=== PATIENT | female | born 1935 | race Caucasian/White ===

== ENCOUNTER 2017-07-08 19:20 | Emergency (ER) | payer OTHER ==
[2017-07-08] MEDS ORDERED: ACETAMINOPHEN 650MG/RECT SUPP PR ONE ×2 (19:42→19:50)
[2017-07-08] MEDS ORDERED: NA CHLORIDE 0.9% 1,000 ML ONE (19:42)
[2017-07-08] MEDS ORDERED: NA CHLORIDE 0.9% 100 ML IV ONE (19:53)
[2017-07-08] MEDS ORDERED: Levofloxacin500mg IV 500 MG/100 ML BAG IV ONE (19:53)
[2017-07-08] MEDS ORDERED: CEFEPIME 2 GM VIAL ONE (19:53)
[2017-07-08] MEDS ORDERED: NA CHLORIDE 0.9% 2,000 ML ONE (20:07)
[2017-07-08 20:09] LABS: Absolute Lymphocytes (CBC) 0.4 K/uL (0.7-4.9); Absolute Monocytes 0.1 K/uL (0.1-1.3); Absolute Neutrophil 10.4 K/uL (1.8-8.0); Basophils % 0.1 % (0-1.3); Eosinophils % 0.1 % (0-4.4); Hematocrit 10.8 % (36.0-45.0); Lymphocytes % 3.5 % (15.3-44.8); MCH 29.6 pg (27.0-35.0); MCV 85.1 fL (80-100); MPV 7.8 fL (7.6-11.3); Monocytes % 0.9 % (3.3-12.3); RBC Red Blood Cell Count 1.27 M/uL (3.86-4.86)
[2017-07-08 20:23] LABS: Potassium 3.7 mEq/L (3.6-5.0)
--- NOTE | 2017-07-08 20:23 | ER ---
Nurse's Notes [facility] Name: Darling Bianchi Age: 82 yrs Sex: Female : 1935 Arrival Date: 07/08/2017 Time: 19:21 Bed 3 Private MD: Diagnosis: Hydronephrosis with renal and ureteral calculous obstruction;Cholelithiasis;Fever, unspecified;Sepsis, unspecified organism;Atrial fibrillation and flutter;Altered mental status, unspecified;Hypomagnesemia;Acute tubulo-interstitial nephritis-obstructive;Coagulation defect, unspecified-coumadin therapy Presentation: 07/08 19:34 Presenting complaint: EMS states: Patient was at home with reported fever and altered tl1 mental status. Transition of care: patient was not received from another setting of care. Onset of symptoms was July 08, 2017. Care prior to arrival: None. 19:34 Method Of Arrival: EMS: [facility] tl1 19:34 Acuity: LYNDA 2 tl1 22:51 Mechanism of Injury: No Mechanism of Injury. tl1 Historical: - Allergies: 19:37 unknown antibiotic; tl1 19:46 Vancomycin; tl1 - Home Meds: 21:14 clonidine HCl 0.1 mg Oral tab 1 tab 2 times per day [Active]; warfarin 5 mg Oral tab 1 bb tab once daily [Active]; potassium chloride 10 mEq oral TbTQ [Active]; Stool Softener Oral 2 times per day [Active]; Eliquis 5 mg oral tab 1 tab 2 times per day [Active]; simvastatin 40 mg oral tab 1 tab once daily [Active]; furosemide 20 mg oral tab 1 tab once daily [Active]; sotalol 80 mg Oral tab 2 tabs [Active]; levothyroxine 25 mcg tab 1 tab once daily [Active]; donepezil 10 mg oral tab 1 tab once daily [Active]; losartan-hydrochlorothiazide 100-25 mg oral tab 1 tab once daily [Active]; vitaeyes [Active]; - PMHx: 19:37 aortic valve replacement 2010; Hyperlipidemia; Hypertension; tl1 - Immunization history:: Adult Immunizations unknown. - Social history:: Smoking status: Patient/guardian denies using tobacco. - Family history:: not pertinent. Screenin:43 Abuse screen: Denies threats or abuse. Denies injuries from another. Nutritional tl1 screening: No deficits noted. Tuberculosis screening: No symptoms or risk factors identified. Fall Risk IV access (20 points). Mental Status- Overestimates/Forgets Limitations (15 pts.). Assessment: 20:00 General: Appears distressed, Behavior is listless. Pain: Unable to use pain scale. tl1 Patient is disoriented. Neuro: Level of Consciousness is confused, lethargic, Oriented to none. Cardiovascular: Capillary refill < 3 seconds Rhythm is irregular. Respiratory: Airway is patent Trachea midline Respiratory effort is even, unlabored, Respiratory pattern is tachypnea Breath sounds are clear bilaterally. GI: Abdomen is non-distended, Stools are reported to be loose, Bowel sounds present X 4 quads. Abd is soft and non tender X 4 quads. : De La Fuente in place to gravity drainage Urine is samm blood. 23:40 Reassessment: report called to Nell Kinney RN at [facility] for 7 South 1 Bed 2. tl1 [phone]. 23:48 Reassessment: Patient and/or family updated on plan of care and expected duration. Pain tl1 level reassessed. Patient is alert, oriented x 3, equal unlabored respirations, skin warm/dry/pink. Patient states feeling better. Patient states symptoms have improved. 07/09 00:00 Reassessment: top and bottom dentures removed and given to daughter Sanjuana Ramirez tl1 [phone]. 00:52 Reassessment: Patient and/or family updated on plan of care and expected duration. Pain tl1 level reassessed. Patient is alert, oriented x 3, equal unlabored respirations, skin warm/dry/pink. Patient denies pain at this time. Patient states feeling better. Patient states symptoms have improved. : De La Fuente in place to gravity drainage samm blood. Vital Signs: 07/08 19:37 BP 126 / 85; Pulse 84; Resp 29; Temp 103.1(C); Pulse Ox 94% on R/A; Weight 99.79 kg; tl1 Height 5 ft. 7 in. (170.18 cm); Pain 0/10; 19:59 BP 110 / 66; Pulse 87; Resp 27; Temp 105.1(C); Pulse Ox 98% on 2 lpm NC; Pain 0/10; tl1 21:14 BP 116 / 58; Pulse 90; Resp 26; Temp 103(C); Pulse Ox 98% on 2 lpm NC; Pain 0/10; tl1 22:11 BP 132 / 109; Pulse 112; Resp 41; Temp 101.9(C); Pulse Ox 96% on 2 lpm NC; Pain 0/10; tl1 22:33 BP 99 / 46; Pulse 83; Resp 30; Temp 102(C); Pulse Ox 97% on BiPAP; Pain 0/10; tl1 22:39 BP 99 / 47; Pulse 83; tl1 07/09 00:01 BP 85 / 44; Pulse 94; Resp 38; Temp 101.2; Pulse Ox 98% on 2 lpm NC; Pain 0/10; tl1 00:51 BP 90 / 46; Pulse 88; Resp 24; Temp 100.9(C); Pulse Ox 97% on 2 lpm NC; Pain 0/10; tl1 07/08 19:37 Body Mass Index 34.46 (99.79 kg, 170.18 cm) tl1 NIH Stroke Scale Scores: 07/08 21:42 NIHSS Score: 0 maye ED Course: 19:21 Patient arrived in ED. em1 19:29 Rene Perales MD is Attending Physician. maye 19:34 Rosalee Colon, TREVIN is Primary Nurse. tl1 19:35 Triage completed. tl1 19:40 Initial lab(s) drawn, by me, sent to lab. First set of blood cultures drawn by me. cb2 19:58 Inserted saline lock: 22 gauge in right antecubital area, using aseptic technique. cb2 Blood collected. 20:00 No provider procedures requiring assistance completed. De La Fuente cath inserted, using tl1 sterile technique, 16 Fr., by ED staff, balloon inflated, to gravity drainage, urine specimen collected. returned bloody urine. Patient tolerated well. 20:00 Arm band placed on right wrist. tl1 20:00 Patient has correct armband on for positive identification. tl1 20:14 EKG done, by ED staff, reviewed by Rene Perales MD. cb2 20:19 XRAY Chest (1 view) In Process Unspecified. EDMS 20:19 X-ray completed. Portable x-ray completed in exam room. Patient tolerated procedure kc2 well. 20:20 Evan Phelps MD is Hospitalizing Provider. maye 20:22 Notified ED physician of a critical lab result(s). Hgb 3.8, Hct 10.8 Dr Diaz baum notified awaiting new orders. 20:29 Leonardo Lerma MD is Hospitalizing Provider. maye 21:32 Notified ED physician of other repeat Hgb 11.[address] Perales notified. bb 22:11 X-ray completed. Portable x-ray completed in exam room. Patient tolerated procedure kc2 well. 22:13 XRAY Chest (1 view) In Process Unspecified. EDMS 22:28 BIPAP Sent. tl1 23:45 Assisted provider with central line placement. Set up central line tray. Triple lumen tl1 line placed in right femoral. Line placed by Rene Perales MD Placement verified by blood return, Dressed with Tegaderm, Blood was collected. Patient tolerated well. 23:46 Patient transferred, IV remains in place. tl1 07/09 06:16 Primary Nurse role handed off by Rosalee Colon, TREVIN em1 Administered Medications: 07/08 19:45 Drug: Tylenol Suppository 650 mg Route: MO; tl1 22:41 Follow up: Response: No adverse reaction; Marked relief of symptoms; Temperature is tl1 decreased 19:50 CANCELLED (Duplicate Order): vancoMYCIN 1 grams IVPB once over 2 hrs maye 20:00 Drug: NS 0.9% (30 ml/kg) 30 ml/kg Route: IV; Rate: bolus; Site: left hand; tl1 22:32 Follow up: IV Status: Completed infusion tl1 20:04 Drug: Tylenol Suppository 650 mg Route: MO; tl1 22:40 Follow up: Response: No adverse reaction; Marked relief of symptoms; Temperature is tl1 decreased 20:24 Drug: levofloxacin 500 mg Volume: 100 ml; Route: IVPB; Infused Over: 60 mins; Site: tl1 right hand; 21:13 Follow up: IV Status: Completed infusion tl1 20:38 Drug: Cefepime 2 grams Route: IVPB; Rate: 200 ml/hr; Infused Over: 30 mins; Site: left tl1 hand; 21:13 Follow up: IV Status: Completed infusion tl1 21:00 Drug: ProTONIX 40 mg Route: IVP; Infused Over: 2 mins; Site: left hand; tl1 07/09 00:07 Follow up: Response: No adverse reaction; No change in condition tl1 07/08 21:01 Drug: Zofran 4 mg Route: IVP; Site: right hand; la1 22:38 Follow up: Response: No adverse reaction; Marked relief of symptoms; Nausea is decreasedtl1 21:12 Drug: Motrin 600 mg Route: PO; tl1 22:38 Follow up: Response: No adverse reaction; Marked relief of symptoms; Temperature is tl1 decreased 21:49 Drug: Lopressor 2.5 mg Route: IVP; Infused Over: 5 mins; Site: left hand; tl1 22:39 Follow up: BP 99 / 47; Pulse 83 bpm tl1 21:49 Drug: Magnesium Sulfate 1 grams Route: IVPB; Infused Over: 1 hrs; Site: right hand; tl1 23:55 Follow up: IV Status: Completed infusion tl1 21:50 Drug: Lopressor 25 mg Route: PO; tl1 22:38 Follow up: Response: No adverse reaction; Marked relief of symptoms tl1 21:57 Drug: Digoxin 0.5 mg Route: IVP; Infused Over: 5 mins; Site: left hand; tl1 22:37 Follow up: Response: No adverse reaction; Marked relief of symptoms tl1 22:09 Drug: Lopressor 2.5 mg Route: IVP; Infused Over: 5 mins; Site: left hand; tl1 22:37 Follow up: Response: No adverse reaction; Marked relief of symptoms tl1 23:55 Drug: Levophed (4 mg/250 mL D5W 4 mcg/min Route: IV; Rate: calculated rate; Site: Other;tl1 07/09 00:54 Follow up: IV Status: Infusion continued upon transfer tl1 00:07 Not Given (Duplicate Order): Pepcid 20 mg IVP once tl1 Outcome: 07/08 20:23 Decision to Hospitalize by Provider. maye 21:39 ER care complete, transfer ordered by . maye 23:48 Transferred by ground EMS to [facility], Transfer form completed. tl1 X-rays sent w/ patient. 23:48 Condition: stable 23:48 Instructed on the need for transfer. 07/09 00:55 Patient left the ED. tl1 06:20 Patient left the ED. em1 NIH Stroke Scale - NIH Stroke Score Date: 07/08/2017 Time: 21:42 Total Score = 0 1a. Level of Consciousness (LOC) - 0(Alert) 1b. Level of Consciousness (LOC) (Year \T\ Age) - 0(Both) 1c. LOC Commands (Open \T\ Closes Eyes/Lasting Room Machine Operator) - 0(Both) 2. Best Gaze (Lateral Gaze Paresis) - 0(Normal) 3. Visual Field Loss - 0(No visual loss) 4. Facial Palsy - 0(Normal) 5a. Left Arm: Motor (10-second hold) - 0(No drift) 5b. Right Arm: Motor (10-second hold) - 0(No drift) 6a. Left Leg: Motor (5-second hold - always test supine) - 0(No drift) 6b. Right Leg: Motor (5-second hold - always test supine) - 0(No drift) 7. Limb Ataxia (finger/nose \T\ heel/rubalcava - test with eyes open) - 0(Absent) 8. Sensory Loss (pinprick arms/legs/face) - 0(Normal) 9. Best Language: Aphasia (description/naming/reading) - 0(No aphasia) 10. Dysarthria (speech clarity - read or repeat words) - 0(Normal) 11. Extinction and Inattention (visual/tactile/auditory/spatial/personal) - 0(No abnormality) Initials: maye Addendum: 07/11/2017 11:41 Addendum: Culture Results: Positive urine culture. Positive blood culture. Phone call Attempt #[address] over [address] [facility] to [phone]. Signatures: Dispatcher [employer] Rene Lyons MD MD cha Ballard, Brenda, RN RN bb Martinez, Eric em1 Maty Lynn RN RN ss Willie Gregory RN RN la1 Lasagna, Tonya, RN RN edson1 Nazanin Price Christian cb2 Corrections: (The following items were deleted from the chart) 07/08 22:31 20:04 NS 0.9% (30 ml/kg) 30 ml/kg IV at bolus in left hand tl1 tl1 22:31 22:10 IV Status: Completed infusion tl1 tl1 22:31 22:29 IV Status: Completed infusion tl1 tl1
--- NOTE | 2017-07-08 20:23 | EDPHYS ---
Physician Documentation [facility] Name: Darling Bianchi Age: 82 yrs Sex: Female : 1935 Arrival Date: 07/08/2017 Time: 19:21 Bed 3 Private MD: ED Physician Rene Perales HPI: 07/08 19:39 This 82 yrs old Female presents to ER via EMS with complaints of ams and maye fever. 19:39 The patient presents with confusion, decreased mental status. Onset: The maye symptoms/episode began/occurred 2 day(s) ago. Possible causes: sepsis, the patient has had a history of a fever, reportedly as high as 102 degrees Fahrenheit. Associated signs and symptoms: The patient has no apparent associated signs or symptoms. Current symptoms: In the emergency department the patient's symptoms are unchanged from the initial presentation. The patient reports fever, that was measured at 102 degrees Fahrenheit. Onset: The symptoms/episode began/occurred yesterday. Modifying factors: there are no obvious modifying factors. Patient's baseline: Neuro: alert and fully oriented. Severity of symptoms: At their worst the symptoms were moderate in the emergency department the symptoms are unchanged. Historical: - Allergies: 19:37 unknown antibiotic; tl1 19:46 Vancomycin; tl1 - Home Meds: 21:14 clonidine HCl 0.1 mg Oral tab 1 tab 2 times per day [Active]; warfarin 5 mg Oral tab 1 bb tab once daily [Active]; potassium chloride 10 mEq oral TbTQ [Active]; Stool Softener Oral 2 times per day [Active]; Eliquis 5 mg oral tab 1 tab 2 times per day [Active]; simvastatin 40 mg oral tab 1 tab once daily [Active]; furosemide 20 mg oral tab 1 tab once daily [Active]; sotalol 80 mg Oral tab 2 tabs [Active]; levothyroxine 25 mcg tab 1 tab once daily [Active]; donepezil 10 mg oral tab 1 tab once daily [Active]; losartan-hydrochlorothiazide 100-25 mg oral tab 1 tab once daily [Active]; vitaeyes [Active]; - PMHx: 19:37 aortic valve replacement 2010; Hyperlipidemia; Hypertension; tl1 - Immunization history:: Adult Immunizations unknown. - Social history:: Smoking status: Patient/guardian denies using tobacco. - Family history:: not pertinent. ROS: 19:39 Eyes: Negative for injury, pain, redness, and discharge, ENT: Negative for injury, maye pain, and discharge, Neck: Negative for injury, pain, and swelling, Cardiovascular: Negative for chest pain, palpitations, and edema, Respiratory: Negative for shortness of breath, cough, wheezing, and pleuritic chest pain, Abdomen/GI: Negative for abdominal pain, nausea, vomiting, diarrhea, and constipation, Back: Negative for injury and pain, : Negative for injury, bleeding, discharge, and swelling, MS/Extremity: Negative for injury and deformity, Skin: Negative for injury, rash, and discoloration, Psych: Negative for depression, anxiety, suicide ideation, homicidal ideation, and hallucinations, Allergy/Immunology: Negative for hives, rash, and allergies, Endocrine: Negative for neck swelling, polydipsia, polyuria, polyphagia, and marked weight changes, Hematologic/Lymphatic: Negative for swollen nodes, abnormal bleeding, and unusual bruising. 19:39 Constitutional: Positive for body aches, chills, malaise. 19:39 Neuro: Positive for altered mental status, weakness. Exam: 19:39 Head/Face: Normocephalic, atraumatic. Eyes: Pupils equal round and reactive to light, maye extra-ocular motions intact. Lids and lashes normal. Conjunctiva and sclera are non-icteric and not injected. Cornea within normal limits. Periorbital areas with no swelling, redness, or edema. ENT: Nares patent. No nasal discharge, no septal abnormalities noted. Tympanic membranes are normal and external auditory canals are clear. Oropharynx with no redness, swelling, or masses, exudates, or evidence of obstruction, uvula midline. Mucous membranes moist. Neck: Trachea midline, no thyromegaly or masses palpated, and no cervical lymphadenopathy. Supple, full range of motion without nuchal rigidity, or vertebral point tenderness. No Meningismus. Chest/axilla: Normal chest wall appearance and motion. Nontender with no deformity. No lesions are appreciated. Cardiovascular: Regular rate and rhythm with a normal S1 and S2. No gallops, murmurs, or rubs. Normal PMI, no JVD. No pulse deficits. Respiratory: Lungs have equal breath sounds bilaterally, clear to auscultation and percussion. No rales, rhonchi or wheezes noted. No increased work of breathing, no retractions or nasal flaring. Abdomen/GI: Soft, non-tender, with normal bowel sounds. No distension or tympany. No guarding or rebound. No evidence of tenderness throughout. Back: No spinal tenderness. No costovertebral tenderness. Full range of motion. Skin: Warm, dry with normal turgor. Normal color with no rashes, no lesions, and no evidence of cellulitis. MS/ Extremity: Pulses equal, no cyanosis. Neurovascular intact. Full, normal range of motion. Psych: Awake, alert, with orientation to person, place and time. Behavior, mood, and affect are within normal limits. 19:39 Constitutional: The patient appears febrile, lethargic. 19:39 Neck: ROM/movement: is normal, no acute changes, Meningeal signs: are not present, Kernig's sign is negative, Brudzinski's sign is negative. 19:39 Neuro: Orientation: Not oriented to person, place, time, situation, Mentation: slow to respond, confused, Memory: unable to test, Motor: moves all fours, Gait: not tested. Babinski testing is normal. Vital Signs: 19:37 BP 126 / 85; Pulse 84; Resp 29; Temp 103.1(C); Pulse Ox 94% on R/A; Weight 99.79 kg; tl1 Height 5 ft. 7 in. (170.18 cm); Pain 0/10; 19:59 BP 110 / 66; Pulse 87; Resp 27; Temp 105.1(C); Pulse Ox 98% on 2 lpm NC; Pain 0/10; tl1 21:14 BP 116 / 58; Pulse 90; Resp 26; Temp 103(C); Pulse Ox 98% on 2 lpm NC; Pain 0/10; tl1 22:11 BP 132 / 109; Pulse 112; Resp 41; Temp 101.9(C); Pulse Ox 96% on 2 lpm NC; Pain 0/10; tl1 22:33 BP 99 / 46; Pulse 83; Resp 30; Temp 102(C); Pulse Ox 97% on BiPAP; Pain 0/10; tl1 22:39 BP 99 / 47; Pulse 83; tl1 07/09 00:01 BP 85 / 44; Pulse 94; Resp 38; Temp 101.2; Pulse Ox 98% on 2 lpm NC; Pain 0/10; tl1 00:51 BP 90 / 46; Pulse 88; Resp 24; Temp 100.9(C); Pulse Ox 97% on 2 lpm NC; Pain 0/10; tl1 07/08 19:37 Body Mass Index 34.46 (99.79 kg, 170.18 cm) tl1 NIH Stroke Scale Scores: 07/08 21:42 NIHSS Score: 0 [facility] Procedures: 22:17 Peripheral line: by aseptic technique a peripheral line was placed in the right maye external jugular vein. 23:45 Central Line: the site was prepped with Betadine, in sterile fashion, a triple lumen maye catheter was inserted, in the right femoral vein, in 5 attempts. placement was verified, by blood return, the site was dressed with using sterile technique, the patient tolerated the procedure, well. MDM: 19:29 Patient medically screened. [facility] 19:42 Data reviewed: vital signs, nurses notes, lab test result(s), EKG, radiologic studies, [facility] CT scan, plain films. 07/08 19:36 Order name: Basic Metabolic Panel; Complete Time: 21:30 [facility] 07/08 19:36 Order name: BNP [facility] 07/08 19:36 Order name: CBC with Diff; Complete Time: 21:30 [facility] 07/08 19:36 Order name: Ckmb; Complete Time: 21:30 [facility] 07/08 19:36 Order name: CPK; Complete Time: 21:30 [facility] 07/08 19:36 Order name: LFT's; Complete Time: 21:30 [facility] 07/08 19:36 Order name: Magnesium; Complete Time: 21:30 [facility] 07/08 19:36 Order name: PT-INR; Complete Time: 21:56 [facility] 07/08 19:36 Order name: Ptt, Activated; Complete Time: 21:56 [facility] 07/08 19:36 Order name: Troponin (emerg Dept Use Only); Complete Time: 20:31 [facility] 07/08 19:36 Order name: Blood Culture Adult (2) [facility] 07/08 19:36 Order name: Lactate; Complete Time: 20:31 [facility] 07/08 19:36 Order name: Lipase; Complete Time: 21:30 [facility] 07/08 19:36 Order name: XRAY Chest (1 view); Complete Time: 21:30 [facility] 07/08 20:22 Order name: CBC Smear Scan; Complete Time: 21:30 EDMS 07/08 20:27 Order name: Type And Screen; Complete Time: 21:56 [facility] 07/08 20:27 Order name: CT Traumagram (Head C Spine CAP wo con) [facility] 07/08 20:31 Order name: CBC with Diff; Complete Time: 21:33 [facility] 07/08 20:34 Order name: Head C Spine Cap Wo Con; Complete Time: 21:30 EDMS 07/08 22:05 Order name: XRAY Chest (1 view) 07/08 22:06 Order name: BIPAP 07/08 23:44 Order name: Lactate ao 07/09 06:18 Order name: Urine Culture [facility] 07/09 06:18 Order name: Urine Culture em1 07/08 19:36 Order name: EKG; Complete Time: 19:37 [facility] 07/08 19:36 Order name: Cardiac monitoring; Complete Time: 19:58 [facility] 07/08 19:36 Order name: EKG - Nurse/Tech; Complete Time: 20:05 [facility] 07/08 19:36 Order name: IV Saline Lock; Complete Time: 19:58 [facility] 07/08 19:36 Order name: Labs collected and sent; Complete Time: 19:58 [facility] 07/08 19:36 Order name: O2 Per Protocol; Complete Time: 19:59 [facility] 07/08 19:36 Order name: O2 Sat Monitoring; Complete Time: 19:59 [facility] 07/08 19:36 Order name: Urine Dipstick-Ancillary (obtain specimen); Complete Time: 19:59 [facility] 07/08 19:36 Order name: De La Fuente; Complete Time: 19:40 [facility] 07/08 19:50 Order name: Ice pack; Complete Time: 20:05 [facility] Administered Medications: 19:45 Drug: Tylenol Suppository 650 mg Route: IN; tl1 22:41 Follow up: Response: No adverse reaction; Marked relief of symptoms; Temperature is tl1 decreased 19:50 CANCELLED (Duplicate Order): vancoMYCIN 1 grams IVPB once over 2 hrs maye 20:00 Drug: NS 0.9% (30 ml/kg) 30 ml/kg Route: IV; Rate: bolus; Site: left hand; tl1 22:32 Follow up: IV Status: Completed infusion tl1 20:04 Drug: Tylenol Suppository 650 mg Route: IN; tl1 22:40 Follow up: Response: No adverse reaction; Marked relief of symptoms; Temperature is tl1 decreased 20:24 Drug: levofloxacin 500 mg Volume: 100 ml; Route: IVPB; Infused Over: 60 mins; Site: tl1 right hand; 21:13 Follow up: IV Status: Completed infusion tl1 20:38 Drug: Cefepime 2 grams Route: IVPB; Rate: 200 ml/hr; Infused Over: 30 mins; Site: left tl1 hand; 21:13 Follow up: IV Status: Completed infusion tl1 21:00 Drug: ProTONIX 40 mg Route: IVP; Infused Over: 2 mins; Site: left hand; tl1 07/09 00:07 Follow up: Response: No adverse reaction; No change in condition tl1 07/08 21:01 Drug: Zofran 4 mg Route: IVP; Site: right hand; la1 22:38 Follow up: Response: No adverse reaction; Marked relief of symptoms; Nausea is decreasedtl1 21:12 Drug: Motrin 600 mg Route: PO; tl1 22:38 Follow up: Response: No adverse reaction; Marked relief of symptoms; Temperature is tl1 decreased 21:49 Drug: Lopressor 2.5 mg Route: IVP; Infused Over: 5 mins; Site: left hand; tl1 22:39 Follow up: BP 99 / 47; Pulse 83 bpm tl1 21:49 Drug: Magnesium Sulfate 1 grams Route: IVPB; Infused Over: 1 hrs; Site: right hand; tl1 23:55 Follow up: IV Status: Completed infusion tl1 21:50 Drug: Lopressor 25 mg Route: PO; tl1 22:38 Follow up: Response: No adverse reaction; Marked relief of symptoms tl1 21:57 Drug: Digoxin 0.5 mg Route: IVP; Infused Over: 5 mins; Site: left hand; tl1 22:37 Follow up: Response: No adverse reaction; Marked relief of symptoms tl1 22:09 Drug: Lopressor 2.5 mg Route: IVP; Infused Over: 5 mins; Site: left hand; tl1 22:37 Follow up: Response: No adverse reaction; Marked relief of symptoms tl1 23:55 Drug: Levophed (4 mg/250 mL D5W 4 mcg/min Route: IV; Rate: calculated rate; Site: Other;tl1 07/09 00:54 Follow up: IV Status: Infusion continued upon transfer tl1 00:07 Not Given (Duplicate Order): Pepcid 20 mg IVP once tl1 Disposition: 07/08/17 21:39 Transfer ordered to [facility]. Diagnosis are Hydronephrosis with renal and ureteral calculous obstruction, Cholelithiasis, Fever, unspecified, Sepsis, unspecified organism, Atrial fibrillation and flutter, Altered mental status, unspecified, Hypomagnesemia, Acute tubulo-interstitial nephritis - obstructive, Coagulation defect, unspecified - coumadin therapy. - Reason for transfer: Higher level of care. - Accepting physician is to [facility]. - Condition is Serious. - Problem is new. - Symptoms have improved. NIH Stroke Scale - NIH Stroke Score Date: 07/08/2017 Time: 21:42 Total Score = 0 1a. Level of Consciousness (LOC) - 0(Alert) 1b. Level of Consciousness (LOC) (Year \T\ Age) - 0(Both) 1c. LOC Commands (Open \T\ Closes Eyes/Liberal Arts Dean) - 0(Both) 2. Best Gaze (Lateral Gaze Paresis) - 0(Normal) 3. Visual Field Loss - 0(No visual loss) 4. Facial Palsy - 0(Normal) 5a. Left Arm: Motor (10-second hold) - 0(No drift) 5b. Right Arm: Motor (10-second hold) - 0(No drift) 6a. Left Leg: Motor (5-second hold - always test supine) - 0(No drift) 6b. Right Leg: Motor (5-second hold - always test supine) - 0(No drift) 7. Limb Ataxia (finger/nose \T\ heel/rubalcava - test with eyes open) - 0(Absent) 8. Sensory Loss (pinprick arms/legs/face) - 0(Normal) 9. Best Language: Aphasia (description/naming/reading) - 0(No aphasia) 10. Dysarthria (speech clarity - read or repeat words) - 0(Normal) 11. Extinction and Inattention (visual/tactile/auditory/spatial/personal) - 0(No abnormality) Initials: maye Signatures: Dispatcher [employer] EDMS Migdalia Juarez RN RN mw Anderson, Corey, MD MD cha Ballard, Brenda, RN RN Yaniv Nails em1 Willie Gregory RN RN la1 Rosalee Colon RN RN tl1 Corrections: (The following items were deleted from the chart) 07/08 19:46 19:37 Procalcitonin+C.LAB.BRZ ordered. EDMS EDMS 19:50 19:36 vancoMYCIN 1 grams IVPB once over 2 hrs ordered. [facility] 21:41 20:27 Blood Transfusion Consent ordered. [facility]
[2017-07-08 20:30] LABS: Albumin 2.9 g/dL (3.2-5.5); Bilirubin Direct 0.6 mg/dL (0-0.2); Bilirubin Total 1.7 mg/dL (0.3-1.2); Magnesium 1.6 mg/dL (1.8-2.5); Protein, Total 6.9 g/dL (6.0-8.3)
[2017-07-08 20:31] LABS: CKMB Creatine Kinase MB 0.6 ng/ml (0.3-4.0)
[2017-07-08] MEDS ORDERED: IBUPROFEN 200 MG TAB PO ONE (20:55)
[2017-07-08] MEDS ORDERED: ONDANSETRON 4 MG/2 ML VIAL ONE (20:59)
--- NOTE | 2017-07-08 21:02 | RAD REPORT ---
EXAM DESCRIPTION: RAD - Chest Single View - 07/08/2017 8:19 pm CLINICAL HISTORY: Cough, fever, altered mental status COMPARISON: September 2016 TECHNIQUE: AP portable chest image was obtained 2015 hours . FINDINGS: No peripheral mass or consolidation. Heart size is fractionally increased over the compari son. Vasculature is minimally prominent. No measurable pleural effusion and no pneumothorax. No gross bony abnormality seen. No acute aortic findings suspected. IMPRESSION: No peripheral mass or consolidation. Mild prominence of the vasculature and lung markings present. This is not substantially different but could indicated minimal interstitial edema or infiltrate.
[2017-07-08 21:12] LABS: Anisocytosis SLIGHT; Blood Morphology Comment NOTED (NOT SEEN); Hypochromasia 1+; Platelet Estimate INCR; Urine White Blood Cell Casts OK
[2017-07-08 21:15] LABS: Absolute Lymphocytes (CBC) 0.1 K/uL (0.7-4.9); Absolute Monocytes 0.1 K/uL (0.1-1.3); Absolute Neutrophil 9.4 K/uL (1.8-8.0); Basophils % 0.1 % (0-1.3); Eosinophils % 0.1 % (0-4.4); Hematocrit 33.6 % (36.0-45.0); Lymphocytes % 1.5 % (15.3-44.8); MCH 28.8 pg (27.0-35.0); MCV 85.3 fL (80-100); MPV 7.7 fL (7.6-11.3); Monocytes % 0.8 % (3.3-12.3); RBC Red Blood Cell Count 3.94 M/uL (3.86-4.86)
--- NOTE | 2017-07-08 21:22 | RAD REPORT ---
EXAM DESCRIPTION: CT - Head C Spine Cap Wo Con - 07/08/2017 9:07 pm CLINICAL HISTORY: Altered mental status, suspected trauma COMPARISON: None. TECHNIQUE: Axial [address] head images were obtained. Axial [address] cervical spine images were obtain ed with sagittal and coronal reconstruction images reviewed. Axial 5 mm images of the chest, abdomen and pelvis were obtained. All CT scans are performed using dose optimization technique as appropriate and may include automated exposure control or mA/KV adjustment according to patient size. FINDINGS: No intracranial hemorrhage, mass or edema. No midline shift or abnormal fluid collection. Mastoid air cells and paranasal sinuses are clear. No skull fracture. No acute cortical based infarc tion seen. Patient has moderate severity atrophy and chronic ischemic change. Ventricular size is in proportion to the volume loss. Cervical bodies are normal in height and alignment. No fracture or acute bone finding.C6-7 disc space narrowing present. Facet degenerative changes are present.No prevertebral soft tissue thickening or paraspinal mass.Central canal detail is inherently limited on CT imaging. CT chest shows no pneumothorax, pulmonary contusion or pleural fluid collection. Atelectasis is prese nt in the posterior left lung base. No mediastinal hematoma and the aorta and pulmonary arteries are unremarkable. No chest will mass or abnormal axillary finding. No displaced rib fracture or other sig nificant bony finding. Dense aortic and mitral valve calcifications are present. Dense Coronary madeleine ry calcifications also seen. Aortic calcifications present without aneurysm. The liver, spleen and pancreas show no acute findings on noncontrast imaging. Large gallstone is pres ent within the lumen of the gallbladder. No biliary tree dilatation. There is motion degradation as w ell as overlying arm artifact. Acute cholecystitis cannot be excluded. No hydronephrosis or acute lef t renal finding. There are nonobstructing calyx and pelvis calcifications on the left. Similar calcif ications are present in the right kidney which has an edematous appearance. There is a 10 millimeter calcification at the UPJ. Mild pelvic and calyceal dilatation is present. No distal ureter calcificat ion. Urinary bladder is fully contracted around a De La Fuente catheter. No bowel injury or significant finding. No free air, free fluid or pneumatosis. No hernia, mass or bu lky lymphadenopathy. Osteopenic and degenerative changes are present throughout the thoracic and lumbar spine. There is ap proximately 80% compression fracture deformity of the L4 body. This vertebra plana configuration appe ars to be chronic. Age remains indeterminate. IMPRESSION: Mild hydronephrosis of the right side pelvis and calices secondary to a 10 mm UPJ calcul us. There are additional calcifications in the right kidney up to 19 mm in size. Right kidney appears edematous as well. This could be secondary to the obstruction. Right-sided pyelo nephritis cannot be excluded. Large gallstone is present. Cobb of the gallbladder are not well defined and there may be gallbladde r wall thickening and edema. Correlation is needed for any acute cholecystitis findings. Chronic head and spine findings are present. Approximately 80% compression fracture deformity of the L4 body suspected to be chronic low though th e age is indeterminate.
[2017-07-08] MEDS ORDERED: METOPROLOL TAR 25 MG TAB ONE (21:39)
[2017-07-08] MEDS ORDERED: METOPROLOL TARTRATE 5 MG/5 ML INJ IV ONE (21:40)
[2017-07-08] MEDS ORDERED: DIGOXIN 0.25 MG/ML AMP ONE (21:40)
[2017-07-08] MEDS ORDERED: MAGNESIUM SULFATE 1 gm IVPB 1 GM/100 ML BAG IV ONE (21:40)
[2017-07-08] MEDS ORDERED: PANTOPRAZOLE 40 MG INJ ONE (21:40)
[2017-07-08 21:41] LABS: Protime INR 2.27
[2017-07-08] MEDS ORDERED: NOREPINEPHRINE 4mg/D5W 250mL 4 MG/250 ML BAG IV ONE (23:01)
[2017-07-09 06:33] LABS: Urine Appearance TURBID; Urine Bilirubin NEGATIVE (NEG); Urine Color AMBER; Urine Glucose NEGATIVE (NEG)
[2017-07-09 06:34] LABS: Urine Blood 3+ (NEG); Urine Protein 3+ (NEG); Urine Urobilinogen 0.2 mg/dL (0.2-1.0); Urine pH 8.5 (5.0-7.0)
[2017-07-09 06:35] LABS: Urine Bacteria >50 /HPF (<20); Urine Culture Reflex Order NOT NEEDED; Urine RBC TNTC /HPF (NONE SEEN)
--- NOTE | 2017-07-09 07:41 | RAD REPORT ---
EXAM DESCRIPTION: RAD - Chest Single View - 07/08/2017 10:14 pm CLINICAL HISTORY: Dyspnea COMPARISON: July 08 TECHNIQUE: AP portable chest image was obtained 2203 hours . FINDINGS: Lung volumes are low accentuating heart, vasculature and lung markings. Chronic interstiti al pattern is not substantially different when adjusting for the shallow inspiration. No peripheral m ass or consolidation. Significant failure is not suspected. Heart and vasculature are normal. No mabel urable pleural effusion and no pneumothorax. No gross bony abnormality seen. No acute aortic findings suspected. IMPRESSION: No new or progressive cardiopulmonary process. Lung markings are accentuated by shallow inspiration. Significant change from July 08 is not suspect ed.
--- NOTE | 2017-07-09 08:27 | EKG ---
Test Date: 2017-07-08 Test Time: 20:10:22 Stock Preparation Supervisor: SOO MEASUREMENT RESULTS: Intervals: Rate: 81 AK: 220 QRSD: 86 QT: 394 QTc: 457 [place]: P: 85 AK: 220 QRS: -38 T: 49 INTERPRETIVE STATEMENTS: Sinus rhythm with 1st degree AV block with premature supraventricular complexes Left axis deviation Anteroseptal infarct, age undetermined Abnormal ECG Compared to ECG 10/19/2016 02:38:07 First degree AV block now present Myocardial infarct finding now present Ventricular premature complex(es) no longer present Electronically Signed On 07-09-17 08:25:41 CDT by Jay Solano
--- NOTE | 2017-07-09 08:27 | EKG ---
Test Date: 2017-07-08 Test Time: 21:29:41 Wildlife Technician: MEASUREMENT RESULTS: Intervals: Rate: 118 VT: QRSD: 90 QT: 374 QTc: 524 [place]: P: VT: QRS: -30 T: 118 INTERPRETIVE STATEMENTS: Atrial fibrillation with rapid ventricular response Left axis deviation Low voltage QRS Cannot rule out Anteroseptal infarct, age undetermined Prolonged QT Abnormal ECG Compared to ECG 07/08/2017 20:10:22 Low QRS voltage now present Prolonged QT interval now present Sinus rhythm no longer present Atrial premature complex(es) no longer present First degree AV block no longer present Myocardial infarct finding still present Electronically Signed On 07-09-17 08:25:37 CDT by Jay Solano
== END 2017-07-09 06:20 | disposition short-term general hospital (02) ==
LOC: ER 19:20 → ERHOLD 20:23 → UNDOADMIN 20:23 → ERHOLD 21:15 → 4TH 21:15 → ER 07-09 00:55
PROC: 05HP33Z Insertion of Infusion Device into Right External Jugular Vein, Percutaneous Approach (ICD-10-PCS; principal; 2017-07-08)
PROC: 06HM33Z Insertion of Infusion Device into Right Femoral Vein, Percutaneous Approach (ICD-10-PCS; 2017-07-08)
DX: A41.9 Sepsis, unspecified organism (principal); N12 Tubulo-interstitial nephritis, not specified as acute or chronic; N13.2 Hydronephrosis with renal and ureteral calculous obstruction; K80.20 Calculus of gallbladder without cholecystitis without obstruction; I48.91 Unspecified atrial fibrillation; I48.92 Unspecified atrial flutter; E83.42 Hypomagnesemia; D68.9 Coagulation defect, unspecified; E78.5 Hyperlipidemia, unspecified; I10 Essential (primary) hypertension; Z79.01 Long term (current) use of anticoagulants; Z88.3 Allergy status to other anti-infective agents; Z95.4 Presence of other heart-valve replacement
CPT/HCPCS: 36415; 36556; 36569; 70450; 71045 ×2; 71250; 72125; 80048; 80076; 81001; 82550; 82553; 83605 ×2; 83690; 83735; 83880; 84484; 85025 ×2; 85610; 85730; 86850; 86900; 86901; 87040 ×2; 87086; 87088; 87205 ×3; 93005 ×2; 94660; C9113; J0692; J1160; J2405; J3475; J7030 ×2; 51702; 87077; 87186; 99285

== ENCOUNTER 2017-09-06 20:40 | Inpatient (IN) | payer OTHER ==
--- OUTSIDE RECORDS SUMMARY | 2017-09-06 20:42 | XMS REPORT | Clinical Summary ---
:1935 Author Organization [facility] Address [address] [place] [address] Phone Care Team Providers Name Role Phone Unavailable Primary Care Provider Unavailable Allergies Active Allergy Reactions Severity Noted Date Comments Vancomycin Analogues Other (See Comments) 07/09/2017 Red man syndrome Current Medications Prescription Sig. Disp. Refills Start Date End Date Status docusate sodium Take 100 mg by Active (COLACE) 100 MG mouth 2 (two) capsule times daily. apixaban (ELIQUIS) Take 5 mg by mouth Active 5 mg Tab tablet 2 (two) times daily. simvastatin Take 40 mg by Active (ZOCOR) 40 MG mouth nightly. tablet levothyroxine Take 25 mcg by Active (SYNTHROID, mouth Every LEVOTHROID) 25 MCG morning on an tablet empty stomach. donepezil Take 10 mg by Active (ARICEPT) 10 MG mouth nightly. tablet acetaminophen Take 2 tablets 30 tablet 0 07/18/2017 07/14/19 Active (TYLENOL) 325 MG (650 mg total) by 19 tablet mouth every 6 (six) hours as needed for up to 360 days. carvedilol (COREG) Take 1 tablet 0 07/18/2017 07/19/19 Active 6.25 MG tablet (6.25 mg total) by 19 mouth 2 (two) times daily with breakfast and dinner. digoxin (LANOXIN) Take 1 tablet (125 0 07/19/2017 07/20/19 Active 0.125 MG tablet mcg total) by 19 mouth daily. amiodarone Take 1 tablet (200 0 07/21/2017 07/22/19 Active (PACERONE) 200 MG mg total) by mouth 19 tablet 2 (two) times daily. furosemide (LASIX) Take 3 tablets (60 20 tablet 0 07/19/2017 Active 20 MG tablet mg total) by mouth 2 (two) times daily. potassium chloride Take 1 tablet (20 0 07/19/2017 Active SA mEq total) by (K-DUR,KLOR-CON) mouth daily. 20 MEQ tablet cloNIDine HCl Take 0.1 mg by 07/19/19 Discontinued (CATAPRES) 0.1 MG mouth 2 (two) 18 tablet times daily. potassium chloride Take 10 mEq by 07/20/19 Discontinued SA mouth 3 (three) 18 (K-DUR,KLOR-CON) times a week at 20 MEQ tablet bedtime. furosemide (LASIX) Take 20 mg by 07/20/19 Discontinued 20 MG tablet mouth 2 (two) 18 times daily. sotalol AF Take 80 mg by 07/20/19 Discontinued (BETAPACE AF) 80 mouth 2 (two) 18 MG tablet times daily. losartan-hydroCHLO Take 1 tablet by 07/19/19 Discontinued ROthiazide mouth daily. 18 (HYZAAR) 100-25 mg per tablet ertapenem (INVANZ) Inject 1 g 1 each 0 07/18/2017 07/24/19 1 gram injection intravenously 18 daily for 5 days. amiodarone Take 1 tablet (400 0 07/19/2017 07/22/19 (PACERONE) 400 MG mg total) by mouth 18 tablet 2 (two) times daily for 2 days. Active Problems Problem Noted Date Gram-negative bacteremia 07/11/2017 Moderate to severe mitral regurgitation 07/10/2017 S/P TAVR (transcatheter aortic valve replacement) 07/10/2017 Septic shock ([facility]) 07/09/2017 Hydronephrosis with ureteropelvic junction (UPJ) obstruction 07/09/2017 Nephrolithiasis 07/09/2017 Atrial fibrillation, rapid ([facility]) 07/09/2017 Coagulopathy ([facility]) 07/09/2017 Encounters Date Type Specialty Care Team Description 07/09/2017 - Hospital Encounter Cardiology Minor, Septic shock 07/19/2017 Sterling ([facility]);Atrial MD Josiah fibrillation, rapid Maddie Evans ([facility]);Coagulopathy MD Andrae ([facility]);Hydronephrosis Davy Abad with ureteropelvic MD Enmanuel junction (UPJ) obstruction;Nephroli thiasis;Moderate to severe mitral regurgitation;Positi ve blood culture;Left renal mass 07/09/2017 Anesthesia Event FlamBlake MD 07/09/2017 Procedure Pass 07/09/2017 Surgery Real Cantrell CYSTOSCOPY,INSERTION MD Carlos URETERAL STENTS 07/09/2017 Orders Only General Internal Medicine 07/08/2017 Telephone Critical Care Minor, [id number] Call Medicine Sterling Rahman MD after 09/05/2016 Social History Tobacco Use Types Packs/Day Years Used Date Never Assessed Sex Assigned at Date Recorded Not on file Last Filed Vital Signs Vital Sign Reading Time Taken Blood Pressure 108/56 07/19/2017 7:15 AM CDT Pulse 80 07/19/2017 7:15 AM CDT Temperature 35.7 C (96.2 F) 07/19/2017 7:15 AM CDT Respiratory Rate 18 07/19/2017 7:15 AM CDT Oxygen Saturation 100% 07/19/2017 7:15 AM CDT Inhaled Oxygen Concentration - - Weight 90.3 kg (199 lb 1.6 oz) 07/17/2017 7:28 AM CDT Height 172.7 cm (5' 8") 07/09/2017 11:00 AM CDT Body Mass Index 30.27 07/17/2017 7:28 AM CDT Plan of Treatment Not on file Implants Implanted Type Area Small Appliance Assembly Supervisor Device Expiration Model / Identifier Date Serial / Lot Set Stent Injection 6x24cm [id number] - [id number] Uro Stent Right: [employer]OSTON 11/22/2018 [id number] / Implanted: Qty: 1 on 07/09/2017 by Real Cantrell MD [employer]: ONCOLOGY / [id number] Set Stent Injection 6x26cm [id number] - [id number] Uro Stent Left: BOSTON 12/22/2108 [id number] / Implanted: Qty: 1 on 07/09/2017 by Real Cantrell MD [employer]: ONCOLOGY / [id number] Procedures Procedure Name Priority Date/Time Associated Diagnosis Comments CYSTOSCOPY,INSERTION 07/09/2017 11:07 AM CDT Kidney stone URETERAL STENTS Special Needs REQ: STAT after 09/05/2016 Results RHYTHM STRIP - SCAN (07/22/2017 11:00 AM)POC-Glucose meter (07/19/2017 7:34 AM) Only the most recent of41 resultswithin the time period is included. Component Value Ref Range POC-Glucose Meter 115 (H)Comment: TESTED AT [address] 70 - 110 mg/[place] [id number] Specimen Performing Laboratory Blood [address] [address] CBC with platelet count + automated diff (07/19/2017 5:10 AM)Only the most recent of12 resultswithin the time period is included. Component Value Ref Range WBC 9.9 3.5 - 10.5 K/L RBC 3.65 (L) 3.93 - 5.22 M/L Hemoglobin 10.0 (L) 11.2 - 15.7 GM/DL Hematocrit 32.9 (L) 34.1 - 44.9 % MCV 90.1 79.4 - 94.8 fL MCH 27.4 25.6 - 32.2 pg MCHC 30.4 (L) 32.2 - 35.5 GM/DL RDW 16.3 (H) 11.7 - 14.4 % Platelets 202 150 - 450 K/CU MM MPV 10.4 9.4 - 12.3 fL nRBC 0 0 - 0 /100 WBC % Neutros 75 % % Lymphs 12 % % Monos 8 % % Eos 3 % % Baso 0 % # Neutros 7.42 (H) 1.56 - 6.13 K/L # Lymphs 1.17 (L) 1.18 - 3.74 K/L # Monos 0.75 (H) 0.24 - 0.36 K/L # Eos 0.28 0.04 - 0.36 K/L # Baso 0.02 0.01 - 0.08 K/L Immature Granulocytes-Relative 2 (H) 0 - 1 % Specimen Performing Laboratory Blood [address] [address] CBC with platelet count + automated diff (07/19/2017 5:10 AM)Only the most recent of12 resultswithin the time period is included. Specimen Performing Laboratory Blood Narrative The following orders were created for panel order CBC with platelet count + automated diff. Procedure Abnormality Status --------- ------ CBC with platelet count ...[[id number]]AbnormalFinal result Please view results for these tests on the individual orders. Comprehensive metabolic panel (07/19/2017 5:10 AM)Only the most recent of10 resultswithin the time period is included. Component Value Ref Range Protein, Total 5.1 (L) 6.0 - 8.3 gm/dL Albumin 2.5 (L) 3.5 - 5.0 g/dL Alkaline Phosphatase 89 40 - 150 U/L Total Bilirubin 0.6 0.2 - 1.2 mg/dL Sodium 141 136 - 145 meq/L Potassium 4.4 3.5 - 5.1 meq/L Chloride 100 98 - 107 meq/L CO2 34 (H) 22 - 29 meq/L BUN 23 (H) 7 - 21 mg/dL Creatinine 0.66 0.57 - 1.25 mg/dL Glucose 115 (H) 70 - 105 mg/dL Calcium 8.6 8.4 - 10.2 mg/dL AST 26 5 - 34 U/L ALT 22 6 - 55 U/L EGFR 86Comment: ESTIMATED GFR IS NOT ACCURATE mL/min/1.73 sq m CREATININE CLEARANCE IN PREDICTING GLOMERULAR FILTRATION RATE. ESTIMATED GFR IS NOT APPLICABLE FOR DIALYSIS PATIENTS. Specimen Performing [place] [address] ECHOCARDIOGRAM REPORT - SCAN (07/18/2017 5:20 PM)Only the most recent of2 resultswithin the time period is included.2D Echo W/Doppler(CW/PW/Color) (2017 2:17 PM)Only the most recent of2 resultswithin the time period is included. Component Value Ref Range Ejection Fraction Specimen Performing Laboratory [facility] ECHO [facility] Narrative Transthoracic Echocardiography Report (TTE) Demographics Patient Name CRISTY ROCHA Date of Study 07/18/2017 [id number] GenderFemale Visit Number [id number] Race Unknown [id number] Number [id number] Number Date of Birth1935 Referring Physician GAIL ABAD Age82 year(s) Development Consultant Daria Lazcano,Interpreting Keke Chang MD [facility] Physician Procedure Type of Study TTE procedure:DEFINITY CONTRAST , 2DECHO W DOPPLER(CW/PW/COLOR) (Pending Discharge) Indications:Acute Chest Pain/ Suspected CAD. Clinical History HGB 10.5 HCT 34.1 % Septic Shock, Afib, TAVR Contrast Medium: Definity. Amount - 2 ml Height: 68 inches Weight: 85.73 kg (189 lbs) BSA: 2 m^2 BMI: 28.74 kg/m^2 HR: 98 bpm BP: 95/53 mmHg Summary Global LV systolic function hyperdynamic . Mild to moderate concentric LV hypertrophy. A dynamic LV intracavitary gradient up to 35 mmHg is noted at rest. LA is incompletely visualized, size based on qualitative assessment. LA size appears enlarged . Moderate mitral annular calcification. Moderate mitral regurgitation. MR severity is difficult to determine due to jet eccentricity and acoustic shadowing. A percutaneous (TAVR) biologic AoV prosthesis is visualized . The prosthetic AoV appears well-seated. AoV dimensionless obstructive index (DOI)) is 0.56 . Estimated peak systolic PA pressure is 30-35 mmHg . The estimated RA pressure by IVC dynamics 0-5mmHg . A left pleural effusion is noted. No pericardial effusion is visualized. Previous Study In comparison with the prior exam 07/09/2017 the following changes are noted: the estimated PA systolic pressures have decreased, LV systolic function is hyperdynamic. Signature Findings Technical Quality: Technically adequate exam. Rhythm/BPAtrial fibrillation with rapid ventricular response. Left Ventricle LV endocardium is adequately visualized with IV ultrasound enhancing agent. The left ventricle is chamber size (by vol index) is normal (female - LVED vol - 29-61ml/m2). Mild to moderate concentric LV hypertrophy. All of the LV segments are hyperkinetic . Global LV systolic function hyperdynamic . Estimated LVEF by qualitative assessment is increased (>70%) . A dynamic LV intracavitary gradient up to 35 mmHg is noted at rest. Degree of diastolic dysfunction (LAP assessment) is inconclusive due to mitral annular calcification . Left AtriumLA is incompletely visualized, size based on qualitative assessment. LA size appears enlarged . Right VentricleThe right ventricular chamber size and systolic function are within normal limits. Right Atrium RA cavity size is normal . Aortic Valve A percutaneous (TAVR) biologic AoV prosthesis is visualized . The prosthetic AoV appears well-seated. AoV dimensionless obstructive index (DOI)) is 0.56 . Mitral Valve Moderate mitral annular calcification. Moderate mitral regurgitation. MR severity is difficult to determine due to jet eccentricity and acoustic shadowing. Tricuspid ValveTV structure is normal. Mild tricuspid regurgitation. Estimated peak systolic PA pressure is 30-35 mmHg . Pulmonic Valve PV is not well visualized; function appears normal by Doppler visualized. AortaAortic root size (SInus of Valsalva diameter) is normal . PericardiumNo pericardial effusion is visualized. IVC/SVC/PA/PV/PleuralA left pleural effusion is noted. The inferior vena cava is adequately visualized. The estimated RA pressure by IVC dynamics 0-5mmHg . Chambers/Structures Left Ventricle LVIDd: 3.6 cm LVIDs: 1.79 cm LV Septum Diastolic: 1.46 cm LV PW Diastolic: 1.52 cmLV FS: 50.3 % LVEDV Le's:70.74 ml LVEDVI: 35 ml/m^2 LVOT Diameter: 2.22 cm Aorta Ao Root S of Camille.: 2.96 cm Doppler/Quantitative Measurements Mitral Valve Mean Velocity: 0.83 m/s Mean Gradient: 3.87 mmHg Area (continuity): 1.74 cm^2 MV VTI : 48.04 cm MV Souleymane. Peak: 1.92 m/s Aortic Valve Peak Velocity: 2.34 m/sMean Velocity: 1.92 m/s Peak Gradient: 21.91 mmHgMean Gradient: 15.68 mmHg AV Area (continuity): 2.18 cm^2 AV VTI: 38.33 cm AV DVI: 0.56 LVOT Peak Velocity: 1.02 m/s Peak Gradient: 4.17 mmHg Mean Velocity: 0.68 m/s Mean Gradient: 2.19 mmHg LVOT Diameter: 2.22 cmLVOT VTI: 21.56 cm LVOT Area: 3.87 cm^2LVOT SV:83.41 ml LVOT CO: 8.17 l/min LVOT CI: 4.08 l/min/m^2 Tricuspid Valve TR Velocity: 2.53 m/s TR Gradient: 25.66 mmHg Procedure Note Interface, External Ris In - 07/18/2017 4:45 PM CDT Transthoracic Echocardiography Report (TTE) Demographics Patient Name CRISTY ROCHA Date of Study 07/18/2017 Gender Female Visit Number [id number] Race Unknown Room Number 1419 Number Date of 1935 Referring Physician GAIL ABAD Age 82 year(s) Development Consultant Daria Jorgensen [employer] Em Lazcano, Interpreting Keke Chang MD [facility] Physician Procedure Type of Study TTE procedure:DEFINITY CONTRAST , 2DECHO W DOPPLER(CW/PW/COLOR) (Pending Discharge) Indications:Acute Chest Pain/ Suspected CAD. Clinical History HGB 10.5 HCT 34.1 % Septic Shock, Afib, TAVR Contrast Medium: Definity. Amount - 2 ml Height: 68 inches Weight: 85.73 kg (189 lbs) BSA: 2 m^2 BMI: 28.74 kg/m^2 HR: 98 bpm BP: 95/53 mmHg Summary Global LV systolic function hyperdynamic . Mild to moderate concentric LV hypertrophy. A dynamic LV intracavitary gradient up to 35 mmHg is noted at rest. LA is incompletely visualized, size based on qualitative assessment. LA size appears enlarged . Moderate mitral annular calcification. Moderate mitral regurgitation. MR severity is difficult to determine due to jet eccentricity and acoustic shadowing. A percutaneous (TAVR) biologic AoV prosthesis is visualized . The prosthetic AoV appears well-seated. AoV dimensionless obstructive index (DOI)) is 0.56 . Estimated peak systolic PA pressure is 30-35 mmHg . The estimated RA pressure by IVC dynamics 0-5mmHg . A left pleural effusion is noted. No pericardial effusion is visualized. Previous Study In comparison with the prior exam 07/09/2017 the following changes are noted: the estimated PA systolic pressures have decreased, LV systolic function is hyperdynamic. Signature Findings Technical Quality: Technically adequate exam. Rhythm/BP Atrial fibrillation with rapid ventricular response. Left Ventricle LV endocardium is adequately visualized with IV ultrasound enhancing agent. The left ventricle is chamber size (by vol index) is normal (female - LVED vol - 29-61ml/m2). Mild to moderate concentric LV hypertrophy. All of the LV segments are hyperkinetic . Global LV systolic function hyperdynamic . Estimated LVEF by qualitative assessment is increased (>70%) . A dynamic LV intracavitary gradient up to 35 mmHg is noted at rest. Degree of diastolic dysfunction (LAP assessment) is inconclusive due to mitral annular calcification . Left Atrium LA is incompletely visualized, size based on qualitative assessment. LA size appears enlarged . Right Ventricle The right ventricular chamber size and systolic function are within normal limits. Right Atrium RA cavity size is normal . Aortic Valve A percutaneous (TAVR) biologic AoV prosthesis is visualized . The prosthetic AoV appears well-seated. AoV dimensionless obstructive index (DOI)) is 0.56 . Mitral Valve Moderate mitral annular calcification. Moderate mitral regurgitation. MR severity is difficult to determine due to jet eccentricity and acoustic shadowing. Tricuspid Valve TV structure is normal. Mild tricuspid regurgitation. Estimated peak systolic PA pressure is 30-35 mmHg . Pulmonic Valve PV is not well visualized; function appears normal by Doppler visualized. Aorta Aortic root size (SInus of Valsalva diameter) is normal . Pericardium No pericardial effusion is visualized. IVC/SVC/PA/PV/Pleural A left pleural effusion is noted. The inferior vena cava is adequately visualized. The estimated RA pressure by IVC dynamics 0-5mmHg . Chambers/Structures Left Ventricle LVIDd: 3.6 cm LVIDs: 1.79 cm LV Septum Diastolic: 1.46 cm LV PW Diastolic: 1.52 cm LV FS: 50.3 % LVEDV Le's:70.74 ml LVEDVI: 35 ml/m^2 LVOT Diameter: 2.22 cm Aorta Ao Root S of Camille.: 2.96 cm Doppler/Quantitative Measurements Mitral Valve Mean Velocity: 0.83 m/s Mean Gradient: 3.87 mmHg Area (continuity): 1.74 cm^2 MV VTI: 48.04 cm MV Souleymane. Peak: 1.92 m/s Aortic Valve Peak Velocity: 2.34 m/s Mean Velocity: 1.92 m/s Peak Gradient: 21.91 mmHg Mean Gradient: 15.68 mmHg AV Area (continuity): 2.18 cm^2 AV VTI: 38.33 cm AV DVI: 0.56 LVOT Peak Velocity: 1.02 m/s Peak Gradient: 4.17 mmHg Mean Velocity: 0.68 m/s Mean Gradient: 2.19 mmHg LVOT Diameter: 2.22 cm LVOT VTI: 21.56 cm LVOT Area: 3.87 cm^2 LVOT SV:83.41 ml LVOT CO: 8.17 l/min LVOT CI: 4.08 l/min/m^2 Tricuspid Valve TR Velocity: 2.53 m/s TR Gradient: 25.66 mmHg Lactic acid, venous, whole blood Daily (07/18/2017 8:24 AM)Only the most recent of14 resultswithin the time period is included. Component Value Ref Range Lactate, Venous 1.5Comment: Specimen slightly hemolyzed 0.5 - 2.2 mmol/L Specimen Performing Laboratory Blood - Line, Venous [address] [address] Narrative Effective 07/27/2015: Units/Reference Range Change New: 0.5-2.2 mmol/LPrevious: 5-20 mg/dL B-type Natriuretic Factor (BNP) (07/18/2017 8:24 AM)Only the most recent of2 resultswithin the time period is included. Component Value Ref Range BNP 266 (H) 0 - 100 pg/mL Specimen Performing Laboratory Blood - Line, Venous [address] [address] Manual Differential (07/17/2017 3:29 AM)Only the most recent of4 resultswithin the time period is included. Component Value Ref Range % Neutros 85 % % Lymphs 9 % % Monos 3 % % Eos 3 % # Neutros 10.54 (H) 1.56 - 6.13 K/ul # Lymphs 1.12 (L) 1.18 - 3.74 K/ul # Monos 0.37 (H) 0.24 - 0.36 K/uL # Eos 0.37 (H) 0.04 - 0.36 K/uL Total Counted 100 RBC Morphology Normal WBC Morphology Normal Platelet Morphology Normal Artifact Present Platelet Conc Adequate Specimen Performing Laboratory Blood - Arm, [place] [address] Narrative Received comment: User comments: Slide comments: XR chest PA or AP 1 view (07/15/2017 12:39 PM) Specimen Performing Laboratory GE RIS Narrative FINAL REPORT Chest one view INDICATION: Dyspnea COMPARISON: 07/12/2017 IMPRESSION: Lung volumes have decreased with greater bibasilar opacities that could reflect worsening atelectasis or developing pneumonitis. Small pleural effusions are suspected. There is mild pulmonary vascular congestion. The cardiac silhouette is enlarged. Aortic ectasia and calcification and median sternotomy changes are again noted. No pneumothorax is seen. Signed: Narendra Mccormick MD Report Verified Date/Time:07/15/2017 14:46:32 Reading Location: [facility] C0[facility] Consult Reading Room Procedure Note Interface, External Ris In - 07/15/2017 2:48 PM CDT FINAL REPORT Chest one view INDICATION: Dyspnea COMPARISON: 07/12/2017 IMPRESSION: Lung volumes have decreased with greater bibasilar opacities that could reflect worsening atelectasis or developing pneumonitis. Small pleural effusions are suspected. There is mild pulmonary vascular congestion. The cardiac silhouette is enlarged. Aortic ectasia and calcification and median sternotomy changes are again noted. No pneumothorax is seen. Signed: Narendra Mccormick MD Report Verified Date/Time: 07/15/2017 14:46:32 Reading Location: [facility] [id number] Consult Reading Room chest 1 view portable / bedside (07/14/2017 5:13 AM)Only the most recent of6 resultswithin the time period is included. Specimen Performing Laboratory GE RIS Narrative FINAL REPORT AP chest HISTORY: Pneumonia COMPARISON: 07/12/2017 IMPRESSION: Status post recent sternotomy. Heart size normal. Minimal left basilar pleural thickening may reflect small effusion. Adjacent atelectasis. Lungs otherwise clear. No pneumothorax. Signed: Geri Langley MD Report Verified Date/Time:07/25/2017 13:15:41 Reading Location: [address] Body Reading Room Procedure Note Interface, External Ris In - 07/25/2017 1:17 PM CDT FINAL REPORT AP chest HISTORY: Pneumonia COMPARISON: 07/12/2017 IMPRESSION: Status post recent sternotomy. Heart size normal. Minimal left basilar pleural thickening may reflect small effusion. Adjacent atelectasis. Lungs otherwise clear. No pneumothorax. Signed: Geri Langley MD Report Verified Date/Time: 07/25/2017 13:15:41 Reading Location: [facility] C0[facility] CT Body Reading Room Phosphorus (07/14/2017 4:02 AM)Only the most recent of5 resultswithin the time period is included. Component Value Ref Range Phosphorus 1.7 (L) 2.3 - 4.7 mg/dL Specimen Performing Laboratory Blood - Arm, [address] [address] Magnesium (07/14/2017 4:02 AM)Only the most recent of5 resultswithin the time period is included. Component Value Ref Range Magnesium 1.5 (L) 1.6 - 2.6 mg/dL Specimen Performing Laboratory Blood - Arm, [address] [address] ECG 12 lead (07/12/2017 3:09 PM)Only the most recent of2 resultswithin the time period is included. Specimen Performing Laboratory GE MUSE Narrative Ventricular Rate 129 BPM Atrial Rate 144 BPM QRS Duration 84 ms Q-T Interval 322 ms QTC Calculation(Bazett) 471 ms R [place] -29 degrees T [place] 90 degrees Atrial fibrillation with rapid ventricular response Poor R wave progression Nonspecific ST and T wave abnormality , probably digitalis effect Abnormal ECG When compared with ECG of 09-JUL-2017 03:14, Ventricular rate has increased Confirmed by Greta GEORGE BASANT ([id number]) on 07/13/2017 7:40:05 AM Procedure Note Interface, External Ris In - 07/13/2017 7:40 AM CDT Ventricular Rate 129 BPM Atrial Rate 144 BPM QRS Duration 84 ms Q-T Interval 322 ms QTC Calculation(Bazett) 471 ms R [place] -29 degrees T [place] 90 degrees Atrial fibrillation with rapid ventricular response Poor R wave progression Nonspecific ST and T wave abnormality , probably digitalis effect Abnormal ECG When compared with ECG of 09-JUL-2017 03:14, Ventricular rate has increased Confirmed by Greta GEORGE, JIMBO ([id number]) on 07/13/2017 7:40:05 AM Troponin I (07/12/2017 1:23 PM) Component Value Ref Range Troponin I 0.02 0.00 - 0.03 ng/mL Specimen Performing Laboratory Blood - Arm, [place] [address] Narrative Troponin I (TnI) levels must be interpreted in the context of the presenting symptoms and the clinical findings. Elevated TnI levels indicate myocardial damage, but are not specific for ischemic heart disease. Elevated TnI levels are seen in patients with other cardiac conditions (including myocarditis and congestive heart failure), and slight TnI elevations occur in patients with other conditions, including sepsis, renal failure, acidosis, acute neurological disease, and persistent tachyarrhythmia. Creatine Kinase (CK) (07/12/2017 1:23 PM) Component Value Ref Range Total CK 8 (L) 29 - 200 U/L Specimen Performing Laboratory Blood - Arm, [place] [address] Incubated 1:1 Mixing Study (07/12/2017 4:36 AM) Component Value Ref Range Immediate PT 16.7 (H) 11.7 - 14.7 seconds Immediate PTT 36.3 (H) 22.5 - 36.0 seconds Immediate 1:1 Mix PT 14.3 11.7 - 14.7 seconds Immediate 1:1 Mix PTT 32.3 22.5 - 36.0 seconds 1:1 MIX, 1 HOUR INC PT 14.6 seconds 1:1 MIX, 1 HOUR INC PTT 35.1 seconds MIXING STUDY PATHOLOGIST negative inhibitor screen INTERPRETATION Pathologist: Alejandro Beltre M.D. (electonic signature) Specimen Performing Laboratory Blood - Arm, [address] [address] aPTT (07/12/2017 4:36 AM)Only the most recent of2 resultswithin the time period is included. Component Value Ref Range PTT 34.7 22.5 - 36.0 seconds Specimen Performing Laboratory Blood - Arm, [address] [address] Thrombin time (07/12/2017 4:36 AM) Component Value Ref Range Thrombin Time 19.0 13.8 - 20.0 secs Specimen Performing Laboratory Blood - Arm, [address] [address] Prothrombin time/INR (07/12/2017 4:36 AM)Only the most recent of4 resultswithin the time period is included. Component Value Ref Range Protime 16.2 (H) 11.7 - 14.7 seconds INR 1.3 <=5.9 Specimen Performing Laboratory Blood - Arm, [address] [address] Narrative RECOMMENDED COUMADIN/WARFARIN INR THERAPY RANGES STANDARD DOSE: 2.0 - 3.0 Includes: PROPHYLAXIS for venous thrombosis, systemic embolization; TREATMENT for venous thrombosis and/or pulmonary embolus. HIGH RISK: Target INR is 2.5-3.5 for patients with mechanical heart valves. TRANSFUSION SERVICE REPORT - SCAN (07/11/2017 5:43 PM)Only the most recent of2 resultswithin the time period is included.Urinalysis w/Microscopic (07/11/2017 12:19 PM)Only the most recent of3 resultswithin the time period is included. Component Value Ref Range Color, UA [place] Clarity, UA Cloudy Specific [place], UA 1.016 1.001 - 1.035 pH, UA 6.0 5.0 - 8.0 Protein, UA 100 mg/dL (A) Negative Glucose, UA Negative Negative Ketones, UA Trace (A) Negative Bilirubin, UA Negative Negative Blood, UA Large (A) Negative Nitrite, UA Negative Negative Leukocytes, UA Large (A) Negative Urobilinogen, UA 0.2 0.2 - 1.0 mg/dL RBC, UA 2710 /HPF WBC, UA 1079 /HPF Mucus Occasional Specimen Source Urine, [place] Specimen Performing Laboratory Urine - Urine, [place] [address] [address] Urine culture (07/11/2017 12:16 PM)Only the most recent of2 resultswithin the time period is included. Component Value Ref Range Result No growth Specimen Performing Laboratory Urine - Urine, [address] [address] Blood culture (07/11/2017 12:15 PM)Only the most recent of4 resultswithin the time period is included. Component Value Ref Range Result No growth in 5 days Specimen Performing Laboratory Blood - Line, Venous [address] [address] Prepare plasma (07/10/2017 11:54 PM) Component Value Ref Range Unit ABO A Pos UNIT NUMBER [id number] Status TRANSFUSED Blood Bank Product FFP PRODUCT CODE Q7844V35 Unit ABO A Pos UNIT NUMBER [id number] Status CANCELED Blood Bank Product FFP PRODUCT CODE Q6179T46 Specimen Performing Laboratory Blood [place] Blood gas, arterial (07/10/2017 3:49 PM)Only the most recent of7 resultswithin the time period is included. Component Value Ref Range pH, Arterial 7.41 7.35 - 7.45 pCO2, Arterial 34 (L) 35 - 45 mmHg pO2, Arterial 162 (H) 80 - 90 mmHg O2 Sat, Arterial 99.1 (H) 96.0 - 97.0 % HCO3, Arterial 21 21 - 29 mmol/L Base Excess, Arterial -3.1 (L) -2.0 - 3.0 mmol/L Patient Temperature 37.0 C Specimen Performing Laboratory Blood, Arterial [address] [address] Lactic acid, arterial, whole blood (07/10/2017 4:44 AM)Only the most recent of2 resultswithin the time period is included. Component Value Ref Range Lactate, Art 1.7 0.5 - 2.2 mmol/L Specimen Performing Laboratory Blood, Arterial - Line, Arterial [address] [address] Narrative Effective 07/27/2015: Units/Reference Range Change New: 0.5-2.2 mmol/LPrevious: 5-20 mg/dL Manual Differential (07/09/2017 7:28 PM)Only the most recent of2 resultswithin the time period is included. Component Value Ref Range % Neutros (manual) 81 % % Lymphs (manual) 5 % % Monos (manual) 3 % % Bands (manual) 11 (H) 0 - 10 % # Neutros (manual) 20.90 (H) 1.80 - 8.00 K/L # Lymphs (manual) 1.29 (L) 1.48 - 4.50 K/L # Monos (manual) 0.77 0.00 - 1.30 K/L # Bands (manual) 2.8 (H) 0.0 - 0.8 K/L Total Counted 100 Bands plus Segmented Neutrophils 23.74 WBC Morphology Normal Platelet Morphology Normal Elliptocytes 1+ few Ovalocytes 1+ few Polychromasia 1+ few Tear Drop Cells 1+ few Specimen Performing Laboratory Blood - Line, Arterial [address] [address] PT/aPTT (07/09/2017 7:28 PM) Component Value Ref Range Protime 28.8 (H) 11.7 - 14.7 seconds INR 2.7 <=5.9 PTT 54.7 (H) 22.5 - 36.0 seconds Specimen Performing Laboratory Blood - Line, Arterial [address] [address] Narrative RECOMMENDED COUMADIN/WARFARIN INR THERAPY RANGES STANDARD DOSE: 2.0 - 3.0 Includes: PROPHYLAXIS for venous thrombosis, systemic embolization; TREATMENT for venous thrombosis and/or pulmonary embolus. HIGH RISK: Target INR is 2.5-3.5 for patients with mechanical heart valves. Fibrinogen (07/09/2017 7:28 PM)Only the most recent of2 resultswithin the time period is included. Component Value Ref Range Fibrinogen 712 (H) 225 - 434 mg/dl Specimen Performing Laboratory Blood - Line, [address] [address] Hepatic function panel (07/09/2017 7:28 PM)Only the most recent of2 resultswithin the time period is included. Component Value Ref Range Protein, Total 5.6 (L) 6.0 - 8.3 gm/dL Albumin 2.6 (L) 3.5 - 5.0 g/dL Total Bilirubin 1.5 (H) 0.2 - 1.2 mg/dL Bilirubin, Direct 1.2 (H) 0.1 - 0.5 mg/dL Alkaline Phosphatase 130 40 - 150 U/L AST 21 5 - 34 U/L ALT 12 6 - 55 U/L Specimen Performing Laboratory Blood - Line, [address] [address] Basic Metabolic Panel (07/09/2017 7:28 PM)Only the most recent of2 resultswithin the time period is included. Component Value Ref Range Sodium 137 136 - 145 meq/L Potassium 4.6 3.5 - 5.1 meq/L Chloride 108 (H) 98 - 107 meq/L CO2 18 (L) 22 - 29 meq/L BUN 26 (H) 7 - 21 mg/dL Creatinine 1.50 (H) 0.57 - 1.25 mg/dL Glucose 154 (H) 70 - 105 mg/dL Calcium 8.0 (L) 8.4 - 10.2 mg/dL EGFR 33Comment: ESTIMATED GFR IS NOT ACCURATE mL/min/1.73 sq m CREATININE CLEARANCE IN PREDICTING GLOMERULAR FILTRATION RATE. ESTIMATED GFR IS NOT APPLICABLE FOR DIALYSIS PATIENTS. Specimen Performing Laboratory Blood - Line, [address] [address] Rentalutionsradio installer in or 30 minute increments (07/09/2017 2:00 PM) Specimen Performing Laboratory GE RIS Narrative FINAL REPORT INDICATION: Stent placement COMPARISON: None available. IMPRESSION: 232 fluoroscopic images obtained during a surgical procedure performed by another physician (NOT the undersigned radiologist) were provided for postprocedural interpretation. Intraoperative consultation with the radiologist was not requested. A right femoral approach line is in place. Calcifications overlying the right renal shadow presumably reflect calculi. There is access and instrumentation of the right renal collecting system. Injected contrast reveals collecting system dilatation and filling defects suggesting calculi. And left renal pelvis filling defect also suggests a calculus. There is placement of bilateral nephroureteral stents. A lamellated gallstone is seen in the right upper quadrant. There are degenerative spine changes and vascular calcifications. Fluoroscopy was not performed by the undersigned radiologist. Provided fluoroscopy time: 6.16 minutes, 232 images Signed: Narendra Mccormick MD Report Verified Date/Time:07/09/2017 15:02:03 Reading Location: [facility] C013 Consult Reading Room Procedure Note Interface, External Ris In - 07/09/2017 3:04 PM CDT FINAL REPORT INDICATION: Stent placement COMPARISON: None available. IMPRESSION: 232 fluoroscopic images obtained during a surgical procedure performed by another physician (NOT the undersigned radiologist) were provided for postprocedural interpretation. Intraoperative consultation with the radiologist was not requested. A right femoral approach line is in place. Calcifications overlying the right renal shadow presumably reflect calculi. There is access and instrumentation of the right renal collecting system. Injected contrast reveals collecting system dilatation and filling defects suggesting calculi. And left renal pelvis filling defect also suggests a calculus. There is placement of bilateral nephroureteral stents. A lamellated gallstone is seen in the right upper quadrant. There are degenerative spine changes and vascular calcifications. Fluoroscopy was not performed by the undersigned radiologist. Provided fluoroscopy time: 6.16 minutes, 232 images Signed: Narendra Mccormick MD Report Verified Date/Time: 07/09/2017 15:02:03 Reading Location: [facility] B1 C013W Consult Reading Room culture + smear (07/09/2017 1:18 PM)Only the most recent of2 resultswithin the time period is included. Component Value Ref Range Result No acid-fast bacilli isolated in 42 days AFB Smear No acid fast bacilli seen Specimen Performing Laboratory Urine - Kidney, Left [facility] [address] [address] Anaerobic culture (07/09/2017 1:18 PM)Only the most recent of2 resultswithin the time period is included. Component Value Ref Range Result 3+ Same organism has been isolated from cultures(s) of the same body site and collection date. Repeat identification and susceptibility testing performed only after consultation with the clinical microbiology laboratory. (A ) Comment: Refer to previous culture of * - Veillonella Parvula Result 3+ Same organism has been isolated from cultures(s) of the same body site and collection date. Repeat identification and susceptibility testing performed only after consultation with the clinical microbiology laboratory. (A ) Comment: Refer to previous culture of * - Peptoniphilus Asaccharolyticus Specimen Performing Laboratory Urine - Kidney, [address] [address] Surgically obtained culture + gram stain (07/09/2017 1:18 PM)Only the most recent of2 resultswithin the time period is included. Component Value Ref Range Result 1+ Escherichia coli (A) Result <1+ Providencia stuartii (A) Result <1+ Peptostreptococcus species (A)Comment: Most closely resembles Gram Stain Result 4+ WBCs Gram Stain Result <1+ gram negative rods Gram Stain Result 4+ gram positive cocci in pairs Gram Stain Result 2+ gram positive cocci in clusters Gram Stain Result <1+ gram positive coccobacilli Specimen Performing Laboratory Urine - Kidney, [address] [address] Organism Antibiotic Method Susceptibility Escherichia coli Amikacin 4: Susceptible Escherichia coli Ampicillin + Sulbactam <=2: Susceptible Escherichia coli Aztreonam <=1: Susceptible Escherichia coli Cefepime <=1: Susceptible Escherichia coli Cefoxitin <=4: Susceptible Escherichia coli Ceftazidime <=1: Susceptible Escherichia coli Ceftriaxone <=1: Susceptible Escherichia coli Ertapenem <=0.5: Susceptible Escherichia coli Gentamicin <=1: Susceptible Escherichia coli Levofloxacin >=8: Resistant Escherichia coli Meropenem <=0.25: Susceptible Escherichia coli Piperacillin + Tazobactam <=4: Susceptible Escherichia coli Tetracycline <=1: Susceptible Escherichia coli Tobramycin <=1: Susceptible Escherichia coli Trimethoprim + Sulfamethoxazole <=20: Susceptible Providencia stuartii Amikacin <=2: Susceptible Providencia stuartii Ampicillin + Sulbactam 16: Resistant Providencia stuartii Aztreonam <=1: Susceptible Providencia stuartii Cefepime <=1: Susceptible Providencia stuartii Cefoxitin <=4: Susceptible Providencia stuartii Ceftazidime <=1: Susceptible Providencia stuartii Ceftriaxone <=1: Susceptible Providencia stuartii Ertapenem <=0.5: Susceptible Providencia stuartii Gentamicin Resistant Providencia stuartii Levofloxacin >=8: Resistant Providencia stuartii Meropenem <=0.25: Susceptible Providencia stuartii Piperacillin + Tazobactam <=4: Susceptible Providencia stuartii Tetracycline >=16: Resistant Providencia stuartii Tobramycin 8: Resistant Providencia stuartii Trimethoprim + Sulfamethoxazole >=320: Resistant Fungus culture + smear (07/09/2017 1:18 PM)Only the most recent of2 resultswithin the time period is included. Component Value Ref Range Result No fungus isolated in 28 days Fungus Smear No fungi seen Specimen Performing Laboratory Urine - Kidney, Left [address] [address] SPIN/CONCENTRATION CHARGE (07/09/2017 1:15 PM) Component Value Ref Range Concentration charged Done Specimen Performing Laboratory Urine - Kidney, Right [address] [address] Transfuse plasma (07/09/2017 10:23 AM)US abdomen limited (07/09/2017 8:22 AM) Specimen Performing Laboratory [facility] RIS Narrative FINAL REPORT Abdominal ultrasound dated 07/09/2017 Comment:Real-time transabdominal ultrasound of the right upper quadrant abdomen was performed. Liver is normal in size and measures 16.6 cm in length. The echogenicity of the liver is normal.No focal lesion is noted in the liver. Gallbladder is contracted. A 4 cm gallstone is present. There is minimal pericholecystic fluid collection in the gallbladder wall thickening. No biliary dilatation is seen. Common bile duct measures 9 mm in diameter.Main portal vein measures 10 mm in diameter. Pancreas is incompletely visualized. Right kidney measures 14 x 4.3 x 5.8 cm.Echogenicity of the right kidney is normal. Several stones are present in the right kidney with the largest measuring 1.3 cm. Mild to moderate hydronephrosis is seen on the right. No ascites is present in the abdomen. Abdominal aorta is normal in caliber. IVC and Hepatic veins are patent. Impression: 1. Cholelithiasis with gallbladder wall thickening and pericholecystic fluid collection suspicious for cholecystitis. Please correlate clinically. 2. Right renal stones with right hydronephrosis. Signed: Trace Sharif MD Report Verified Date/Time:07/09/2017 09:00:17 Reading Location: [facility] [id number] Ultrasound Reading Room Procedure Note Interface, External Ris In - 07/09/2017 9:02 AM CDT FINAL REPORT Abdominal ultrasound dated 07/09/2017 Comment: Real-time transabdominal ultrasound of the right upper quadrant abdomen was performed. Liver is normal in size and measures 16.6 cm in length. The echogenicity of the liver is normal. No focal lesion is noted in the liver. Gallbladder is contracted. A 4 cm gallstone is present. There is minimal pericholecystic fluid collection in the gallbladder wall thickening. No biliary dilatation is seen. Common bile duct measures 9 mm in diameter. Main portal vein measures 10 mm in diameter. Pancreas is incompletely visualized. Right kidney measures 14 x 4.3 x 5.8 cm. Echogenicity of the right kidney is normal. Several stones are present in the right kidney with the largest measuring 1.3 cm. Mild to moderate hydronephrosis is seen on the right. No ascites is present in the abdomen. Abdominal aorta is normal in caliber. IVC and Hepatic veins are patent. Impression: 1. Cholelithiasis with gallbladder wall thickening and pericholecystic fluid collection suspicious for cholecystitis. Please correlate clinically. 2. Right renal stones with right hydronephrosis. Signed: Trace Sharif MD Report Verified Date/Time: 07/09/2017 09:00:17 Reading Location: [facility] P006J Ultrasound Reading Room (07/09/2017 7:11 AM)Only the most recent of2 resultswithin the time period is included. Component Value Ref Range Scan Result Specimen Performing Laboratory Blood [facility] [address] [address] Narrative Result comments: NOT DETECTED Panel is negative for BioFire BCID-detectable organisms. Please refer to traditional culture and sensitivity results as they become available. Other organisms and resistance markers not contained in this PCR panel cannot be excluded and follow-up of traditional culture results is required. This sample was tested at the [facility] Clinical Microbiology Laboratory using the [employer] FilmArray Blood Culture ID Panel. This test is FDA cleared for in vitro diagnostic use and has been verified and approved by the [facility] Clinical Microbiology laboratory for clinical use. Reference Range: Not Detected CT abdomen/pelvis without iv contrast (07/09/2017 6:36 AM) Specimen Performing Laboratory [employer] Narrative FINAL REPORT CT, ABDOMEN \\T\\ PELVIS, WITHOUT IV CONTRAST INDICATION: "Pyelonephritis, complicated" COMPARISON: None TECHNIQUE: Noncontrast axially oriented images were obtained from the diaphragms through the pelvis. Coronal and sagittal reformats were provided. DOSE REDUCTION: Dose modulation, iterative reconstruction, and/or weight-based adjustment of the mA/kV was utilized to reduce the radiation dose to as low as reasonably achievable. FINDINGS: Airspace disease at the left lung base, atelectatic versus pneumonic. Mitral valve annular calcification. Large 4.4 x 2.2 cm stone in the gallbladder with gallbladder wall thickening or pericholecystic fluid. Acute versus chronic cholecystitis should be considered. Duplex collecting system of the right kidney. The upper pole moiety is obstructed by a 5 mm stone near the UVJ. There is a 1.4 cm stone at least partially obstructing the lower pole moiety, near the renal hilum. There is moderate hydronephrosis and perinephric stranding. Superimposed infection not excluded. There is a nonobstructing 5 mm stone in the left renal pelvis. There is a 2 cm exophytic renal mass attached to the superior pole of the left kidney. Statistically, this most likely reflects renal cell carcinoma. Another possibility would be a complicated, hemorrhagic or proteinaceous renal cyst. Unremarkable liver, spleen, pancreas, and adrenal glands. Bladder is decompressed with a [place] catheter. No acute abnormality of the hollow abdominal viscera. Normal appendix. No focal lytic or destructive bony process. IMPRESSION: 4.4 cm gallstone with gallbladder wall thickening and pericholecystic fluid. Acute versus chronic cholecystitis should be considered. Duplex collecting system of the right kidney with obstructing stones involving the upper and lower pole moieties. Moderate hydronephrosis. Superimposed infection not excluded given the degree of perinephric inflammatory change. 2 cm left renal mass versus hemorrhagic or proteinaceous renal cyst. MRI can be obtained for further characterization. Signed: Bola Hayes MD Report Verified Date/Time:07/09/2017 06:51:04 Reading Location: [facility] B1 C013X Ortho Consult Reading Room Procedure Note Interface, External Ris In - 07/09/2017 6:53 AM CDT FINAL REPORT CT, ABDOMEN \\T\\ PELVIS, WITHOUT IV CONTRAST INDICATION: "Pyelonephritis, complicated" COMPARISON: None TECHNIQUE: Noncontrast axially oriented images were obtained from the diaphragms through the pelvis. Coronal and sagittal reformats were provided. DOSE REDUCTION: Dose modulation, iterative reconstruction, and/or weight-based adjustment of the mA/kV was utilized to reduce the radiation dose to as low as reasonably achievable. FINDINGS: Airspace disease at the left lung base, atelectatic versus pneumonic. Mitral valve annular calcification. Large 4.4 x 2.2 cm stone in the gallbladder with gallbladder wall thickening or pericholecystic fluid. Acute versus chronic cholecystitis should be considered. Duplex collecting system of the right kidney. The upper pole moiety is obstructed by a 5 mm stone near the UVJ. There is a 1.4 cm stone at least partially obstructing the lower pole moiety, near the renal hilum. There is moderate hydronephrosis and perinephric stranding. Superimposed infection not excluded. There is a nonobstructing 5 mm stone in the left renal pelvis. There is a 2 cm exophytic renal mass attached to the superior pole of the left kidney. Statistically, this most likely reflects renal cell carcinoma. Another possibility would be a complicated, hemorrhagic or proteinaceous renal cyst. Unremarkable liver, spleen, pancreas, and adrenal glands. Bladder is decompressed with a [place] catheter. No acute abnormality of the hollow abdominal viscera. Normal appendix. No focal lytic or destructive bony process. IMPRESSION: 4.4 cm gallstone with gallbladder wall thickening and pericholecystic fluid. Acute versus chronic cholecystitis should be considered. Duplex collecting system of the right kidney with obstructing stones involving the upper and lower pole moieties. Moderate hydronephrosis. Superimposed infection not excluded given the degree of perinephric inflammatory change. 2 cm left renal mass versus hemorrhagic or proteinaceous renal cyst. MRI can be obtained for further characterization. Signed: Bola Hayes MD Report Verified Date/Time: 07/09/2017 06:51:04 Reading Location: [facility] C013X Ortho Consult Reading Room Type and screen, automated (07/09/2017 5:43 AM) Component Value Ref Range ABO/RH AUTOMATED (BEAKER) A POSITIVE Ab Scrn NEGATIVE Specimen Performing Laboratory Blood - Line, Arterial [facility] [address] [address] after 09/05/2016
--- OUTSIDE RECORDS SUMMARY | 2017-09-06 20:43 | XMS REPORT ---
:1935 [facility] Address [address] [place] [address] Dr. Barahona [address] [place] [id number] Care Team Providers Name Role Phone FABY DIEHL Unavailable Unavailable Problems This patient has no known problems. Allergies, Adverse Reactions, Alerts This patient has no known allergies or adverse reactions. Medications This patient has no known medications. Results Test Description Test Time Test Comments Text Results Atomic Results Result Comments AFB CULTURE + SMEAR 2017-08-26 18:40:00 Test Item Value Reference Range Comments CULTURE (BEAKER) (test ywev=0135) No acid-fast bacilli isolated in 42 days AFB SMEAR (BEAKER) (test clet=929) No acid fast bacilli seen AFB CULTURE + [id number] 18:40:00 Test Item Value Reference Range Comments CULTURE (BEAKER) (test No acid-fast bacilli isolated vvso=4537) in 42 days AFB SMEAR (BEAKER) (test No acid fast bacilli seen bgey=732) FUNGUS CULTURE + [id number] 15:05:00 Test Item Value Reference Range Comments CULTURE (BEAKER) (test No fungus isolated in 28 days wzar=1629) FUNGUS SMEAR (BEAKER) (test No fungi seen ucaf=3606) FUNGUS CULTURE + [id number] 15:05:00 Test Item Value Reference Range Comments CULTURE (BEAKER) (test No fungus isolated in 28 days ohzg=7364) FUNGUS SMEAR (BEAKER) (test No fungi seen weue=2996) SURGICALLY OBTAINED CULTURE + GRAM [id number] 12:28:00 Test Item Value Reference Range Comments CULTURE (BEAKER) (test ESCHERICHIA COLI 3+ Escherichia coli hhrl=4761) Amikacin (test code=1) Ampicillin + Sulbactam (test code=6) Aztreonam (test code=32) Cefepime (test code=51) Cefoxitin (test code=68) Ceftazidime (test code=27) Ceftriaxone (test code=52) Ertapenem (test code=38) Gentamicin (test code=18) Levofloxacin (test code=22) Meropenem (test code=34) Nitrofurantoin (test code=23) Piperacillin + Tazobactam (test code=29) Tetracycline (test code=2) Tobramycin (test code=25) Trimethoprim + Sulfamethoxazole (test code=47) CULTURE (BEAKER) (test PROVIDENCIA STUARTII 2+ Providencia nxkn=6417) stuartii Amikacin (test code=1) Ampicillin + Sulbactam (test code=6) Aztreonam (test code=32) Cefepime (test code=51) Cefoxitin (test code=68) Ceftazidime (test code=27) Ceftriaxone (test code=52) Ertapenem (test code=38) Gentamicin (test code=18) Levofloxacin (test code=22) Meropenem (test code=34) Nitrofurantoin (test code=23) Piperacillin + Tazobactam (test code=29) Tetracycline (test code=2) Tobramycin (test code=25) Trimethoprim + Sulfamethoxazole (test code=47) CULTURE (BEAKER) (test 1+ Providencia dque=3437) stuartiiof a second type CULTURE (BEAKER) (test PROVIDENCIA STUARTII 1+ Providencia qctv=8348) stuartiiof a third type Amikacin (test code=1) Ampicillin + Sulbactam (test code=6) Aztreonam (test code=32) Cefazolin (test code=9) Cefepime (test code=51) Cefoxitin (test code=68) Ceftazidime (test code=27) Ceftriaxone (test code=52) Ertapenem (test code=38) Gentamicin (test code=18) Levofloxacin (test code=22) Meropenem (test code=34) Piperacillin + Tazobactam (test code=29) Tetracycline (test code=2) Tobramycin (test code=25) Trimethoprim + Sulfamethoxazole (test code=47) CULTURE (BEAKER) (test 1+ Klebsiella ulig=1499) pneumoniae ssp pneumoniae GRAM STAIN RESULT (BEAKER) 3+ WBCs (test eayo=0556) GRAM STAIN RESULT (BEAKER) 1+ gram negative rods (test fxer=400255) GRAM STAIN RESULT (BEAKER) 4+ gram positive (test akug=861088) cocci in pairs GRAM STAIN RESULT (BEAKER) 1+ gram positive (test kstl=462222) cocci in clusters SURGICALLY OBTAINED CULTURE + GRAM [id number] 16:29:00 Test Item Value Reference Range Comments CULTURE (BEAKER) (test ESCHERICHIA COLI 1+ Escherichia coli vwhq=3542) Amikacin (test code=1) Ampicillin + Sulbactam (test code=6) Aztreonam (test code=32) Cefepime (test code=51) Cefoxitin (test code=68) Ceftazidime (test code=27) Ceftriaxone (test code=52) Ertapenem (test code=38) Gentamicin (test code=18) Levofloxacin (test code=22) Meropenem (test code=34) Nitrofurantoin (test code=23) Piperacillin + Tazobactam (test code=29) Tetracycline (test code=2) Tobramycin (test code=25) Trimethoprim + Sulfamethoxazole (test code=47) CULTURE (BEAKER) (test PROVIDENCIA STUARTII <1+ Providencia stuartii xgxg=1335) Amikacin (test code=1) Ampicillin + Sulbactam (test code=6) Aztreonam (test code=32) Cefepime (test code=51) Cefoxitin (test code=68) Ceftazidime (test code=27) Ceftriaxone (test code=52) Ertapenem (test code=38) Gentamicin (test code=18) Levofloxacin (test code=22) Meropenem (test code=34) Nitrofurantoin (test code=23) Piperacillin + Tazobactam (test code=29) Tetracycline (test code=2) Tobramycin (test code=25) Trimethoprim + Sulfamethoxazole (test code=47) CULTURE (BEAKER) (test <1+ Peptostreptococcus hnxz=7085) speciesMost closely resembles GRAM STAIN RESULT 4+ WBCs (BEAKER) (test fogb=5532) GRAM STAIN RESULT <1+ gram negative (BEAKER) (test rods hwcn=608616) GRAM STAIN RESULT 4+ gram positive (BEAKER) (test cocci in pairs biqy=913248) GRAM STAIN RESULT 2+ gram positive (BEAKER) (test cocci in clusters zkte=234164) GRAM STAIN RESULT <1+ gram positive (BEAKER) (test coccobacilli dkoy=256026) RAD, CHEST, 1 VIEW, NON [id number] 13:15:00Reason for exam:->coughShould this be performed at the bedside?->YesFINAL REPORT AP chest HISTORY: Pneumonia COMPARISON: 07/12/2017 IMPRESSION:Status post recent sternotomy. Heart size normal. Minimal left basilar pleural thickening may reflect small effusion. Adjacent atelectasis. Lungs otherwise clear. No pneumothorax. Signed: Geri Langley MDReport Verified Date/Time: 07/25/2017 13:15:41 Reading Location: [address] Body Reading Room BLOOD [id number] 05:56:00 Test Item Value Reference Comments Range CULTURE (BEAKER) PEPTONIPHILUS From Anaerobic Bottle Only (test zsgh=1669) ASACCHAROLYTICUS Peptoniphilus asaccharolyticusSusceptibility performed by:* - [facility] Penicillin G (test code=3) Clindamycin (test code=10) Metronidazole (test code=56) Amoxicillin + Clavulanate (test code=21) Meropenem (test code=34) CULTURE (BEAKER) VEILLONELLA PARVULA From Anaerobic Bottle Only (test wqdk=5401) Veillonella parvulaSusceptibility performed by:* - [facility] Penicillin G (test code=3) Clindamycin (test code=10) Metronidazole (test code=56) Amoxicillin + Clavulanate (test code=21) Meropenem (test code=34) CULTURE (BEAKER) PROVIDENCIA STUARTII From Aerobic Bottle Only (test smrf=5166) Providencia stuartii Amikacin (test code=1) Ampicillin + Sulbactam (test code=6) Aztreonam (test code=32) Cefepime (test code=51) Cefoxitin (test code=68) Ceftazidime (test code=27) Ceftriaxone (test code=52) Ertapenem (test code=38) Gentamicin (test code=18) Levofloxacin (test code=22) Meropenem (test code=34) Nitrofurantoin (test code=23) Piperacillin + Tazobactam (test code=29) Tetracycline (test code=2) Tobramycin (test code=25) Trimethoprim + Sulfamethoxazole (test code=47) GRAM STAIN RESULT From anaerobic (BEAKER) (test bottle only: gram thzd=4368) positive cocci in clusters GRAM STAIN RESULT From aerobic bottle (BEAKER) (test only: gram negative xcvr=620461) rods NOT DETECTEDPanel is negative for [employer] BCID-detectable organisms. Please refer to traditional culture and sensitivity results as they become available.Other organisms and resistance markers not contained in this PCR panel cannot be excluded and follow-up of traditional culture results is required.This sample was tested at the [facility] Clinical Microbiology Laboratory using the UpToArray Blood Culture ID Panel. This test is FDA cleared for in vitro diagnostic use and has been verified and approved by the [facility] Clinical Microbiology laboratory for clinical use. Reference Range: Not DetectedBLOOD [id number] 04:03:00 Test Item Value Reference Range Comments CULTURE (BEAKER) From Anaerobic Bottle Only (test dnhe=9965) Same organism has been isolated from cultures(s) of the same body site and collection date. Repeat identification and susceptibility testing performed only after consultation with the clinical microbiology laboratory.Refer to previous culture of* - Veillonella Parvula GRAM STAIN RESULT From anaerobic bottle (BEAKER) (test only: gram positive lzia=6708) cocci in clusters ANAEROBIC [id number] 00:37:00 Test Item Value Reference Range Comments CULTURE (BEAKER) (test 3+ Same organism has been isolated gdlk=8075) from cultures(s) of the same body site and collection date. Repeat identification and susceptibility testing performed only after consultation with the clinical microbiology laboratory.Refer to previous culture of* - Peptoniphilus Asaccharolyticus ANAEROBIC [id number] 00:36:00 Test Item Value Reference Range Comments CULTURE (BEAKER) (test 4+ Peptoniphilus asaccharolyticusSame oubf=2168) organism has been isolated from culture(s) of the same body site and collection date. Repeat susceptibility testing performed only after consultation with the clinical microbiology laboratory. POCT-GLUCOSE [id number] 07:56:00 Test Item Value Reference Range Comments POC-GLUCOSE METER (BEAKER) 115 mg/dL 70-110 TESTED AT [facility] [address] [facility] (test knvv=9286) [facility] [address] COMPREHENSIVE METABOLIC [id number] 06:13:00 Test Item Value Reference Range Comments TOTAL PROTEIN (BEAKER) 5.1 gm/dL 6.0-8.3 (test krta=138) ALBUMIN (BEAKER) (test 2.5 g/dL 3.5-5.0 bvfk=5751) ALKALINE PHOSPHATASE 89 U/L 40-150 (BEAKER) (test kygu=211) BILIRUBIN TOTAL (BEAKER) 0.6 mg/dL 0.2-1.2 (test hxuc=354) SODIUM (BEAKER) (test 141 meq/L 136-145 ybse=401) POTASSIUM (BEAKER) (test 4.4 meq/L 3.5-5.1 yagi=648) CHLORIDE (BEAKER) (test 100 meq/L 98-107 caeq=754) CO2 (BEAKER) (test 34 meq/L 22-29 mcsi=200) BLOOD UREA NITROGEN 23 mg/dL 7-21 (BEAKER) (test etfc=489) CREATININE (BEAKER) (test 0.66 mg/dL 0.57-1.25 wdac=515) GLUCOSE RANDOM (BEAKER) 115 mg/dL 70-105 (test cbtc=758) CALCIUM (BEAKER) (test 8.6 mg/dL 8.4-10.2 islh=458) AST (SGOT) (BEAKER) (test 26 U/L 5-34 bohc=212) ALT (SGPT) (BEAKER) (test 22 U/L 6-55 xyvg=081) EGFR (BEAKER) (test 86 mL/min/1.73 sq m ESTIMATED GFR IS NOT eamf=4984) ACCURATE CREATININE CLEARANCE IN PREDICTING GLOMERULAR FILTRATION RATE. ESTIMATED GFR IS NOT APPLICABLE FOR DIALYSIS PATIENTS. CBC W/PLT COUNT & AUTO [id number] 05:43:00 Test Item Value Reference Range Comments WHITE BLOOD CELL COUNT (BEAKER) (test jqww=885) 9.9 K/ L 3.5-10.5 RED BLOOD CELL COUNT (BEAKER) (test gakt=081) 3.65 M/ L 3.93-5.22 HEMOGLOBIN (BEAKER) (test jieb=723) 10.0 GM/DL 11.2-15.7 HEMATOCRIT (BEAKER) (test tmad=979) 32.9 % 34.1-44.9 MEAN CORPUSCULAR VOLUME (BEAKER) (test ucny=140) 90.1 fL 79.4-94.8 MEAN CORPUSCULAR HEMOGLOBIN (BEAKER) (test 27.4 pg 25.6-32.2 xqsm=672) MEAN CORPUSCULAR HEMOGLOBIN CONC (BEAKER) (test 30.4 GM/DL 32.2-35.5 vrft=672) RED CELL DISTRIBUTION WIDTH (BEAKER) (test 16.3 % 11.7-14.4 upgm=024) PLATELET COUNT (BEAKER) (test sdel=246) 202 K/CU MM 150-450 MEAN PLATELET VOLUME (BEAKER) (test fruu=561) 10.4 fL 9.4-12.3 NUCLEATED RED BLOOD CELLS (BEAKER) (test 0 /100 WBC 0-0 zqvb=761) NEUTROPHILS RELATIVE PERCENT (BEAKER) (test 75 % lyzo=935) LYMPHOCYTES RELATIVE PERCENT (BEAKER) (test 12 % yljy=912) MONOCYTES RELATIVE PERCENT (BEAKER) (test 8 % kpfj=457) EOSINOPHILS RELATIVE PERCENT (BEAKER) (test 3 % dkvc=204) BASOPHILS RELATIVE PERCENT (BEAKER) (test 0 % njmn=872) NEUTROPHILS ABSOLUTE COUNT (BEAKER) (test 7.42 K/ L 1.56-6.13 dkob=207) LYMPHOCYTES ABSOLUTE COUNT (BEAKER) (test 1.17 K/ L 1.18-3.74 jofe=386) MONOCYTES ABSOLUTE COUNT (BEAKER) (test 0.75 K/ L 0.24-0.36 eqtu=739) EOSINOPHILS ABSOLUTE COUNT (BEAKER) (test 0.28 K/ L 0.04-0.36 tkaa=242) BASOPHILS ABSOLUTE COUNT (BEAKER) (test 0.02 K/ L 0.01-0.08 ccka=576) IMMATURE GRANULOCYTES-RELATIVE PERCENT (BEAKER) 2 % 0-1 (test dffp=8604) POCT-GLUCOSE [id number] 21:38:00 Test Item Value Reference Range Comments POC-GLUCOSE METER (BEAKER) 157 mg/dL 70-110 TESTED AT [address] (test ztjp=0243) [facility] [address] POCT-GLUCOSE [id number] 16:42:00 Test Item Value Reference Range Comments POC-GLUCOSE METER (BEAKER) 108 mg/dL 70-110 TESTED AT [address] (test ugwm=0412) [place] [id number] POCT-GLUCOSE [id number] 11:40:00 Test Item Value Reference Range Comments POC-GLUCOSE METER (BEAKER) 167 mg/dL 70-110 TESTED AT [address] (test rxhr=6033) [facility] [address] B-TYPE NATRIURETIC FACTOR (BNP)2017-07-18 08:59:00 Test Item Value Reference Range Comments B-TYPE NATRIURETIC PEPTIDE (BEAKER) (test 266 pg/mL 0-100 mtbj=298) COMPREHENSIVE METABOLIC [id number] 08:55:00 Test Item Value Reference Range Comments TOTAL PROTEIN (BEAKER) 5.3 gm/dL 6.0-8.3 (test myad=584) ALBUMIN (BEAKER) (test 2.6 g/dL 3.5-5.0 bmsj=1917) ALKALINE PHOSPHATASE 96 U/L 40-150 (BEAKER) (test njsh=413) BILIRUBIN TOTAL (BEAKER) 0.6 mg/dL 0.2-1.2 (test xwsl=954) SODIUM (BEAKER) (test 142 meq/L 136-145 zvrw=253) POTASSIUM (BEAKER) (test 4.2 meq/L 3.5-5.1 mcfl=816) CHLORIDE (BEAKER) (test 105 meq/L 98-107 urtv=103) CO2 (BEAKER) (test 32 meq/L 22-29 dszt=523) BLOOD UREA NITROGEN 22 mg/dL 7-21 (BEAKER) (test qqoj=336) CREATININE (BEAKER) (test 0.63 mg/dL 0.57-1.25 grxb=615) GLUCOSE RANDOM (BEAKER) 112 mg/dL 70-105 (test mned=053) CALCIUM (BEAKER) (test 8.4 mg/dL 8.4-10.2 hlfj=944) AST (SGOT) (BEAKER) (test 26 U/L 5-34 trfd=286) ALT (SGPT) (BEAKER) (test 21 U/L 6-55 xhjd=997) EGFR (BEAKER) (test 91 mL/min/1.73 sq m ESTIMATED GFR IS NOT gbvt=6452) ACCURATE CREATININE CLEARANCE IN PREDICTING GLOMERULAR FILTRATION RATE. ESTIMATED GFR IS NOT APPLICABLE FOR DIALYSIS PATIENTS. LACTIC ACID, VENOUS, WHOLE [id number] 08:52:00 Test Item Value Reference Range Comments LACTATE BLOOD VENOUS (2) 1.5 mmol/L 0.5-2.2 Specimen slightly hemolyzed (BEAKER) (test hkjz=3454) Effective 07/27/2015: Units/Reference Range ChangeNew: 0.5-2.2 mmol/L Previous: 5 -20 mg/dLCBC W/PLT COUNT & AUTO [id number] 08:43:00 Test Item Value Reference Range Comments WHITE BLOOD CELL COUNT (BEAKER) (test yekx=797) 12.7 K/ L 3.5-10.5 RED BLOOD CELL COUNT (BEAKER) (test xvqa=625) 3.75 M/ L 3.93-5.22 HEMOGLOBIN (BEAKER) (test xwkr=230) 10.5 GM/DL 11.2-15.7 HEMATOCRIT (BEAKER) (test qcjl=151) 34.1 % 34.1-44.9 MEAN CORPUSCULAR VOLUME (BEAKER) (test tegh=832) 90.9 fL 79.4-94.8 MEAN CORPUSCULAR HEMOGLOBIN (BEAKER) (test 28.0 pg 25.6-32.2 tpqm=007) MEAN CORPUSCULAR HEMOGLOBIN CONC (BEAKER) (test 30.8 GM/DL 32.2-35.5 dswb=585) RED CELL DISTRIBUTION WIDTH (BEAKER) (test 16.0 % 11.7-14.4 rnyv=859) PLATELET COUNT (BEAKER) (test dogy=939) 177 K/CU MM 150-450 MEAN PLATELET VOLUME (BEAKER) (test ferc=283) 10.7 fL 9.4-12.3 NUCLEATED RED BLOOD CELLS (BEAKER) (test 0 /100 WBC 0-0 merv=075) NEUTROPHILS RELATIVE PERCENT (BEAKER) (test 78 % kwqx=686) LYMPHOCYTES RELATIVE PERCENT (BEAKER) (test 11 % vykn=621) MONOCYTES RELATIVE PERCENT (BEAKER) (test 6 % uiex=654) EOSINOPHILS RELATIVE PERCENT (BEAKER) (test 2 % nbos=998) BASOPHILS RELATIVE PERCENT (BEAKER) (test 0 % jeiw=449) NEUTROPHILS ABSOLUTE COUNT (BEAKER) (test 9.82 K/ L 1.56-6.13 tazv=311) LYMPHOCYTES ABSOLUTE COUNT (BEAKER) (test 1.41 K/ L 1.18-3.74 zqvf=685) MONOCYTES ABSOLUTE COUNT (BEAKER) (test 0.76 K/ L 0.24-0.36 ovaf=149) EOSINOPHILS ABSOLUTE COUNT (BEAKER) (test 0.31 K/ L 0.04-0.36 rrwa=446) BASOPHILS ABSOLUTE COUNT (BEAKER) (test 0.02 K/ L 0.01-0.08 auxe=497) IMMATURE GRANULOCYTES-RELATIVE PERCENT (BEAKER) 3 % 0-1 (test iiqn=9832) POCT-GLUCOSE [id number] 07:48:00 Test Item Value Reference Range Comments POC-GLUCOSE METER (BEAKER) 116 mg/dL 70-110 TESTED AT [address] (test dbce=4970) [facility] [address] POCT-GLUCOSE [id number] 21:24:00 Test Item Value Reference Range Comments POC-GLUCOSE METER (BEAKER) 144 mg/dL 70-110 TESTED AT [address] (test msif=3437) [facility] [address] POCT-GLUCOSE [id number] 16:20:00 Test Item Value Reference Range Comments POC-GLUCOSE METER (BEAKER) 144 mg/dL 70-110 TESTED AT [address] (test jvfp=5568) [facility] [address] POCT-GLUCOSE [id number] 11:36:00 Test Item Value Reference Range Comments POC-GLUCOSE METER (BEAKER) 180 mg/dL 70-110 TESTED AT [address] (test pqya=9323) [facility] [address] POCT-GLUCOSE [id number] 07:06:00 Test Item Value Reference Range Comments POC-GLUCOSE METER (BEAKER) 130 mg/dL 70-110 TESTED AT [address] (test vsyc=3503) [facility] [address] COMPREHENSIVE METABOLIC [id number] 04:19:00 Test Item Value Reference Range Comments TOTAL PROTEIN (BEAKER) 5.0 gm/dL 6.0-8.3 (test hmen=489) ALBUMIN (BEAKER) (test 2.5 g/dL 3.5-5.0 soqw=9955) ALKALINE PHOSPHATASE 90 U/L 40-150 (BEAKER) (test ycla=965) BILIRUBIN TOTAL (BEAKER) 0.5 mg/dL 0.2-1.2 (test lwod=776) SODIUM (BEAKER) (test 141 meq/L 136-145 kwze=751) POTASSIUM (BEAKER) (test 4.7 meq/L 3.5-5.1 fygl=457) CHLORIDE (BEAKER) (test 106 meq/L 98-107 yyjw=502) CO2 (BEAKER) (test 29 meq/L 22-29 punm=003) BLOOD UREA NITROGEN 23 mg/dL 7-21 (BEAKER) (test dzjq=591) CREATININE (BEAKER) (test 0.61 mg/dL 0.57-1.25 clfq=671) GLUCOSE RANDOM (BEAKER) 129 mg/dL 70-105 (test rcjc=574) CALCIUM (BEAKER) (test 8.6 mg/dL 8.4-10.2 fmmg=540) AST (SGOT) (BEAKER) (test 30 U/L 5-34 qmhm=629) ALT (SGPT) (BEAKER) (test 23 U/L 6-55 ulgh=148) EGFR (BEAKER) (test 94 mL/min/1.73 sq m ESTIMATED GFR IS NOT aggu=3518) ACCURATE CREATININE CLEARANCE IN PREDICTING GLOMERULAR FILTRATION RATE. ESTIMATED GFR IS NOT APPLICABLE FOR DIALYSIS PATIENTS. CBC W/PLT COUNT & AUTO [id number] 04:18:00 Test Item Value Reference Range Comments WHITE BLOOD CELL COUNT (BEAKER) (test meev=875) 12.4 K/ L 3.5-10.5 RED BLOOD CELL COUNT (BEAKER) (test nypl=802) 3.82 M/ L 3.93-5.22 HEMOGLOBIN (BEAKER) (test qqjb=919) 10.5 GM/DL 11.2-15.7 HEMATOCRIT (BEAKER) (test htrg=775) 34.4 % 34.1-44.9 MEAN CORPUSCULAR VOLUME (BEAKER) (test zcun=368) 90.1 fL 79.4-94.8 MEAN CORPUSCULAR HEMOGLOBIN (BEAKER) (test 27.5 pg 25.6-32.2 wkpe=199) MEAN CORPUSCULAR HEMOGLOBIN CONC (BEAKER) (test 30.5 GM/DL 32.2-35.5 oifs=900) RED CELL DISTRIBUTION WIDTH (BEAKER) (test 15.6 % 11.7-14.4 rjql=487) PLATELET COUNT (BEAKER) (test lpci=842) 178 K/CU MM 150-450 MEAN PLATELET VOLUME (BEAKER) (test zlbw=346) 11.2 fL 9.4-12.3 NUCLEATED RED BLOOD CELLS (BEAKER) (test 0 /100 WBC 0-0 dhmx=161) LACTIC ACID, VENOUS, WHOLE [id number] 04:05:00 Test Item Value Reference Range Comments LACTATE BLOOD VENOUS (2) (BEAKER) (test 1.4 mmol/L 0.5-2.2 qaiz=6340) Effective 07/27/2015: Units/Reference Range ChangeNew: 0.5-2.2 mmol/L Previous: 5 -20 mg/dLPOCT-GLUCOSE [id number] 21:14:00 Test Item Value Reference Range Comments POC-GLUCOSE METER (BEAKER) 158 mg/dL 70-110 TESTED AT [address] (test jpfm=7020) [place] [address] BLOOD [id number] 18:00:00 Test Item Value Reference Range Comments CULTURE (BEAKER) (test kbmi=1033) No growth in 5 days POCT-GLUCOSE [id number] 17:21:00 Test Item Value Reference Range Comments POC-GLUCOSE METER (BEAKER) 125 mg/dL 70-110 TESTED AT [address] (test uajg=3158) [place] [id number] MISCELLANEOUS LAB [id number] 15:27:00 Test Item Value Reference Range Comments SCAN RESULT (test ugyj=[id number]) Result comments: NOT DETECTED Panel is negative for [employer] BCID-detectable organisms. Please refer to traditional culture and sensitivity results as they become available. Other organisms and resistance markers not contained in this PCR panel cannot be excluded and follow-up of traditional culture results is required. This sample was tested at the [facility] Clinical Microbiology Laboratory using the [employer] Blood Culture ID Panel. This test is FDA cleared for in vitro diagnostic use and hasbeen verified and approved by the [facility] Clinical Microbiology laboratory for clinical use. ReferenceRange: Not DetectedPOCT-GLUCOSE [id number] 12:52:00 Test Item Value Reference Range Comments POC-GLUCOSE METER (BEAKER) 142 mg/dL 70-110 TESTED AT [address] (test yxpd=8971) [place] [id number] POCT-GLUCOSE [id number] 12:52:00 Test Item Value Reference Range Comments POC-GLUCOSE METER (BEAKER) 175 mg/dL 70-110 TESTED AT [address] (test tgjl=3745) [place] [id number] BLOOD [id number] 11:00:00 Test Item Value Reference Range Comments CULTURE (BEAKER) (test lmyn=0500) No growth in 5 days CBC W/PLT COUNT & AUTO [id number] 09:08:00 Test Item Value Reference Range Comments WHITE BLOOD CELL COUNT (BEAKER) (test kloo=041) 10.9 K/ L 3.5-10.5 RED BLOOD CELL COUNT (BEAKER) (test pqfz=936) 3.73 M/ L 3.93-5.22 HEMOGLOBIN (BEAKER) (test wwfj=836) 10.4 GM/DL 11.2-15.7 HEMATOCRIT (BEAKER) (test enku=604) 33.4 % 34.1-44.9 MEAN CORPUSCULAR VOLUME (BEAKER) (test cacy=023) 89.5 fL 79.4-94.8 MEAN CORPUSCULAR HEMOGLOBIN (BEAKER) (test 27.9 pg 25.6-32.2 cmew=832) MEAN CORPUSCULAR HEMOGLOBIN CONC (BEAKER) (test 31.1 GM/DL 32.2-35.5 ivfo=318) RED CELL DISTRIBUTION WIDTH (BEAKER) (test 15.6 % 11.7-14.4 hfzo=691) PLATELET COUNT (BEAKER) (test yseg=893) 156 K/CU MM 150-450 MEAN PLATELET VOLUME (BEAKER) (test jpkh=073) 10.4 fL 9.4-12.3 NUCLEATED RED BLOOD CELLS (BEAKER) (test 0 /100 WBC 0-0 bbyb=443) POCT-GLUCOSE [id number] 07:53:00 Test Item Value Reference Range Comments POC-GLUCOSE METER (BEAKER) 131 mg/dL 70-110 TESTED AT [facility] [address] (test cqoh=1975) [facility] [address] MISCELLANEOUS LAB [id number] 06:53:00 Test Item Value Reference Range Comments SCAN RESULT (test [id number]) Result comments: NOT DETECTED Panel is negative for Bio[employer] BCID-detectable organisms. Please refer to traditional culture and sensitivity results as they become available. Other organisms and resistance markers not contained in this PCR panel cannot be excluded and follow-up of traditional culture results is required. This sample was tested at the [facility] Clinical Microbiology Laboratory using the [employer] FilmArray Blood Culture ID Panel. This test is FDA cleared for in vitro diagnostic use and hasbeen verified and approved by the [facility] Clinical Microbiology laboratory for clinical use. ReferenceRange: Not DetectedCOMPREHENSIVE METABOLIC [id number] 06:39:00 Test Item Value Reference Range Comments TOTAL PROTEIN (BEAKER) 5.1 gm/dL 6.0-8.3 (test zcnb=265) ALBUMIN (BEAKER) (test 2.4 g/dL 3.5-5.0 fvfl=3220) ALKALINE PHOSPHATASE 84 U/L 40-150 (BEAKER) (test sssv=074) BILIRUBIN TOTAL (BEAKER) 0.5 mg/dL 0.2-1.2 (test uaag=926) SODIUM (BEAKER) (test 144 meq/L 136-145 knep=720) POTASSIUM (BEAKER) (test 4.2 meq/L 3.5-5.1 cyuq=087) CHLORIDE (BEAKER) (test 108 meq/L 98-107 gqhx=481) CO2 (BEAKER) (test 31 meq/L 22-29 jurz=646) BLOOD UREA NITROGEN 28 mg/dL 7-21 (BEAKER) (test xdqs=219) CREATININE (BEAKER) (test 0.63 mg/dL 0.57-1.25 jomg=314) GLUCOSE RANDOM (BEAKER) 135 mg/dL 70-105 (test onkp=485) CALCIUM (BEAKER) (test 8.4 mg/dL 8.4-10.2 iaqu=159) AST (SGOT) (BEAKER) (test 24 U/L 5-34 owrg=512) ALT (SGPT) (BEAKER) (test 16 U/L 6-55 bqge=703) EGFR (BEAKER) (test 91 mL/min/1.73 sq m ESTIMATED GFR IS NOT fvtm=4651) ACCURATE CREATININE CLEARANCE IN PREDICTING GLOMERULAR FILTRATION RATE. ESTIMATED GFR IS NOT APPLICABLE FOR DIALYSIS PATIENTS. LACTIC ACID, VENOUS, WHOLE [id number] 06:21:00 Test Item Value Reference Range Comments LACTATE BLOOD VENOUS (2) 1.7 mmol/L 0.5-2.2 Specimen slightly hemolyzed (BEAKER) (test ddik=6914) Effective 07/27/2015: Units/Reference Range ChangeNew: 0.5-2.2 mmol/L Previous: 5 -20 mg/dLLACTIC ACID, VENOUS, WHOLE [id number] 06:20:00 Test Item Value Reference Range Comments LACTATE BLOOD VENOUS (2) (BEAKER) (test 1.7 mmol/L 0.5-2.2 bkoy=0684) Effective 07/27/2015: Units/Reference Range ChangeNew: 0.5-2.2 mmol/L Previous: 5 -20 mg/dLPOCT-GLUCOSE [id number] 20:54:00 Test Item Value Reference Range Comments POC-GLUCOSE METER (BEAKER) 169 mg/dL 70-110 TESTED AT [facility] [address] [facility] (test fdlz=3959) [facility] [address] POCT-GLUCOSE [id number] 17:36:00 Test Item Value Reference Range Comments POC-GLUCOSE METER (BEAKER) 161 mg/dL 70-110 TESTED AT [facility] [address] [facility] (test wzvz=5277) [facility] [address] RAD, CHEST, PA OR AP, 1 [id number] 14:46:00Reason for exam:-> dyspnea.FINAL REPORT Chest one view INDICATION: Dyspnea COMPARISON: 07/12/2017 IMPRESSION: Lung volumes have decreased with greater bibasilar opacities that could reflect worsening atelectasis or developing pneumonitis. Small pleural effusions are suspected. There is mild pulmonary vascular congestion. The cardiac silhouette is enlarged. Aortic ectasia and calcification and median sternotomy changes are again noted. No pneumothorax is seen. Signed: Narendra Mccormick MDReport Verified Date/Time: 07/15/2017 14: 46:32 Reading Location: [facility] B1 [id number] Consult Reading Room POCT-GLUCOSE [id number] 12:23:00 Test Item Value Reference Range Comments POC-GLUCOSE METER (BEAKER) 198 mg/dL 70-110 TESTED AT [facility] [address] [facility] (test rmtl=0728) [facility] [address] POCT-GLUCOSE [id number] 07:40:00 Test Item Value Reference Range Comments POC-GLUCOSE METER (BEAKER) 161 mg/dL 70-110 TESTED AT [address] (test cras=2913) [facility] [address] COMPREHENSIVE METABOLIC [id number] 05:32:00 Test Item Value Reference Range Comments TOTAL PROTEIN (BEAKER) 5.2 gm/dL 6.0-8.3 (test gnxz=100) ALBUMIN (BEAKER) (test 2.5 g/dL 3.5-5.0 cizq=3999) ALKALINE PHOSPHATASE 92 U/L 40-150 (BEAKER) (test xrsj=083) BILIRUBIN TOTAL (BEAKER) 0.6 mg/dL 0.2-1.2 (test xlwn=776) SODIUM (BEAKER) (test 143 meq/L 136-145 oyec=120) POTASSIUM (BEAKER) (test 4.4 meq/L 3.5-5.1 zhqe=286) CHLORIDE (BEAKER) (test 111 meq/L 98-107 ofhl=597) CO2 (BEAKER) (test 25 meq/L 22-29 xvzx=897) BLOOD UREA NITROGEN 30 mg/dL 7-21 (BEAKER) (test ftgz=125) CREATININE (BEAKER) (test 0.69 mg/dL 0.57-1.25 itrn=231) GLUCOSE RANDOM (BEAKER) 142 mg/dL 70-105 (test ovpk=718) CALCIUM (BEAKER) (test 8.4 mg/dL 8.4-10.2 uyqd=486) AST (SGOT) (BEAKER) (test 15 U/L 5-34 nqna=471) ALT (SGPT) (BEAKER) (test 12 U/L 6-55 tycz=570) EGFR (BEAKER) (test 82 mL/min/1.73 sq m ESTIMATED GFR IS NOT ocat=9396) ACCURATE CREATININE CLEARANCE IN PREDICTING GLOMERULAR FILTRATION RATE. ESTIMATED GFR IS NOT APPLICABLE FOR DIALYSIS PATIENTS. CBC W/PLT COUNT & AUTO [id number] 05:08:00 Test Item Value Reference Range Comments WHITE BLOOD CELL COUNT (BEAKER) (test ifrd=886) 11.5 K/ L 3.5-10.5 RED BLOOD CELL COUNT (BEAKER) (test gaav=942) 3.99 M/ L 3.93-5.22 HEMOGLOBIN (BEAKER) (test otkm=268) 11.0 GM/DL 11.2-15.7 HEMATOCRIT (BEAKER) (test hwmq=975) 35.2 % 34.1-44.9 MEAN CORPUSCULAR VOLUME (BEAKER) (test mydd=100) 88.2 fL 79.4-94.8 MEAN CORPUSCULAR HEMOGLOBIN (BEAKER) (test 27.6 pg 25.6-32.2 sygv=494) MEAN CORPUSCULAR HEMOGLOBIN CONC (BEAKER) (test 31.3 GM/DL 32.2-35.5 hcrl=737) RED CELL DISTRIBUTION WIDTH (BEAKER) (test 15.5 % 11.7-14.4 baqs=783) PLATELET COUNT (BEAKER) (test jwyn=066) 142 K/CU MM 150-450 MEAN PLATELET VOLUME (BEAKER) (test ilry=034) 10.2 fL 9.4-12.3 NUCLEATED RED BLOOD CELLS (BEAKER) (test 0 /100 WBC 0-0 wgew=401) POCT-GLUCOSE [id number] 21:43:00 Test Item Value Reference Range Comments POC-GLUCOSE METER (BEAKER) 235 mg/dL 70-110 TESTED AT [address] (test woca=0065) [facility] [address] POCT-GLUCOSE [id number] 16:41:00 Test Item Value Reference Range Comments POC-GLUCOSE METER (BEAKER) 141 mg/dL 70-110 TESTED AT [address] (test sslk=0873) [facility] [address] POCT-GLUCOSE [id number] 12:10:00 Test Item Value Reference Range Comments POC-GLUCOSE METER (BEAKER) 222 mg/dL 70-110 TESTED AT [facility] [address] [facility] (test dbcd=1359) [facility] [address] POCT-GLUCOSE [id number] 09:11:00 Test Item Value Reference Range Comments POC-GLUCOSE METER (BEAKER) 185 mg/dL 70-110 TESTED AT [place] [id number] [facility] (test boxy=7790) [facility] [address] [id number] 06:16:00 Test Item Value Reference Range Comments PHOSPHORUS (BEAKER) (test evvv=358) 1.7 mg/dL 2.3-4.7 [id number] 06:16:00 Test Item Value Reference Range Comments MAGNESIUM (BEAKER) (test pryj=957) 1.5 mg/dL 1.6-2.6 COMPREHENSIVE METABOLIC [id number] 06:16:00 Test Item Value Reference Range Comments TOTAL PROTEIN (BEAKER) 5.5 gm/dL 6.0-8.3 (test mxnw=030) ALBUMIN (BEAKER) (test 2.6 g/dL 3.5-5.0 vjgd=9142) ALKALINE PHOSPHATASE 100 U/L 40-150 (BEAKER) (test xgqz=511) BILIRUBIN TOTAL (BEAKER) 0.7 mg/dL 0.2-1.2 (test iaxr=947) SODIUM (BEAKER) (test 143 meq/L 136-145 qpzy=090) POTASSIUM (BEAKER) (test 3.9 meq/L 3.5-5.1 sovt=675) CHLORIDE (BEAKER) (test 110 meq/L 98-107 vexm=854) CO2 (BEAKER) (test 25 meq/L 22-29 xmdt=010) BLOOD UREA NITROGEN 34 mg/dL 7-21 (BEAKER) (test xwzy=701) CREATININE (BEAKER) (test 0.68 mg/dL 0.57-1.25 jwvt=300) GLUCOSE RANDOM (BEAKER) 168 mg/dL 70-105 (test tgzf=702) CALCIUM (BEAKER) (test 8.4 mg/dL 8.4-10.2 vjyx=550) AST (SGOT) (BEAKER) (test 12 U/L 5-34 pivx=460) ALT (SGPT) (BEAKER) (test 10 U/L 6-55 ovxw=434) EGFR (BEAKER) (test 83 mL/min/1.73 sq m ESTIMATED GFR IS NOT pzux=9417) ACCURATE CREATININE CLEARANCE IN PREDICTING GLOMERULAR FILTRATION RATE. ESTIMATED GFR IS NOT APPLICABLE FOR DIALYSIS PATIENTS. LACTIC ACID, VENOUS, WHOLE [id number] 05:21:00 Test Item Value Reference Range Comments LACTATE BLOOD VENOUS (2) (BEAKER) (test 1.9 mmol/L 0.5-2.2 nuxs=2697) Effective 07/27/2015: Units/Reference Range ChangeNew: 0.5-2.2 mmol/L Previous: 5 -20 mg/dLCBC W/PLT COUNT & AUTO [id number] 04:55:00 Test Item Value Reference Range Comments WHITE BLOOD CELL COUNT (BEAKER) (test prfz=501) 13.5 K/ L 3.5-10.5 RED BLOOD CELL COUNT (BEAKER) (test xcsy=535) 4.26 M/ L 3.93-5.22 HEMOGLOBIN (BEAKER) (test agfj=539) 11.6 GM/DL 11.2-15.7 HEMATOCRIT (BEAKER) (test jtfl=874) 36.3 % 34.1-44.9 MEAN CORPUSCULAR VOLUME (BEAKER) (test wagn=907) 85.2 fL 79.4-94.8 MEAN CORPUSCULAR HEMOGLOBIN (BEAKER) (test 27.2 pg 25.6-32.2 reek=381) MEAN CORPUSCULAR HEMOGLOBIN CONC (BEAKER) (test 32.0 GM/DL 32.2-35.5 vxcd=751) RED CELL DISTRIBUTION WIDTH (BEAKER) (test 15.5 % 11.7-14.4 zniw=972) PLATELET COUNT (BEAKER) (test ckqa=857) 151 K/CU MM 150-450 MEAN PLATELET VOLUME (BEAKER) (test fizc=323) 11.0 fL 9.4-12.3 NUCLEATED RED BLOOD CELLS (BEAKER) (test 0 /100 WBC 0-0 uuor=831) NEUTROPHILS RELATIVE PERCENT (BEAKER) (test 76 % pgjy=334) LYMPHOCYTES RELATIVE PERCENT (BEAKER) (test 11 % nkkl=422) MONOCYTES RELATIVE PERCENT (BEAKER) (test 9 % jdya=574) EOSINOPHILS RELATIVE PERCENT (BEAKER) (test 1 % wwlm=215) BASOPHILS RELATIVE PERCENT (BEAKER) (test 0 % xcfw=698) NEUTROPHILS ABSOLUTE COUNT (BEAKER) (test 10.30 K/ L 1.56-6.13 kmgs=645) LYMPHOCYTES ABSOLUTE COUNT (BEAKER) (test 1.45 K/ L 1.18-3.74 wpbt=023) MONOCYTES ABSOLUTE COUNT (BEAKER) (test 1.27 K/ L 0.24-0.36 nxjt=084) EOSINOPHILS ABSOLUTE COUNT (BEAKER) (test 0.10 K/ L 0.04-0.36 ckxy=181) BASOPHILS ABSOLUTE COUNT (BEAKER) (test 0.04 K/ L 0.01-0.08 jxes=036) IMMATURE GRANULOCYTES-RELATIVE PERCENT (BEAKER) 2 % 0-1 (test atgi=7963) POCT-GLUCOSE [id number] 23:16:00 Test Item Value Reference Range Comments POC-GLUCOSE METER (BEAKER) 173 mg/dL 70-110 TESTED AT [address] (test xezi=6777) [place] [address] LACTIC ACID, VENOUS, WHOLE [id number] 21:07:00 Test Item Value Reference Range Comments LACTATE BLOOD VENOUS (2) 2.4 mmol/L 0.5-2.2 Specimen slightly hemolyzed (BEAKER) (test ogqd=9930) Effective 07/27/2015: Units/Reference Range ChangeNew: 0.5-2.2 mmol/L Previous: 5 -20 mg/dLPOCT-GLUCOSE [id number] 17:56:00 Test Item Value Reference Range Comments POC-GLUCOSE METER (BEAKER) 199 mg/dL 70-110 TESTED AT [address] (test gpdg=6657) [place] [address] LACTIC ACID, VENOUS, WHOLE [id number] 12:55:00 Test Item Value Reference Range Comments LACTATE BLOOD VENOUS (2) 2.8 mmol/L 0.5-2.2 Specimen slightly hemolyzed (BEAKER) (test ydde=4795) Effective 07/27/2015: Units/Reference Range ChangeNew: 0.5-2.2 mmol/L Previous: 5 -20 mg/dLPOCT-GLUCOSE [id number] 11:56:00 Test Item Value Reference Range Comments POC-GLUCOSE METER (BEAKER) 144 mg/dL 70-110 TESTED AT [address] (test gdag=2598) [facility] [address] URINE [id number] 08:45:00 Test Item Value Reference Range Comments CULTURE (BEAKER) (test derx=7973) No growth POCT-GLUCOSE [id number] 08:20:00 Test Item Value Reference Range Comments POC-GLUCOSE METER (BEAKER) 289 mg/dL 70-110 TESTED AT [address] (test wfss=0913) [facility] [address] POCT-GLUCOSE [id number] 06:30:00 Test Item Value Reference Range Comments POC-GLUCOSE METER (BEAKER) 168 mg/dL 70-110 TESTED AT [address] (test haxx=1162) [facility] [address] [id number] 05:04:00 Test Item Value Reference Range Comments PHOSPHORUS (BEAKER) (test iijr=551) 1.7 mg/dL 2.3-4.7 [id number] 05:04:00 Test Item Value Reference Range Comments MAGNESIUM (BEAKER) (test tcpe=902) 1.7 mg/dL 1.6-2.6 COMPREHENSIVE METABOLIC [id number] 05:04:00 Test Item Value Reference Range Comments TOTAL PROTEIN (BEAKER) 5.8 gm/dL 6.0-8.3 (test dacr=583) ALBUMIN (BEAKER) (test 2.8 g/dL 3.5-5.0 kdrr=4458) ALKALINE PHOSPHATASE 104 U/L 40-150 (BEAKER) (test povs=926) BILIRUBIN TOTAL (BEAKER) 0.7 mg/dL 0.2-1.2 (test tois=760) SODIUM (BEAKER) (test 141 meq/L 136-145 sykk=552) POTASSIUM (BEAKER) (test 3.9 meq/L 3.5-5.1 bwzw=408) CHLORIDE (BEAKER) (test 107 meq/L 98-107 frcb=890) CO2 (BEAKER) (test 23 meq/L 22-29 edyf=623) BLOOD UREA NITROGEN 41 mg/dL 7-21 (BEAKER) (test crvh=954) CREATININE (BEAKER) (test 0.84 mg/dL 0.57-1.25 drgw=725) GLUCOSE RANDOM (BEAKER) 156 mg/dL 70-105 (test jrmd=392) CALCIUM (BEAKER) (test 8.6 mg/dL 8.4-10.2 yfft=157) AST (SGOT) (BEAKER) (test 12 U/L 5-34 yrdi=192) ALT (SGPT) (BEAKER) (test 10 U/L 6-55 geav=373) EGFR (BEAKER) (test 65 mL/min/1.73 sq m ESTIMATED GFR IS NOT rmgq=0030) ACCURATE CREATININE CLEARANCE IN PREDICTING GLOMERULAR FILTRATION RATE. ESTIMATED GFR IS NOT APPLICABLE FOR DIALYSIS PATIENTS. LACTIC ACID, VENOUS, WHOLE [id number] 04:40:00 Test Item Value Reference Range Comments LACTATE BLOOD VENOUS (2) 2.5 mmol/L 0.5-2.2 Specimen slightly hemolyzed (BEAKER) (test jyzz=2714) Effective 07/27/2015: Units/Reference Range ChangeNew: 0.5-2.2 mmol/L Previous: 5 -20 mg/dLCBC W/PLT COUNT & AUTO [id number] 04:31:00 Test Item Value Reference Range Comments WHITE BLOOD CELL COUNT (BEAKER) (test rhip=514) 9.6 K/ L 3.5-10.5 RED BLOOD CELL COUNT (BEAKER) (test grkd=531) 4.53 M/ L 3.93-5.22 HEMOGLOBIN (BEAKER) (test zswn=686) 12.3 GM/DL 11.2-15.7 HEMATOCRIT (BEAKER) (test uozw=412) 39.1 % 34.1-44.9 MEAN CORPUSCULAR VOLUME (BEAKER) (test pmao=482) 86.3 fL 79.4-94.8 MEAN CORPUSCULAR HEMOGLOBIN (BEAKER) (test 27.2 pg 25.6-32.2 nwdd=304) MEAN CORPUSCULAR HEMOGLOBIN CONC (BEAKER) (test 31.5 GM/DL 32.2-35.5 lnps=097) RED CELL DISTRIBUTION WIDTH (BEAKER) (test 15.5 % 11.7-14.4 pceq=048) PLATELET COUNT (BEAKER) (test ifuh=518) 189 K/CU MM 150-450 MEAN PLATELET VOLUME (BEAKER) (test yhgp=014) 10.8 fL 9.4-12.3 NUCLEATED RED BLOOD CELLS (BEAKER) (test 0 /100 WBC 0-0 sweq=190) NEUTROPHILS RELATIVE PERCENT (BEAKER) (test 72 % jptg=118) LYMPHOCYTES RELATIVE PERCENT (BEAKER) (test 16 % fvsg=950) MONOCYTES RELATIVE PERCENT (BEAKER) (test 9 % wbqr=571) EOSINOPHILS RELATIVE PERCENT (BEAKER) (test 1 % ujzi=656) BASOPHILS RELATIVE PERCENT (BEAKER) (test 0 % frmq=935) NEUTROPHILS ABSOLUTE COUNT (BEAKER) (test 6.97 K/ L 1.56-6.13 kxah=859) LYMPHOCYTES ABSOLUTE COUNT (BEAKER) (test 1.49 K/ L 1.18-3.74 yfwj=823) MONOCYTES ABSOLUTE COUNT (BEAKER) (test 0.90 K/ L 0.24-0.36 jwsu=750) EOSINOPHILS ABSOLUTE COUNT (BEAKER) (test 0.12 K/ L 0.04-0.36 yccx=125) BASOPHILS ABSOLUTE COUNT (BEAKER) (test 0.01 K/ L 0.01-0.08 zczd=080) IMMATURE GRANULOCYTES-RELATIVE PERCENT (BEAKER) 2 % 0-1 (test afia=4877) POCT-GLUCOSE [id number] 00:18:00 Test Item Value Reference Range Comments POC-GLUCOSE METER (BEAKER) 129 mg/dL 70-110 TESTED AT [address] (test cbtg=6332) [place] [id number] POCT-GLUCOSE [id number] 18:06:00 Test Item Value Reference Range Comments POC-GLUCOSE METER (BEAKER) 149 mg/dL 70-110 TESTED AT [address] (test vrwe=7465) [place] [id number] CREATINE KINASE (CK)[id number] 14:49:00 Test Item Value Reference Range Comments CREATINE KINASE TOTAL (BEAKER) (test ijjj=441) 8 U/L 29-200 TROPONIN [id number] 14:43:00 Test Item Value Reference Range Comments TROPONIN I (BEAKER) (test lalh=001) 0.02 ng/mL 0.00-0.03 Troponin I (TnI) levels must be interpreted [...] failure, acidosis, acute neurological disease, and persistent tachyarrhythmia.POCT-GLUCOSE [id number] 13:09:00 Test Item Value Reference Range Comments POC-GLUCOSE METER (BEAKER) 183 mg/dL 70-110 TESTED AT [facility] [address] [facility] (test pkxe=1564) [facility] [address] THROMBIN [id number] 12:14:00 Test Item Value Reference Range Comments THROMBIN TIME (BEAKER) (test rhbv=072) 19.0 secs 13.8-20.0 [id number] 05:19:00 Test Item Value Reference Range Comments MAGNESIUM (BEAKER) (test 2.0 mg/dL 1.6-2.6 Specimen slightly hemolyzed hbjm=046) [id number] 05:19:00 Test Item Value Reference Range Comments PHOSPHORUS (BEAKER) (test 2.2 mg/dL 2.3-4.7 Specimen slightly hemolyzed xeln=814) COMPREHENSIVE METABOLIC [id number] 05:19:00 Test Item Value Reference Range Comments TOTAL PROTEIN (BEAKER) 5.5 gm/dL 6.0-8.3 Specimen slightly (test hzda=081) hemolyzed ALBUMIN (BEAKER) (test 2.6 g/dL 3.5-5.0 Specimen slightly hpsm=3392) hemolyzed ALKALINE PHOSPHATASE 104 U/L 40-150 (BEAKER) (test dxmu=833) BILIRUBIN TOTAL (BEAKER) 0.4 mg/dL 0.2-1.2 Specimen slightly (test dzih=887) hemolyzed SODIUM (BEAKER) (test 142 meq/L 136-145 dlkj=273) POTASSIUM (BEAKER) (test 4.2 meq/L 3.5-5.1 Specimen slightly zbkm=547) hemolyzed CHLORIDE (BEAKER) (test 112 meq/L 98-107 iuot=401) CO2 (BEAKER) (test 20 meq/L 22-29 zdsy=241) BLOOD UREA NITROGEN 46 mg/dL 7-21 (BEAKER) (test xpub=489) CREATININE (BEAKER) (test 1.04 mg/dL 0.57-1.25 Specimen slightly vfhr=124) hemolyzed GLUCOSE RANDOM (BEAKER) 140 mg/dL 70-105 (test nrer=000) CALCIUM (BEAKER) (test 8.6 mg/dL 8.4-10.2 ehjc=196) AST (SGOT) (BEAKER) (test 16 U/L 5-34 Specimen slightly dtsu=839) hemolyzed ALT (SGPT) (BEAKER) (test 11 U/L 6-55 Specimen slightly wrji=464) hemolyzed EGFR (BEAKER) (test 51 mL/min/1.73 sq m ESTIMATED GFR IS NOT vmln=2853) ACCURATE CREATININE CLEARANCE IN PREDICTING GLOMERULAR FILTRATION RATE. ESTIMATED GFR IS NOT APPLICABLE FOR DIALYSIS PATIENTS. LACTIC ACID, VENOUS, WHOLE [id number] 05:08:00 Test Item Value Reference Range Comments LACTATE BLOOD VENOUS (2) 2.1 mmol/L 0.5-2.2 Specimen slightly hemolyzed (BEAKER) (test ujcs=2777) Effective 07/27/2015: Units/Reference Range ChangeNew: 0.5-2.2 mmol/L Previous: 5 -20 mg/[id number] 05:08:00 Test Item Value Reference Range Comments PARTIAL THROMBOPLASTIN TIME (BEAKER) (test 34.7 seconds 22.5-36.0 lrzi=022) CBC W/PLT COUNT & AUTO [id number] 05:07:00 Test Item Value Reference Range Comments WHITE BLOOD CELL COUNT (BEAKER) (test vauf=150) 11.7 K/ L 3.5-10.5 RED BLOOD CELL COUNT (BEAKER) (test dytu=487) 4.21 M/ L 3.93-5.22 HEMOGLOBIN (BEAKER) (test enyo=280) 11.8 GM/DL 11.2-15.7 HEMATOCRIT (BEAKER) (test disg=769) 36.8 % 34.1-44.9 MEAN CORPUSCULAR VOLUME (BEAKER) (test wucv=601) 87.4 fL 79.4-94.8 MEAN CORPUSCULAR HEMOGLOBIN (BEAKER) (test 28.0 pg 25.6-32.2 vmdc=735) MEAN CORPUSCULAR HEMOGLOBIN CONC (BEAKER) (test 32.1 GM/DL 32.2-35.5 lehv=525) RED CELL DISTRIBUTION WIDTH (BEAKER) (test 15.6 % 11.7-14.4 nthy=341) PLATELET COUNT (BEAKER) (test smfd=668) 186 K/CU MM 150-450 MEAN PLATELET VOLUME (BEAKER) (test lihh=797) 10.7 fL 9.4-12.3 NUCLEATED RED BLOOD CELLS (BEAKER) (test 0 /100 WBC 0-0 dbll=916) NEUTROPHILS RELATIVE PERCENT (BEAKER) (test 83 % rwzt=796) LYMPHOCYTES RELATIVE PERCENT (BEAKER) (test 10 % vajy=163) MONOCYTES RELATIVE PERCENT (BEAKER) (test 5 % rcar=781) EOSINOPHILS RELATIVE PERCENT (BEAKER) (test 1 % ffjk=500) BASOPHILS RELATIVE PERCENT (BEAKER) (test 0 % rmit=951) NEUTROPHILS ABSOLUTE COUNT (BEAKER) (test 9.70 K/ L 1.56-6.13 vapy=337) LYMPHOCYTES ABSOLUTE COUNT (BEAKER) (test 1.20 K/ L 1.18-3.74 xhuf=616) MONOCYTES ABSOLUTE COUNT (BEAKER) (test 0.63 K/ L 0.24-0.36 ahcq=099) EOSINOPHILS ABSOLUTE COUNT (BEAKER) (test 0.06 K/ L 0.04-0.36 jjmq=800) BASOPHILS ABSOLUTE COUNT (BEAKER) (test 0.01 K/ L 0.01-0.08 wkmi=836) IMMATURE GRANULOCYTES-RELATIVE PERCENT (BEAKER) 1 % 0-1 (test vtgk=6169) PROTHROMBIN [id number] 05:07:00 Test Item Value Reference Range Comments PROTIME (BEAKER) (test kwpn=743) 16.2 seconds 11.7-14.7 INR (BEAKER) (test uxly=783) 1.3 <=5.9 RECOMMENDED COUMADIN/WARFARIN INR THERAPY RANGESSTANDARD DOSE: 2.0 - 3.0 Includes: PROPHYLAXIS forvenous thrombosis, systemic embolization; TREATMENT for venous thrombosis and/or pulmonary embolus.HIGH RISK: Target INR is 2.5-3.5 for patients with mechanical heart valves.RAD, CHEST, 1 VIEW, NON [id number] 04:47:00Reason for exam:->interval cahnge in edemaFINAL REPORT Chest one view. Clinical history: interval change in edema Comparison: Chest radiograph 07/11/2017. Technique: A single frontal view of the chest was obtained. Findings:The patient is status post median sternotomy. The heart is normal in size. The aorta is uncoiledand atherosclerotic. There is pulmonary vascular congestion. There are small bilateral pleural effusions. There is no pneumothorax. Signed: Yesenia Mccullough Verified Date/Time : 07/12/2017 04:47:20 Reading Location: [facility] C013T Transitional Reading Room POCT-GLUCOSE [id number] 00:30:00 Test Item Value Reference Range Comments POC-GLUCOSE METER (BEAKER) 153 mg/dL 70-110 TESTED AT [facility] [address] [facility] (test korh=7321) [facility] [address] POCT-GLUCOSE [id number] 17:43:00 Test Item Value Reference Range Comments POC-GLUCOSE METER (BEAKER) 147 mg/dL 70-110 TESTED AT [place] [id number] [facility] (test cawk=8048) [facility] [address] URINALYSIS W/ [id number] 14:21:00 Test Item Value Reference Range Comments COLOR (BEAKER) (test aqsv=115) [place] CLARITY (BEAKER) (test tghv=495) Cloudy SPECIFIC GRAVITY UA (BEAKER) (test hupz=201) 1.016 1.001-1.035 PH UA (BEAKER) (test hnre=148) 6.0 5.0-8.0 PROTEIN UA (BEAKER) (test oeun=127) 100 mg/dL Negative GLUCOSE UA (BEAKER) (test iwuh=067) Negative Negative KETONES UA (BEAKER) (test vsmt=450) Trace Negative BILIRUBIN UA (BEAKER) (test lrqr=283) Negative Negative BLOOD UA (BEAKER) (test nfxh=501) Large Negative NITRITE UA (BEAKER) (test yyfd=428) Negative Negative LEUKOCYTE ESTERASE UA (BEAKER) (test jlhg=432) Large Negative UROBILINOGEN UA (BEAKER) (test nqdo=705) 0.2 mg/dL 0.2-1.0 RBC UA (BEAKER) (test resv=570) 2710 /HPF WBC UA (BEAKER) (test rfom=992) 1079 /HPF MUCUS (BEAKER) (test wspf=7875) Occasional SOURCE(BEAKER) (test ixuz=5713) Urine, [place] CBC W/PLT COUNT & AUTO [id number] 12:54:00 Test Item Value Reference Range Comments WHITE BLOOD CELL COUNT (BEAKER) (test jjrh=974) 19.8 K/ L 3.5-10.5 RED BLOOD CELL COUNT (BEAKER) (test trux=131) 3.72 M/ L 3.93-5.22 HEMOGLOBIN (BEAKER) (test pmnh=922) 10.5 GM/DL 11.2-15.7 HEMATOCRIT (BEAKER) (test fvem=064) 33.1 % 34.1-44.9 MEAN CORPUSCULAR VOLUME (BEAKER) (test awxl=955) 89.0 fL 79.4-94.8 MEAN CORPUSCULAR HEMOGLOBIN (BEAKER) (test 28.2 pg 25.6-32.2 ofnj=040) MEAN CORPUSCULAR HEMOGLOBIN CONC (BEAKER) (test 31.7 GM/DL 32.2-35.5 ueld=338) RED CELL DISTRIBUTION WIDTH (BEAKER) (test 15.6 % 11.7-14.4 iqif=593) PLATELET COUNT (BEAKER) (test pbyt=292) 180 K/CU MM 150-450 MEAN PLATELET VOLUME (BEAKER) (test jfcx=165) 10.4 fL 9.4-12.3 NUCLEATED RED BLOOD CELLS (BEAKER) (test 0 /100 WBC 0-0 lrbm=591) [id number] 12:53:00 Test Item Value Reference Range Comments PHOSPHORUS (BEAKER) (test vmvn=018) 2.4 mg/dL 2.3-4.7 [id number] 12:53:00 Test Item Value Reference Range Comments MAGNESIUM (BEAKER) (test panz=782) 2.1 mg/dL 1.6-2.6 POCT-GLUCOSE [id number] 12:40:00 Test Item Value Reference Range Comments POC-GLUCOSE METER (BEAKER) 175 mg/dL 70-110 TESTED AT [address] (test wbds=2136) [facility] [id number] URINE [id number] 11:06:00 Test Item Value Reference Range Comments CULTURE (BEAKER) (test lipc=2058) No growth COMPREHENSIVE METABOLIC [id number] 05:19:00 Test Item Value Reference Range Comments TOTAL PROTEIN (BEAKER) 5.6 gm/dL 6.0-8.3 (test gwyi=164) ALBUMIN (BEAKER) (test 2.6 g/dL 3.5-5.0 rfcz=4211) ALKALINE PHOSPHATASE 116 U/L 40-150 (BEAKER) (test vdmd=229) BILIRUBIN TOTAL (BEAKER) 0.5 mg/dL 0.2-1.2 (test ftgc=325) SODIUM (BEAKER) (test 140 meq/L 136-145 lvvt=757) POTASSIUM (BEAKER) (test 4.5 meq/L 3.5-5.1 xhkd=636) CHLORIDE (BEAKER) (test 109 meq/L 98-107 mmci=853) CO2 (BEAKER) (test 22 meq/L 22-29 ukix=700) BLOOD UREA NITROGEN 45 mg/dL 7-21 (BEAKER) (test xymi=890) CREATININE (BEAKER) (test 1.56 mg/dL 0.57-1.25 pbyf=995) GLUCOSE RANDOM (BEAKER) 106 mg/dL 70-105 (test kydr=319) CALCIUM (BEAKER) (test 7.9 mg/dL 8.4-10.2 prvh=798) AST (SGOT) (BEAKER) (test 15 U/L 5-34 hcps=660) ALT (SGPT) (BEAKER) (test 7 U/L 6-55 fovt=500) EGFR (BEAKER) (test 32 mL/min/1.73 sq m ESTIMATED GFR IS NOT bmei=1136) ACCURATE CREATININE CLEARANCE IN PREDICTING GLOMERULAR FILTRATION RATE. ESTIMATED GFR IS NOT APPLICABLE FOR DIALYSIS PATIENTS. LACTIC ACID, VENOUS, WHOLE [id number] 05:08:00 Test Item Value Reference Range Comments LACTATE BLOOD VENOUS (2) 1.4 mmol/L 0.5-2.2 Specimen slightly hemolyzed (BEAKER) (test lbnt=4586) Effective 07/27/2015: Units/Reference Range ChangeNew: 0.5-2.2 mmol/L Previous: 5 -20 mg/dLRAD, CHEST, 1 VIEW, NON [id number] 04:40:00Reason for exam:-> interval cahnge in edemaFINAL REPORT Chest one view. Clinical history: interval change in edema Comparison: Chest radiograph 2017 Technique: A single frontal view of the chest was obtained. Findings/ impression: The heart is normal in size. The aorta is atherosclerotic. There are dense calcifications of the mitral valve annulus. There is mild pulmonary interstitial edema, not significantly changed. There are small bilateral pleural effusions. There is no focal pulmonary consolidation or pneumothorax. There is mild discoid atelectasis in the left midlung. Signed: Yesenia Mccullough Verified Date/Time: 07/11/2017 04:40:24 Reading Location: [address] Transitional Reading Room POCT-GLUCOSE [id number] 00:54:00 Test Item Value Reference Range Comments POC-GLUCOSE METER (BEAKER) 115 mg/dL 70-110 TESTED AT [address] (test vywt=2826) [facility] [address] SPIN/CONCENTRATION [id number] 19:58:00 Test Item Value Reference Range Comments CONCENTRATION CHARGED (BEAKER) (test oonj=3392) Done POCT-GLUCOSE [id number] 18:34:00 Test Item Value Reference Range Comments POC-GLUCOSE METER (BEAKER) 139 mg/dL 70-110 TESTED AT [address] (test qdwd=9935) [facility] [address] BLOOD GAS, [id number] 16:21:00 Test Item Value Reference Range Comments PH ARTERIAL (BEAKER) (test drnz=912) 7.41 7.35-7.45 PCO2 ARTERIAL (BEAKER) (test jtjg=751) 34 mmHg 35-45 PO2 ARTERIAL (BEAKER) (test tmjy=303) 162 mmHg 80-90 O2 SATURATION ARTERIAL (BEAKER) (test tpde=332) 99.1 % 96.0-97.0 HCO3 ARTERIAL (BEAKER) (test qcrh=778) 21 mmol/L 21-29 BASE EXCESS ARTERIAL (BEAKER) (test nvxe=706) -3.1 mmol/L -2.0-3.0 PATIENT TEMPERATURE (BEAKER) (test sguw=4195) 37.0 C POCT-GLUCOSE [id number] 12:29:00 Test Item Value Reference Range Comments POC-GLUCOSE METER (BEAKER) 103 mg/dL 70-110 TESTED AT [facility] [address] [facility] (test xrsm=4940) [facility] [address] BLOOD GAS, [id number] 08:15:00 Test Item Value Reference Range Comments PH ARTERIAL (BEAKER) (test yruf=295) 7.48 7.35-7.45 PCO2 ARTERIAL (BEAKER) (test tuej=194) 27 mmHg 35-45 PO2 ARTERIAL (BEAKER) (test ubob=923) 261 mmHg 80-90 O2 SATURATION ARTERIAL (BEAKER) (test pits=852) 99.7 % 96.0-97.0 HCO3 ARTERIAL (BEAKER) (test uwdx=984) 20 mmol/L 21-29 BASE EXCESS ARTERIAL (BEAKER) (test jhmr=555) -3.0 mmol/L -2.0-3.0 PATIENT TEMPERATURE (BEAKER) (test ctir=0977) 37.0 C FIO2 (BEAKER) (test waqn=8455) 40.0 % BLOOD GAS, [id number] 05:46:00 Test Item Value Reference Range Comments PH ARTERIAL (BEAKER) (test ixfo=947) 7.46 7.35-7.45 PCO2 ARTERIAL (BEAKER) (test nqtg=273) 29 mmHg 35-45 PO2 ARTERIAL (BEAKER) (test ogiw=806) 243 mmHg 80-90 O2 SATURATION ARTERIAL (BEAKER) (test lhgf=640) 99.6 % 96.0-97.0 HCO3 ARTERIAL (BEAKER) (test bapd=937) 20 mmol/L 21-29 BASE EXCESS ARTERIAL (BEAKER) (test nqzk=608) -2.8 mmol/L -2.0-3.0 PATIENT TEMPERATURE (BEAKER) (test hjdk=5929) 36.7 C FIO2 (BEAKER) (test uyne=0794) 50.0 % COMPREHENSIVE METABOLIC [id number] 05:29:00 Test Item Value Reference Range Comments TOTAL PROTEIN (BEAKER) 5.0 gm/dL 6.0-8.3 (test xrib=039) ALBUMIN (BEAKER) (test 2.3 g/dL 3.5-5.0 cqng=1568) ALKALINE PHOSPHATASE 112 U/L 40-150 (BEAKER) (test uzzl=780) BILIRUBIN TOTAL (BEAKER) 0.8 mg/dL 0.2-1.2 (test ywnb=010) SODIUM (BEAKER) (test 138 meq/L 136-145 klyl=714) POTASSIUM (BEAKER) (test 4.5 meq/L 3.5-5.1 ctqb=491) CHLORIDE (BEAKER) (test 109 meq/L 98-107 ivtf=634) CO2 (BEAKER) (test 18 meq/L 22-29 kdtg=234) BLOOD UREA NITROGEN 33 mg/dL 7-21 (BEAKER) (test lsvb=187) CREATININE (BEAKER) (test 1.50 mg/dL 0.57-1.25 vkwu=963) GLUCOSE RANDOM (BEAKER) 114 mg/dL 70-105 (test qhjp=549) CALCIUM (BEAKER) (test 7.8 mg/dL 8.4-10.2 lmch=702) AST (SGOT) (BEAKER) (test 16 U/L 5-34 uard=182) ALT (SGPT) (BEAKER) (test 10 U/L 6-55 rbzc=279) EGFR (BEAKER) (test 33 mL/min/1.73 sq m ESTIMATED GFR IS NOT djfv=5485) ACCURATE CREATININE CLEARANCE IN PREDICTING GLOMERULAR FILTRATION RATE. ESTIMATED GFR IS NOT APPLICABLE FOR DIALYSIS PATIENTS. LACTIC ACID, VENOUS, WHOLE [id number] 05:27:00 Test Item Value Reference Range Comments LACTATE BLOOD VENOUS (2) (BEAKER) (test 1.9 mmol/L 0.5-2.2 bezo=3756) Effective 07/27/2015: Units/Reference Range ChangeNew: 0.5-2.2 mmol/L Previous: 5 -20 mg/dLLACTIC ACID, ARTERIAL, WHOLE [id number] 05:27:00 Test Item Value Reference Range Comments LACTATE BLOOD ARTERIAL (2) (BEAKER) (test 1.7 mmol/L 0.5-2.2 mkoz=9745) Effective 07/27/2015: Units/Reference Range ChangeNew: 0.5-2.2 mmol/L Previous: 5 -20 mg/dLPROTHROMBIN [id number] 05:20:00 Test Item Value Reference Range Comments PROTIME (BEAKER) (test qlvx=971) 27.9 seconds 11.7-14.7 INR (BEAKER) (test cfaq=255) 2.6 <=5.9 RECOMMENDED COUMADIN/WARFARIN INR THERAPY RANGESSTANDARD DOSE: 2.0 - 3.0 Includes: PROPHYLAXIS forvenous thrombosis, systemic embolization; TREATMENT for venous thrombosis and/or pulmonary embolus.HIGH RISK: Target INR is 2.5-3.5 for patients with mechanical heart valves.CBC W/PLT COUNT & AUTO [id number] 05:08:00 Test Item Value Reference Range Comments WHITE BLOOD CELL COUNT (BEAKER) (test fcie=922) 20.2 K/ L 3.5-10.5 RED BLOOD CELL COUNT (BEAKER) (test srbc=949) 3.44 M/ L 3.93-5.22 HEMOGLOBIN (BEAKER) (test xucs=357) 9.6 GM/DL 11.2-15.7 HEMATOCRIT (BEAKER) (test uhye=105) 29.6 % 34.1-44.9 MEAN CORPUSCULAR VOLUME (BEAKER) (test wxry=977) 86.0 fL 79.4-94.8 MEAN CORPUSCULAR HEMOGLOBIN (BEAKER) (test 27.9 pg 25.6-32.2 unal=395) MEAN CORPUSCULAR HEMOGLOBIN CONC (BEAKER) (test 32.4 GM/DL 32.2-35.5 rgqi=158) RED CELL DISTRIBUTION WIDTH (BEAKER) (test 15.3 % 11.7-14.4 kmwk=968) PLATELET COUNT (BEAKER) (test liek=347) 157 K/CU MM 150-450 MEAN PLATELET VOLUME (BEAKER) (test jhyt=081) 10.6 fL 9.4-12.3 NUCLEATED RED BLOOD CELLS (BEAKER) (test 0 /100 WBC 0-0 zggt=714) NEUTROPHILS RELATIVE PERCENT (BEAKER) (test 89 % dlff=489) LYMPHOCYTES RELATIVE PERCENT (BEAKER) (test 4 % tzze=172) MONOCYTES RELATIVE PERCENT (BEAKER) (test 5 % hqqh=725) EOSINOPHILS RELATIVE PERCENT (BEAKER) (test 0 % ynwn=717) BASOPHILS RELATIVE PERCENT (BEAKER) (test 0 % doaz=998) NEUTROPHILS ABSOLUTE COUNT (BEAKER) (test 17.89 K/ L 1.56-6.13 ngbb=659) LYMPHOCYTES ABSOLUTE COUNT (BEAKER) (test 0.74 K/ L 1.18-3.74 pnkf=460) MONOCYTES ABSOLUTE COUNT (BEAKER) (test 0.98 K/ L 0.24-0.36 lpph=030) EOSINOPHILS ABSOLUTE COUNT (BEAKER) (test 0.01 K/ L 0.04-0.36 qqkt=212) BASOPHILS ABSOLUTE COUNT (BEAKER) (test 0.03 K/ L 0.01-0.08 xymo=010) IMMATURE GRANULOCYTES-RELATIVE PERCENT (BEAKER) 3 % 0-1 (test ixgb=6711) POCT-GLUCOSE [id number] 05:06:00 Test Item Value Reference Range Comments POC-GLUCOSE METER (BEAKER) 108 mg/dL 70-110 TESTED AT [address] (test ryif=0413) [facility] [address] RAD, CHEST, 1 VIEW, NON [id number] 03:32:00Reason for exam:->interval cahnge in edemaFINAL REPORT EXAMINATION: AP PORTABLE CHEST RADIOGRAPH CLINICAL INDICATION: Intubated. Evaluate for change in pulmonary edema. IMPRESSION: Compared with July 09, 2017. Tip of the endotracheal tube projects over the midline approximately 5 cm superior to the marvin, similar to previous. A midline sternotomy is again noted. The heart is mildly enlarged but stable. Subtle reticular opacities are again noted in both lungs, nonspecific but possibly reflecting mild pulmonary edema.More confluent curvilinear opacities at the lung bases are also similar to the prior study and suggestive of atelectasis or scarring. Mitral annular calcifications are again suspected. Small bilateral pleural effusions are stable. No evidence of a pneumothorax. In summary, constellation of findings concerning for mild fluid overload/heart failure. Signed: James Corbin Verified Date/Time: 07/10 03:32:42 Reading Location: [address] Reading Room URINALYSIS W / [id number] 01:44:00 Test Item Value Reference Range Comments COLOR (BEAKER) (test gxzf=789) Dark Red CLARITY (BEAKER) (test mwfk=255) Cloudy SPECIFIC GRAVITY UA (BEAKER) (test uesh=927) 1.017 1.001-1.035 PH UA (BEAKER) (test yfsk=844) 6.5 5.0-8.0 PROTEIN UA (BEAKER) (test kloi=109) 200 mg/dL Negative GLUCOSE UA (BEAKER) (test cayt=598) Negative Negative KETONES UA (BEAKER) (test vios=213) Trace Negative BILIRUBIN UA (BEAKER) (test pdhi=689) Negative Negative BLOOD UA (BEAKER) (test qymq=923) Large Negative NITRITE UA (BEAKER) (test ercw=171) Negative Negative LEUKOCYTE ESTERASE UA (BEAKER) (test bhif=517) Large Negative UROBILINOGEN UA (BEAKER) (test pjqc=851) 0.2 mg/dL 0.2-1.0 RBC UA (BEAKER) (test zeuq=032) > /HPF WBC UA (BEAKER) (test mgyq=700) > /HPF BACTERIA (BEAKER) (test xrkv=190) Many MUCUS (BEAKER) (test eszr=8152) Moderate SOURCE(BEAKER) (test koje=3759) Urine, [place] BLOOD GAS, [id number] 00:45:00 Test Item Value Reference Range Comments PH ARTERIAL (BEAKER) (test ilty=546) 7.53 7.35-7.45 PCO2 ARTERIAL (BEAKER) (test ymyv=110) 23 mmHg 35-45 PO2 ARTERIAL (BEAKER) (test zjdj=357) 264 mmHg 80-90 O2 SATURATION ARTERIAL (BEAKER) (test spml=227) 99.7 % 96.0-97.0 HCO3 ARTERIAL (BEAKER) (test btrr=556) 19 mmol/L 21-29 BASE EXCESS ARTERIAL (BEAKER) (test anna=971) -2.1 mmol/L -2.0-3.0 PATIENT TEMPERATURE (BEAKER) (test pmms=4254) 36.9 C FIO2 (BEAKER) (test yutf=5057) 50.0 % POCT-GLUCOSE [id number] 00:26:00 Test Item Value Reference Range Comments POC-GLUCOSE METER (BEAKER) 104 mg/dL 70-110 [address] (test qkdy=9465) [facility] [address] RAD, CHEST, 1 VIEW, NON [id number] 21:23:00Reason for exam:->assess for ET tube placement and pulmonary edemaShould [facility]?-&gt ;YesFINAL REPORT RAD, CHEST, 1 VIEW, NON DEPT INDICATION : assess for ET tube placement and pulmonary edema COMPARISON: Chest x-ray from earlier today TECHNIQUE: Portable frontal viewof the chest. IMPRESSION: ET tube terminates 5.6 cm away from the marvin.Stable cardiomegaly.Pulmonary artery enlargement.Mitral valve annular calcification.No pneumothorax.No overt pulmonary edema.Noacute osseous abnormality. Signed: Ashley Hayes MDReport Verified Date/Time: 07/09/2017 21:23:57Reading Location: [address] Ortho Consult Reading Room Electronically signed by: ASHLEY HAYES MD on 2017 09:23 PMCBC W/PLT COUNT & AUTO [id number] 21:00:00 Test Item Value Reference Range Comments WHITE BLOOD CELL COUNT (BEAKER) (test rbtc=888) 25.8 K/ L 3.5-10.5 RED BLOOD CELL COUNT (BEAKER) (test gvck=334) 3.65 M/ L 3.93-5.22 HEMOGLOBIN (BEAKER) (test tfsp=813) 10.3 GM/DL 11.2-15.7 HEMATOCRIT (BEAKER) (test whut=656) 32.1 % 34.1-44.9 MEAN CORPUSCULAR VOLUME (BEAKER) (test hxuc=463) 87.9 fL 79.4-94.8 MEAN CORPUSCULAR HEMOGLOBIN (BEAKER) (test 28.2 pg 25.6-32.2 kpkw=503) MEAN CORPUSCULAR HEMOGLOBIN CONC (BEAKER) (test 32.1 GM/DL 32.2-35.5 dxne=644) RED CELL DISTRIBUTION WIDTH (BEAKER) (test 15.3 % 11.7-14.4 laom=325) PLATELET COUNT (BEAKER) (test jpcs=849) 176 K/CU MM 150-450 MEAN PLATELET VOLUME (BEAKER) (test lmwf=984) 10.0 fL 9.4-12.3 NUCLEATED RED BLOOD CELLS (BEAKER) (test 0 /100 WBC 0-0 tekj=875) IMMATURE GRANULOCYTES-RELATIVE PERCENT (BEAKER) 2 % 0-1 (test iuag=8058) (MANUAL DIFFERENTIAL)2017-07-09 21:00:00 Test Item Value Reference Range Comments NEUTROPHILS - REL (DIFF) (BEAKER) (test 81 % zyos=9337) LYMPHOCYTES - REL (DIFF) (BEAKER) (test 5 % ojmc=8001) MONOCYTES - REL (DIFF) (BEAKER) (test mjwc=5016) 3 % BANDS - REL (DIFF) (BEAKER) (test kqzh=9219) 11 % 0-10 NEUTROPHILS - ABS (DIFF) (BEAKER) (test 20.90 K/ L 1.80-8.00 xisg=8204) LYMPHOCYTES - ABS (DIFF) (BEAKER) (test 1.29 K/ L 1.48-4.50 bdkr=4700) MONOCYTES - ABS (DIFF) (BEAKER) (test fdzf=0517) 0.77 K/ L 0.00-1.30 BANDS-ABS (DIFF) (BEAKER) (test nfvg=6396) 2.8 K/ L 0.0-0.8 TOTAL COUNTED (BEAKER) (test gtqt=8250) 100 BANDS + SEGMENTED NEUTROPHILS (BEAKER) (test 23.74 juws=7026) WBC MORPHOLOGY (BEAKER) (test rylo=656) Normal PLT MORPHOLOGY (BEAKER) (test sbvv=584) Normal ELLIPTOCYTES (BEAKER) (test xjxs=852) 1+ few OVALOCYTES (BEAKER) (test bvef=009) 1+ few POLYCHROMATOPHILLIC RBCS(BEAKER) (test yusz=339) 1+ few TEAR DROP CELLS (BEAKER) (test ppwp=852) 1+ few LACTIC ACID, ARTERIAL, WHOLE [id number] 20:49:00 Test Item Value Reference Range Comments LACTATE BLOOD ARTERIAL (2) 1.9 mmol/L 0.5-2.2 Specimen slightly hemolyzed (BEAKER) (test splc=9433) Effective 07/27/2015: Units/Reference Range ChangeNew: 0.5-2.2 mmol/L Previous: 5 -20 mg/dLBLOOD GAS, [id number] 20:41:00 Test Item Value Reference Range Comments PH ARTERIAL (BEAKER) (test aohm=722) 7.52 7.35-7.45 PCO2 ARTERIAL (BEAKER) (test uzyu=261) 25 mmHg 35-45 PO2 ARTERIAL (BEAKER) (test xcrz=671) 256 mmHg 80-90 O2 SATURATION ARTERIAL (BEAKER) (test rrtz=401) 99.7 % 96.0-97.0 HCO3 ARTERIAL (BEAKER) (test knbu=228) 20 mmol/L 21-29 BASE EXCESS ARTERIAL (BEAKER) (test mrls=267) -2.0 mmol/L -2.0-3.0 PATIENT TEMPERATURE (BEAKER) (test qphi=8185) 36.7 C FIO2 (BEAKER) (test exek=8664) 50.0 % [id number] 20:24:00 Test Item Value Reference Range Comments PROTIME (BEAKER) (test tgsr=546) 28.8 seconds 11.7-14.7 INR (BEAKER) (test hwvy=605) 2.7 <=5.9 PARTIAL THROMBOPLASTIN TIME (BEAKER) (test 54.7 seconds 22.5-36.0 czvt=217) RECOMMENDED COUMADIN/WARFARIN INR THERAPY RANGESSTANDARD DOSE: 2.0 - 3.0 Includes: PROPHYLAXIS forvenous thrombosis, systemic embolization; TREATMENT for venous thrombosis and/or pulmonary embolus.HIGH RISK: Target INR is 2.5-3.5 for patients with mechanical heart valves.PROTHROMBIN TIME/[id number] 20:23: 00 Test Item Value Reference Range Comments PROTIME (BEAKER) (test hpcy=585) 28.8 seconds 11.7-14.7 INR (BEAKER) (test nqgm=869) 2.7 <=5.9 RECOMMENDED COUMADIN/WARFARIN INR THERAPY RANGESSTANDARD DOSE: 2.0 - 3.0 Includes: PROPHYLAXIS forvenous thrombosis, systemic embolization; TREATMENT for venous thrombosis and/or pulmonary embolus.HIGH RISK: Target INR is 2.5-3.5 for patients with mechanical heart valves.[id number] 20:23:00 Test Item Value Reference Range Comments FIBRINOGEN LEVEL (BEAKER) (test fruf=567) 712 mg/dl 225-434 [id number] 20:02:00 Test Item Value Reference Range Comments PHOSPHORUS (BEAKER) (test edkj=848) 4.2 mg/dL 2.3-4.7 [id number] 20:02:00 Test Item Value Reference Range Comments MAGNESIUM (BEAKER) (test yutk=509) 1.6 mg/dL 1.6-2.6 BASIC METABOLIC [id number] 20:02:00 Test Item Value Reference Range Comments SODIUM (BEAKER) (test 137 meq/L 136-145 cqwf=877) POTASSIUM (BEAKER) (test 4.6 meq/L 3.5-5.1 ixdh=093) CHLORIDE (BEAKER) (test 108 meq/L 98-107 igti=855) CO2 (BEAKER) (test 18 meq/L 22-29 xxhb=162) BLOOD UREA NITROGEN 26 mg/dL 7-21 (BEAKER) (test lxxx=537) CREATININE (BEAKER) (test 1.50 mg/dL 0.57-1.25 eqac=490) GLUCOSE RANDOM (BEAKER) 154 mg/dL 70-105 (test eeje=760) CALCIUM (BEAKER) (test 8.0 mg/dL 8.4-10.2 yhmy=207) EGFR (BEAKER) (test 33 mL/min/1.73 sq m ESTIMATED GFR IS NOT gmsk=3600) ACCURATE CREATININE CLEARANCE IN PREDICTING GLOMERULAR FILTRATION RATE. ESTIMATED GFR IS NOT APPLICABLE FOR DIALYSIS PATIENTS. HEPATIC FUNCTION [id number] 20:02:00 Test Item Value Reference Range Comments TOTAL PROTEIN (BEAKER) (test rlat=460) 5.6 gm/dL 6.0-8.3 ALBUMIN (BEAKER) (test vnvg=1904) 2.6 g/dL 3.5-5.0 BILIRUBIN TOTAL (BEAKER) (test sikh=208) 1.5 mg/dL 0.2-1.2 BILIRUBIN DIRECT (BEAKER) (test ijfg=464) 1.2 mg/dL 0.1-0.5 ALKALINE PHOSPHATASE (BEAKER) (test esba=817) 130 U/L 40-150 AST (SGOT) (BEAKER) (test iwjg=614) 21 U/L 5-34 ALT (SGPT) (BEAKER) (test idao=597) 12 U/L 6-55 BLOOD GAS, [id number] 19:04:00 Test Item Value Reference Range Comments PH ARTERIAL (BEAKER) (test nqrv=111) 7.36 7.35-7.45 PCO2 ARTERIAL (BEAKER) (test ylja=167) 32 mmHg 35-45 PO2 ARTERIAL (BEAKER) (test lxpt=947) 265 mmHg 80-90 O2 SATURATION ARTERIAL (BEAKER) (test djcn=849) 99.6 % 96.0-97.0 HCO3 ARTERIAL (BEAKER) (test gabw=376) 17 mmol/L 21-29 BASE EXCESS ARTERIAL (BEAKER) (test gzwa=582) -7.3 mmol/L -2.0-3.0 PATIENT TEMPERATURE (BEAKER) (test ffhv=0285) 37.0 C FIO2 (BEAKER) (test qkkk=6104) 50.0 % POCT-GLUCOSE [id number] 18:58:00 Test Item Value Reference Range Comments POC-GLUCOSE METER (BEAKER) 141 mg/dL 70-110 TESTED AT [facility] [address] [place] [address] (test dpkh=1618) [facility] [address] [place], CODING TECH IN OR/30 MINUTE [id number] 15:02:00Reason for exam:-> STENT PLACEMENTFINAL REPORT INDICATION: Stent placement COMPARISON: None available. IMPRESSION: 232 fluoroscopic images obtained during a surgical procedure performed by another physician (NOT the undersigned radiologist) were provided for postprocedural interpretation. Intraoperative consultation with the radiologist was not requested. A right femoral approach line is in place. Calcifications overlying the right renal shadow presumably reflect calculi. There is access and instrumentation ofthe right renal collecting system. Injected contrast reveals collecting system dilatation and filling defects suggesting calculi. And left renal pelvis filling defect also suggests a calculus. There isplacement of bilateral nephroureteral stents. A lamellated gallstone is seen in the right upper quadrant. There are degenerative spine changes and vascular calcifications. Fluoroscopy was not performedby the undersigned radiologist. Provided fluoroscopy time: 6.16 minutes, 232 images Signed: Narendra Mccormick Verified Date/Time: 07/09/2017 15:02:03 Reading Location: [facility] [id number] Consult Reading Room CBC W/ PLT COUNT & AUTO [id number] 12:21:00 Test Item Value Reference Range Comments WHITE BLOOD CELL COUNT (BEAKER) (test rkry=721) 24.3 K/ L 3.5-10.5 RED BLOOD CELL COUNT (BEAKER) (test khbe=060) 3.73 M/ L 3.93-5.22 HEMOGLOBIN (BEAKER) (test npie=740) 10.6 GM/DL 11.2-15.7 HEMATOCRIT (BEAKER) (test zfgq=491) 32.7 % 34.1-44.9 MEAN CORPUSCULAR VOLUME (BEAKER) (test xhuw=909) 87.7 fL 79.4-94.8 MEAN CORPUSCULAR HEMOGLOBIN (BEAKER) (test 28.4 pg 25.6-32.2 ggad=405) MEAN CORPUSCULAR HEMOGLOBIN CONC (BEAKER) (test 32.4 GM/DL 32.2-35.5 skcb=657) RED CELL DISTRIBUTION WIDTH (BEAKER) (test 14.9 % 11.7-14.4 gzev=640) PLATELET COUNT (BEAKER) (test yice=217) 227 K/CU MM 150-450 MEAN PLATELET VOLUME (BEAKER) (test mglr=914) 9.8 fL 9.4-12.3 NUCLEATED RED BLOOD CELLS (BEAKER) (test 0 /100 WBC 0-0 egxy=695) NEUTROPHILS RELATIVE PERCENT (BEAKER) (test 93 % fglp=731) LYMPHOCYTES RELATIVE PERCENT (BEAKER) (test 2 % odjc=387) MONOCYTES RELATIVE PERCENT (BEAKER) (test 4 % dndn=071) EOSINOPHILS RELATIVE PERCENT (BEAKER) (test 0 % ffoh=343) BASOPHILS RELATIVE PERCENT (BEAKER) (test 0 % exgj=754) NEUTROPHILS ABSOLUTE COUNT (BEAKER) (test 22.61 K/ L 1.56-6.13 ajbw=643) LYMPHOCYTES ABSOLUTE COUNT (BEAKER) (test 0.38 K/ L 1.18-3.74 qxyl=489) MONOCYTES ABSOLUTE COUNT (BEAKER) (test 0.94 K/ L 0.24-0.36 jyxd=229) EOSINOPHILS ABSOLUTE COUNT (BEAKER) (test 0.02 K/ L 0.04-0.36 ybgm=209) BASOPHILS ABSOLUTE COUNT (BEAKER) (test 0.02 K/ L 0.01-0.08 hlmi=289) IMMATURE GRANULOCYTES-RELATIVE PERCENT (BEAKER) 1 % 0-1 (test vcmg=1967) (MANUAL DIFFERENTIAL)2017-07-09 12:21:00 Test Item Value Reference Range Comments TOTAL COUNTED (BEAKER) (test slfi=8939) WBC MORPHOLOGY (BEAKER) (test ymrz=323) Normal PLT MORPHOLOGY (BEAKER) (test xrag=772) Normal RBC MORPHOLOGY (BEAKER) (test ydrj=230) Normal [id number] 11:47:00 Test Item Value Reference Range Comments FIBRINOGEN LEVEL (BEAKER) (test jred=350) 653 mg/dl 225-434 POCT-GLUCOSE [id number] 11:18:00 Test Item Value Reference Range Comments POC-GLUCOSE METER (BEAKER) 139 mg/dL 70-110 TESTED AT [facility] [address] [facility] (test sdbi=5658) [facility] [address] LACTIC ACID, VENOUS, WHOLE [id number] 10:05:00 Test Item Value Reference Range Comments LACTATE BLOOD VENOUS (2) (BEAKER) (test 3.3 mmol/L 0.5-2.2 enzm=4936) Effective 07/27/2015: Units/Reference Range ChangeNew: 0.5-2.2 mmol/L Previous: 5 -20 mg/dLU/S, ABDOMINAL, [id number] 09:00:00Abdomen limited area? Add comment if clarification is needed.->Gall BladderReason for exam:->acute cholecystitisFINAL REPORT Abdominal ultrasound dated 07/09 Comment: Real-time transabdominal ultrasound of the right upper quadrant abdomen was performed. Liver is normal in size and measures 16.6 cm in length. The echogenicity of the liver is normal. No focal lesion is noted in the liver. Gallbladder is contracted. A 4 cm gallstone is present. There is minimal pericholecystic fluidcollection in the gallbladder wall thickening. No biliary [...] the abdomen. Abdominal aorta is normal in caliber.IVC and Hepatic veins are patent. Impression: 1. Cholelithiasis with gallbladder wall thickening and pericholecystic fluid collection suspicious for cholecystitis. Please correlate clinically.2. Rightrenal stones with right hydronephrosis. Signed: Jose Sharif MDReport Verified Date/Time: 07/09/201709:00:17 Reading Location: [facility] [id number] Ultrasound Reading Room POCT-GLUCOSE [id number] 07:40:00 Test Item Value Reference Range Comments POC-GLUCOSE METER (BEAKER) 116 mg/dL 70-110 TESTED AT [facility] [address] [facility] (test tsdu=1250) [facility] [address] BLOOD GAS, [id number] 07:34:00 Test Item Value Reference Range Comments PH ARTERIAL (BEAKER) (test gdul=993) 7.44 7.35-7.45 PCO2 ARTERIAL (BEAKER) (test wmgl=963) 33 mmHg 35-45 PO2 ARTERIAL (BEAKER) (test zuov=349) 202 mmHg 80-90 O2 SATURATION ARTERIAL (BEAKER) (test lmmy=733) 99.4 % 96.0-97.0 HCO3 ARTERIAL (BEAKER) (test dbgb=362) 21 mmol/L 21-29 BASE EXCESS ARTERIAL (BEAKER) (test idmv=706) -2.1 mmol/L -2.0-3.0 PATIENT TEMPERATURE (BEAKER) (test klfy=1854) 37.1 C FIO2 (BEAKER) (test wpur=7804) 32.0 % URINALYSIS W/ [id number] 07:31:00 Test Item Value Reference Range Comments COLOR (BEAKER) (test xnrl=683) Yellow CLARITY (BEAKER) (test qebb=832) Cloudy SPECIFIC GRAVITY UA (BEAKER) (test slvm=116) 1.020 1.001-1.035 PH UA (BEAKER) (test thux=192) 6.0 5.0-8.0 PROTEIN UA (BEAKER) (test rzsv=903) 300 mg/dL Negative GLUCOSE UA (BEAKER) (test ennl=057) Negative Negative KETONES UA (BEAKER) (test mbii=123) 10 mg/dL Negative BILIRUBIN UA (BEAKER) (test ayvd=541) Negative Negative BLOOD UA (BEAKER) (test jgsy=439) Moderate Negative NITRITE UA (BEAKER) (test txkl=219) Negative Negative LEUKOCYTE ESTERASE UA (BEAKER) (test ijjq=489) Large Negative UROBILINOGEN UA (BEAKER) (test sldx=465) 0.2 mg/dL 0.2-1.0 RBC UA (BEAKER) (test gzuz=373) > /HPF WBC UA (BEAKER) (test eget=528) > /HPF SOURCE(BEAKER) (test ooqw=4945) Urine, [place] CT, [id number] 06:51:00FINAL REPORT CT, ABDOMEN \\T \\ PELVIS, WITHOUT IV CONTRAST INDICATION: "Pyelonephritis, complicated" COMPARISON: None TECHNIQUE: Noncontrast axially oriented images were obtained from the diaphragms through the pelvis. Coronal and sagittal reformats were provided. DOSE REDUCTION: Dose modulation, iterative reconstruction, and/or weight-based adjustment of the mA/kV was utilized to reduce the radiation dose to as low as reasonably achievable. FINDINGS: Airspace disease at the left lung base, atelectatic versus pneumonic.Mitral valve annular calcification. Large 4.4 x 2.2 cm stone in the gallbladder with gallbladder wall thickening or pericholecystic fluid. 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 The upper pole moiety is obstructed by a 5 mm stone near the UVJ. There is a 1.4 cm stone at least partially obstructing the lower pole moiety, near the renal hilum. There is moderate hydronephrosis and perinephric stranding. Superimposed infection not excluded.There is a nonobstructing 5 mm stone in the left renal pelvis.There is a 2 cm exophytic renal mass attached to the superior pole of the left kidney. Statistically, this most likely reflects renal cell carcinoma. Another possibility would be a complicated, hemorrhagic or proteinaceous renal cyst.Unremarkable liver, spleen, pancreas, and adrenal glands. Bladder is decompressed with a [place] catheter. No acute abnormality of the hollow abdominal viscera.Normal appendix. No focal lytic or destructive bony process. IMPRESSION:4.4 cm gallstone with gallbladder wall thickening and pericholecystic fluid. Acute versus chronic cholecystitis should be considered.Duplex collecting system of the right kidney with obstructing stones involving the upper and lower pole moieties. Moderate hydronephrosis. Superimposed infection not excluded given the degree of perinephricinflammatory change.2 cm left renal mass versus hemorrhagic or proteinaceous renal cyst. MRI can be obtained for further characterization. Signed: Ashley Hayes MDReport Verified Date/Time: 07/09/2017 06:51:04 Reading Location: [place] [id number] Ortho Consult Reading Room Electronically signed by: ASHLEY HAYES MD on 2017 06:51 AMB-TYPE NATRIURETIC FACTOR (BNP)2017-07-09 06:20:00 Test Item Value Reference Range Comments B-TYPE NATRIURETIC PEPTIDE (BEAKER) (test 2995 pg/mL 0-100 uogy=526) LACTIC ACID, VENOUS, WHOLE [id number] 06:10:00 Test Item Value Reference Range Comments LACTATE BLOOD VENOUS (2) (BEAKER) (test 1.7 mmol/L 0.5-2.2 uakz=1385) Effective 07/27/2015: Units/Reference Range ChangeNew: 0.5-2.2 mmol/L Previous: 5 -20 mg/dLRAD, CHEST, 1 VIEW, NON [id number] 06:02:00Reason for exam:-> sepsisShould this be performed at the bedside?->YesFINAL REPORT RAD, CHEST, 1 VIEW, NON DEPT INDICATION: sepsis COMPARISON: NoneTECHNIQUE: Single frontal view of the chest. IMPRESSION:Cardiomediastinal silhouette within normal limits.Diffuse interstitial prominence which may be chronic. A mild superimposed acute interstitial edema or pneumonitis would be difficult to exclude without priors for comparison, particularly on this limited portable, single view exam.The large focal airspace opacity.No pneumothorax.No acute osseous abnormality. Signed: Ashley Hayes MDReport Verified Date/Time: 07/09/2017 06:02:19 Reading Location: [address] Ortho Consult Reading Room Electronically signed by: ASHLEY HAYES MD on 2017 06:02 AMHEPATIC FUNCTION [id number] 05:30:00 Test Item Value Reference Range Comments TOTAL PROTEIN (BEAKER) (test ljmq=958) 5.3 gm/dL 6.0-8.3 ALBUMIN (BEAKER) (test nvko=0028) 2.6 g/dL 3.5-5.0 BILIRUBIN TOTAL (BEAKER) (test pgss=256) 1.6 mg/dL 0.2-1.2 BILIRUBIN DIRECT (BEAKER) (test xkcu=652) 1.2 mg/dL 0.1-0.5 ALKALINE PHOSPHATASE (BEAKER) (test lfrz=382) 121 U/L 40-150 AST (SGOT) (BEAKER) (test tfja=099) 19 U/L 5-34 ALT (SGPT) (BEAKER) (test vvly=535) 9 U/L 6-55 BASIC METABOLIC [id number] 05:30:00 Test Item Value Reference Range Comments SODIUM (BEAKER) (test 136 meq/L 136-145 jnet=125) POTASSIUM (BEAKER) (test 3.1 meq/L 3.5-5.1 yldi=873) CHLORIDE (BEAKER) (test 106 meq/L 98-107 ozzh=822) CO2 (BEAKER) (test 20 meq/L 22-29 gojf=799) BLOOD UREA NITROGEN 23 mg/dL 7-21 (BEAKER) (test gkyh=899) CREATININE (BEAKER) (test 1.43 mg/dL 0.57-1.25 cfju=836) GLUCOSE RANDOM (BEAKER) 145 mg/dL 70-105 (test ltiy=356) CALCIUM (BEAKER) (test 8.2 mg/dL 8.4-10.2 qukc=232) EGFR (BEAKER) (test 35 mL/min/1.73 sq m ESTIMATED GFR IS NOT qinc=3421) ACCURATE CREATININE CLEARANCE IN PREDICTING GLOMERULAR FILTRATION RATE. ESTIMATED GFR IS NOT APPLICABLE FOR DIALYSIS PATIENTS. [id number] 05:29:00 Test Item Value Reference Range Comments PARTIAL THROMBOPLASTIN TIME (BEAKER) (test 50.6 seconds 22.5-36.0 sdbs=360) PROTHROMBIN TIME/[id number] 05:28:00 Test Item Value Reference Range Comments PROTIME (BEAKER) (test vwej=868) 28.0 seconds 11.7-14.7 INR (BEAKER) (test uoga=148) 2.6 <=5.9 RECOMMENDED COUMADIN/WARFARIN INR THERAPY RANGESSTANDARD DOSE: 2.0 - 3.0 Includes: PROPHYLAXIS forvenous thrombosis, systemic embolization; TREATMENT for venous thrombosis and/or pulmonary embolus.HIGH RISK: Target INR is 2.5-3.5 for patients with mechanical heart valves.LACTIC ACID, VENOUS, WHOLE [id number] 05:20:00 Test Item Value Reference Range Comments LACTATE BLOOD VENOUS (2) (DOUGLASAKER) (test 1.8 mmol/L 0.5-2.2 nvex=2091) Effective 07/27/2015: Units/Reference Range ChangeNew: 0.5-2.2 mmol/L Previous: 5 -20 mg/dL
[2017-09-06 21:58] LABS: Absolute Lymphocytes (CBC) 1.7 K/uL (0.7-4.9); Absolute Monocytes 0.6 K/uL (0.1-1.3); Absolute Neutrophil 3.8 K/uL (1.8-8.0); Basophils % 0.5 % (0-1.3); Eosinophils % 6.1 % (0-4.4); Hematocrit 31.2 % (36.0-45.0); Lymphocytes % 25.9 % (15.3-44.8); MCH 29.1 pg (27.0-35.0); MCV 87.5 fL (80-100); MPV 8.3 fL (7.6-11.3); Monocytes % 9.6 % (3.3-12.3); RBC Red Blood Cell Count 3.57 M/uL (3.86-4.86)
[2017-09-06] MEDS ORDERED: ONDANSETRON 4 MG/2 ML VIAL ONE (22:26)
[2017-09-06] MEDS ORDERED: NA CHLORIDE 0.9% 1,000 ML ONE (22:26)
[2017-09-06 22:41] LABS: Urine Appearance TURBID; Urine Blood 3+ (NEG); Urine Color RED; Urine Glucose NEGATIVE (NEG); Urine Protein 3+ (NEG); Urine Specific Gravity 1.015 (1.005-1.030); Urine pH 6.5 (5.0-7.0)
[2017-09-06 22:42] LABS: Urine Bilirubin NEGATIVE (NEG)
[2017-09-06 22:53] LABS: Urine RBC TNTC /HPF (NONE SEEN)
[2017-09-06 22:54] LABS: Urine Bacteria 20-50 /HPF (<20); Urine Culture Reflex Order REFLEXED
[2017-09-06 22:55] LABS: Urine Yeast FEW (NONE SEEN)
[2017-09-06 22:56] LABS: Urine Yeast with Hyphae PRESENT
[2017-09-06 23:57] LABS: Bicarbonate 35 mEq/L (21-31); Glucose Level 102 mg/dL (65-120); Lipase 24 U/L (22-51); Potassium 3.6 mEq/L (3.6-5.0); Sodium Level 139 mEq/L (135-145)
[2017-09-07 00:03] LABS: ALT/SGPT 11 IU/L (10-60); AST/SGOT 26 IU/L (10-42); Alkaline Phosphatase 102 IU/L (42-121); Amylase Level 35 U/L (28-100); BUN Blood Urea Nitrogen 21 mg/dL (6-20); Bilirubin Direct 0.1 mg/dL (0-0.2); Bilirubin Total < 0.2 mg/dL (0.3-1.2); Protein, Total 4.8 g/dL (6.0-8.3)
[2017-09-07] MEDS ORDERED: Meropenem 1 GM/100 ML BAG ONE (00:14)
[2017-09-07] MEDS ORDERED: METRONIDAZOLE 500mg IVPB 500 MG/100 ML BAG IV ONE (02:23)
--- NOTE | 2017-09-07 02:29 | ER ---
Nurse's Notes [facility] Name: Darling Bianchi Age: 82 yrs Sex: Female : 1935 Arrival Date: 09/06/2017 Time: 20:51 Bed 23 Private MD: Diagnosis: Acute vomiting;Acute diarrhea;acute UTI;renal insufficiency;anemia Presentation: 09/06 20:52 Presenting complaint: Patient states: Vomiting and diarrhea for the past 2 days. Denies aj1 pain. Patient is currently receiving IV antibiotics through a midline to the right upper arm. States that she had kidney stones and had a lot of infection afterwards. Transition of care: patient was received from another setting of care ([facility]), [facility]. Onset of symptoms was September 04, 2017. Risk Assessment: Do you want to hurt yourself or someone else? Patient reports no desire to harm self or others. Initial Sepsis Screen: Does the patient meet any 2 criteria? No. Patient's initial sepsis screen is negative. Does the patient have a suspected source of infection? No. Patient's initial sepsis screen is negative. Care prior to arrival: None. 20:52 Method Of Arrival: EMS: [facility] aj1 20:52 Acuity: LYNDA 3 aj1 Triage Assessment: 21:07 General: Appears in no apparent distress. comfortable, Behavior is calm, cooperative, aj1 appropriate for age. Pain: Denies pain. GI: Abdomen is non-distended, Reports diarrhea, nausea, vomiting. Historical: - Allergies: 21:07 Vancomycin; aj1 - Home Meds: 21:07 amiodarone 200 mg Oral tab 1 tab 2 times per day [Active]; ampicillin 500 mg Oral cap 1 aj1 cap every 6 hours [Active]; Eliquis 2.5 mg oral tab 2 times per day [Active]; ascorbic acid oral twice a day [Active]; carvedilol 6.25 mg oral tab 1 tab 2 times per day [Active]; digoxin 125 mcg Oral tab 1 tab once daily [Active]; Stool Softener Oral 2 times per day [Active]; Lactobacillus acidophilus oral cap twice a day [Active]; latanoprost 0.005 % ophthalmic drop 1 drop once daily [Active]; levothyroxine 25 mcg tab 1 tab once daily [Active]; meropenem 1 gram intravenous solr every 8 hours [Active]; pantoprazole 20 mg oral TbEC 1 tab once daily [Active]; potassium chloride 20 mEq oral TbER once daily [Active]; simvastatin 40 mg Oral tab 1 tab once daily [Active]; - PMHx: 21:07 Kidney stones; Hypothyroidism; GERD; UTI; sepsis; Hyperlipidemia; Glaucoma; aj1 Hypertension; Atrial Fib; cellulitis; aortic valve replacement 2010; - Immunization history:: Flu vaccine is not up to date. - Social history:: Smoking status: Patient/guardian denies using tobacco. - Ebola Screening: : Patient denies travel to an Ebola-affected area in the 21 days before illness onset. - Family history:: not pertinent. - Hospitalizations: : No recent hospitalization is reported. Screenin:09 Abuse screen: Denies threats or abuse. Denies injuries from another. Nutritional aj1 screening: No deficits noted. Tuberculosis screening: No symptoms or risk factors identified. 09/07 00:21 Fall Risk IV access (20 points). Ambulatory Aid- Crutches/Cane/Walker (15 pts). kr2 Assessment: 09/06 21:09 General: Appears in no apparent distress. comfortable, Behavior is calm, cooperative, aj1 appropriate for age. Pain: Denies pain. Neuro: Level of Consciousness is awake, alert, obeys commands, Oriented to person, place, time, situation. Cardiovascular: Patient's skin is warm and dry. Respiratory: Airway is patent Respiratory effort is even, unlabored, Respiratory pattern is regular, symmetrical. GI: Abdomen is flat, obese, Bowel sounds present X 4 quads. Abd is soft X 4 quads Abdomen is tender to palpation in right lower quadrant Reports diarrhea, nausea, vomiting. : Parent/caregiver report the patient having patient having increased blood in her urine. EENT: No signs and/or symptoms were reported regarding the EENT system. Derm: No signs and/or symptoms reported regarding the dermatologic system. Skin is pink, warm \T\ dry. normal. Musculoskeletal: No signs and/or symptoms reported regarding the musculoskeletal system. Circulation, motion, and sensation intact. 22:20 Reassessment: Patient appears in no apparent distress at this time. No changes from aj1 previously documented assessment. Patient and/or family updated on plan of care and expected duration. Pain level reassessed. Patient is alert, oriented x 3, equal unlabored respirations, skin warm/dry/pink. 23:30 Reassessment: Patient appears in no apparent distress at this time. Patient and/or kr2 family updated on plan of care and expected duration. Pain level reassessed. Patient is alert, oriented x 3, equal unlabored respirations, skin warm/dry/pink. Patient denies pain at this time. 09/07 00:18 Reassessment: Patient appears in no apparent distress at this time. Patient and/or kr2 family updated on plan of care and expected duration. Pain level reassessed. Patient is alert, oriented x 3, equal unlabored respirations, skin warm/dry/pink. Patient denies pain at this time. 01:02 Reassessment: Patient appears in no apparent distress at this time. Patient and/or kr2 family updated on plan of care and expected duration. Pain level reassessed. Patient is alert, oriented x 3, equal unlabored respirations, skin warm/dry/pink. Patient denies pain at this time. 01:37 Reassessment: Patient is alert, oriented x 3, equal unlabored respirations, skin bb warm/dry/pink. pt resting quietly, family at bedside. 02:15 Reassessment: Dr Lujan at bedside for discussion of findings and recommendations pt to bb be admitted for further evaluation and treatment pt agrees to plan of care. 03:22 Reassessment: Patient and/or family updated on plan of care and expected duration. Pain bb level reassessed. Patient is alert, oriented x 3, equal unlabored respirations, skin warm/dry/pink. IV site intact, patent. Report called to Chelsie ZHONG for room 402. Vital Signs: 09/06 21:07 BP 123 / 49; Pulse 59; Resp 18; Temp 98.6; Pulse Ox 98% on R/A; Weight 79.83 kg; Height aj1 5 ft. 8 in. (172.72 cm); Pain 0/10; 22:20 BP 129 / 48; Pulse 56; Resp 20; Pulse Ox 98% on R/A; aj1 16 00:18 BP 134 / 43; Pulse 56; Resp 17; Pulse Ox 99% ; kr2 01:02 BP 121 / 41; Pulse 55; Resp 17; Pulse Ox 100% on R/A; kr2 02:14 BP 124 / 51; Pulse 46; Resp 12 S; Temp 98.2(O); Pulse Ox 100% on R/A; bb 03:24 BP 136 / 59; Pulse 61; Resp 16; Pulse Ox 99% on R/A; bb 09/06 21:07 Body Mass Index 26.76 (79.83 kg, 172.72 cm) aj1 ED Course: 09/06 20:51 Patient arrived in ED. aj1 20:54 Triage completed. aj1 21:07 Arm band placed on. aj1 21:09 Patient has correct armband on for positive identification. Bed in low position. Call aj1 light in reach. Side rails up X 1. 21:09 No provider procedures requiring assistance completed. aj1 21:25 Accessed Midline Clean \T\ dry. No blood return. Flushes easily. aj1 21:26 Nicole Tobar, RN is Primary Nurse. aj1 21:30 Missed attempt(s): 22 gauge in right antecubital area. Bleeding controlled, band aid aj1 applied, catheter tip intact. 21:33 Kenyon Lujan MD is Attending Physician. wa 21:35 Initial lab(s) drawn, by ri, sent to lab. Inserted saline lock: 22 gauge in right aj1 forearm, using aseptic technique. Blood collected. 22:25 X-ray completed. Portable x-ray completed in exam room. Patient tolerated procedure bb2 well. 22:30 Chest Single View XRAY In Process Unspecified. EDMS 23:[address] via stretcher. jj2 23:56 CT completed. Patient tolerated procedure well. Patient moved back from CT. kw1 09/07 00:00 CT Abd/Pelvis - Without Cont In Process Unspecified. EDMS 02:17 Patient admitted, IV remains in place. bb 02:28 Carol Bethea MD is Hospitalizing Provider. wa Administered Medications: 09/06 22:29 Drug: Zofran 4 mg Route: IVP; Site: right forearm; aj1 09/07 00:09 Follow up: Response: No adverse reaction; Nausea is decreased kr2 09/06 22:30 Drug: NS 0.9% 1000 ml Route: IV; Rate: 1000 ml; Site: right antecubital; aj1 23:30 Follow up: Response: No adverse reaction; IV Status: Completed infusion kr2 09/07 00:17 Drug: Meropenem 1 grams Route: IV; Rate: calculated rate; Site: right antecubital; kr2 00:56 Follow up: Response: No adverse reaction; IV Status: Completed infusion kr2 02:19 Drug: Flagyl 500 mg Volume: 100 ml; Route: IVPB; Rate: 200 ml/hr; Infused Over: 30 bb mins; Site: right antecubital; 03:25 Follow up: IV Status: Completed infusion; IV Intake: 100ml bb Intake: 03:25 IV: 100ml; Total: 100ml. bb Outcome: 02:16 Instructed on the need for admit. bb 02:28 Decision to Hospitalize by Provider. wa 03:23 Admitted to Tele accompanied by tech, via stretcher, room 402, with chart, Report bb called to Chelsie ZHONG 03:23 Condition: stable 03:25 Patient left the ED. bb Signatures: Dispatcher [employer] Nicole Handy, RN RN aj1 Johnny Paula Brenda, RN RN bb Kenyon Lujan MD MD wa Reaves, Karey, RN RN kr2 Lorraine Crawford1 Olga Lidia Vincent bb2
--- NOTE | 2017-09-07 02:29 | EDPHYS ---
Physician Documentation [facility] Name: Darling Bianchi Age: 82 yrs Sex: Female : 1935 Arrival Date: 09/06/2017 Time: 20:51 Bed 23 Private MD: ED Physician Kenyon Lujan HPI: 09/07 00:03 This 82 yrs old Female presents to ER via EMS with complaints of wa Vomiting/Diarrhea. 00:03 The patient presents to the emergency department with nausea, vomiting, diarrhea, that wa is continuous. Onset: The symptoms/episode began/occurred 2 day(s) ago. Possible causes: unknown, pt currently on home abx for infected stone in the urinary tract. The symptoms are aggravated by nothing. The symptoms are alleviated by nothing. Associated signs and symptoms: Pertinent positives: diarrhea, hematuria, nausea, vomiting, Pertinent negatives: abdominal pain, dysuria, fever, GI bleeding. The patient has not experienced similar symptoms in the past. The patient has not recently seen a physician, PMD Dr. Bethea called and advised to eval and admit if necessary. Historical: - Allergies: 09/06 21:07 Vancomycin; aj1 - Home Meds: 21:07 amiodarone 200 mg Oral tab 1 tab 2 times per day [Active]; ampicillin 500 mg Oral cap 1 aj1 cap every 6 hours [Active]; Eliquis 2.5 mg oral tab 2 times per day [Active]; ascorbic acid oral twice a day [Active]; carvedilol 6.25 mg oral tab 1 tab 2 times per day [Active]; digoxin 125 mcg Oral tab 1 tab once daily [Active]; Stool Softener Oral 2 times per day [Active]; Lactobacillus acidophilus oral cap twice a day [Active]; latanoprost 0.005 % ophthalmic drop 1 drop once daily [Active]; levothyroxine 25 mcg tab 1 tab once daily [Active]; meropenem 1 gram intravenous solr every 8 hours [Active]; pantoprazole 20 mg oral TbEC 1 tab once daily [Active]; potassium chloride 20 mEq oral TbER once daily [Active]; simvastatin 40 mg Oral tab 1 tab once daily [Active]; - PMHx: 21:07 Kidney stones; Hypothyroidism; GERD; UTI; sepsis; Hyperlipidemia; Glaucoma; aj1 Hypertension; Atrial Fib; cellulitis; aortic valve replacement 2010; - Immunization history:: Flu vaccine is not up to date. - Social history:: Smoking status: Patient/guardian denies using tobacco. - Ebola Screening: : Patient denies travel to an Ebola-affected area in the 21 days before illness onset. - Family history:: not pertinent. - Hospitalizations: : No recent hospitalization is reported. ROS: 09/07 00:06 Constitutional: Negative for fever, chills, and weight loss, Eyes: Negative for injury, wa pain, redness, and discharge, ENT: Negative for injury, pain, and discharge, Neck: Negative for injury, pain, and swelling, Cardiovascular: Negative for chest pain, palpitations, and edema, Respiratory: Negative for shortness of breath, cough, wheezing, and pleuritic chest pain, Back: Negative for injury and pain, MS/Extremity: Negative for injury and deformity, Skin: Negative for injury, rash, and discoloration, Neuro: Negative for headache, weakness, numbness, tingling, and seizure. Abdomen/GI: Positive for nausea and vomiting, diarrhea, Negative for abdominal pain. : Positive for hematuria, Negative for pelvic pain, flank pain, burning with urination. All other systems are negative. Exam: 00:06 Constitutional: This is a well developed, well nourished patient who is awake, alert, wa and in no acute distress. Head/Face: Normocephalic, atraumatic. Eyes: Pupils equal round and reactive to light, extra-ocular motions intact. Lids and lashes normal. Conjunctiva and sclera are non-icteric and not injected. Cornea within normal limits. Periorbital areas with no swelling, redness, or edema. Neck: Trachea midline, no thyromegaly or masses palpated, and no cervical lymphadenopathy. Supple, full range of motion without nuchal rigidity, or vertebral point tenderness. No Meningismus. Cardiovascular: Regular rate and rhythm with a normal S1 and S2. No gallops, murmurs, or rubs. Normal PMI, no JVD. No pulse deficits. Respiratory: Lungs have equal breath sounds bilaterally, clear to auscultation and percussion. No rales, rhonchi or wheezes noted. No increased work of breathing, no retractions or nasal flaring. Abdomen/GI: Soft, non-tender, with normal bowel sounds. No distension or tympany. No guarding or rebound. No evidence of tenderness throughout. Back: No spinal tenderness. No costovertebral tenderness. Full range of motion. Skin: Warm, dry with normal turgor. Normal color with no rashes, no lesions, and no evidence of cellulitis. MS/ Extremity: Pulses equal, no cyanosis. Neurovascular intact. Full, normal range of motion. Neuro: Awake and alert, GCS 15, oriented to person, place, time, and situation. Cranial nerves II-XII grossly intact. Motor strength 5/5 in all extremities. Sensory grossly intact. Cerebellar exam normal. Normal gait. Psych: Awake, alert, with orientation to person, place and time. Behavior, mood, and affect are within normal limits. 00:06 ENT: Mouth: Oral mucosa: dry. Vital Signs: 09/06 21:07 BP 123 / 49; Pulse 59; Resp 18; Temp 98.6; Pulse Ox 98% on R/A; Weight 79.83 kg; Height aj1 5 ft. 8 in. (172.72 cm); Pain 0/10; 22:20 BP 129 / 48; Pulse 56; Resp 20; Pulse Ox 98% on R/A; aj1 09/07 00:18 BP 134 / 43; Pulse 56; Resp 17; Pulse Ox 99% ; kr2 01:02 BP 121 / 41; Pulse 55; Resp 17; Pulse Ox 100% on R/A; kr2 02:14 BP 124 / 51; Pulse 46; Resp 12 S; Temp 98.2(O); Pulse Ox 100% on R/A; bb 03:24 BP 136 / 59; Pulse 61; Resp 16; Pulse Ox 99% on R/A; bb 09/06 21:07 Body Mass Index 26.76 (79.83 kg, 172.72 cm) aj1 MDM: 09/06 21:33 Patient medically screened. wa 09/07 00:07 Differential diagnosis: work up to exclude c-diff. will IV hydrate. r/o electrolyte wa abnml. r/o renal insuffi. 02:22 Data reviewed: vital signs, nurses notes, lab test result(s), radiologic studies. Test wa interpretation: by ED physician or midlevel provider: labs noted for anemia. renal insuff. hematuria. UTI. CT abd/pelvis: noted for ureteral stents. abnormal gallbladder per radiologist. 02:24 Response to treatment: the patient's symptoms have mildly improved after treatment. ar Physician consultation: A Neema CAMPBELL. Admission orders: after a detailed discussion of the patient's condition and case, the admit orders are written by me. ED course: pt with no abd pain. stool studies, includeing c-diff sent. still with UTI. noted multiresistant bacteria on cultures. will cover with IV merrem and give flagyl empirically for c-diff. stool studies for c-diff already sent. will check gallbladder US. 02:26 ED course: no vomiting during ED stay. . ar 09/06 21:28 Order name: Amylase, Serum; Complete Time: 02:11 [facility] 09/06 21:28 Order name: Basic Metabolic Panel; Complete Time: 02:10 [facility] 09/06 21:28 Order name: CBC with Diff; Complete Time: 02:10 [facility] 09/06 21:28 Order name: Creatinine for Radiology; Complete Time: 02:10 [facility] 09/06 21:28 Order name: Hepatic Function; Complete Time: 02:10 [facility] 09/06 21:28 Order name: Lipase; Complete Time: 02:11 [facility] 09/06 21:59 Order name: Stool Culture ar 09/06 21:59 Order name: Fecal Leukocyte Stain ar 09/06 21:59 Order name: CDIFF ar 09/06 22:13 Order name: Urinalysis 09/06 22:21 Order name: Urinalysis W/Microscopic; Complete Time: 23:09 [facility] 09/06 21:28 Order name: IV Saline Lock; Complete Time: 21:46 [facility] 09/06 21:28 Order name: Labs collected and sent; Complete Time: 21:46 [facility] 09/06 21:28 Order name: Urine Dipstick-Ancillary (obtain specimen); Complete Time: 22:20 [facility] 09/06 21:59 Order name: Cardiac monitoring; Complete Time: 22:41 ar 09/06 21:59 Order name: Chest Single View XRAY ar 09/06 22:58 Order name: Urine Culture [facility] 09/06 23:10 Order name: CT Abd/Pelvis - Without Cont ar 09/07 01:04 Order name: US Abdomen Limited ar 09/07 02:36 Order name: Basic Metabolic Panel [facility] 09/07 02:37 Order name: Basic Metabolic Panel [facility] 09/07 02:37 Order name: CBC with Automated Diff EDMS 09/07 02:37 Order name: CBC with Automated Diff EDMS Administered Medications: 09/06 22:29 Drug: Zofran 4 mg Route: IVP; Site: right forearm; aj1 09/07 00:09 Follow up: Response: No adverse reaction; Nausea is decreased 2 09/06 22:30 Drug: NS 0.9% 1000 ml Route: IV; Rate: 1000 ml; Site: right antecubital; aj1 23:30 Follow up: Response: No adverse reaction; IV Status: Completed infusion kr2 09/07 00:17 Drug: Meropenem 1 grams Route: IV; Rate: calculated rate; Site: right antecubital; kr2 00:56 Follow up: Response: No adverse reaction; IV Status: Completed infusion kr2 02:19 Drug: Flagyl 500 mg Volume: 100 ml; Route: IVPB; Rate: 200 ml/hr; Infused Over: 30 bb mins; Site: right antecubital; 03:25 Follow up: IV Status: Completed infusion; IV Intake: 100ml bb Disposition: 09/07/17 02:28 Hospitalization ordered by Carol Bethea for Inpatient Admission. Preliminary diagnosis are Acute vomiting, Acute diarrhea, acute UTI, renal insufficiency, anemia. - Bed requested for Telemetry/MedSurg (observation). - Status is Inpatient Admission. bb - Condition is Stable. - Problem is new. - Symptoms have improved. UTI on Admission? Yes Signatures: Dispatcher [employer] [facility] Nicole Tobar RN RN aj1 Lorraine Gardiner RN RN kl Ballard, Brenda, RN RN bb Appiah, William, MD MD wa Reaves, Karey RN RN kr2 Corrections: (The following items were deleted from the chart) 09/06 22:00 21:59 Occult Blood+PA.LAB.BRZ ordered. [facility] 22:21 21:29 UA MICROSCOPIC+U.LAB.BRZ ordered. [facility] 22:21 22:14 Urinalysis ordered. [facility] 09/07 03:16 02:28 Hospitalization Ordered by Carol Bethea MD for Inpatient Admission. Preliminary kl diagnosis is Acute vomiting; Acute diarrhea; acute UTI; renal insufficiency; anemia. Bed requested for Telemetry/MedSurg (observation). Status is Inpatient Admission. Condition is Stable. Problem is new. Symptoms have improved. UTI on Admission? Yes. ar 03:25 03:16 09/07/2017 02:28 Hospitalization Ordered by A Neema CAMPBELL for Inpatient Admission. bb Preliminary diagnosis is Acute vomiting; Acute diarrhea; acute UTI; renal insufficiency; anemia. Bed requested for Telemetry/MedSurg (observation). Status is Inpatient Admission. Condition is Stable. Problem is new. Symptoms have improved. UTI on Admission? Yes. kl
[2017-09-07] MEDS ORDERED: ACETAMINOPHEN 500 MG TAB PO PRN (02:31)
[2017-09-07] MEDS ORDERED: ONDANSETRON 4 MG/2 ML VIAL IV PRN (02:31)
[2017-09-07] MEDS: D5.45NS W/KCL 20MEQ 1,000 ML IV SCH ×2 (03:56→12:09)
[2017-09-07] MEDS ORDERED: Meropenem 500 MG VIAL IV SCH ×2 (09:00→13:00)
[2017-09-07] MEDS ORDERED: METRONIDAZOLE 500mg IVPB 500 MG/100 ML BAG IV SCH (09:00)
--- NOTE | 2017-09-07 09:22 | RAD REPORT ---
EXAM DESCRIPTION: CT - Abdomen Pelvis Wo Contrast - 09/07/2017 3:07 am CLINICAL HISTORY: Abdominal pain /hematuria and diarrhea 2 days COMPARISON: June 2017 TECHNIQUE: Computed axial tomography of the abdomen and pelvis was obtained. IV and oral contrast we re not requested. A preliminary report was generated by [employer] and reviewed prior to thi s dictation All CT scans are performed using dose optimization technique as appropriate and may include automated exposure control or mA/KV adjustment according to patient size. FINDINGS: The evaluation of solid organs, vessels and bowel is limited secondary to the lack of con trast administration. A 40 millimeters stone is present within the gallbladder. The gallbladder wall is thickened. Mild str anding is present within the adjacent fat. The gallbladder has an unusual appearance and may be twist ed upon itself. The liver, spleen, pancreas, and adrenal appear grossly normal. A 13 millimeter hemorrhagic left renal cyst is seen. Left renal calculi are present. A left ureteral stent is in place. Moderate left hydronephrosis is seen. Duplication of the right pyelocaliceal structures is present. A ureteral stent has been placed into t he upper duplication. Mild hydronephrosis is present. A 13 millimeter calculus is present within the lower duplicated renal pelvis. Mild hydronephrosis is present. The appendix is normal. There is no evidence of diverticulitis. A periumbilical hernia contains fat. The neck measures 20 millimeters. The herniated sac measures 62 millimeters. IMPRESSION: Cholelithiasis with mild gallbladder wall thickening and stranding in the adjacent fat p robably indicating cholecystitis. The gallbladder has an unusual appearance and may be twisted upon i tself. This may indicate a volvulus Left renal calculi. A left ureteral stent is in place with moderate left hydronephrosis. Right renal calculi. Duplication of the right pyelocaliceal structures. A ureteral stent is present w ithin the upper duplication. Mild right hydronephrosis
--- NOTE | 2017-09-07 09:32 | RAD REPORT ---
EXAM DESCRIPTION: US - Abdomen Exam Limited - 09/07/2017 9:01 am CLINICAL HISTORY: Abdominal pain. COMPARISON: September 06, 2017 CT scan FINDINGS: A 40 calculus may be impacted within the gallbladder neck. The gallbladder wall is thicken ed. The gallbladder has unusual appearance. It contains isoechoic material. The biliary tree is normal caliber. IMPRESSION: A gallstone appears lodged within the gallbladder neck. The gallbladder wall thickening probably indicates cholecystitis. As was mentioned on the CT scan the gallbladder has an unusual appe arance and may be twisted which may indicate a volvulus. The exam was discussed with Dr. Bethea at 9:25 a.m. on September 07, 2017
--- NOTE | 2017-09-07 10:08 | RAD REPORT ---
EXAM DESCRIPTION: Ross Single View09/06/2017 10:32 pm CLINICAL HISTORY: Chest pain COMPARISON: June 2017 FINDINGS: The lungs appear clear of acute infiltrate. The heart is mildly enlarged. Postsurgical changes involve the chest. IMPRESSION: No acute abnormalities displayed
[2017-09-07] MEDS ORDERED: AMPICILLIN SODIUM 500 MG in NA CHLORIDE 0.9% 50 ML IVPB SCH (12:00)
--- NOTE | 2017-09-07 15:00 | SS ---
Date of Admission: 09/07/2017 Chief Complaint: Nausea and diarrhea. History Of Present Illness: An 82-year-old female patient, who came to emergency room approximately 2 months ago and was transferred from emergency room to [place] with bilateral kidney stone with hydronephrosis, and she was considered high risk for any surgical intervention at that time. So, she has bilateral ureteric stent placed, and she was sent to [facility] for rehab therapy. The patient has been trying to recover and participate with the rehab therapy, but meanwhile she ended up requiring antibiotics at least 2 times since she has been in [facility] in last 2 months. Originally when she came in to the [facility] from [place], she was on antibiotics, and subsequently she took oral antibiotics, and now she is on IV antibiotics with resistant bacteria. She is on 2 different antibiotics. Yesterday, nurse from [facility] contacted me yesterday evening and informed me that the patient actually is having some nausea, no vomiting, no abdominal pain, and also has some diarrhea. With that in mind with her multiple medical problems and being on antibiotic, it was recommended that the patient be transferred to the emergency room. After the patient was evaluated in emergency room, she was admitted to the hospital. She denies any abdominal pain. No fever or chills. When I saw her this morning, her son and were present with her at bedside. Allergies: TO VANCOMYCIN. Medications: List reviewed, and the patient is on anticoagulation therapy, Eliquis. Review of Systems: GI: As mentioned above. Constitutional: Generalized weakness. All other systems reviewed and negative. Past Surgical History: Knee replacement, hysterectomy, aortic valve replacement , and recent bilateral ureteric stent placement about 2 months ago. Past Medical History: Hypertension, chronic atrial fibrillation, hyperlipidemia , osteoarthritis at multiple sites, prosthetic aortic wall. Family History: Not pertinent. Social History: Negative for smoking and alcohol use. Physical Examination: Vital Signs: Temperature 97.6, pulse 67, respiratory rate 20, blood pressure 117/55, oxygen saturation 94% on room air. General: Awake, alert, oriented, not in distress. HEENT: Head atraumatic, normocephalic. Conjunctivae nonerythematous. Sclerae white. Mouth, no thrush or edema noted. Ears/Nose, no mass, lesion, discharge noted. Neck: Supple. No JVD, lymph nodes, bruit, thyromegaly noted. Lungs: Bilateral good equal air entry. Clear to auscultation. No rhonchi. No rales. Heart: Normal heart sounds, no murmur or gallop. Abdomen: The patient has very minimum right paraumbilical anterior flank area tenderness, which is extremely minimal. No distention of abdomen. No hepatosplenomegaly. No bruit. She does have very slight right upper quadrant tenderness below the right costal margin. No rebound tenderness. Bowel sounds normoactive. No bruit. Extremities: No leg edema. No calf tenderness. Skin: No rash, ulcer, cellulitis. Lymphatics: No lymph node enlargement in neck, supraclavicular, infraclavicular region. Neuro: No focal neurological deficit. Chest: Unremarkable. External Genitalia: Deferred. Rectal: Deferred. Laboratory Data: White count 6.6, hemoglobin 10.4, platelets 173. Sodium 139, potassium 3.6, chloride 96, bicarb 35, BUN 21, creatinine 1.10, glucose 102. Liver function tests unremarkable. Amylase 35, lipase 24. Urinalysis 3+ esterase, wbc more than 50, bacteria 20-50, 3+ blood. CT scan of abdomen and pelvis from last month shows presence of gallstones with mild gallbladder wall thickening and stranding in the adjacent fat, probably representing cholecystitis. Gallbladder has unusual appearance and may be twisted upon itself indicating volvulus. Bilateral renal calculi with presence of bilateral ureteric stents, and left-sided moderate hydronephrosis, right-sided mild hydronephrosis. Her urine culture from 08/23/2017 grew E. coli, which is ESBL and Enterococcus faecalis, and according to sensitivity results, the patient was getting meropenem and ampicillin at [facility]. Chest x-ray, no acute cardiopulmonary changes. Right upper quadrant abdominal ultrasound shows distended gallbladder of about 8 cm size. Gallbladder wall thickening with 5-6 mm wall size and presence of gallstone, which is impacted in the neck of the gallbladder. Gallbladder appearance is unusual as per my discussion with the radiologist, and he is not sure if the patient has volvulus of the gallbladder or not, but he did inform me that the patient's gallbladder has unusual appearance. Impression: 1. Acute cholecystitis with gallstone. 2. Bilateral renal stones with hydronephrosis. 3. Urinary tract infection. 4. Chronic atrial fibrillation. 5. Chronic anticoagulation therapy with Eliquis. 6. Prosthetic heart valve. 7. Hypertension. 8. Hyperlipidemia. 9. Osteoarthritis, multiple sites. Plan: We will go ahead and admit the patient to hospital for further evaluation and management of this problem. The patient is appropriate for inpatient. After the patient had abdominal ultrasound done, I did talk to patient's and patient's son, and the patient this morning, details were discussed with them. Home medications were ordered including IV antibiotics. We will not give any Eliquis right now. Her last dose of Eliquis would have been yesterday evening at the [facility] as she takes it 2 times a day. We will keep her n.p.o., continue IV fluid and IV antibiotics. I did talk to our general surgeon, Dr. Reich, discussed with him, and he has recommended for us to transfer patient to [place] considering the patient is high risk, and we are not sure if the patient will directly undergo laparoscopic cholecystectomy with drainage of the bile duct, and definitive treatment with gallbladder surgery to be performed later on, all those decision needs to be made. Other important decision needs to be made is what to do with her bilateral kidney stones and stents that she has. I did try to reach her urologist Dr. Real Cantrell, and discussed details with his partner who was rail operations controller, and he will be available for consultation. Meanwhile, we will initiate the transfer process to [place] to [facility] for higher level of care and detail on plan of treatment discussed with patient and patient's family. The patient is medically stable for transfer, soon as arrangements get completed, and hopefully she will be transferred today. Final Diagnosis: As mentioned above. ART/MODL Voice ID: [id number] Report ID: [id number] ANA MARÍA
[2017-09-07] MEDS ORDERED: Meropenem 1000 MG/VIAL IV SCH (17:00)
[2017-09-07] MEDS ORDERED: Meropenem 1,000 MG in NA CHLORIDE 0.9% 100 ML IV SCH (17:00)
[2017-09-07] MEDS ORDERED: Meropenem 500 MG in NA CHLORIDE 0.9% 100 ML IV SCH (17:00)
[2017-09-07] MEDS ORDERED: AMIODARONE HCL 200 MG TAB PO SCH (21:00)
[2017-09-07] MEDS ORDERED: ATORVASTATIN 20 MG TAB PO SCH (21:00)
[2017-09-07] MEDS ORDERED: CARVEDILOL 6.25 MG TAB PO SCH (21:00)
[2017-09-07] MEDS ORDERED: LATANOPROST 0.005% 2.5ML OPTH OPTH SCH (21:00)
[2017-09-08] MEDS ORDERED: LEVOTHYROXINE SOD 0.025 MG TAB PO SCH (06:00)
[2017-09-08] MEDS ORDERED: PANTOPRAZOLE 40MG TABLET PO SCH (06:30)
[2017-09-08] MEDS ORDERED: DIGOXIN 0.125 MG TABLET PO SCH (09:00)
== END 2017-09-07 15:31 | disposition short-term general hospital (02) | DRG 445 ==
LOC: SUPCPDRO 20:40 → ER 20:40 → ERHOLD 09-07 02:31 → 4TH 09-07 03:25
PROVIDERS: ADMIT Internal Medicine; ATTEND Internal Medicine
DX: K80.00 Calculus of gallbladder with acute cholecystitis without obstruction (principal); N13.6 Pyonephrosis; I48.2 Chronic atrial fibrillation; Z79.01 Long term (current) use of anticoagulants; Z95.2 Presence of prosthetic heart valve; I10 Essential (primary) hypertension; E78.5 Hyperlipidemia, unspecified; M15.9 Polyosteoarthritis, unspecified; Z16.24 Resistance to multiple antibiotics; Z88.1 Allergy status to other antibiotic agents; R19.7 Diarrhea, unspecified; E03.9 Hypothyroidism, unspecified; K21.9 Gastro-esophageal reflux disease without esophagitis; H40.9 Unspecified glaucoma
CPT/HCPCS: 36415; 71045; 74176; 76705; 80048; 80076; 81001; 82150; 83690; 85025; 87045; 87046; 87077; 87086; 87088; 87186; 87493; 89055; 96361; 96365; 96367; 96375; 99285; J0290; J2185; J2405; J7030

== ENCOUNTER 2017-10-02 08:58 | Emergency (ER) | payer OTHER ==
--- OUTSIDE RECORDS SUMMARY | 2017-10-02 09:01 | XMS REPORT | Clinical Summary ---
:1935 Author Organization [facility] Address [address] [place] [address] Phone Care Team Providers Name Role Phone Unavailable Primary Care Provider Unavailable Allergies Active Allergy Reactions Severity Noted Date Comments Morphine Other (See Comments) 09/09/2017 headache Vancomycin Analogues Other (See Comments) 07/09/2017 Red man syndrome Current Medications Prescription Sig. Disp. Refills Start End Status Date Date docusate sodium Take 100 mg by Active (COLACE) 100 MG mouth 2 (two) capsule times daily. simvastatin (ZOCOR) Take 40 mg by Active 40 MG tablet mouth nightly. levothyroxine Take 25 mcg by Active (SYNTHROID, mouth Every LEVOTHROID) 25 MCG morning on an tablet empty stomach. donepezil (ARICEPT) Take 10 mg by Active 10 MG tablet mouth nightly. acetaminophen Take 2 tablets 30 tablet 0 07/18/ Active (TYLENOL) 325 MG (650 mg total) by 18 019 tablet mouth every 6 (six) hours as needed for up to 360 days. amiodarone Take 1 tablet (200 0 07/21/ Active (PACERONE) 200 MG mg total) by mouth 18 019 tablet 2 (two) times daily. furosemide (LASIX) Take 3 tablets (60 20 tablet 0 07/20/19 Active 20 MG tablet mg total) by mouth 18 2 (two) times daily. potassium chloride Take 1 tablet (20 0 07/20/19 Active SA (K-DUR,KLOR-CON) mEq total) by 18 20 MEQ tablet mouth daily. ascorbic acid, Take 500 mg by Active vitamin C, (VITAMIN mouth daily. C) 500 MG tablet Lactobacillus Take 1 packet by Active acidoph-LVicentebulgar mouth 2 (two) (LACTINEX,FLORANEX) times daily. 100 million cell oral granules latanoprost Place 1 drop into Active (XALATAN) 0.005 % both eyes nightly. ophthalmic solution zinc sulfate Take 220 mg by Active (ZINCATE) 220 (50) mouth daily. mg capsule ondansetron (ZOFRAN) Take 4 mg by mouth Active 4 MG tablet every 6 (six) hours as needed for Nausea. carvedilol (COREG) Take 0.5 tablets 0 09/19/19 Active 6.25 MG tablet (3.125 mg total) 18 019 by mouth 2 (two) times daily with breakfast and dinner. clotrimazole Place vaginally 45 g 0 09/19/19 Active (LOTRIMIN) 1 % nightly for 3 more 18 vaginal cream days.. enoxaparin (LOVENOX) Inject 0.8 mLs (80 0 09/19/19 Active 80 mg/0.8 mL Syrg mg total) 18 subcutaneously every 12 (twelve) hours. fluconazole Inject 100 mLs 100 mL 0 09/19/19 Active (DIFLUCAN) IVPB 200 (200 mg total) 18 018 mg in sodium intravenously chloride 0.9% (NS) daily for 14 days. 100 mL ipratropium-albutero Take 3 mLs by 0 09/19/19 Active l (DUO-NEB) 0.5 mg-3 nebulization every 18 019 mg(2.5 mg base)/3 mL 6 (six) hours for nebulizer solution 360 days. linezolid (ZYVOX) Take 1 tablet (600 28 tablet 0 09/19/19 Active 600 mg tablet mg total) by mouth 18 018 every 12 (twelve) hours for 14 days. sodium chloride Inject 1 g 0 09/19/19 Active bacteriostatic 0.9% intravenously 18 018 0.9 % Soln 20 mL every 8 (eight) with meropenem 1 hours for 14 days. gram SolR 1 g pantoprazole Take 2 tablets (40 0 09/19/19 Active (PROTONIX) 20 MG mg total) by mouth 18 tabletIndications: daily. gastroesophageal reflux disease cloNIDine HCl Take 0.1 mg by Discontinued (CATAPRES) 0.1 MG mouth 2 (two) 018 tablet times daily. potassium chloride Take 10 mEq by Discontinued SA (K-DUR,KLOR-CON) mouth 3 (three) 018 20 MEQ tablet times a week at bedtime. apixaban (ELIQUIS) 5 Take 5 mg by mouth Discontinued mg Tab tablet 2 (two) times 018 daily. furosemide (LASIX) Take 20 mg by Discontinued 20 MG tablet mouth 2 (two) 018 times daily. sotalol AF (BETAPACE Take 80 mg by Discontinued AF) 80 MG tablet mouth 2 (two) 018 times daily. losartan-hydroCHLORO Take 1 tablet by Discontinued thiazide (HYZAAR) mouth daily. 018 100-25 mg per tablet carvedilol (COREG) Take 1 tablet 0 07/19/19 Discontinued 6.25 MG tablet (6.25 mg total) by 18 018 mouth 2 (two) times daily with breakfast and dinner. digoxin (LANOXIN) Take 1 tablet (125 0 07/20/19 Discontinued 0.125 MG tablet mcg total) by 18 018 mouth daily. ertapenem (INVANZ) 1 Inject 1 g 1 each 0 07/19/19 gram injection intravenously 18 018 daily for 5 days. amiodarone Take 1 tablet (400 0 07/20/19 (PACERONE) 400 MG mg total) by mouth 18 018 tablet 2 (two) times daily for 2 days. ampicillin Take 500 mg by Discontinued (PRINCIPEN) 500 MG mouth 4 (four) 018 capsuleIndications: times daily. uniary tract infection pantoprazole Take 20 mg by Discontinued (PROTONIX) 20 MG mouth daily. 018 tabletIndications: gastroesophageal reflux disease aluminum & magnesium Take 30 mLs by 355 mL 0 09/19/19 hydroxide-simethicon mouth every 6 18 018 e (MAALOX PLUS) (six) hours as 400-400-40 mg/5 mL needed for up to suspension 10 days. diphenoxylate-atropi Take 1 tablet by 30 tablet 0 09/19/19 ne (LOMOTIL) mouth 4 (four) 18 018 2.5-0.025 mg per times daily as tablet needed for Diarrhea for up to 10 days. Max Daily Amount: 4 tablets guaiFENesin Take 1 tablet (600 14 tablet 0 09/19/19 Discontinued (MUCINEX) 600 mg 12 mg total) by mouth 18 018 hr tablet 2 (two) times daily for 7 days. benzonatate Take 1 capsule 20 capsule 0 09/19/19 Discontinued (TESSALON) 100 MG (100 mg total) by 18 018 capsule mouth 3 (three) times daily as needed for Cough for up to 7 days. Active Problems Problem Noted Date Bilateral nephrolithiasis 09/24/2017 Acute cholecystitis 09/07/2017 Cholecystitis 09/07/2017 Gram-negative bacteremia 07/11/2017 Moderate to severe mitral regurgitation 07/10/2017 S/P TAVR (transcatheter aortic valve replacement) 07/10/2017 Septic shock ([facility]) 07/09/2017 Hydronephrosis with ureteropelvic junction (UPJ) obstruction 07/09/2017 Nephrolithiasis 07/09/2017 Atrial fibrillation, rapid ([facility]) 07/09/2017 Coagulopathy ([facility]) 07/09/2017 Encounters Date Type Specialty Care Team Description 09/24/2017 - Hospital Encounter General Internal Real Cantrell Bilateral 09/27/2017 Medicine MD Carlos nephrolithiasis;Ash s hematuria 09/24/2017 Procedure Pass 09/24/2017 Surgery Real Cantrell CYSTOSCOPY,INSERTION MD Carlos URETERAL STENTS 09/23/2017 Anesthesia Event Ishmael Cintron MD 09/17/2017 Anesthesia Event Sobeida Sierra MD 09/17/2017 Procedure Pass 09/13/2017 Procedure Pass 09/13/2017 Surgery Real Cantrell CYSTOSCOPY,INSERTION MD Carlos URETERAL STENTS 09/12/2017 Anesthesia Event Jay Salas MD 09/08/2017 Orders Only General Internal Medicine 09/07/2017 - Hospital Encounter Cardiology Yue Young, Acute cholecystitis 09/18/2017 (Primary Dx);Atrial ZindaniCori, fibrillation, rapid ([facility]);Hydronephrosis Nestor, with ureteropelvic MD Janell junction (UPJ) Randy Moya, obstruction;S/P TAVR (transcatheter aortic valve replacement);Calculu s of gallbladder without cholecystitis without obstruction;Nephroli thiasis;Recurrent UTI;Renal mass, left 07/09/2017 - Hospital Encounter Cardiology Minor, Septic shock 07/19/2017 Sterling ([facility]);Atrial MD Josiah fibrillation, rapid Zatakia, Maddie ([facility]);Coagulopathy MD Andrae ([facility]);Hydronephrosis Davy Abad with ureteropelvic MD Enmanuel junction ([facility]) obstruction;Nephroli thiasis;Moderate to severe mitral regurgitation;Positi ve blood culture;Left renal mass 07/09/2017 Anesthesia Event Flam, Blake Gaxiola MD 07/09/2017 Procedure Pass 07/09/2017 Surgery Real Cantrell CYSTOSCOPY,INSERTION MD Carlos URETERAL STENTS 07/09/2017 Orders Only General Internal Medicine 07/08/2017 Telephone Critical Care Minor, Kbzq-zl-Cumz Call Medicine Sterling Rahman MD after 10/01/2016 Social History Tobacco Use Types Packs/Day Years Used Date Never Smoker Smokeless Tobacco: Never Used Sex Assigned at Date Recorded Not on file Last Filed Vital Signs Vital Sign Reading Time Taken Blood Pressure 109/55 09/27/2017 3:54 PM CDT Pulse 84 09/27/2017 3:54 PM CDT Temperature 36.4 C (97.5 F) 09/27/2017 3:54 PM CDT Respiratory Rate 18 09/27/2017 3:54 PM CDT Oxygen Saturation 97% 09/27/2017 3:54 PM CDT Inhaled Oxygen Concentration - - Weight 85.3 kg (188 lb) 09/24/2017 12:30 PM CDT Height 172.7 cm (5' 8") 09/07/2017 5:00 PM CDT Body Mass Index 28.59 09/24/2017 12:30 PM CDT Plan of Treatment Not on file Implants Implanted Type Area Lace Cutter Device Identifier Expiration Model / Date Serial / Lot Set Stent Injection 6x24cm [id number] - [id number] Uro Right: BOSTON [id number] / Implanted: Qty: 1 on 07/09/2017 by Real Cantrell MD Stent Ureter SCI: ONCOLOGY / [id number] Set Stent Injection 6x26cm [id number] - [id number] Uro Left: BOSTON 12/22 [id number] / Implanted: Qty: 1 on 07/09/2017 by Real Cantrell MD Stent Ureter SCI: ONCOLOGY / [id number] Set Stent Injection 6x24cm [id number] - [id number] Uro BOSTON 2019 [id number] / Implanted: Qty: 1 on 09/13/2017 by Real Cantrell MD Stent SCI: ONCOLOGY / [id number] Set Stent Injection 6x24cm [id number] - [id number] Uro BOSTON 2019 [id number] / Implanted: Qty: 1 on 09/13/2017 by Real Cantrell MD Stent SCI: ONCOLOGY / [id number] Set Stent Injection 6x26cm [id number] - [id number] Uro BOSTON 2019 [id number] / Implanted: Qty: 1 on 09/13/2017 by Real Cantrell MD Stent SCI: ONCOLOGY / [id number] Stent Uret Cntour Inj [id number] - [id number] Uro Right: BOSTON [id number] 01/22/2018 [id number] / Implanted: Qty: 1 on 09/24/2017 by Real Cantrell MD Stent Ureter SCI: UROLOGY/CLIN TECH / ECOLOGY [id number] Set Stent Injection 6x24cm [id number] - [id number] Uro Right: BOSTON [id number] 04/24/2019 [id number] / Implanted: Qty: 1 on 09/24/2017 by Real Cantrell MD Stent Ureter SCI: ONCOLOGY / [id number] Set Stent Injection 6x24cm [id number] - [id number] Uro Left: BOSTON [id number] 04/24/2019 [id number] / Implanted: Qty: 1 on 09/24/2017 by Real Cantrell MD Stent Ureter SCI: ONCOLOGY / [id number] Procedures Procedure Name Priority Date/Time Associated Diagnosis Comments CYSTOSCOPY,RETROGRADES 09/24/2017 1:41 PM Hydronephrosis, CDT unspecified hydronephrosis type CYSTOSCOPY,URETEROSCOP 09/24/2017 1:41 PM Hydronephrosis, Y W/ LASER LITHOTRIPSY CDT unspecified hydronephrosis type CYSTOSCOPY,INSERTION 09/24/2017 1:41 PM Hydronephrosis, URETERAL STENTS CDT unspecified hydronephrosis type CYSTOSCOPY,RETROGRADES 09/13/2017 1:00 PM Hydronephrosis, CDT unspecified hydronephrosis type Case Notes 2 HRS PER MIA CYSTOSCOPY,INSERTION URETERAL 09/13/2017 1:00 PM Hydronephrosis, unspecified STENTS CDT hydronephrosis type Case Notes 2 HRS PER MIA CYSTOSCOPY,INSERTION URETERAL STENTS 07/09/2017 11:07 AM CDT Kidney stone Special Needs REQ: STAT after 10/01/2016 Results CBC with platelet count + automated diff (09/26/2017 6:34 AM)Only the most recent of21 resultswithin the time period is included. Component Value Ref Range WBC 5.3 3.5 - 10.5 K/L RBC 3.07 (L) 3.93 - 5.22 M/L Hemoglobin 8.7 (L) 11.2 - 15.7 GM/DL Hematocrit 27.5 (L) 34.1 - 44.9 % MCV 89.6 79.4 - 94.8 fL MCH 28.3 25.6 - 32.2 pg MCHC 31.6 (L) 32.2 - 35.5 GM/DL RDW 15.9 (H) 11.7 - 14.4 % Platelets 119 (L) 150 - 450 K/CU MM MPV 10.2 9.4 - 12.3 fL nRBC 0 0 - 0 /100 WBC % Neutros 57 % % Lymphs 32 % % Monos 8 % % Eos 2 % % Baso 0 % # Neutros 3.05 1.56 - 6.13 K/L # Lymphs 1.69 1.18 - 3.74 K/L # Monos 0.42 (H) 0.24 - 0.36 K/L # Eos 0.12 0.04 - 0.36 K/L # Baso 0.02 0.01 - 0.08 K/L Immature Granulocytes-Relative 0 0 - 1 % Specimen Performing Laboratory Blood - Arm, Right [address] [address] CBC with platelet count + automated diff (09/26/2017 6:34 AM)Only the most recent of21 resultswithin the time period is included. Specimen Performing Laboratory Blood Narrative The following orders were created for panel order CBC with platelet count + automated diff. Procedure Abnormality Status --------- ------ CBC with platelet count ...[[id number]]AbnormalFinal result Please view results for these tests on the individual orders. Basic Metabolic Panel (09/26/2017 6:34 AM)Only the most recent of10 resultswithin the time period is included. Component Value Ref Range Sodium 133 (L) 136 - 145 meq/L Potassium 4.2 3.5 - 5.1 meq/L Chloride 103 98 - 107 meq/L CO2 25 22 - 29 meq/L BUN 19 7 - 21 mg/dL Creatinine 0.81 0.57 - 1.25 mg/dL Glucose 102 70 - 105 mg/dL Calcium 7.6 (L) 8.4 - 10.2 mg/dL EGFR 68Comment: ESTIMATED GFR IS NOT ACCURATE mL/min/1.73 sq m CREATININE CLEARANCE IN PREDICTING GLOMERULAR FILTRATION RATE. ESTIMATED GFR IS NOT APPLICABLE FOR DIALYSIS PATIENTS. Specimen Performing Laboratory Blood - Arm, [address] [address] Manual Differential (09/25/2017 4:26 AM)Only the most recent of5 resultswithin the time period is included. Component Value Ref Range % Neutros 94 % % Lymphs 6 % # Neutros 3.76 1.56 - 6.13 K/ul # Lymphs 0.24 (L) 1.18 - 3.74 K/ul Total Counted 100 WBC Morphology Normal Platelet Morphology Normal Anisocytosis 1+ few Microcytes 1+ few Poikilocytes 1+ few Artifact Present Platelet Conc Decreased Specimen Performing Laboratory Blood - Arm, [address] [address] Narrative Received comment: User comments: Slide comments: [place] wool fleece grader in or 30 minute increments (09/24/2017 5:25 PM)Only the most recent of3 resultswithin the time period is included. Specimen Performing Laboratory GE RIS Narrative FINAL REPORT Fluoroscopy 203 views intraoperative 09/24/2017 6:37 PM CLINICAL HISTORY: Instrument localization COMPARISON: None available IMPRESSION: Please correlate imaging report findings with the procedure note prepared by Dr. Cantrell, as an intra-procedure imaging consultation was not requested. Reported fluoroscopy time: 2.54 minutes. Signed: Jermain Hodges MD Report Verified Date/Time:09/24/2017 18:37:56 Reading Location: [facility] Reading Room Procedure Note Interface, External Ris In - 09/24/2017 6:40 PM CDT FINAL REPORT Fluoroscopy 203 views intraoperative 09/24/2017 6:37 PM CLINICAL HISTORY: Instrument localization COMPARISON: None available IMPRESSION: Please correlate imaging report findings with the procedure note prepared by Dr. Cantrell, as an intra-procedure imaging consultation was not requested. Reported fluoroscopy time: 2.54 minutes. Signed: Jermain Hodges MD Report Verified Date/Time: 09/24/2017 18:37:56 Reading Location: [facility] Radiology Reading Room E ANALYSIS (09/24/2017 5:00 PM) Component Value Ref Range Stone Source STONE Nidus Not observed COMPONENT 1 (QUEST) See Below Comment: Calcium Oxalate Dihydrate (Weddellite) 40% Calcium Oxalate Monohydrate (Whewellite) 40% Carbonate Apatite (Dahllite) 20% COMPONENT 2 (QUEST) DNR Stone Weight 0.0690 g Comment: The image will follow, unless test is cancelled or no picture is available to report. This test was developed and its analytical performance characteristics have been determined by [facility]. It has not been cleared or approved by the US Food and Drug Administration. This assay has been validated pursuant to the CLIA regulations and is used for clinical purposes. Specimen Performing Laboratory Tissue - [place] [facility] [address] [place] [address] Narrative Performing Lab *[facility], [address] [place] [address] Sandro Red MD, PhD aPTT (09/24/2017 12:32 PM)Only the most recent of3 resultswithin the time period is included. Component Value Ref Range PTT 40.5 (H) 22.5 - 36.0 seconds Specimen Performing Laboratory Blood [address] [address] RHYTHM STRIP - SCAN (09/19/2017 11:35 AM)Only the most recent of2 resultswithin the time period is included.Magnesium (09/18/2017 5:12 AM)Only the most recent of8 resultswithin the time period is included. Component Value Ref Range Magnesium 2.1 1.6 - 2.6 mg/dL Specimen Performing Laboratory Blood - Arm, Left [address] [address] XR chest PA or AP 1 view (09/18/2017 12:10 AM)Only the most recent of2 resultswithin the time period is included. Specimen Performing Laboratory GE RIS Narrative FINAL REPORT EXAMINATION: AP PORTABLE CHEST RADIOGRAPH CLINICAL INDICATION: Central line placement IMPRESSION: Compared with 09/10/2017. Tip of the new left upper extremity central line projects over the left axilla.The heart is enlarged as before. Opacities are again noted in the lung bases. A component of atelectasis is favored. Mild superimposed pulmonary edema should also be considered. An underlying pneumonia cannot be excluded. The bilateral pleural effusions are grossly stable. No evidence of a pneumothorax. In summary, constellation of findings worrisome for fluid overload/heart failure. Signed: Katarina Corbin MD Report Verified Date/Time:09/18/2017 01:44:27 Reading Location: [address] Reading Room Procedure Note Interface, External Ris In - 09/18/2017 1:46 AM CDT FINAL REPORT EXAMINATION: AP PORTABLE CHEST RADIOGRAPH CLINICAL INDICATION: Central line placement IMPRESSION: Compared with 09/10/2017. Tip of the new left upper extremity central line projects over the left axilla. The heart is enlarged as before. Opacities are again noted in the lung bases. A component of atelectasis is favored. Mild superimposed pulmonary edema should also be considered. An underlying pneumonia cannot be excluded. The bilateral pleural effusions are grossly stable. No evidence of a pneumothorax. In summary, constellation of findings worrisome for fluid overload/heart failure. Signed: Katarina Corbin MD Report Verified Date/Time: 09/18/2017 01:44:27 Reading Location: [address] Reading Room /Free T4 If Indicated (09/17/2017 5:09 AM) Component Value Ref Range TSH 5.88 (H) 0.35 - 4.94 uIU/mL Specimen Performing Laboratory Blood - Arm, [address] [address] T4, free (09/17/2017 5:09 AM) Component Value Ref Range Free T4 0.95 0.70 - 1.48 ng/dL Specimen Performing Laboratory Blood - Arm, [address] [address] B-type Natriuretic Factor (BNP) (09/17/2017 5:09 AM)Only the most recent of4 resultswithin the time period is included. Component Value Ref Range BNP 223 (H) 0 - 100 pg/mL Specimen Performing Laboratory Blood - Arm, [address] [address] ECG 12 lead (09/14/2017 5:34 PM)Only the most recent of5 resultswithin the time period is included. Specimen Performing Laboratory GE MUSE Narrative Ventricular Rate 66 BPM Atrial Rate 86 BPM QRS Duration 98 ms Q-T Interval 384 ms QTC Calculation(Bazett) 402 ms R [place] -23 degrees T [place] 146 degrees Atrial fibrillation Low voltage QRS Cannot rule out Anterior infarct , age undetermined Abnormal ECG When compared with ECG of 16-JUL-1995 12:05, Significant changes have occurred Confirmed by MD KIM, JORGE Javier ([id number]) on 09/15/2017 4:22:20 PM Procedure Note Interface, External Ris In - 09/15/2017 4:22 PM CDT Ventricular Rate 66 BPM Atrial Rate 86 BPM QRS Duration 98 ms Q-T Interval 384 ms QTC Calculation(Bazett) 402 ms R [place] -23 degrees T [place] 146 degrees Atrial fibrillation Low voltage QRS Cannot rule out Anterior infarct , age undetermined Abnormal ECG When compared with ECG of 16-JUL-1995 12:05, Significant changes have occurred Confirmed by MD KIM, JORGE Javier ([id number]) on 09/15/2017 4:22:20 PM Urine culture (09/13/2017 5:12 PM)Only the most recent of4 resultswithin the time period is included. Component Value Ref Range Result >100,000 col/mL Same organism has been isolated from culture(s) of the same body site within 3 days. Repeat identification performed only after consultation with the clinical microbiology laboratory. (A) Comment: Refer to previous culture of Flor albicans Specimen Performing Laboratory Urine - Urine, Surgically Obtained [facility] [address] [address] MR abdomen without & with IV contrast (09/11/2017 9:00 PM) Specimen Performing Laboratory [facility] [employer] Narrative FINAL REPORT INDICATION: 82-year-old female with abdominal pain, probable urinary tract infection. Evaluate for renal mass. COMPARISON: Nuclear medicine hepatobiliary exam September 09, [address] exam July 09, 2017 TECHNIQUE: MR of the Abdomen WITHOUT and WITH intravenous contrast. MRCP was also performed. FINDINGS: There is cortical thinning of both kidneys and there is a 1.2 cm exophytic proteinaceous cyst of the upper pole of the left kidney. No renal mass is demonstrated. There is abnormal enhancement and mild thickening of the upper uroepithelium especially on the right indicating pyelitis. There is no evidence of pyelonephritis and no renal abscess is demonstrated. There is moderate left hydronephrosis and there is right caliectasis with a 1.5 x 0.5 x 0.5 cm filling defect in the very proximal right ureter, most likely representing a stone. No discrete stone in the dilated left collecting system or in the upper left ureter identified. 4 x 3 x 2 cm stone in the neck of the gallbladder or cystic duct is again demonstrated. No stone in the gallbladder or gallbladder wall thickening demonstrated. No choledocholithiasis demonstrated. No biliary ductal dilatation. Liver, pancreas, spleen, adrenal glands unremarkable. Visualized bowel loops unremarkable. No upper abdominal lymphadenopathy or free fluid demonstrated. Fat-containing upper ventral hernia noted. Tiny bilateral pleural effusions noted. No suspicious marrow signal abnormality. IMPRESSION: Pyelitis without pyelonephritis or renal abscess. Urolithiasis including right proximal ureteral stone versus stone debris. Moderate left hydronephrosis, new since June 2017. Bilateral cortical thinning of both kidneys, indicating chronic kidney disease. Large stone in the neck of the gallbladder, versus cystic duct. No MR evidence of cholecystitis. No choledocholithiasis or biliary ductal dilatation demonstrated. Fat-containing upper ventral hernia. Signed: Chet Lopez MD Report Verified Date/Time:09/11/2017 21:34:04 Reading Location: [address] Consult Reading Room Procedure Note Interface, External Ris In - 09/11/2017 9:36 PM CDT FINAL REPORT INDICATION: 82-year-old female with abdominal pain, probable urinary tract infection. Evaluate for renal mass. COMPARISON: Nuclear medicine hepatobiliary exam September 09, [address] exam July 09, 2017 TECHNIQUE: MR of the Abdomen WITHOUT and WITH intravenous contrast. MRCP was also performed. FINDINGS: There is cortical thinning of both kidneys and there is a 1.2 cm exophytic proteinaceous cyst of the upper pole of the left kidney. No renal mass is demonstrated. There is abnormal enhancement and mild thickening of the upper uroepithelium especially on the right indicating pyelitis. There is no evidence of pyelonephritis and no renal abscess is demonstrated. There is moderate left hydronephrosis and there is right caliectasis with a 1.5 x 0.5 x 0.5 cm filling defect in the very proximal right ureter, most likely representing a stone. No discrete stone in the dilated left collecting system or in the upper left ureter identified. 4 x 3 x 2 cm stone in the neck of the gallbladder or cystic duct is again demonstrated. No stone in the gallbladder or gallbladder wall thickening demonstrated. No choledocholithiasis demonstrated. No biliary ductal dilatation. Liver, pancreas, spleen, adrenal glands unremarkable. Visualized bowel loops unremarkable. No upper abdominal lymphadenopathy or free fluid demonstrated. Fat-containing upper ventral hernia noted. Tiny bilateral pleural effusions noted. No suspicious marrow signal abnormality. IMPRESSION: Pyelitis without pyelonephritis or renal abscess. Urolithiasis including right proximal ureteral stone versus stone debris. Moderate left hydronephrosis, new since June 2017. Bilateral cortical thinning of both kidneys, indicating chronic kidney disease. Large stone in the neck of the gallbladder, versus cystic duct. No MR evidence of cholecystitis. No choledocholithiasis or biliary ductal dilatation demonstrated. Fat-containing upper ventral hernia. Signed: Chet Lopez MD Report Verified Date/Time: 09/11/2017 21:34:04 Reading Location: [facility] [id number] Consult Reading Room Comprehensive metabolic panel (09/11/2017 10:50 AM)Only the most recent of13 resultswithin the time period is included. Component Value Ref Range Protein, Total 4.9 (L) 6.0 - 8.3 gm/dL Albumin 2.3 (L) 3.5 - 5.0 g/dL Alkaline Phosphatase 110 40 - 150 U/L Total Bilirubin 0.4 0.2 - 1.2 mg/dL Sodium 143 136 - 145 meq/L Potassium 4.5 3.5 - 5.1 meq/L Chloride 103 98 - 107 meq/L CO2 34 (H) 22 - 29 meq/L BUN 18 7 - 21 mg/dL Creatinine 0.79 0.57 - 1.25 mg/dL Glucose 103 70 - 105 mg/dL Calcium 7.9 (L) 8.4 - 10.2 mg/dL AST 26 5 - 34 U/L ALT 10 6 - 55 U/L EGFR 70Comment: ESTIMATED GFR IS NOT ACCURATE mL/min/1.73 sq m CREATININE CLEARANCE IN PREDICTING GLOMERULAR FILTRATION RATE. ESTIMATED GFR IS NOT APPLICABLE FOR DIALYSIS PATIENTS. Specimen Performing Laboratory Blood [address] [address] STOOL PATH CHARGE (09/10/2017 10:20 PM) Component Value Ref Range Pathogen exam charged Done Specimen Performing Laboratory Stool [address] [address] Pancreatic elastase, fecal (09/10/2017 10:20 PM) Component Value Ref Range Pancreatic Elastase-1 >500 mcg/g Comment: Adult and Pediatric Reference Ranges for Pancreatic Elastase-1: Normal:>200 mcg/g Moderate Pancreatic Insufficiency: 100-200 mcg/g Severe Pancreatic Insufficiency:<100 mcg/g Elastase-1 (E-1) assay results are expressed in mcg/g, which represent mcg E1/g feces. It is not necessary to interrupt enzyme substitution therapy. Specimen Performing Laboratory Stool [facility] [address] [place] [address] Narrative Performing Lab EZ [facility] [address] [place] [address] Karmen Tavares MD, PhD, ERICA Ova and Parasite Examination (09/10/2017 10:20 PM) Component Value Ref Range O&P Direct Smear Comment: Test not performed at [facility]. No ova or parasites seen See scanned report. O&P Concentrate Smear No ova or parasites seen No ova or parasites seen O&P Trichrome Smear No ova or parasites seen No ova or parasites seen Specimen Performing Laboratory Stool [address] [address] Stool culture + Shiga toxin (09/10/2017 10:20 PM) Component Value Ref Range Result No Salmonella, Shigella or Campylobacter isolated Specimen Performing Laboratory Stool [address] [address] Narrative Unable to test for Shiga Toxin 1 due to insufficient growth of specimen. Unable to test for Shiga Toxin 2 due to insufficient growth of specimen. Resubmit new specimen if clinically indicated. Fecal leukocytes (09/10/2017 10:08 PM) Component Value Ref Range Fecal Leukocytes No fecal leukocytes seen No fecal leukocytes seen Specimen Performing Laboratory Stool - Per Rectum [address] [address] XR chest 1 view portable / bedside (09/10/2017 8:40 PM)Only the most recent of7 resultswithin the time period is included. Specimen Performing Laboratory GE [facility]IS Narrative FINAL REPORT Comparison examination: 07/15/2017 No pneumothorax, focal pulmonary consolidation, or significant pleural effusion. Normal-sized heart. Tortuous thoracic aorta with atherosclerotic aortic calcifications. Stable when compared to 07/15/2017. Previous sternotomy. Demineralized skeleton. Normal soft tissues. Impression: No acute abnormality. Signed: Aris Hoover MD Report Verified Date/Time:09/10/2017 22:44:01 Reading Location: [facility] [id number] Ortho Consult Reading Room Procedure Note Interface, External Ris In - 09/10/2017 10:46 PM CDT FINAL REPORT Comparison examination: 07/15/2017 No pneumothorax, focal pulmonary consolidation, or significant pleural effusion. Normal-sized heart. Tortuous thoracic aorta with atherosclerotic aortic calcifications. Stable when compared to 07/15/2017. Previous sternotomy. Demineralized skeleton. Normal soft tissues. Impression: No acute abnormality. Signed: Aris Hoover MD Report Verified Date/Time: 09/10/2017 22:44:01 Reading Location: [address] Consult Reading Room Urinalysis w/Microscopic (09/10/2017 2:32 PM)Only the most recent of4 resultswithin the time period is included. Component Value Ref Range Color, UA [place] Clarity, UA Hazy Specific [place], UA 1.008 1.001 - 1.035 pH, UA 7.0 5.0 - 8.0 Protein, UA 50 mg/dL (A) Negative Glucose, UA Negative Negative Ketones, UA Negative Negative Bilirubin, UA Negative Negative Blood, UA Large (A) Negative Nitrite, UA Negative Negative Leukocytes, UA Large (A) Negative Urobilinogen, UA 0.2 0.2 - 1.0 mg/dL RBC, UA >182 /HPF WBC, UA >182 /HPF Specimen Source Urine, Voided Specimen Performing Laboratory Urine - Urine, Voided [address] [address] Clostridium difficile GDH Toxin (09/09/2017 9:58 PM) Component Value Ref Range C. Difficle Toxin Negative Negative C. Difficile GDH Antigen NegativeComment: No indication of Clostridium Negative difficile infection and no colonization. Discontinue enteric isolation and therapy. Specimen Performing Laboratory Stool [address] [address] Narrative Testing performed by [employer] Rapid Cassette Assay.For GDH, published sensitivity of the assay is 98.7% compared to cytotoxicity testing.For Toxin AB, published sensitivity is 87.8% and specificity 99.4% compared to cytotoxicity testing. Verification of kit performance was done by the [facility] Microbiology Lab prior to clinical use. NM hepatobiliary (HIDA) scan with ejection fraction (09/09/2017 3:49 PM) Specimen Performing Laboratory GE RIS Narrative FINAL REPORT PROCEDURE: HEPATOBILIARY SCAN with morphine sulfate CPT CODE:[id number] INDICATION:Cholelithiasis, abdominal pain PROTOCOL:5.2 mCi of Tc-99m mebrofenin was injected intravenously. Images of the upper abdomen were obtained for approximately 60 minutes after tracer injection.3.25 mg of morphine sulfate was then injected intravenously. Imaging was continued for an additional 30 minutes. FINDINGS: Initial tracer uptake into the liver is physiological. Subsequent tracer clearance from the liver proceeds normally. There is good visualization of the extrahepatic biliary duct. Tracer appears appropriately in the small bowel. The gallbladder is not seen after morphine administration. IMPRESSION: Abnormal hepatobiliary scan; nonvisualization of the gallbladder is consistent with a diagnosis of acute cholecystitis. Signed: Jonny Heart MD Report Verified Date/Time:09/09/2017 16:12:46 Reading Location: [address] Reading Room Procedure Note Interface, External Ris In - 09/09/2017 4:14 PM CDT FINAL REPORT PROCEDURE: HEPATOBILIARY SCAN with morphine sulfate CPT CODE: [id number] INDICATION: Cholelithiasis, abdominal pain PROTOCOL: 5.2 mCi of Tc-99m mebrofenin was injected intravenously. Images of the upper abdomen were obtained for approximately 60 minutes after tracer injection. 3.25 mg of morphine sulfate was then injected intravenously. Imaging was continued for an additional 30 minutes. FINDINGS: Initial tracer uptake into the liver is physiological. Subsequent tracer clearance from the liver proceeds normally. There is good visualization of the extrahepatic biliary duct. Tracer appears appropriately in the small bowel. The gallbladder is not seen after morphine administration. IMPRESSION: Abnormal hepatobiliary scan; nonvisualization of the gallbladder is consistent with a diagnosis of acute cholecystitis. Signed: Jonny Heart MD Report Verified Date/Time: 09/09/2017 16:12:46 Reading Location: [address] Reading Room (Hemogram only) (09/09/2017 4:58 AM) Component Value Ref Range WBC 6.5 3.5 - 10.5 K/L RBC 3.69 (L) 3.93 - 5.22 M/L Hemoglobin 10.4 (L) 11.2 - 15.7 GM/DL Hematocrit 33.5 (L) 34.1 - 44.9 % MCV 90.8 79.4 - 94.8 fL MCH 28.2 25.6 - 32.2 pg MCHC 31.0 (L) 32.2 - 35.5 GM/DL RDW 17.3 (H) 11.7 - 14.4 % Platelets 160 150 - 450 K/CU MM MPV 9.8 9.4 - 12.3 fL nRBC 0 0 - 0 /100 WBC Specimen Performing Laboratory Blood - Arm, Left [address] [address] Urinalysis Microscopic Only (09/08/2017 8:03 PM) Component Value Ref Range RBC, UA >182 /HPF WBC, UA 50 /HPF Squam Epithel, UA <1 /HPF Specimen Performing Laboratory Urine - Urine, Voided [address] [address] Urinalysis with Microscopic If Indicated (09/08/2017 8:03 PM) Component Value Ref Range Color, UA Dark Red Clarity, UA Cloudy Specific [place], UA 1.019 1.001 - 1.035 pH, UA 6.0 5.0 - 8.0 Protein, UA 200 mg/dL (A) Negative Glucose, UA Negative Negative Ketones, UA 10 mg/dL (A) Negative Bilirubin, UA Positive (A) Negative Blood, UA Large (A) Negative Nitrite, UA Negative Negative Leukocytes, UA Large (A) Negative Urobilinogen, UA 0.2 0.2 - 1.0 mg/dL Specimen Source Specimen Performing Laboratory Urine - Urine, Voided [address] [address] Prothrombin time/INR (09/08/2017 5:56 PM)Only the most recent of5 resultswithin the time period is included. Component Value Ref Range Protime 15.1 (H) 11.7 - 14.7 seconds INR 1.2 <=5.9 Specimen Performing Laboratory Blood [address] [address] Narrative RECOMMENDED COUMADIN/WARFARIN INR THERAPY RANGES STANDARD DOSE: 2.0 - 3.0 Includes: PROPHYLAXIS for venous thrombosis, systemic embolization; TREATMENT for venous thrombosis and/or pulmonary embolus. HIGH RISK: Target INR is 2.5-3.5 for patients with mechanical heart valves. ECHOCARDIOGRAM REPORT - SCAN (09/08/2017 5:03 PM)Only the most recent of3 resultswithin the time period is included.2D Echo W/Doppler(CW/PW/Color) (2017 1:46 PM)Only the most recent of3 resultswithin the time period is included. Component Value Ref Range Ejection Fraction Specimen Performing Laboratory [facility] MKCKESSON CPACS Narrative Transthoracic Echocardiography Report (TTE) Demographics Patient Name ROCHA,Date of Study 09/08/2017 CRISTY [id number] Female Visit Number [id number] Unknown [id number] Room Number 2447 Number Date of Birth1935Referring Physician Luma Dexter Age82 year(s)Power Reactor Supervisor Daria LouistIzogagandeep Eaton Interpreting Michel Avery MD Procedure Type of Study TTE procedure:2DECHO W DOPPLER(CW/PW/COLOR) (Routine) Indications:Shortness of breath. 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 Mild concentric LV hypertrophy. All of the LV segments are hyperkinetic . Global LV systolic function hyperdynamic . Estimated LVEF by qualitative assessment is increased (>70%) . Intracavitary gradient at rest is 43 mmHg. Degree of diastolic dysfunction (LAP assessment) is inconclusive due to arrhythmia and MAC. . Increased (cardiac index 3.5-4.0 L/min/m2) cardiac output state at rest is noted. The estimated RA pressure by IVC dynamics 5-10mmHg . A trace of tricuspid regurgitation. Estimated peak systolic PA pressure is 35-40 mmHg . No significant pericardial effusion is visualized. Previous Study In comparison with the prior exam 07-18-17 the following changes are noted: AVR gradients has slightly increased . Signature Findings Rhythm/BPAtrial fibrillation with slow ventricular response. Left Ventricle The left ventricle is chamber size (by PSLAX dimension) is normal (male - LVIDd 4.2-5.8cm) . Mild concentric LV hypertrophy. All of the LV segments are hyperkinetic . Global LV systolic function hyperdynamic . Estimated LVEF by qualitative assessment is increased (>70%) . Intracavitary gradient at rest is 43 mmHg. Degree of diastolic dysfunction (LAP assessment) is inconclusive due to arrhythmia and MAC. . Increased (cardiac index 3.5-4.0 L/min/m2 ) cardiac output state at rest is noted. Left AtriumLA size is severely enlarged (>48 ml/m2) . Right VentricleThe right ventricular chamber size and systolic function are within normal limits. Right Atrium RA cavity size is normal . Aortic Valve A percutaneous (TAVR) biologic AoV prosthesis is visualized . The prosthetic AoV appears well-seated with normal function by Doppler. AoV dimensionless obstructive index (DOI)) is 0.54 . Prosthetic AoV systolic gradients are mildly increased . Peak/mean 36.72/ 18.53 mmHg. Mitral Valve Mild MV leaflet thickening. Moderate mitral annular calcification. Mild to moderate mitral regurgitation. Slightly elevated gradient across MV secondary to MAC. Tricuspid ValveA trace of tricuspid regurgitation. Estimated peak systolic PA pressure is 35-40 mmHg . Pulmonic Valve Normal PV structure and function. AortaAortic root size (SInus of Valsalva diameter) is normal . PericardiumNo significant pericardial effusion is visualized. IVC/SVC/PA/PV/PleuralThe estimated RA pressure by IVC dynamics 5-10mmHg . Chambers/Structures Left Atrium LA Volume: 95.26 ml LA Area: 27.31 cm^ 2 LA Vol. Index: 49 ml/m^2 Left Ventricle LVIDd: 4.29 cm LV Septum Diastolic: 1.27 cm LV PW Diastolic: 1.23 cm LVOT Diameter: 2.22 cm Right Ventricle TAPSE: 1.04 cm Aorta Ao Root S of Camille.: 3.07 cm Doppler/Quantitative Measurements Mitral Valve Mean Velocity: 0.78 m/s Mean Gradient: 2.99 mmHg Area (continuity): 2.34 cm^2 MV VTI : 48.15 cm MV Souleymane. Peak: 1.52 m/s Aortic Valve Peak Velocity: 3.03 m/sMean Velocity: 2.02 m/s Peak Gradient: 36.72 mmHgMean Gradient: 18.53 mmHg AV Area (continuity): 2.08 cm^2 AV VTI: 54.08 cm AV DVI: 0.54 LVOT Peak Velocity: 1.32 m/s Peak Gradient: 6.94 mmHg Mean Velocity: 0.86 m/s Mean Gradient: 3.64 mmHg LVOT Diameter: 2.22 cmLVOT VTI: 29.08 cm LVOT Area: 3.87 cm^2LVOT SV:112.5 ml LVOT CO: 7.65 l/min LVOT CI: 3.92 l/min/m^2 Tricuspid Valve TR Velocity: 2.8 m/s TR Gradient: 31.42 mmHg Procedure Note Interface, External Ris In - 09/08/2017 4:24 PM CDT Transthoracic Echocardiography Report (TTE) Demographics Patient Name ROCHA, Date of Study 09/08/2017 CRISTY Gender Female Visit Number [id number] Race Unknown Room Number 2447 Number Date of 1935 Referring Physician Luma Dexter Age 82 year(s) Power Reactor Supervisor Daria Jorgensen Archivist Political History Sharlene Eaton Interpreting Cherise Avery MD Procedure Type of Study TTE procedure:2DECHO W DOPPLER(CW/PW/COLOR) (Routine) Indications:Shortness of breath. 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 Mild concentric LV hypertrophy. All of the LV segments are hyperkinetic . Global LV systolic function hyperdynamic . Estimated LVEF by qualitative assessment is increased (>70%) . Intracavitary gradient at rest is 43 mmHg. Degree of diastolic dysfunction (LAP assessment) is inconclusive due to arrhythmia and MAC. . Increased (cardiac index 3.5-4.0 L/min/m2) cardiac output state at rest is noted. The estimated RA pressure by IVC dynamics 5-10mmHg . A trace of tricuspid regurgitation. Estimated peak systolic PA pressure is 35-40 mmHg . No significant pericardial effusion is visualized. Previous Study In comparison with the prior exam 07-18-17 the following changes are noted: AVR gradients has slightly increased . Signature Findings Rhythm/BP Atrial fibrillation with slow ventricular response. Left Ventricle The left ventricle is chamber size (by PSLAX dimension) is normal (male - LVIDd 4.2-5.8cm) . Mild concentric LV hypertrophy. All of the LV segments are hyperkinetic . Global LV systolic function hyperdynamic . Estimated LVEF by qualitative assessment is increased (>70%) . Intracavitary gradient at rest is 43 mmHg. Degree of diastolic dysfunction (LAP assessment) is inconclusive due to arrhythmia and MAC. . Increased (cardiac index 3.5-4.0 L/min/m2) cardiac output state at rest is noted. Left Atrium LA size is severely enlarged (>48 ml/m2) . Right Ventricle The right ventricular chamber size and systolic function are within normal limits. Right Atrium RA cavity size is normal . Aortic Valve A percutaneous (TAVR) biologic AoV prosthesis is visualized . The prosthetic AoV appears well-seated with normal function by Doppler. AoV dimensionless obstructive index (DOI)) is 0.54 . Prosthetic AoV systolic gradients are mildly increased . Peak/mean 36.72/18.53 mmHg. Mitral Valve Mild MV leaflet thickening. Moderate mitral annular calcification. Mild to moderate mitral regurgitation. Slightly elevated gradient across MV secondary to MAC. Tricuspid Valve A trace of tricuspid regurgitation. Estimated peak systolic PA pressure is 35-40 mmHg . Pulmonic Valve Normal PV structure and function. Aorta Aortic root size (SInus of Valsalva diameter) is normal . Pericardium No significant pericardial effusion is visualized. IVC/SVC/PA/PV/Pleural The estimated RA pressure by IVC dynamics 5-10mmHg . Chambers/Structures Left Atrium LA Volume: 95.26 ml LA Area: 27.31 cm^2 LA Vol. Index: 49 ml/m^2 Left Ventricle LVIDd: 4.29 cm LV Septum Diastolic: 1.27 cm LV PW Diastolic: 1.23 cm LVOT Diameter: 2.22 cm Right Ventricle TAPSE: 1.04 cm Aorta Ao Root S of [place].: 3.07 cm Doppler/Quantitative Measurements Mitral Valve Mean Velocity: 0.78 m/s Mean Gradient: 2.99 mmHg Area (continuity): 2.34 cm^2 MV VTI: 48.15 cm MV Souleymane. Peak: 1.52 m/s Aortic Valve Peak Velocity: 3.03 m/s Mean Velocity: 2.02 m/s Peak Gradient: 36.72 mmHg Mean Gradient: 18.53 mmHg AV Area (continuity): 2.08 cm^2 AV VTI: 54.08 cm AV DVI: 0.54 LVOT Peak Velocity: 1.32 m/s Peak Gradient: 6.94 mmHg Mean Velocity: 0.86 m/s Mean Gradient: 3.64 mmHg LVOT Diameter: 2.22 cm LVOT VTI: 29.08 cm LVOT Area: 3.87 cm^2 LVOT SV:112.5 ml LVOT CO: 7.65 l/min LVOT CI: 3.92 l/min/m^2 Tricuspid Valve TR Velocity: 2.8 m/s TR Gradient: 31.42 mmHg Digoxin level (09/08/2017 5:45 AM) Component Value Ref Range Digoxin Lvl 1.8 0.8 - 2.0 ng/mL Specimen Performing Laboratory Blood - Arm, [address] [address] Hepatic function panel (09/08/2017 5:45 AM)Only the most recent of3 resultswithin the time period is included. Component Value Ref Range Protein, Total 4.4 (L)Comment: Specimen slightly hemolyzed 6.0 - 8.3 gm/dL Albumin 1.8 (L)Comment: Specimen slightly hemolyzed 3.5 - 5.0 g/dL Total Bilirubin 0.3Comment: Specimen slightly hemolyzed 0.2 - 1.2 mg/dL Bilirubin, Direct 0.2Comment: Specimen slightly hemolyzed 0.1 - 0.5 mg/dL Alkaline Phosphatase 107 40 - 150 U/L AST 24Comment: Specimen slightly hemolyzed 5 - 34 U/L ALT 8Comment: Specimen slightly hemolyzed 6 - 55 U/L Specimen Performing Laboratory Blood - Arm, [address] [address] POC-Glucose meter (07/19/2017 7:34 AM)Only the most recent of41 resultswithin the time period is included. Component Value Ref Range POC-Glucose Meter 115 (H)Comment: TESTED AT [address] 70 - 110 mg/[place] [address] Specimen Performing Laboratory Blood [address] [address] Lactic acid, venous, whole blood Daily (07/18/2017 8:24 AM)Only the most recent of14 resultswithin the time period is included. Component Value Ref Range Lactate, Venous 1.5Comment: Specimen slightly hemolyzed 0.5 - 2.2 mmol/L Specimen Performing Laboratory Blood - Line, Venous [address] [address] Narrative Effective 07/27/2015: Units/Reference Range Change New: 0.5-2.2 mmol/LPrevious: 5-20 mg/dL Phosphorus (07/14/2017 4:02 AM)Only the most recent of5 resultswithin the time period is included. Component Value Ref Range Phosphorus 1.7 (L) 2.3 - 4.7 mg/dL Specimen Performing Laboratory Blood - Arm, [address] [address] Troponin I (07/12/2017 1:23 PM) Component Value Ref Range Troponin I 0.02 0.00 - 0.03 ng/mL Specimen Performing Laboratory Blood - Arm, [address] [address] Narrative Troponin I (TnI) levels must be [...] U/L Specimen Performing Laboratory Blood - Arm, [address] [address] Incubated 1:1 Mixing Study (07/12/2017 4:36 AM) [...] signature) Specimen Performing Laboratory Blood - Arm, [address] [address] Thrombin time (07/12/2017 4:36 AM) Component Value Ref Range Thrombin Time 19.0 13.8 - 20.0 secs Specimen Performing Laboratory Blood - Arm, Left [address] [address] TRANSFUSION SERVICE REPORT - SCAN (07/11/2017 5:43 PM)Only the most recent of2 resultswithin the time period is included.Blood culture (07/11/2017 12:15 PM) Only the most recent of4 resultswithin the time period is included. Component Value Ref Range Result No growth in 5 days Specimen Performing Laboratory Blood - Line, Venous [address] [address] Prepare plasma (07/10/2017 11:54 PM) Component Value Ref Range Unit ABO A Pos UNIT NUMBER [id number] Status TRANSFUSED Blood Bank Product FFP PRODUCT CODE [id number] Unit ABO A Pos UNIT NUMBER [id number] Status CANCELED Blood Bank Product FFP PRODUCT CODE [id number] Specimen Performing Laboratory Blood [place] Blood [...] 37.0 C Specimen Performing Laboratory Blood, Arterial [address] [address] Lactic acid, arterial, whole blood (07/10/2017 4:44 AM)Only the most recent of2 resultswithin the time period is included. Component Value Ref Range Lactate, Art 1.7 0.5 - 2.2 mmol/L Specimen Performing Laboratory Blood, Arterial - Line, Arterial [address] [address] Narrative Effective 07/27/2015: Units/Reference Range Change New: [...] Specimen Performing Laboratory Blood - Line, Arterial [address] [address] PT/aPTT (07/09/2017 7:28 PM) Component Value Ref Range Protime 28.8 (H) 11.7 - 14.7 seconds INR 2.7 <=5.9 PTT 54.7 (H) 22.5 - 36.0 seconds Specimen Performing Laboratory Blood - Line, [address] [address] Narrative RECOMMENDED COUMADIN/WARFARIN INR THERAPY RANGES STANDARD [...] mg/dl Specimen Performing Laboratory Blood - Line, [address] [address] AFB culture + smear (07/09/2017 1:18 PM)Only the most recent of2 resultswithin the time period is included. Component Value Ref Range Result No acid-fast bacilli isolated in 42 days AFB Smear No acid fast bacilli seen Specimen Performing Laboratory Urine - Kidney, Left [facility] [address] [address] Anaerobic culture (07/09/2017 1:18 PM)Only the most [...] Asaccharolyticus Specimen Performing Laboratory Urine - Kidney, [address] [address] Surgically obtained culture + gram stain (07/09/2017 [...] coccobacilli Specimen Performing Laboratory Urine - Kidney, [address] [address] Organism Antibiotic Method Susceptibility Escherichia coli Amikacin [...] Specimen Performing Laboratory Urine - Kidney, Left [address] [address] SPIN/CONCENTRATION CHARGE (07/09/2017 1:15 PM) Component Value Ref Range Concentration charged Done Specimen Performing Laboratory Urine - Kidney, Right [address] [address] Transfuse plasma (07/09/2017 10:23 AM)US abdomen limited (07/09/2017 8:22 AM) Specimen Performing Laboratory [facility] Narrative FINAL REPORT Abdominal ultrasound dated 07/09/2017 [...] MD Report Verified Date/Time:07/09/2017 09:00:17 Reading Location: [place] [id number] Ultrasound Reading Room Procedure Note Interface, External [...] Report Verified Date/Time: 07/09/2017 09:00:17 Reading Location: [facility] [id number] Ultrasound Reading Room (07/09/2017 7:11 AM)Only the most recent of2 resultswithin the time period is included. Component Value Ref Range Scan Result Specimen Performing Laboratory Blood [facility] [address] [address] Narrative Result comments: NOT DETECTED Panel is negative for BioFire BCID-detectable organisms. Please refer to traditional culture and sensitivity results as they become available. Other organisms and resistance markers not contained in this PCR panel cannot be excluded and follow-up of traditional culture results is required. This sample was tested at the [facility] Clinical Microbiology Laboratory using the CoverItLive[employer] Blood Culture ID Panel. This test is FDA cleared for in vitro diagnostic use and has been verified and approved by the [facility] Clinical Microbiology laboratory for clinical use. Reference Range: Not Detected CT abdomen/pelvis without iv contrast (07/09/2017 6:36 AM) Specimen Performing Laboratory [facility] Narrative FINAL REPORT CT, ABDOMEN \\T\\ PELVIS, [...] MD Report Verified Date/Time:07/09/2017 06:51:04 Reading Location: [facility] [id number] Ortho Consult Reading Room Procedure Note [...] Report Verified Date/Time: 07/09/2017 06:51:04 Reading Location: [facility] B1 C013X Ortho Consult Reading Room Type and screen, automated (07/09/2017 5:43 AM) Component Value Ref Range ABO/RH AUTOMATED (BEAKER) A POSITIVE Ab Scrn NEGATIVE Specimen Performing Laboratory Blood - Line, Arterial [facility] [address] [address] after 10/01/2016
--- OUTSIDE RECORDS SUMMARY | 2017-10-02 09:05 | XMS REPORT ---
:1935 Author Organization [facility] Address [address] [place] [address] [address] [place] [address] Care Team Providers Name Role Phone ELMER SUGGS Unavailable Unavailable SELENA SCHILLING Unavailable Unavailable FABY DIEHL Unavailable Unavailable Problems This patient has no known problems. Allergies, Adverse Reactions, Alerts This patient has no known allergies or adverse reactions. Medications This patient has no known medications. Results Test Description Test Time Test Comments Text Results Atomic Results Result Comments BASIC METABOLIC PANEL 2017-09-26 07:49:00 Test Item Value Reference Range Comments SODIUM (BEAKER) (test 133 meq/L 136-145 leow=593) POTASSIUM (BEAKER) (test 4.2 meq/L 3.5-5.1 mgfj=657) CHLORIDE (BEAKER) (test 103 meq/L 98-107 rigf=391) CO2 (BEAKER) (test ulkn=107) 25 meq/L 22-29 BLOOD UREA NITROGEN (BEAKER) 19 mg/dL 7-21 (test nxym=832) CREATININE (BEAKER) (test 0.81 mg/dL 0.57-1.25 tmtp=836) GLUCOSE RANDOM (BEAKER) 102 mg/dL 70-105 (test qnhz=138) CALCIUM (BEAKER) (test 7.6 mg/dL 8.4-10.2 paak=249) EGFR (BEAKER) (test 68 mL/min/1.73 sq m ESTIMATED GFR IS NOT fjro=9787) ACCURATE CREATININE CLEARANCE IN PREDICTING GLOMERULAR FILTRATION RATE. ESTIMATED GFR IS NOT APPLICABLE FOR DIALYSIS PATIENTS. CBC W/PLT COUNT & AUTO [id number] 06:42:00 Test Item Value Reference Range Comments WHITE BLOOD CELL COUNT (BEAKER) (test htcw=053) 5.3 K/ L 3.5-10.5 RED BLOOD CELL COUNT (BEAKER) (test febz=708) 3.07 M/ L 3.93-5.22 HEMOGLOBIN (BEAKER) (test prtm=886) 8.7 GM/DL 11.2-15.7 HEMATOCRIT (BEAKER) (test sism=458) 27.5 % 34.1-44.9 MEAN CORPUSCULAR VOLUME (BEAKER) (test pqvi=274) 89.6 fL 79.4-94.8 MEAN CORPUSCULAR HEMOGLOBIN (BEAKER) (test 28.3 pg 25.6-32.2 qmjr=243) MEAN CORPUSCULAR HEMOGLOBIN CONC (BEAKER) (test 31.6 GM/DL 32.2-35.5 gnrm=596) RED CELL DISTRIBUTION WIDTH (BEAKER) (test 15.9 % 11.7-14.4 eonr=495) PLATELET COUNT (BEAKER) (test hhhw=099) 119 K/CU MM 150-450 MEAN PLATELET VOLUME (BEAKER) (test chyj=423) 10.2 fL 9.4-12.3 NUCLEATED RED BLOOD CELLS (BEAKER) (test 0 /100 WBC 0-0 ixdp=294) NEUTROPHILS RELATIVE PERCENT (BEAKER) (test 57 % ktow=489) LYMPHOCYTES RELATIVE PERCENT (BEAKER) (test 32 % uizv=798) MONOCYTES RELATIVE PERCENT (BEAKER) (test 8 % roye=993) EOSINOPHILS RELATIVE PERCENT (BEAKER) (test 2 % ghez=979) BASOPHILS RELATIVE PERCENT (BEAKER) (test 0 % mrij=088) NEUTROPHILS ABSOLUTE COUNT (BEAKER) (test 3.05 K/ L 1.56-6.13 kohd=113) LYMPHOCYTES ABSOLUTE COUNT (BEAKER) (test 1.69 K/ L 1.18-3.74 xork=476) MONOCYTES ABSOLUTE COUNT (BEAKER) (test 0.42 K/ L 0.24-0.36 farf=704) EOSINOPHILS ABSOLUTE COUNT (BEAKER) (test 0.12 K/ L 0.04-0.36 zyfs=379) BASOPHILS ABSOLUTE COUNT (BEAKER) (test 0.02 K/ L 0.01-0.08 dqxi=896) IMMATURE GRANULOCYTES-RELATIVE PERCENT (BEAKER) 0 % 0-1 (test hrye=2645) CBC W/PLT COUNT & AUTO [id number] 07:37:00 Test Item Value Reference Range Comments WHITE BLOOD CELL COUNT (BEAKER) (test gzqq=228) 4.0 K/ L 3.5-10.5 RED BLOOD CELL COUNT (BEAKER) (test sktc=988) 3.54 M/ L 3.93-5.22 HEMOGLOBIN (BEAKER) (test dxmh=287) 9.9 GM/DL 11.2-15.7 HEMATOCRIT (BEAKER) (test aokw=915) 31.7 % 34.1-44.9 MEAN CORPUSCULAR VOLUME (BEAKER) (test mynu=239) 89.5 fL 79.4-94.8 MEAN CORPUSCULAR HEMOGLOBIN (BEAKER) (test 28.0 pg 25.6-32.2 ylar=171) MEAN CORPUSCULAR HEMOGLOBIN CONC (BEAKER) (test 31.2 GM/DL 32.2-35.5 zpup=631) RED CELL DISTRIBUTION WIDTH (BEAKER) (test 15.7 % 11.7-14.4 sqwv=345) PLATELET COUNT (BEAKER) (test qlpj=883) 124 K/CU MM 150-450 MEAN PLATELET VOLUME (BEAKER) (test usks=396) 10.4 fL 9.4-12.3 NUCLEATED RED BLOOD CELLS (BEAKER) (test 1 /100 WBC 0-0 xgja=987) (CELLAVISION MANUAL DIFF)2017-09-25 07:37:00 Test Item Value Reference Range Comments NEUTROPHILS - REL (CELLAVISION)(BEAKER) (test 94 % bmiu=9223) LYMPHOCYTES - REL (CELLAVISION)(BEAKER) (test 6 % ikap=2058) NEUTROPHILS - ABS (CELLAVISION)(BEAKER) (test 3.76 K/ul 1.56-6.13 eiof=1599) LYMPHOCYTES - ABS (CELLAVISION)(BEAKER) (test 0.24 K/ul 1.18-3.74 knit=2574) TOTAL COUNTED (BEAKER) (test gvaf=2981) 100 WBC MORPHOLOGY (BEAKER) (test phug=315) Normal PLT MORPHOLOGY (BEAKER) (test arzo=282) Normal ANISOCYTOSIS (BEAKER) (test tcsr=370) 1+ few MICROCYTES (BEAKER) (test smun=421) 1+ few POIKILOCYTES (BEAKER) (test wtlm=222) 1+ few ARTIFACT (CELLAVISION)(BEAKER) (test gtof=9916) Present PLATELET CONCENTRATION (CELLAVISION)(BEAKER) (test Decreased jzbv=7603) Received comment: User comments: Slide comments:BASIC METABOLIC [id number] 06:00:00 Test Item Value Reference Range Comments SODIUM (BEAKER) (test 132 meq/L 136-145 uvqh=766) POTASSIUM (BEAKER) (test 4.3 meq/L 3.5-5.1 Specimen slightly iqpg=100) hemolyzed CHLORIDE (BEAKER) (test 99 meq/L 98-107 okrp=640) CO2 (BEAKER) (test 24 meq/L 22-29 icxx=579) BLOOD UREA NITROGEN 16 mg/dL 7-21 (BEAKER) (test xuma=962) CREATININE (BEAKER) (test 0.83 mg/dL 0.57-1.25 Specimen slightly gvro=947) hemolyzed GLUCOSE RANDOM (BEAKER) 127 mg/dL 70-105 (test hlhx=798) CALCIUM (BEAKER) (test 7.9 mg/dL 8.4-10.2 cmgh=565) EGFR (BEAKER) (test 66 mL/min/1.73 sq m ESTIMATED GFR IS NOT xwmm=6898) ACCURATE CREATININE CLEARANCE IN PREDICTING GLOMERULAR FILTRATION RATE. ESTIMATED GFR IS NOT APPLICABLE FOR DIALYSIS PATIENTS. FL, BLIND AIDE IN OR/30 MINUTE [id number] 18:37:00Reason for exam:-> RetrogradesFINAL REPORT Fluoroscopy 203 views intraoperative 09/24/2017 6:37 PM CLINICAL HISTORY: Instrument localization COMPARISON: None available IMPRESSION: Please correlate imaging report findings with the procedure note prepared by Dr. Suggs, as an intra-procedure imaging consultation was not requested. Reported fluoroscopy time: 2.54 minutes. Signed : Jermain Hodges VerifiedDate/Time: 09/24/2017 18:37:56 Reading Location: [facility] Radiology Reading Room [id number] 13:00:00 Test Item Value Reference Range Comments PARTIAL THROMBOPLASTIN TIME (BEAKER) (test 40.5 seconds 22.5-36.0 jylk=171) URINE [id number] 14:14:00 Test Item Value Reference Range Comments CULTURE (BEAKER) (test 40-49,000 col/mL zuug=7813) Flor albicans CULTURE (BEAKER) (test FLOR ALBICANS 40-49,000 col/mL esrx=5571) Flor albicans 5-Flurocytosine (test gmpi=721) Caspofungin acetate (test fnwq=834) Fluconazole (test zlhq=893) Itraconazole (test mfjv=899) Micafungin (test aicr=103) Voriconazole (test bacp=933) Amphotericin B (test Susceptible >0-0 , No eqsa=818) Interpretations Established <=0 or >0 Posaconazole (test Susceptible >0-0 , No jhqk=743) Interpretations Established <=0 or >0 BASIC METABOLIC [id number] 06:08:00 Test Item Value Reference Range Comments SODIUM (BEAKER) (test 136 meq/L 136-145 lmqg=051) POTASSIUM (BEAKER) (test 3.7 meq/L 3.5-5.1 onfu=163) CHLORIDE (BEAKER) (test 101 meq/L 98-107 csce=475) CO2 (BEAKER) (test 28 meq/L 22-29 zogo=769) BLOOD UREA NITROGEN 12 mg/dL 7-21 (BEAKER) (test sdlf=833) CREATININE (BEAKER) (test 0.71 mg/dL 0.57-1.25 rppb=353) GLUCOSE RANDOM (BEAKER) 91 mg/dL 70-105 (test gsmh=911) CALCIUM (BEAKER) (test 7.2 mg/dL 8.4-10.2 okjg=061) EGFR (BEAKER) (test 79 mL/min/1.73 sq m ESTIMATED GFR IS NOT mlky=4575) ACCURATE CREATININE CLEARANCE IN PREDICTING GLOMERULAR FILTRATION RATE. ESTIMATED GFR IS NOT APPLICABLE FOR DIALYSIS PATIENTS. [id number] 06:07:00 Test Item Value Reference Range Comments MAGNESIUM (BEAKER) (test wnwr=112) 2.1 mg/dL 1.6-2.6 CBC W/PLT COUNT & AUTO [id number] 05:25:00 Test Item Value Reference Range Comments WHITE BLOOD CELL COUNT (BEAKER) (test kjqs=706) 5.8 K/ L 3.5-10.5 RED BLOOD CELL COUNT (BEAKER) (test ralg=869) 3.61 M/ L 3.93-5.22 HEMOGLOBIN (BEAKER) (test mzei=603) 9.8 GM/DL 11.2-15.7 HEMATOCRIT (BEAKER) (test wkda=933) 32.6 % 34.1-44.9 MEAN CORPUSCULAR VOLUME (BEAKER) (test lwau=730) 90.3 fL 79.4-94.8 MEAN CORPUSCULAR HEMOGLOBIN (BEAKER) (test 27.1 pg 25.6-32.2 ucuf=231) MEAN CORPUSCULAR HEMOGLOBIN CONC (BEAKER) (test 30.1 GM/DL 32.2-35.5 uuig=441) RED CELL DISTRIBUTION WIDTH (BEAKER) (test 16.5 % 11.7-14.4 ffrr=619) PLATELET COUNT (BEAKER) (test wujw=544) 180 K/CU MM 150-450 MEAN PLATELET VOLUME (BEAKER) (test broy=489) 9.7 fL 9.4-12.3 NUCLEATED RED BLOOD CELLS (BEAKER) (test 0 /100 WBC 0-0 hfdx=232) NEUTROPHILS RELATIVE PERCENT (BEAKER) (test 56 % eadh=587) LYMPHOCYTES RELATIVE PERCENT (BEAKER) (test 29 % arvp=995) MONOCYTES RELATIVE PERCENT (BEAKER) (test 7 % hnrb=428) EOSINOPHILS RELATIVE PERCENT (BEAKER) (test 7 % hdpf=304) BASOPHILS RELATIVE PERCENT (BEAKER) (test 1 % ykih=038) NEUTROPHILS ABSOLUTE COUNT (BEAKER) (test 3.24 K/ L 1.56-6.13 dhzc=570) LYMPHOCYTES ABSOLUTE COUNT (BEAKER) (test 1.64 K/ L 1.18-3.74 pymx=364) MONOCYTES ABSOLUTE COUNT (BEAKER) (test 0.39 K/ L 0.24-0.36 kfbm=322) EOSINOPHILS ABSOLUTE COUNT (BEAKER) (test 0.41 K/ L 0.04-0.36 cmgm=153) BASOPHILS ABSOLUTE COUNT (BEAKER) (test 0.03 K/ L 0.01-0.08 plvq=960) IMMATURE GRANULOCYTES-RELATIVE PERCENT (BEAKER) 1 % 0-1 (test zojx=1156) RAD, CHEST, PA OR AP, 1 [id number] 01:44:00VAT/Infusion Therapy Nurse to Call Radiology Department when patient is readyReason for exam:->piccFINAL REPORT EXAMINATION: AP PORTABLE CHEST RADIOGRAPH CLINICAL INDICATION: Central line placement IMPRESSION: Compared with 2017. Tip of the new left upper extremity [...] for fluid overload/heart failure. Signed: Katarina Corbin MDReport Verified Date/Time: 09/18/2017 01:44:27 Reading Location: [address] Reading Room T4, [id number] 13:17:00 Test Item Value Reference Range Comments FREE T4 (BEAKER) (test judz=399) 0.95 ng/dL 0.70-1.48 TSH/FREE T4 IF [id number] 06:56:00 Test Item Value Reference Range Comments THYROID STIMULATING HORMONE (BEAKER) (test 5.88 uIU/mL 0.35-4.94 dsiu=494) BASIC METABOLIC [id number] 06:17:00 Test Item Value Reference Range Comments SODIUM (BEAKER) (test 135 meq/L 136-145 rlyh=416) POTASSIUM (BEAKER) (test 4.0 meq/L 3.5-5.1 sqty=087) CHLORIDE (BEAKER) (test 100 meq/L 98-107 ibga=709) CO2 (BEAKER) (test 28 meq/L 22-29 yymr=999) BLOOD UREA NITROGEN 12 mg/dL 7-21 (BEAKER) (test tmid=783) CREATININE (BEAKER) (test 0.68 mg/dL 0.57-1.25 yfpg=014) GLUCOSE RANDOM (BEAKER) 68 mg/dL 70-105 (test yxdc=901) CALCIUM (BEAKER) (test 7.6 mg/dL 8.4-10.2 nigp=020) EGFR (BEAKER) (test 83 mL/min/1.73 sq m ESTIMATED GFR IS NOT nsxg=5227) ACCURATE CREATININE CLEARANCE IN PREDICTING GLOMERULAR FILTRATION RATE. ESTIMATED GFR IS NOT APPLICABLE FOR DIALYSIS PATIENTS. [id number] 06:15:00 Test Item Value Reference Range Comments MAGNESIUM (BEAKER) (test byux=257) 1.6 mg/dL 1.6-2.6 B-TYPE NATRIURETIC FACTOR (BNP)2017-09-17 06:12:00 Test Item Value Reference Range Comments B-TYPE NATRIURETIC PEPTIDE (BEAKER) (test 223 pg/mL 0-100 byfj=338) CBC W/PLT COUNT & AUTO [id number] 05:43:00 Test Item Value Reference Range Comments WHITE BLOOD CELL COUNT (BEAKER) (test cfwd=317) 5.4 K/ L 3.5-10.5 RED BLOOD CELL COUNT (BEAKER) (test bmrj=117) 3.59 M/ L 3.93-5.22 HEMOGLOBIN (BEAKER) (test yoow=551) 9.8 GM/DL 11.2-15.7 HEMATOCRIT (BEAKER) (test ftei=003) 32.8 % 34.1-44.9 MEAN CORPUSCULAR VOLUME (BEAKER) (test otpq=058) 91.4 fL 79.4-94.8 MEAN CORPUSCULAR HEMOGLOBIN (BEAKER) (test 27.3 pg 25.6-32.2 yvxt=789) MEAN CORPUSCULAR HEMOGLOBIN CONC (BEAKER) (test 29.9 GM/DL 32.2-35.5 bnyf=507) RED CELL DISTRIBUTION WIDTH (BEAKER) (test 16.3 % 11.7-14.4 zckc=134) PLATELET COUNT (BEAKER) (test upvc=130) 171 K/CU MM 150-450 MEAN PLATELET VOLUME (BEAKER) (test ygmn=922) 10.2 fL 9.4-12.3 NUCLEATED RED BLOOD CELLS (BEAKER) (test 0 /100 WBC 0-0 yhpw=267) NEUTROPHILS RELATIVE PERCENT (BEAKER) (test 54 % kdgr=113) LYMPHOCYTES RELATIVE PERCENT (BEAKER) (test 34 % xvhj=192) MONOCYTES RELATIVE PERCENT (BEAKER) (test 5 % jjpt=280) EOSINOPHILS RELATIVE PERCENT (BEAKER) (test 7 % idqk=982) BASOPHILS RELATIVE PERCENT (BEAKER) (test 1 % qpbf=903) NEUTROPHILS ABSOLUTE COUNT (BEAKER) (test 2.86 K/ L 1.56-6.13 ubum=829) LYMPHOCYTES ABSOLUTE COUNT (BEAKER) (test 1.79 K/ L 1.18-3.74 jdac=617) MONOCYTES ABSOLUTE COUNT (BEAKER) (test 0.28 K/ L 0.24-0.36 dqml=844) EOSINOPHILS ABSOLUTE COUNT (BEAKER) (test 0.35 K/ L 0.04-0.36 yern=036) BASOPHILS ABSOLUTE COUNT (BEAKER) (test 0.03 K/ L 0.01-0.08 bnqc=723) IMMATURE GRANULOCYTES-RELATIVE PERCENT (BEAKER) 1 % 0-1 (test nwui=3194) OVA AND PARASITE [id number] 11:01:00 Test Item Value Reference Range Comments DIRECT SMEAR - O\\T\\P No ova or parasites Test not performed (BEAKER) (test seen at [facility]. See rcbv=666) scanned report. CONCENTRATE SMEAR - No ova or parasites No ova or parasites O\\T\\P (BEAKER) (test seen seen qyzt=355) TRICHROME SMEAR - O\\T\\P No ova or parasites No ova or parasites (BEAKER) (test seen seen drrr=274) URINE [id number] 12:42:00 Test Item Value Reference Range Comments CULTURE (BEAKER) (test >100,000 col/mL Same organism has xucg=4965) been isolated from culture(s) of the same body site within 3 days. 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 BASIC METABOLIC [id number] 06:34:00 Test Item Value Reference Range Comments SODIUM (BEAKER) (test 139 meq/L 136-145 jgje=397) POTASSIUM (BEAKER) (test 3.9 meq/L 3.5-5.1 dxdq=469) CHLORIDE (BEAKER) (test 103 meq/L 98-107 foyw=626) CO2 (BEAKER) (test 31 meq/L 22-29 gejw=387) BLOOD UREA NITROGEN 12 mg/dL 7-21 (BEAKER) (test nehv=178) CREATININE (BEAKER) (test 0.69 mg/dL 0.57-1.25 zanz=247) GLUCOSE RANDOM (BEAKER) 98 mg/dL 70-105 (test qhml=016) CALCIUM (BEAKER) (test 7.5 mg/dL 8.4-10.2 opzj=605) EGFR (BEAKER) (test 82 mL/min/1.73 sq m ESTIMATED GFR IS NOT mysz=2474) ACCURATE CREATININE CLEARANCE IN PREDICTING GLOMERULAR FILTRATION RATE. ESTIMATED GFR IS NOT APPLICABLE FOR DIALYSIS PATIENTS. CBC W/PLT COUNT & AUTO [id number] 05:58:00 Test Item Value Reference Range Comments WHITE BLOOD CELL COUNT (BEAKER) (test mcmw=140) 5.6 K/ L 3.5-10.5 RED BLOOD CELL COUNT (BEAKER) (test bqym=376) 3.32 M/ L 3.93-5.22 HEMOGLOBIN (BEAKER) (test pwfr=148) 9.0 GM/DL 11.2-15.7 HEMATOCRIT (BEAKER) (test gpmi=926) 30.8 % 34.1-44.9 MEAN CORPUSCULAR VOLUME (BEAKER) (test pqsn=064) 92.8 fL 79.4-94.8 MEAN CORPUSCULAR HEMOGLOBIN (BEAKER) (test 27.1 pg 25.6-32.2 ikzr=292) MEAN CORPUSCULAR HEMOGLOBIN CONC (BEAKER) (test 29.2 GM/DL 32.2-35.5 rriq=428) RED CELL DISTRIBUTION WIDTH (BEAKER) (test 16.8 % 11.7-14.4 xqrg=091) PLATELET COUNT (BEAKER) (test nnpy=227) 143 K/CU MM 150-450 MEAN PLATELET VOLUME (BEAKER) (test yqda=001) 10.1 fL 9.4-12.3 NUCLEATED RED BLOOD CELLS (BEAKER) (test 0 /100 WBC 0-0 opnt=303) NEUTROPHILS RELATIVE PERCENT (BEAKER) (test 60 % smnn=289) LYMPHOCYTES RELATIVE PERCENT (BEAKER) (test 28 % jnea=218) MONOCYTES RELATIVE PERCENT (BEAKER) (test 5 % grud=328) EOSINOPHILS RELATIVE PERCENT (BEAKER) (test 6 % nhmi=168) BASOPHILS RELATIVE PERCENT (BEAKER) (test 0 % zdiv=920) NEUTROPHILS ABSOLUTE COUNT (BEAKER) (test 3.35 K/ L 1.56-6.13 kmcx=319) LYMPHOCYTES ABSOLUTE COUNT (BEAKER) (test 1.55 K/ L 1.18-3.74 gpev=925) MONOCYTES ABSOLUTE COUNT (BEAKER) (test 0.29 K/ L 0.24-0.36 ufky=650) EOSINOPHILS ABSOLUTE COUNT (BEAKER) (test 0.32 K/ L 0.04-0.36 uqhd=215) BASOPHILS ABSOLUTE COUNT (BEAKER) (test 0.01 K/ L 0.01-0.08 uqnv=752) IMMATURE GRANULOCYTES-RELATIVE PERCENT (BEAKER) 1 % 0-1 (test ycsd=1348) FL, BLIND AIDE IN OR/30 MINUTE [id number] 08:01:00Reason for exam:-> CYSTOLOGYFINAL REPORT Fluoroscopy 147 views intraoperative 09/13/2017 at 1659 CLINICAL HISTORY: Instrument localization COMPARISON: None available IMPRESSION: Please correlate imaging report findings with the procedure note prepared by Dr. Suggs, as an intra-procedure imaging consultationwas not requested. Reported fluoroscopy time: 1.4 minutes. Signed: Jermain Hodgesort VerifiedDate/Time: 09/14/2017 08:01:39 Reading Location: [address] Neuro Reading Room BASIC METABOLIC [id number] 07:50:00 Test Item Value Reference Range Comments SODIUM (BEAKER) (test 140 meq/L 136-145 vfey=520) POTASSIUM (BEAKER) (test 3.3 meq/L 3.5-5.1 brxl=504) CHLORIDE (BEAKER) (test 105 meq/L 98-107 eqeq=267) CO2 (BEAKER) (test 26 meq/L 22-29 jgen=953) BLOOD UREA NITROGEN 15 mg/dL 7-21 (BEAKER) (test gatq=775) CREATININE (BEAKER) (test 0.65 mg/dL 0.57-1.25 bmxd=578) GLUCOSE RANDOM (BEAKER) 73 mg/dL 70-105 (test hunv=424) CALCIUM (BEAKER) (test 7.5 mg/dL 8.4-10.2 jknl=742) EGFR (BEAKER) (test 87 mL/min/1.73 sq m ESTIMATED GFR IS NOT hgva=8680) ACCURATE CREATININE CLEARANCE IN PREDICTING GLOMERULAR FILTRATION RATE. ESTIMATED GFR IS NOT APPLICABLE FOR DIALYSIS PATIENTS. CBC W/PLT COUNT & AUTO [id number] 06:07:00 Test Item Value Reference Range Comments WHITE BLOOD CELL COUNT (BEAKER) (test aasw=325) 5.0 K/ L 3.5-10.5 RED BLOOD CELL COUNT (BEAKER) (test vgkh=418) 3.31 M/ L 3.93-5.22 HEMOGLOBIN (BEAKER) (test gwgv=873) 9.1 GM/DL 11.2-15.7 HEMATOCRIT (BEAKER) (test vkcc=826) 31.0 % 34.1-44.9 MEAN CORPUSCULAR VOLUME (BEAKER) (test rdwg=789) 93.7 fL 79.4-94.8 MEAN CORPUSCULAR HEMOGLOBIN (BEAKER) (test 27.5 pg 25.6-32.2 lwsb=609) MEAN CORPUSCULAR HEMOGLOBIN CONC (BEAKER) (test 29.4 GM/DL 32.2-35.5 exec=517) RED CELL DISTRIBUTION WIDTH (BEAKER) (test 16.9 % 11.7-14.4 rppk=602) PLATELET COUNT (BEAKER) (test xuvr=124) 127 K/CU MM 150-450 MEAN PLATELET VOLUME (BEAKER) (test rohe=217) 10.3 fL 9.4-12.3 NUCLEATED RED BLOOD CELLS (BEAKER) (test 0 /100 WBC 0-0 yjlh=410) NEUTROPHILS RELATIVE PERCENT (BEAKER) (test 61 % ixxj=644) LYMPHOCYTES RELATIVE PERCENT (BEAKER) (test 28 % rypb=193) MONOCYTES RELATIVE PERCENT (BEAKER) (test 7 % ruve=807) EOSINOPHILS RELATIVE PERCENT (BEAKER) (test 4 % obai=850) BASOPHILS RELATIVE PERCENT (BEAKER) (test 0 % pzdh=273) NEUTROPHILS ABSOLUTE COUNT (BEAKER) (test 3.02 K/ L 1.56-6.13 obnr=500) LYMPHOCYTES ABSOLUTE COUNT (BEAKER) (test 1.39 K/ L 1.18-3.74 igxq=280) MONOCYTES ABSOLUTE COUNT (BEAKER) (test 0.33 K/ L 0.24-0.36 iggo=251) EOSINOPHILS ABSOLUTE COUNT (BEAKER) (test 0.18 K/ L 0.04-0.36 tdgw=640) BASOPHILS ABSOLUTE COUNT (BEAKER) (test 0.01 K/ L 0.01-0.08 ncdk=834) IMMATURE GRANULOCYTES-RELATIVE PERCENT (BEAKER) 1 % 0-1 (test byzg=3846) BASIC METABOLIC [id number] 13:03:00 Test Item Value Reference Range Comments SODIUM (BEAKER) (test 144 meq/L 136-145 dvvn=764) POTASSIUM (BEAKER) (test 3.7 meq/L 3.5-5.1 zwbz=488) CHLORIDE (BEAKER) (test 103 meq/L 98-107 bhad=919) CO2 (BEAKER) (test 34 meq/L 22-29 dnws=832) BLOOD UREA NITROGEN 17 mg/dL 7-21 (BEAKER) (test qszg=983) CREATININE (BEAKER) (test 0.73 mg/dL 0.57-1.25 pjtt=195) GLUCOSE RANDOM (BEAKER) 75 mg/dL 70-105 (test xgid=268) CALCIUM (BEAKER) (test 7.6 mg/dL 8.4-10.2 iluy=846) EGFR (BEAKER) (test 77 mL/min/1.73 sq m ESTIMATED GFR IS NOT dnhv=1717) ACCURATE CREATININE CLEARANCE IN PREDICTING GLOMERULAR FILTRATION RATE. ESTIMATED GFR IS NOT APPLICABLE FOR DIALYSIS PATIENTS. CBC W/PLT COUNT & AUTO [id number] 12:45:00 Test Item Value Reference Range Comments WHITE BLOOD CELL COUNT (BEAKER) (test njsb=174) 4.6 K/ L 3.5-10.5 RED BLOOD CELL COUNT (BEAKER) (test guta=182) 3.65 M/ L 3.93-5.22 HEMOGLOBIN (BEAKER) (test sgup=725) 10.0 GM/DL 11.2-15.7 HEMATOCRIT (BEAKER) (test gtyy=269) 33.8 % 34.1-44.9 MEAN CORPUSCULAR VOLUME (BEAKER) (test pvvj=138) 92.6 fL 79.4-94.8 MEAN CORPUSCULAR HEMOGLOBIN (BEAKER) (test 27.4 pg 25.6-32.2 esxn=707) MEAN CORPUSCULAR HEMOGLOBIN CONC (BEAKER) (test 29.6 GM/DL 32.2-35.5 wcgz=632) RED CELL DISTRIBUTION WIDTH (BEAKER) (test 16.6 % 11.7-14.4 yqhr=185) PLATELET COUNT (BEAKER) (test hcsv=830) 161 K/CU MM 150-450 MEAN PLATELET VOLUME (BEAKER) (test bhmz=056) 10.0 fL 9.4-12.3 NUCLEATED RED BLOOD CELLS (BEAKER) (test 0 /100 WBC 0-0 qyug=359) NEUTROPHILS RELATIVE PERCENT (BEAKER) (test 61 % nmhv=048) LYMPHOCYTES RELATIVE PERCENT (BEAKER) (test 29 % uyht=927) MONOCYTES RELATIVE PERCENT (BEAKER) (test 7 % lqmn=152) EOSINOPHILS RELATIVE PERCENT (BEAKER) (test 3 % jlun=362) BASOPHILS RELATIVE PERCENT (BEAKER) (test 0 % izae=258) NEUTROPHILS ABSOLUTE COUNT (BEAKER) (test 2.79 K/ L 1.56-6.13 wbyz=766) LYMPHOCYTES ABSOLUTE COUNT (BEAKER) (test 1.32 K/ L 1.18-3.74 ymdh=566) MONOCYTES ABSOLUTE COUNT (BEAKER) (test 0.33 K/ L 0.24-0.36 hotb=651) EOSINOPHILS ABSOLUTE COUNT (BEAKER) (test 0.12 K/ L 0.04-0.36 shdd=026) BASOPHILS ABSOLUTE COUNT (BEAKER) (test 0.01 K/ L 0.01-0.08 zldp=244) IMMATURE GRANULOCYTES-RELATIVE PERCENT (BEAKER) 0 % 0-1 (test xyeu=4223) STOOL CULTURE + SHIGA [id number] 11:52:00 Test Item Value Reference Range Comments CULTURE (BEAKER) (test No Salmonella, Shigella or wiot=6820) Campylobacter isolated Unable to test for Shiga Toxin 1 due to insufficient growth of specimen.Unable to test for Shiga Toxin 2 due to insufficient growth of specimen.Resubmit new specimen if clinically indicated.STOOL PATH [id number] 14:03:00 Test Item Value Reference Range Comments PATHOGEN EXAM CHARGED (BEAKER) (test venh=9745) Done MR, ABDOMEN, [id number] 21:34:00FINAL REPORT INDICATION:82-year-old female with abdominal pain, probable urinary tract infection. Evaluate for renal mass. COMPARISON: Nuclear medicine hepatobiliary exam Stephanie 18, 2018Abdomen pelvis CT exam July 09, 2017 TECHNIQUE: MR of the Abdomen WITHOUT and WITH intravenouscontrast. MRCP was also performed. FINDINGS: There is cortical thinning of both kidneys and there is a 1.2 cm exophytic proteinaceous cyst of the upper pole of the left kidney. No renal mass is demonstrated. There is abnormal enhancement and mild thickening of the upper uroepithelium especially on theright indicating pyelitis. There is no evidence of [...] glands unremarkable. Visualized bowel loops unremarkable. No upperabdominal lymphadenopathy or free fluid demonstrated. Fat-containing upper ventral hernia noted. Tiny bilateral pleural effusions noted. No suspicious marrow signal abnormality. IMPRESSION:Pyelitis without pyelonephritis or renal abscess. Urolithiasis including right proximal ureteral stone versus stone debris. Moderate left hydronephrosis, new since June 2017. Bilateral cortical thinning of both kidneys, indicating chronic kidney disease. Large stone in the neck of the gallbladder, versus cystic duct. No MR evidence of cholecystitis. No choledocholithiasis or biliary ductal dilatation demonstrated. Fat-containing upper ventral hernia. Signed: [facility] Ver[facility] Date/Time: 09/11/2017 21:34:04 Reading Location: [facility] [place] B1 [id number] Consult Reading Room COMPREHENSIVE METABOLIC [id number] 12:47:00 Test Item Value Reference Range Comments TOTAL PROTEIN (BEAKER) 4.9 gm/dL 6.0-8.3 (test fqkj=886) ALBUMIN (BEAKER) (test 2.3 g/dL 3.5-5.0 jkhk=8225) ALKALINE PHOSPHATASE 110 U/L 40-150 (BEAKER) (test qtmp=064) BILIRUBIN TOTAL (BEAKER) 0.4 mg/dL 0.2-1.2 (test clcm=008) SODIUM (BEAKER) (test 143 meq/L 136-145 exjz=644) POTASSIUM (BEAKER) (test 4.5 meq/L 3.5-5.1 kzrv=787) CHLORIDE (BEAKER) (test 103 meq/L 98-107 ukqt=647) CO2 (BEAKER) (test 34 meq/L 22-29 mjxf=595) BLOOD UREA NITROGEN 18 mg/dL 7-21 (BEAKER) (test pkmu=669) CREATININE (BEAKER) (test 0.79 mg/dL 0.57-1.25 oocf=427) GLUCOSE RANDOM (BEAKER) 103 mg/dL 70-105 (test hdpu=926) CALCIUM (BEAKER) (test 7.9 mg/dL 8.4-10.2 ipud=027) AST (SGOT) (BEAKER) (test 26 U/L 5-34 uzlp=571) ALT (SGPT) (BEAKER) (test 10 U/L 6-55 olyy=645) EGFR (BEAKER) (test 70 mL/min/1.73 sq m ESTIMATED GFR IS NOT prxu=1694) ACCURATE CREATININE CLEARANCE IN PREDICTING GLOMERULAR FILTRATION RATE. ESTIMATED GFR IS NOT APPLICABLE FOR DIALYSIS PATIENTS. B-TYPE NATRIURETIC FACTOR (BNP)2017-09-11 11:35:00 Test Item Value Reference Range Comments B-TYPE NATRIURETIC PEPTIDE (BEAKER) (test 210 pg/mL 0-100 hmta=198) CBC W/PLT COUNT & AUTO [id number] 11:01:00 Test Item Value Reference Range Comments WHITE BLOOD CELL COUNT (BEAKER) (test cksu=085) 6.1 K/ L 3.5-10.5 RED BLOOD CELL COUNT (BEAKER) (test onet=974) 3.77 M/ L 3.93-5.22 HEMOGLOBIN (BEAKER) (test zxpr=546) 10.5 GM/DL 11.2-15.7 HEMATOCRIT (BEAKER) (test yezs=846) 35.4 % 34.1-44.9 MEAN CORPUSCULAR VOLUME (BEAKER) (test yxhr=764) 93.9 fL 79.4-94.8 MEAN CORPUSCULAR HEMOGLOBIN (BEAKER) (test 27.9 pg 25.6-32.2 ivjr=284) MEAN CORPUSCULAR HEMOGLOBIN CONC (BEAKER) (test 29.7 GM/DL 32.2-35.5 xjoy=188) RED CELL DISTRIBUTION WIDTH (BEAKER) (test 17.2 % 11.7-14.4 osuq=769) PLATELET COUNT (BEAKER) (test ggob=544) 173 K/CU MM 150-450 MEAN PLATELET VOLUME (BEAKER) (test hvzh=845) 9.9 fL 9.4-12.3 NUCLEATED RED BLOOD CELLS (BEAKER) (test 0 /100 WBC 0-0 rtia=770) NEUTROPHILS RELATIVE PERCENT (BEAKER) (test 66 % fbcz=572) LYMPHOCYTES RELATIVE PERCENT (BEAKER) (test 26 % sikw=287) MONOCYTES RELATIVE PERCENT (BEAKER) (test 8 % urme=675) EOSINOPHILS RELATIVE PERCENT (BEAKER) (test 0 % pjiv=571) BASOPHILS RELATIVE PERCENT (BEAKER) (test 0 % mkbh=198) NEUTROPHILS ABSOLUTE COUNT (BEAKER) (test 4.01 K/ L 1.56-6.13 jdkx=257) LYMPHOCYTES ABSOLUTE COUNT (BEAKER) (test 1.55 K/ L 1.18-3.74 ujky=039) MONOCYTES ABSOLUTE COUNT (BEAKER) (test 0.46 K/ L 0.24-0.36 ifhs=374) EOSINOPHILS ABSOLUTE COUNT (BEAKER) (test 0.02 K/ L 0.04-0.36 ogkg=343) BASOPHILS ABSOLUTE COUNT (BEAKER) (test 0.01 K/ L 0.01-0.08 znop=578) IMMATURE GRANULOCYTES-RELATIVE PERCENT (BEAKER) 1 % 0-1 (test etgy=8987) FECAL [id number] 00:31:00 Test Item Value Reference Range Comments FECAL LEUKOCYTES (BEAKER) No fecal leukocytes seen No fecal leukocytes seen (test drzk=925) COMPREHENSIVE METABOLIC [id number] 22:58:00 Test Item Value Reference Range Comments TOTAL PROTEIN (BEAKER) 5.0 gm/dL 6.0-8.3 Specimen slightly (test izdy=309) hemolyzed ALBUMIN (BEAKER) (test 2.2 g/dL 3.5-5.0 Specimen slightly yfhe=3265) hemolyzed ALKALINE PHOSPHATASE 110 U/L 40-150 (BEAKER) (test lgwu=532) BILIRUBIN TOTAL (BEAKER) 0.3 mg/dL 0.2-1.2 Specimen slightly (test vcwy=991) hemolyzed SODIUM (BEAKER) (test 140 meq/L 136-145 oxpd=047) POTASSIUM (BEAKER) (test 4.2 meq/L 3.5-5.1 Specimen slightly tyvh=828) hemolyzed CHLORIDE (BEAKER) (test 103 meq/L 98-107 wkkq=271) CO2 (BEAKER) (test 26 meq/L 22-29 nfhe=357) BLOOD UREA NITROGEN 17 mg/dL 7-21 (BEAKER) (test fbjd=909) CREATININE (BEAKER) (test 0.82 mg/dL 0.57-1.25 Specimen slightly lyxz=829) hemolyzed GLUCOSE RANDOM (BEAKER) 109 mg/dL 70-105 (test xxex=021) CALCIUM (BEAKER) (test 7.7 mg/dL 8.4-10.2 ffxv=696) AST (SGOT) (BEAKER) (test 27 U/L 5-34 Specimen slightly lfzv=001) hemolyzed ALT (SGPT) (BEAKER) (test 10 U/L 6-55 Specimen slightly zsud=978) hemolyzed EGFR (BEAKER) (test 67 mL/min/1.73 sq m ESTIMATED GFR IS NOT jxsj=3498) ACCURATE CREATININE CLEARANCE IN PREDICTING GLOMERULAR FILTRATION RATE. ESTIMATED GFR IS NOT APPLICABLE FOR DIALYSIS PATIENTS. RAD, CHEST, 1 VIEW, NON [id number] 22:44:00Reason for exam:->shortness of breathShould this be performed at the bedside?->YesFINAL REPORT Comparison examination: 07/15/2017 No pneumothorax, focal pulmonary consolidation, or significant pleural effusion. Normal-sized heart. Tortuous thoracic aorta withatherosclerotic aortic calcifications. Stable when compared to 07/15/2017. Previous sternotomy. Demineralized skeleton. Normal soft tissues. Impression: No acute abnormality. Signed: Aris Hoovereport Verified Date/Time: 09/10/2017 22:44:01 Reading Location: [address] Consult Reading Room Electronically signed by: ARIS HOOVER M.D. on 2017 10:44 PMURINALYSIS W/ [id number] 14:59:00 Test Item Value Reference Range Comments COLOR (BEAKER) (test votx=990) [place] CLARITY (BEAKER) (test oskc=824) Hazy SPECIFIC GRAVITY UA (BEAKER) (test zgyr=380) 1.008 1.001-1.035 PH UA (BEAKER) (test fpcm=506) 7.0 5.0-8.0 PROTEIN UA (BEAKER) (test psrw=839) 50 mg/dL Negative GLUCOSE UA (BEAKER) (test ndsd=560) Negative Negative KETONES UA (BEAKER) (test kznz=221) Negative Negative BILIRUBIN UA (BEAKER) (test pbsv=866) Negative Negative BLOOD UA (BEAKER) (test oppl=389) Large Negative NITRITE UA (BEAKER) (test ijub=910) Negative Negative LEUKOCYTE ESTERASE UA (BEAKER) (test wiwz=043) Large Negative UROBILINOGEN UA (BEAKER) (test adaf=590) 0.2 mg/dL 0.2-1.0 RBC UA (BEAKER) (test tzxx=133) > /HPF WBC UA (BEAKER) (test vnjn=321) > /HPF SOURCE(BEAKER) (test dkzi=4317) Urine, Voided C. DIFFICILE GDH [id number] 14:04:00 Test Item Value Reference Range Comments CDT TOXIN (test Negative Negative xklj=[id number]) CDT GDH ANTIGEN (test Negative Negative No indication of Clostridium okvx=[id number]) difficile infection and no colonization. Discontinue enteric isolation and therapy. Testing performed by [employer] Rapid Cassette Assay. For GDH, published sensitivity of the assay is 98.7% compared to cytotoxicity testing. For Toxin AB, published sensitivity is 87.8% and specificity 99.4% compared to cytotoxicity testing.Verification of kit performance was done by the [facility] Microbiology Lab prior to clinical use.HEPATOBILIARY IMAGING W/ [id number] 16:12:00FINAL REPORT PROCEDURE: HEPATOBILIARY SCAN with morphine sulfate CPT CODE: 53323 INDICATION: Cholelithiasis, abdominal pain PROTOCOL: 5.2 mCi of Tc-99m mebrofenin was injected intravenously. Images of the upper abdomen were obtained for approximately 60 minutes after tracer injection. 3.25 mg of morphine sulfate was then injected intravenously. Imaging wascontinued for an additional 30 minutes. FINDINGS: Initial [...] diagnosis of acute cholecystitis. Signed: Jonny Heart MDReport Verified Date/ Time: 09/09/2017 16:12:46 Reading Location: [address] Reading Room [facility] [id number] 05:56:00 Test Item Value Reference Range Comments TOTAL PROTEIN (BEAKER) 4.7 gm/dL 6.0-8.3 (test ucoy=402) ALBUMIN (BEAKER) (test 2.2 g/dL 3.5-5.0 haqf=2289) ALKALINE PHOSPHATASE 115 U/L 40-150 (BEAKER) (test kqjt=770) BILIRUBIN TOTAL (BEAKER) 0.4 mg/dL 0.2-1.2 (test bjwh=140) SODIUM (BEAKER) (test 142 meq/L 136-145 fpug=161) POTASSIUM (BEAKER) (test 4.1 meq/L 3.5-5.1 hocy=550) CHLORIDE (BEAKER) (test 104 meq/L 98-107 rirx=660) CO2 (BEAKER) (test 30 meq/L 22-29 cafr=210) BLOOD UREA NITROGEN 19 mg/dL 7-21 (BEAKER) (test ajkf=039) CREATININE (BEAKER) (test 0.84 mg/dL 0.57-1.25 epms=937) GLUCOSE RANDOM (BEAKER) 86 mg/dL 70-105 (test povx=898) CALCIUM (BEAKER) (test 8.0 mg/dL 8.4-10.2 erhx=439) AST (SGOT) (BEAKER) (test 25 U/L 5-34 ruam=719) ALT (SGPT) (BEAKER) (test 10 U/L 6-55 erkw=305) EGFR (BEAKER) (test 65 mL/min/1.73 sq m ESTIMATED GFR IS NOT drvb=5913) ACCURATE CREATININE CLEARANCE IN PREDICTING GLOMERULAR FILTRATION RATE. ESTIMATED GFR IS NOT APPLICABLE FOR DIALYSIS PATIENTS. CBC (HEMOGRAM ONLY)2017-09-09 05:24:00 Test Item Value Reference Range Comments WHITE BLOOD CELL COUNT (BEAKER) (test yiup=877) 6.5 K/ L 3.5-10.5 RED BLOOD CELL COUNT (BEAKER) (test lfxe=203) 3.69 M/ L 3.93-5.22 HEMOGLOBIN (BEAKER) (test fccg=900) 10.4 GM/DL 11.2-15.7 HEMATOCRIT (BEAKER) (test whjw=506) 33.5 % 34.1-44.9 MEAN CORPUSCULAR VOLUME (BEAKER) (test ymda=353) 90.8 fL 79.4-94.8 MEAN CORPUSCULAR HEMOGLOBIN (BEAKER) (test 28.2 pg 25.6-32.2 atpm=310) MEAN CORPUSCULAR HEMOGLOBIN CONC (BEAKER) (test 31.0 GM/DL 32.2-35.5 sukm=630) RED CELL DISTRIBUTION WIDTH (BEAKER) (test 17.3 % 11.7-14.4 gqbb=686) PLATELET COUNT (BEAKER) (test stvr=657) 160 K/CU MM 150-450 MEAN PLATELET VOLUME (BEAKER) (test mkcq=407) 9.8 fL 9.4-12.3 NUCLEATED RED BLOOD CELLS (BEAKER) (test 0 /100 WBC 0-0 bkdo=177) URINALYSIS [id number] 21:27:00 Test Item Value Reference Range Comments RBC UA (BEAKER) (test kfnd=159) > /HPF WBC UA (BEAKER) (test hlky=756) 50 /HPF SQUAMOUS EPITHELIAL (BEAKER) (test oewt=994) < /HPF URINALYSIS WITH MICROSCOPIC IF [id number] 21:03:00 Test Item Value Reference Range Comments COLOR (BEAKER) (test thwe=507) [place] CLARITY (BEAKER) (test cspt=091) Cloudy SPECIFIC GRAVITY UA (BEAKER) (test gnnr=171) 1.019 1.001-1.035 PH UA (BEAKER) (test bcfp=406) 6.0 5.0-8.0 PROTEIN UA (BEAKER) (test qcpn=276) 200 mg/dL Negative GLUCOSE UA (BEAKER) (test wovr=579) Negative Negative KETONES UA (BEAKER) (test pcct=533) 10 mg/dL Negative BILIRUBIN UA (BEAKER) (test hudd=533) Positive Negative BLOOD UA (BEAKER) (test osda=686) Large Negative NITRITE UA (BEAKER) (test hrgb=302) Negative Negative LEUKOCYTE ESTERASE UA (BEAKER) (test aeik=964) Large Negative UROBILINOGEN UA (BEAKER) (test uxps=375) 0.2 mg/dL 0.2-1.0 SOURCE(BEAKER) (test zcss=8102) PROTHROMBIN [id number] 18:17:00 Test Item Value Reference Range Comments PROTIME (BEAKER) (test jpvq=492) 15.1 seconds 11.7-14.7 INR (BEAKER) (test wvru=735) 1.2 <=5.9 RECOMMENDED COUMADIN/WARFARIN INR THERAPY RANGESSTANDARD DOSE: 2.0 - 3.0 Includes: PROPHYLAXIS forvenous thrombosis, systemic embolization; TREATMENT for venous thrombosis and/or pulmonary embolus.HIGH RISK: Target INR is 2.5-3.5 for patients with mechanical heart valves.BASIC METABOLIC [id number] 06:40: 00 Test Item Value Reference Range Comments SODIUM (BEAKER) (test 138 meq/L 136-145 yaon=079) POTASSIUM (BEAKER) (test 4.3 meq/L 3.5-5.1 Specimen slightly xheg=494) hemolyzed CHLORIDE (BEAKER) (test 105 meq/L 98-107 uepp=030) CO2 (BEAKER) (test 25 meq/L 22-29 dmrd=178) BLOOD UREA NITROGEN 18 mg/dL 7-21 (BEAKER) (test bzzb=950) CREATININE (BEAKER) (test 0.80 mg/dL 0.57-1.25 Specimen slightly bvcu=754) hemolyzed GLUCOSE RANDOM (BEAKER) 79 mg/dL 70-105 (test woqi=576) CALCIUM (BEAKER) (test 7.6 mg/dL 8.4-10.2 tmon=795) EGFR (BEAKER) (test 69 mL/min/1.73 sq m ESTIMATED GFR IS NOT jwsq=1843) ACCURATE CREATININE CLEARANCE IN PREDICTING GLOMERULAR FILTRATION RATE. ESTIMATED GFR IS NOT APPLICABLE FOR DIALYSIS PATIENTS. HEPATIC FUNCTION [id number] 06:40:00 Test Item Value Reference Range Comments TOTAL PROTEIN (BEAKER) (test 4.4 gm/dL 6.0-8.3 Specimen slightly hemolyzed prav=657) ALBUMIN (BEAKER) (test 1.8 g/dL 3.5-5.0 Specimen slightly hemolyzed yaas=2842) BILIRUBIN TOTAL (BEAKER) (test 0.3 mg/dL 0.2-1.2 Specimen slightly hemolyzed tfvp=804) BILIRUBIN DIRECT (BEAKER) (test 0.2 mg/dL 0.1-0.5 Specimen slightly hemolyzed lneh=606) ALKALINE PHOSPHATASE (BEAKER) 107 U/L 40-150 (test fqlw=818) AST (SGOT) (BEAKER) (test 24 U/L 5-34 Specimen slightly hemolyzed basm=559) ALT (SGPT) (BEAKER) (test 8 U/L 6-55 Specimen slightly hemolyzed lrwn=988) [id number] 06:39:00 Test Item Value Reference Range Comments MAGNESIUM (BEAKER) (test 2.0 mg/dL 1.6-2.6 Specimen slightly hemolyzed kxue=732) DIGOXIN [id number] 06:31:00 Test Item Value Reference Range Comments DIGOXIN LEVEL (BEAKER) (test svak=546) 1.8 ng/mL 0.8-2.0 CBC W/PLT COUNT & AUTO [id number] 06:06:00 Test Item Value Reference Range Comments WHITE BLOOD CELL COUNT (BEAKER) (test ttmo=147) 5.2 K/ L 3.5-10.5 RED BLOOD CELL COUNT (BEAKER) (test ufwo=341) 3.43 M/ L 3.93-5.22 HEMOGLOBIN (BEAKER) (test ptnz=993) 9.5 GM/DL 11.2-15.7 HEMATOCRIT (BEAKER) (test uqky=034) 31.5 % 34.1-44.9 MEAN CORPUSCULAR VOLUME (BEAKER) (test ioes=978) 91.8 fL 79.4-94.8 MEAN CORPUSCULAR HEMOGLOBIN (BEAKER) (test 27.7 pg 25.6-32.2 chrk=586) MEAN CORPUSCULAR HEMOGLOBIN CONC (BEAKER) (test 30.2 GM/DL 32.2-35.5 hnvk=180) RED CELL DISTRIBUTION WIDTH (BEAKER) (test 17.4 % 11.7-14.4 jnni=554) PLATELET COUNT (BEAKER) (test lcsy=738) 107 K/CU MM 150-450 MEAN PLATELET VOLUME (BEAKER) (test qyxr=856) 10.8 fL 9.4-12.3 NUCLEATED RED BLOOD CELLS (BEAKER) (test 0 /100 WBC 0-0 tnul=194) NEUTROPHILS RELATIVE PERCENT (BEAKER) (test 58 % obnw=301) LYMPHOCYTES RELATIVE PERCENT (BEAKER) (test 24 % bptb=394) MONOCYTES RELATIVE PERCENT (BEAKER) (test 9 % lcei=464) EOSINOPHILS RELATIVE PERCENT (BEAKER) (test 7 % mytf=419) BASOPHILS RELATIVE PERCENT (BEAKER) (test 1 % jnsj=782) NEUTROPHILS ABSOLUTE COUNT (BEAKER) (test 3.02 K/ L 1.56-6.13 bcpt=922) LYMPHOCYTES ABSOLUTE COUNT (BEAKER) (test 1.25 K/ L 1.18-3.74 xzbn=012) MONOCYTES ABSOLUTE COUNT (BEAKER) (test 0.45 K/ L 0.24-0.36 jymy=539) EOSINOPHILS ABSOLUTE COUNT (BEAKER) (test 0.37 K/ L 0.04-0.36 mzxl=599) BASOPHILS ABSOLUTE COUNT (BEAKER) (test 0.04 K/ L 0.01-0.08 cizt=191) IMMATURE GRANULOCYTES-RELATIVE PERCENT (BEAKER) 1 % 0-1 (test dyuk=9201) AFB CULTURE + [id number] 18:40:00 Test Item Value Reference Range Comments CULTURE (BEAKER) (test No acid-fast bacilli isolated orzf=2747) in 42 days AFB SMEAR (BEAKER) (test No acid fast bacilli seen uoig=681) AFB CULTURE + [id number] 18:40:00 Test Item Value Reference Range Comments CULTURE (BEAKER) (test No acid-fast bacilli isolated hxgz=6198) in 42 days AFB SMEAR (BEAKER) (test No acid fast bacilli seen qyjs=056) FUNGUS CULTURE + [id number] 15:05:00 Test Item Value Reference Range Comments CULTURE (BEAKER) (test No fungus isolated in 28 days ymcp=1943) FUNGUS SMEAR (BEAKER) (test No fungi seen idkx=6846) FUNGUS CULTURE + [id number] 15:05:00 Test Item Value Reference Range Comments CULTURE (BEAKER) (test No fungus isolated in 28 days kmyc=8716) FUNGUS SMEAR (BEAKER) (test No fungi seen fsky=3332) SURGICALLY OBTAINED CULTURE + GRAM [id number] 12:28:00 Test Item Value Reference Range Comments CULTURE (BEAKER) (test ESCHERICHIA COLI 3+ Escherichia coli jxct=8717) Amikacin (test code=1) Ampicillin + Sulbactam (test code=6) Aztreonam (test code=32) Cefepime (test code=51) Cefoxitin (test code=68) Ceftazidime (test code=27) Ceftriaxone (test code=52) Ertapenem (test code=38) Gentamicin (test code=18) Levofloxacin (test code=22) Meropenem (test code=34) Nitrofurantoin (test code=23) Piperacillin + Tazobactam (test code=29) Tetracycline (test code=2) Tobramycin (test code=25) Trimethoprim + Sulfamethoxazole (test code=47) CULTURE (BEAKER) (test PROVIDENCIA STUARTII 2+ Providencia bsik=0183) stuartii Amikacin (test code=1) Ampicillin + Sulbactam (test code=6) Aztreonam (test code=32) Cefepime (test code=51) Cefoxitin (test code=68) Ceftazidime (test code=27) Ceftriaxone (test code=52) Ertapenem (test code=38) Gentamicin (test code=18) Levofloxacin (test code=22) Meropenem (test code=34) Nitrofurantoin (test code=23) Piperacillin + Tazobactam (test code=29) Tetracycline (test code=2) Tobramycin (test code=25) Trimethoprim + Sulfamethoxazole (test code=47) CULTURE (BEAKER) (test 1+ Providencia csbx=1606) stuartiiof a second type CULTURE (BEAKER) (test PROVIDENCIA STUARTII 1+ Providencia abaz=2013) stuartiiof a third type Amikacin (test code=1) Ampicillin + Sulbactam (test code=6) Aztreonam (test code=32) Cefazolin (test code=9) Cefepime (test code=51) Cefoxitin (test code=68) Ceftazidime (test code=27) Ceftriaxone (test code=52) Ertapenem (test code=38) Gentamicin (test code=18) Levofloxacin (test code=22) Meropenem (test code=34) Piperacillin + Tazobactam (test code=29) Tetracycline (test code=2) Tobramycin (test code=25) Trimethoprim + Sulfamethoxazole (test code=47) CULTURE (BEAKER) (test 1+ Klebsiella hfsl=7089) pneumoniae ssp pneumoniae GRAM STAIN RESULT (BEAKER) 3+ WBCs (test ujfe=5404) GRAM STAIN RESULT (BEAKER) 1+ gram negative rods (test bjvq=182299) GRAM STAIN RESULT (BEAKER) 4+ gram positive (test sfyr=826170) cocci in pairs GRAM STAIN RESULT (BEAKER) 1+ gram positive (test vrzp=455978) cocci in clusters SURGICALLY OBTAINED CULTURE + GRAM [id number] 16:29:00 Test Item Value Reference Range Comments CULTURE (BEAKER) (test ESCHERICHIA COLI 1+ Escherichia coli vnuy=8796) Amikacin (test code=1) Ampicillin + Sulbactam (test code=6) Aztreonam (test code=32) Cefepime (test code=51) Cefoxitin (test code=68) Ceftazidime (test code=27) Ceftriaxone (test code=52) Ertapenem (test code=38) Gentamicin (test code=18) Levofloxacin (test code=22) Meropenem (test code=34) Nitrofurantoin (test code=23) Piperacillin + Tazobactam (test code=29) Tetracycline (test code=2) Tobramycin (test code=25) Trimethoprim + Sulfamethoxazole (test code=47) CULTURE (BEAKER) (test PROVIDENCIA STUARTII <1+ Providencia stuartii pjjl=3383) Amikacin (test code=1) Ampicillin + Sulbactam (test code=6) Aztreonam (test code=32) Cefepime (test code=51) Cefoxitin (test code=68) Ceftazidime (test code=27) Ceftriaxone (test code=52) Ertapenem (test code=38) Gentamicin (test code=18) Levofloxacin (test code=22) Meropenem (test code=34) Nitrofurantoin (test code=23) Piperacillin + Tazobactam (test code=29) Tetracycline (test code=2) Tobramycin (test code=25) Trimethoprim + Sulfamethoxazole (test code=47) CULTURE (BEAKER) (test <1+ Peptostreptococcus rlrh=0725) speciesMost closely resembles GRAM STAIN RESULT 4+ WBCs (BEAKER) (test nhlf=4882) GRAM STAIN RESULT <1+ gram negative (BEAKER) (test rods dkjn=185875) GRAM STAIN RESULT 4+ gram positive (BEAKER) (test cocci in pairs gziy=180556) GRAM STAIN RESULT 2+ gram positive (BEAKER) (test cocci in clusters oukz=584078) GRAM STAIN RESULT <1+ gram positive (BEAKER) (test coccobacilli ciwi=445688) RAD, CHEST, 1 VIEW, NON [id number] 13:15:00Reason for exam:->coughShould this be performed at the bedside?->YesFINAL REPORT AP chest HISTORY: Pneumonia COMPARISON: 07/12/2017 IMPRESSION:Status post recent sternotomy. Heart size normal. Minimal left basilar pleural thickening may reflect small effusion. Adjacent atelectasis. Lungs otherwise clear. No pneumothorax. Signed: Geri Langley MDReport Verified Date/Time: 07/25/2017 13:15:41 Reading Location: [facility] B1 C013Y CT Body Reading Room BLOOD [id number] 05:56:00 Test Item Value Reference Comments Range CULTURE (BEAKER) PEPTONIPHILUS From Anaerobic Bottle Only (test azrb=4977) ASACCHAROLYTICUS Peptoniphilus asaccharolyticusSusceptibility performed by:* - [facility] Penicillin G (test code=3) Clindamycin (test code=10) Metronidazole (test code=56) Amoxicillin + Clavulanate (test code=21) Meropenem (test code=34) CULTURE (BEAKER) VEILLONELLA PARVULA From Anaerobic Bottle Only (test sjqo=8668) Veillonella parvulaSusceptibility performed by:* - [facility] Penicillin G (test code=3) Clindamycin (test code=10) Metronidazole (test code=56) Amoxicillin + Clavulanate (test code=21) Meropenem (test code=34) CULTURE (BEAKER) PROVIDENCIA STUARTII From Aerobic Bottle Only (test vnjy=3954) Providencia stuartii Amikacin (test code=1) Ampicillin + [...] From anaerobic (BEAKER) (test bottle only: gram hdvs=8482) positive cocci in clusters GRAM STAIN RESULT From aerobic bottle (BEAKER) (test only: gram negative xmpg=767972) rods NOT DETECTEDPanel is negative for [facility] BCID-detectable organisms. Please refer to traditional culture and sensitivity results as they become available.Other organisms and resistance markers not contained in this PCR panel cannot be excluded and follow-up of traditional culture results is required.This sample was tested at the [facility] Clinical Microbiology Laboratory using the [employer] Blood Culture ID Panel. This test is FDA cleared for in vitro diagnostic use and has been verified and approved by the [facility] Clinical Microbiology laboratory for clinical use. Reference Range: Not DetectedBLOOD [id number] 04:03:00 Test Item Value Reference Range Comments CULTURE (BEAKER) From Anaerobic Bottle Only (test vihz=2416) Same organism has been isolated from cultures(s) of the same body site and collection date. Repeat identification and susceptibility testing performed only after consultation with the clinical microbiology laboratory.Refer to previous culture of* - Veillonella Parvula GRAM STAIN RESULT From anaerobic bottle (BEAKER) (test only: gram positive grub=1580) cocci in clusters ANAEROBIC [id number] 00:37:00 Test Item Value Reference Range Comments CULTURE (BEAKER) (test 3+ Same organism has been isolated gszc=6878) from cultures(s) of the same body site and collection date. Repeat identification and susceptibility testing performed only after consultation with the clinical microbiology laboratory.Refer to previous culture of* - Peptoniphilus Asaccharolyticus ANAEROBIC [id number] 00:36:00 Test Item Value Reference Range Comments CULTURE (BEAKER) (test 4+ Peptoniphilus asaccharolyticusSame avbf=4157) organism has been isolated from culture(s) of the same body site and collection date. Repeat susceptibility testing performed only after consultation with the clinical microbiology laboratory. POCT-GLUCOSE [id number] 07:56:00 Test Item Value Reference Range Comments POC-GLUCOSE METER (BEAKER) 115 mg/dL 70-110 TESTED AT [facility] [address], [place] (test fpmq=5346) [facility] [address] COMPREHENSIVE METABOLIC [id number] 06:13:00 Test Item Value Reference Range Comments TOTAL PROTEIN (BEAKER) 5.1 gm/dL 6.0-8.3 (test exgh=708) ALBUMIN (BEAKER) (test 2.5 g/dL 3.5-5.0 hjcn=3989) ALKALINE PHOSPHATASE 89 U/L 40-150 (BEAKER) (test thkx=240) BILIRUBIN TOTAL (BEAKER) 0.6 mg/dL 0.2-1.2 (test bley=677) SODIUM (BEAKER) (test 141 meq/L 136-145 pkmu=234) POTASSIUM (BEAKER) (test 4.4 meq/L 3.5-5.1 zrse=009) CHLORIDE (BEAKER) (test 100 meq/L 98-107 aods=569) CO2 (BEAKER) (test 34 meq/L 22-29 mnkx=652) BLOOD UREA NITROGEN 23 mg/dL 7-21 (BEAKER) (test brwl=959) CREATININE (BEAKER) (test 0.66 mg/dL 0.57-1.25 wkmk=021) GLUCOSE RANDOM (BEAKER) 115 mg/dL 70-105 (test moll=485) CALCIUM (BEAKER) (test 8.6 mg/dL 8.4-10.2 gvic=319) AST (SGOT) (BEAKER) (test 26 U/L 5-34 obxl=497) ALT (SGPT) (BEAKER) (test 22 U/L 6-55 zlew=730) EGFR (BEAKER) (test 86 mL/min/1.73 sq m ESTIMATED GFR IS NOT ndpd=8844) ACCURATE CREATININE CLEARANCE IN PREDICTING GLOMERULAR FILTRATION RATE. ESTIMATED GFR IS NOT APPLICABLE FOR DIALYSIS PATIENTS. CBC W/PLT COUNT & AUTO [id number] 05:43:00 Test Item Value Reference Range Comments WHITE BLOOD CELL COUNT (BEAKER) (test kerq=696) 9.9 K/ L 3.5-10.5 RED BLOOD CELL COUNT (BEAKER) (test rika=477) 3.65 M/ L 3.93-5.22 HEMOGLOBIN (BEAKER) (test dkdb=601) 10.0 GM/DL 11.2-15.7 HEMATOCRIT (BEAKER) (test taur=398) 32.9 % 34.1-44.9 MEAN CORPUSCULAR VOLUME (BEAKER) (test qfdh=383) 90.1 fL 79.4-94.8 MEAN CORPUSCULAR HEMOGLOBIN (BEAKER) (test 27.4 pg 25.6-32.2 pavd=820) MEAN CORPUSCULAR HEMOGLOBIN CONC (BEAKER) (test 30.4 GM/DL 32.2-35.5 wbxg=027) RED CELL DISTRIBUTION WIDTH (BEAKER) (test 16.3 % 11.7-14.4 ctpu=552) PLATELET COUNT (BEAKER) (test acqz=962) 202 K/CU MM 150-450 MEAN PLATELET VOLUME (BEAKER) (test vcog=340) 10.4 fL 9.4-12.3 NUCLEATED RED BLOOD CELLS (BEAKER) (test 0 /100 WBC 0-0 ejih=893) NEUTROPHILS RELATIVE PERCENT (BEAKER) (test 75 % petq=316) LYMPHOCYTES RELATIVE PERCENT (BEAKER) (test 12 % yavj=448) MONOCYTES RELATIVE PERCENT (BEAKER) (test 8 % sojl=371) EOSINOPHILS RELATIVE PERCENT (BEAKER) (test 3 % caav=165) BASOPHILS RELATIVE PERCENT (BEAKER) (test 0 % odex=843) NEUTROPHILS ABSOLUTE COUNT (BEAKER) (test 7.42 K/ L 1.56-6.13 lkcd=535) LYMPHOCYTES ABSOLUTE COUNT (BEAKER) (test 1.17 K/ L 1.18-3.74 hiyw=473) MONOCYTES ABSOLUTE COUNT (BEAKER) (test 0.75 K/ L 0.24-0.36 rlpm=211) EOSINOPHILS ABSOLUTE COUNT (BEAKER) (test 0.28 K/ L 0.04-0.36 tpwa=093) BASOPHILS ABSOLUTE COUNT (BEAKER) (test 0.02 K/ L 0.01-0.08 fqko=297) IMMATURE GRANULOCYTES-RELATIVE PERCENT (BEAKER) 2 % 0-1 (test inwt=2223) POCT-GLUCOSE [id number] 21:38:00 Test Item Value Reference Range Comments POC-GLUCOSE METER (BEAKER) 157 mg/dL 70-110 TESTED AT [address] (test fxus=1594) [place] [address] POCT-GLUCOSE [id number] 16:42:00 Test Item Value Reference Range Comments POC-GLUCOSE METER (BEAKER) 108 mg/dL 70-110 TESTED AT [address] (test crtc=8638) [place] [address] POCT-GLUCOSE [id number] 11:40:00 Test Item Value Reference Range Comments POC-GLUCOSE METER (BEAKER) 167 mg/dL 70-110 TESTED AT [address] (test owlj=5108) [place] [address] B-TYPE NATRIURETIC FACTOR (BNP)2017-07-18 08:59:00 Test Item Value Reference Range Comments B-TYPE NATRIURETIC PEPTIDE (BEAKER) (test 266 pg/mL 0-100 friu=029) COMPREHENSIVE METABOLIC [id number] 08:55:00 Test Item Value Reference Range Comments TOTAL PROTEIN (BEAKER) 5.3 gm/dL 6.0-8.3 (test fowc=250) ALBUMIN (BEAKER) (test 2.6 g/dL 3.5-5.0 mfxg=1557) ALKALINE PHOSPHATASE 96 U/L 40-150 (BEAKER) (test axzb=616) BILIRUBIN TOTAL (BEAKER) 0.6 mg/dL 0.2-1.2 (test llef=217) SODIUM (BEAKER) (test 142 meq/L 136-145 cpti=918) POTASSIUM (BEAKER) (test 4.2 meq/L 3.5-5.1 vqdd=362) CHLORIDE (BEAKER) (test 105 meq/L 98-107 spjq=806) CO2 (BEAKER) (test 32 meq/L 22-29 oivz=581) BLOOD UREA NITROGEN 22 mg/dL 7-21 (BEAKER) (test aktz=601) CREATININE (BEAKER) (test 0.63 mg/dL 0.57-1.25 sevn=680) GLUCOSE RANDOM (BEAKER) 112 mg/dL 70-105 (test dmwc=432) CALCIUM (BEAKER) (test 8.4 mg/dL 8.4-10.2 vlnx=977) AST (SGOT) (BEAKER) (test 26 U/L 5-34 zced=410) ALT (SGPT) (BEAKER) (test 21 U/L 6-55 fwjh=618) EGFR (BEAKER) (test 91 mL/min/1.73 sq m ESTIMATED GFR IS NOT xxcv=5852) ACCURATE CREATININE CLEARANCE IN PREDICTING GLOMERULAR FILTRATION RATE. ESTIMATED GFR IS NOT APPLICABLE FOR DIALYSIS PATIENTS. LACTIC ACID, VENOUS, WHOLE [id number] 08:52:00 Test Item Value Reference Range Comments LACTATE BLOOD VENOUS (2) 1.5 mmol/L 0.5-2.2 Specimen slightly hemolyzed (BEAKER) (test ydbc=9932) Effective 07/27/2015: Units/Reference Range ChangeNew: 0.5-2.2 mmol/L Previous: 5 -20 mg/dLCBC W/PLT COUNT & AUTO [id number] 08:43:00 Test Item Value Reference Range Comments WHITE BLOOD CELL COUNT (BEAKER) (test tktu=451) 12.7 K/ L 3.5-10.5 RED BLOOD CELL COUNT (BEAKER) (test cyka=045) 3.75 M/ L 3.93-5.22 HEMOGLOBIN (BEAKER) (test bwhk=503) 10.5 GM/DL 11.2-15.7 HEMATOCRIT (BEAKER) (test hyao=196) 34.1 % 34.1-44.9 MEAN CORPUSCULAR VOLUME (BEAKER) (test xbtx=090) 90.9 fL 79.4-94.8 MEAN CORPUSCULAR HEMOGLOBIN (BEAKER) (test 28.0 pg 25.6-32.2 rbaf=415) MEAN CORPUSCULAR HEMOGLOBIN CONC (BEAKER) (test 30.8 GM/DL 32.2-35.5 slph=826) RED CELL DISTRIBUTION WIDTH (BEAKER) (test 16.0 % 11.7-14.4 adhh=102) PLATELET COUNT (BEAKER) (test otex=173) 177 K/CU MM 150-450 MEAN PLATELET VOLUME (BEAKER) (test cnzp=529) 10.7 fL 9.4-12.3 NUCLEATED RED BLOOD CELLS (BEAKER) (test 0 /100 WBC 0-0 vgim=790) NEUTROPHILS RELATIVE PERCENT (BEAKER) (test 78 % rzeg=216) LYMPHOCYTES RELATIVE PERCENT (BEAKER) (test 11 % kdwf=421) MONOCYTES RELATIVE PERCENT (BEAKER) (test 6 % evmg=189) EOSINOPHILS RELATIVE PERCENT (BEAKER) (test 2 % tlfp=657) BASOPHILS RELATIVE PERCENT (BEAKER) (test 0 % uwet=165) NEUTROPHILS ABSOLUTE COUNT (BEAKER) (test 9.82 K/ L 1.56-6.13 kfxb=906) LYMPHOCYTES ABSOLUTE COUNT (BEAKER) (test 1.41 K/ L 1.18-3.74 lwal=730) MONOCYTES ABSOLUTE COUNT (BEAKER) (test 0.76 K/ L 0.24-0.36 tmhe=601) EOSINOPHILS ABSOLUTE COUNT (BEAKER) (test 0.31 K/ L 0.04-0.36 kjiu=427) BASOPHILS ABSOLUTE COUNT (BEAKER) (test 0.02 K/ L 0.01-0.08 lvfs=098) IMMATURE GRANULOCYTES-RELATIVE PERCENT (BEAKER) 3 % 0-1 (test idhw=6829) POCT-GLUCOSE [id number] 07:48:00 Test Item Value Reference Range Comments POC-GLUCOSE METER (BEAKER) 116 mg/dL 70-110 TESTED AT [address] (test qqhy=7180) [facility] [address] POCT-GLUCOSE [id number] 21:24:00 Test Item Value Reference Range Comments POC-GLUCOSE METER (BEAKER) 144 mg/dL 70-110 TESTED AT [address] (test jmhw=1511) [facility] [address] POCT-GLUCOSE [id number] 16:20:00 Test Item Value Reference Range Comments POC-GLUCOSE METER (BEAKER) 144 mg/dL 70-110 TESTED AT [place] [id number] [facility] [place] (test knwz=9683) [facility] [address] POCT-GLUCOSE [id number] 11:36:00 Test Item Value Reference Range Comments POC-GLUCOSE METER (BEAKER) 180 mg/dL 70-110 TESTED AT [address] (test gpxe=3467) [facility] [address] POCT-GLUCOSE [id number] 07:06:00 Test Item Value Reference Range Comments POC-GLUCOSE METER (BEAKER) 130 mg/dL 70-110 TESTED AT [address] (test dbqh=5672) [facility] [address] COMPREHENSIVE METABOLIC [id number] 04:19:00 Test Item Value Reference Range Comments TOTAL PROTEIN (BEAKER) 5.0 gm/dL 6.0-8.3 (test axfo=889) ALBUMIN (BEAKER) (test 2.5 g/dL 3.5-5.0 wioh=4040) ALKALINE PHOSPHATASE 90 U/L 40-150 (BEAKER) (test vlee=008) BILIRUBIN TOTAL (BEAKER) 0.5 mg/dL 0.2-1.2 (test etab=065) SODIUM (BEAKER) (test 141 meq/L 136-145 jnqv=922) POTASSIUM (BEAKER) (test 4.7 meq/L 3.5-5.1 tood=376) CHLORIDE (BEAKER) (test 106 meq/L 98-107 aftc=551) CO2 (BEAKER) (test 29 meq/L 22-29 vhtu=317) BLOOD UREA NITROGEN 23 mg/dL 7-21 (BEAKER) (test whgc=265) CREATININE (BEAKER) (test 0.61 mg/dL 0.57-1.25 pgpw=093) GLUCOSE RANDOM (BEAKER) 129 mg/dL 70-105 (test wawk=815) CALCIUM (BEAKER) (test 8.6 mg/dL 8.4-10.2 ctcv=291) AST (SGOT) (BEAKER) (test 30 U/L 5-34 roas=942) ALT (SGPT) (BEAKER) (test 23 U/L 6-55 ufpx=286) EGFR (BEAKER) (test 94 mL/min/1.73 sq m ESTIMATED GFR IS NOT eqgy=4719) ACCURATE CREATININE CLEARANCE IN PREDICTING GLOMERULAR FILTRATION RATE. ESTIMATED GFR IS NOT APPLICABLE FOR DIALYSIS PATIENTS. CBC W/PLT COUNT & AUTO [id number] 04:18:00 Test Item Value Reference Range Comments WHITE BLOOD CELL COUNT (BEAKER) (test lrwe=468) 12.4 K/ L 3.5-10.5 RED BLOOD CELL COUNT (BEAKER) (test fxtw=857) 3.82 M/ L 3.93-5.22 HEMOGLOBIN (BEAKER) (test gpyu=566) 10.5 GM/DL 11.2-15.7 HEMATOCRIT (BEAKER) (test prbe=527) 34.4 % 34.1-44.9 MEAN CORPUSCULAR VOLUME (BEAKER) (test gsrq=881) 90.1 fL 79.4-94.8 MEAN CORPUSCULAR HEMOGLOBIN (BEAKER) (test 27.5 pg 25.6-32.2 eldp=758) MEAN CORPUSCULAR HEMOGLOBIN CONC (BEAKER) (test 30.5 GM/DL 32.2-35.5 wmve=564) RED CELL DISTRIBUTION WIDTH (BEAKER) (test 15.6 % 11.7-14.4 nrzb=898) PLATELET COUNT (BEAKER) (test wwcd=987) 178 K/CU MM 150-450 MEAN PLATELET VOLUME (BEAKER) (test umgp=930) 11.2 fL 9.4-12.3 NUCLEATED RED BLOOD CELLS (BEAKER) (test 0 /100 WBC 0-0 iuvn=983) LACTIC ACID, VENOUS, WHOLE [id number] 04:05:00 Test Item Value Reference Range Comments LACTATE BLOOD VENOUS (2) (BEAKER) (test 1.4 mmol/L 0.5-2.2 fcai=7400) Effective 07/27/2015: Units/Reference Range ChangeNew: 0.5-2.2 mmol/L Previous: 5 -20 mg/dLPOCT-GLUCOSE [id number] 21:14:00 Test Item Value Reference Range Comments POC-GLUCOSE METER (BEAKER) 158 mg/dL 70-110 TESTED AT [address] (test eanp=8036) [place] [address] BLOOD [id number] 18:00:00 Test Item Value Reference Range Comments CULTURE (BEAKER) (test xfvz=5757) No growth in 5 days POCT-GLUCOSE [id number] 17:21:00 Test Item Value Reference Range Comments POC-GLUCOSE METER (BEAKER) 125 mg/dL 70-110 TESTED AT [address] (test mgud=2122) [place] [address] MISCELLANEOUS LAB [id number] 15:27:00 Test Item Value Reference Range Comments SCAN RESULT (test qjmr=[id number]) Result comments: NOT DETECTED Panel is negative for BioFire BCID-detectable organisms. Please refer to traditional culture and sensitivity results as they become available. Other organisms and resistance markers not contained in this PCR panel cannot be excluded and follow-up of traditional culture results is required. This sample was tested at the [facility] Clinical Microbiology Laboratory using the [employer] FilmArray Blood Culture ID Panel. This test is FDA cleared for in vitro diagnostic use and hasbeen verified and approved by the [facility] Clinical Microbiology laboratory for clinical use. ReferenceRange: Not DetectedPOCT-GLUCOSE [id number] 12:52:00 Test Item Value Reference Range Comments POC-GLUCOSE METER (BEAKER) 142 mg/dL 70-110 TESTED AT [address] (test ucsh=0916) [place] [address] POCT-GLUCOSE [id number] 12:52:00 Test Item Value Reference Range Comments POC-GLUCOSE METER (BEAKER) 175 mg/dL 70-110 TESTED AT [address] (test aelq=6556) [place] [address] BLOOD [id number] 11:00:00 Test Item Value Reference Range Comments CULTURE (BEAKER) (test cckt=0680) No growth in 5 days CBC W/PLT COUNT & AUTO [id number] 09:08:00 Test Item Value Reference Range Comments WHITE BLOOD CELL COUNT (BEAKER) (test jnzh=110) 10.9 K/ L 3.5-10.5 RED BLOOD CELL COUNT (BEAKER) (test nxsu=103) 3.73 M/ L 3.93-5.22 HEMOGLOBIN (BEAKER) (test fzjj=045) 10.4 GM/DL 11.2-15.7 HEMATOCRIT (BEAKER) (test fxrw=214) 33.4 % 34.1-44.9 MEAN CORPUSCULAR VOLUME (BEAKER) (test vdvk=193) 89.5 fL 79.4-94.8 MEAN CORPUSCULAR HEMOGLOBIN (BEAKER) (test 27.9 pg 25.6-32.2 giah=359) MEAN CORPUSCULAR HEMOGLOBIN CONC (BEAKER) (test 31.1 GM/DL 32.2-35.5 gywq=601) RED CELL DISTRIBUTION WIDTH (BEAKER) (test 15.6 % 11.7-14.4 sjty=931) PLATELET COUNT (BEAKER) (test sktl=703) 156 K/CU MM 150-450 MEAN PLATELET VOLUME (BEAKER) (test ylmi=563) 10.4 fL 9.4-12.3 NUCLEATED RED BLOOD CELLS (BEAKER) (test 0 /100 WBC 0-0 tent=318) POCT-GLUCOSE [id number] 07:53:00 Test Item Value Reference Range Comments POC-GLUCOSE METER (BEAKER) 131 mg/dL 70-110 TESTED AT [facility] [address] [facility] (test ytuo=8294) [facility] [address] MISCELLANEOUS LAB [id number] 06:53:00 Test Item Value Reference Range Comments SCAN RESULT (test sbcx=[id number]) Result comments: NOT DETECTED Panel is negative for BioFire BCID-detectable organisms. Please refer to traditional culture and sensitivity results as they become available. Other organisms and resistance markers not contained in this PCR panel cannot be excluded and follow-up of traditional culture results is required. This sample was tested at the [facility] Clinical [facility]biology Laboratory using the [employer] FilmArray Blood Culture ID Panel. This test is FDA cleared for in vitro diagnostic use and hasbeen verified and approved by the [facility] Clinical Microbiology laboratory for clinical use. ReferenceRange: Not DetectedCOMPREHENSIVE METABOLIC [id number] 06:39:00 Test Item Value Reference Range Comments TOTAL PROTEIN (BEAKER) 5.1 gm/dL 6.0-8.3 (test mgtz=791) ALBUMIN (BEAKER) (test 2.4 g/dL 3.5-5.0 dsun=1013) ALKALINE PHOSPHATASE 84 U/L 40-150 (BEAKER) (test pmsq=282) BILIRUBIN TOTAL (BEAKER) 0.5 mg/dL 0.2-1.2 (test gkem=527) SODIUM (BEAKER) (test 144 meq/L 136-145 snak=124) POTASSIUM (BEAKER) (test 4.2 meq/L 3.5-5.1 kyln=397) CHLORIDE (BEAKER) (test 108 meq/L 98-107 vqjg=678) CO2 (BEAKER) (test 31 meq/L 22-29 xhdj=497) BLOOD UREA NITROGEN 28 mg/dL 7-21 (BEAKER) (test swrl=587) CREATININE (BEAKER) (test 0.63 mg/dL 0.57-1.25 sxjx=394) GLUCOSE RANDOM (BEAKER) 135 mg/dL 70-105 (test sjkp=529) CALCIUM (BEAKER) (test 8.4 mg/dL 8.4-10.2 byed=220) AST (SGOT) (BEAKER) (test 24 U/L 5-34 dmer=062) ALT (SGPT) (BEAKER) (test 16 U/L 6-55 rudv=459) EGFR (BEAKER) (test 91 mL/min/1.73 sq m ESTIMATED GFR IS NOT yltj=5765) ACCURATE CREATININE CLEARANCE IN PREDICTING GLOMERULAR FILTRATION RATE. ESTIMATED GFR IS NOT APPLICABLE FOR DIALYSIS PATIENTS. LACTIC ACID, VENOUS, WHOLE [id number] 06:21:00 Test Item Value Reference Range Comments LACTATE BLOOD VENOUS (2) 1.7 mmol/L 0.5-2.2 Specimen slightly hemolyzed (BEAKER) (test vexb=9536) Effective 07/27/2015: Units/Reference Range ChangeNew: 0.5-2.2 mmol/L Previous: 5 -20 mg/dLLACTIC ACID, VENOUS, WHOLE [id number] 06:20:00 Test Item Value Reference Range Comments LACTATE BLOOD VENOUS (2) (BEAKER) (test 1.7 mmol/L 0.5-2.2 lylx=8223) Effective 07/27/2015: Units/Reference Range ChangeNew: 0.5-2.2 mmol/L Previous: 5 -20 mg/dLPOCT-GLUCOSE [id number] 20:54:00 Test Item Value Reference Range Comments POC-GLUCOSE METER (BEAKER) 169 mg/dL 70-110 TESTED AT [address] (test bnyd=0092) [facility] [address] POCT-GLUCOSE [id number] 17:36:00 Test Item Value Reference Range Comments POC-GLUCOSE METER (BEAKER) 161 mg/dL 70-110 TESTED AT [address] (test crsk=0766) [place] [id number] RAD, CHEST, PA OR AP, 1 [id number] 14:46:00Reason for exam:-> dyspnea.FINAL REPORT Chest one view INDICATION: Dyspnea COMPARISON: 07/12/2017 IMPRESSION: Lung volumes have decreased with greater bibasilar opacities that could reflect worsening atelectasis or developing pneumonitis. Small pleural effusions are suspected. There is mild pulmonary vascular congestion. The cardiac silhouette is enlarged. Aortic ectasia and calcification and median sternotomy changes are again noted. No pneumothorax is seen. Signed: Narendra Mccormick Verified Date/Time: 07/15/2017 14: 46:32 Reading Location: [facility] [id number] Consult Reading Room POCT-GLUCOSE [id number] 12:23:00 Test Item Value Reference Range Comments POC-GLUCOSE METER (BEAKER) 198 mg/dL 70-110 TESTED AT [address] (test ntzf=8379) [facility] [address] POCT-GLUCOSE [id number] 07:40:00 Test Item Value Reference Range Comments POC-GLUCOSE METER (BEAKER) 161 mg/dL 70-110 TESTED AT [address] (test jlno=7127) [facility] [address] COMPREHENSIVE METABOLIC [id number] 05:32:00 Test Item Value Reference Range Comments TOTAL PROTEIN (BEAKER) 5.2 gm/dL 6.0-8.3 (test iauk=840) ALBUMIN (BEAKER) (test 2.5 g/dL 3.5-5.0 tsea=1180) ALKALINE PHOSPHATASE 92 U/L 40-150 (BEAKER) (test awqw=457) BILIRUBIN TOTAL (BEAKER) 0.6 mg/dL 0.2-1.2 (test rjxj=763) SODIUM (BEAKER) (test 143 meq/L 136-145 npau=714) POTASSIUM (BEAKER) (test 4.4 meq/L 3.5-5.1 ffsy=073) CHLORIDE (BEAKER) (test 111 meq/L 98-107 yvkp=815) CO2 (BEAKER) (test 25 meq/L 22-29 vqep=110) BLOOD UREA NITROGEN 30 mg/dL 7-21 (BEAKER) (test yaup=831) CREATININE (BEAKER) (test 0.69 mg/dL 0.57-1.25 rjte=768) GLUCOSE RANDOM (BEAKER) 142 mg/dL 70-105 (test vyzr=834) CALCIUM (BEAKER) (test 8.4 mg/dL 8.4-10.2 tgve=720) AST (SGOT) (BEAKER) (test 15 U/L 5-34 ycnl=529) ALT (SGPT) (BEAKER) (test 12 U/L 6-55 xvhp=894) EGFR (BEAKER) (test 82 mL/min/1.73 sq m ESTIMATED GFR IS NOT plqm=0073) ACCURATE CREATININE CLEARANCE IN PREDICTING GLOMERULAR FILTRATION RATE. ESTIMATED GFR IS NOT APPLICABLE FOR DIALYSIS PATIENTS. CBC W/PLT COUNT & AUTO [id number] 05:08:00 Test Item Value Reference Range Comments WHITE BLOOD CELL COUNT (BEAKER) (test ihjw=126) 11.5 K/ L 3.5-10.5 RED BLOOD CELL COUNT (BEAKER) (test ilgj=132) 3.99 M/ L 3.93-5.22 HEMOGLOBIN (BEAKER) (test skay=450) 11.0 GM/DL 11.2-15.7 HEMATOCRIT (BEAKER) (test vppa=038) 35.2 % 34.1-44.9 MEAN CORPUSCULAR VOLUME (BEAKER) (test ocnz=492) 88.2 fL 79.4-94.8 MEAN CORPUSCULAR HEMOGLOBIN (BEAKER) (test 27.6 pg 25.6-32.2 irkz=302) MEAN CORPUSCULAR HEMOGLOBIN CONC (BEAKER) (test 31.3 GM/DL 32.2-35.5 aqho=497) RED CELL DISTRIBUTION WIDTH (BEAKER) (test 15.5 % 11.7-14.4 amqh=715) PLATELET COUNT (BEAKER) (test graa=785) 142 K/CU MM 150-450 MEAN PLATELET VOLUME (BEAKER) (test ktqc=314) 10.2 fL 9.4-12.3 NUCLEATED RED BLOOD CELLS (BEAKER) (test 0 /100 WBC 0-0 nalo=184) POCT-GLUCOSE [id number] 21:43:00 Test Item Value Reference Range Comments POC-GLUCOSE METER (BEAKER) 235 mg/dL 70-110 TESTED AT [address] (test rspm=7520) [facility] [address] POCT-GLUCOSE [id number] 16:41:00 Test Item Value Reference Range Comments POC-GLUCOSE METER (BEAKER) 141 mg/dL 70-110 TESTED AT [address] (test barj=9220) [facility] [address] POCT-GLUCOSE [id number] 12:10:00 Test Item Value Reference Range Comments POC-GLUCOSE METER (BEAKER) 222 mg/dL 70-110 TESTED AT [address] (test ondv=8822) [facility] [address] POCT-GLUCOSE [id number] 09:11:00 Test Item Value Reference Range Comments POC-GLUCOSE METER (BEAKER) 185 mg/dL 70-110 TESTED AT [address] (test vcqq=4656) [facility] [address] [id number] 06:16:00 Test Item Value Reference Range Comments PHOSPHORUS (BEAKER) (test wgim=631) 1.7 mg/dL 2.3-4.7 [id number] 06:16:00 Test Item Value Reference Range Comments MAGNESIUM (BEAKER) (test phuo=587) 1.5 mg/dL 1.6-2.6 COMPREHENSIVE METABOLIC [id number] 06:16:00 Test Item Value Reference Range Comments TOTAL PROTEIN (BEAKER) 5.5 gm/dL 6.0-8.3 (test fopb=981) ALBUMIN (BEAKER) (test 2.6 g/dL 3.5-5.0 dgot=8197) ALKALINE PHOSPHATASE 100 U/L 40-150 (BEAKER) (test upjy=860) BILIRUBIN TOTAL (BEAKER) 0.7 mg/dL 0.2-1.2 (test aprg=344) SODIUM (BEAKER) (test 143 meq/L 136-145 yznp=748) POTASSIUM (BEAKER) (test 3.9 meq/L 3.5-5.1 nucp=248) CHLORIDE (BEAKER) (test 110 meq/L 98-107 ctkg=208) CO2 (BEAKER) (test 25 meq/L 22-29 wets=097) BLOOD UREA NITROGEN 34 mg/dL 7-21 (BEAKER) (test aigf=201) CREATININE (BEAKER) (test 0.68 mg/dL 0.57-1.25 grqj=361) GLUCOSE RANDOM (BEAKER) 168 mg/dL 70-105 (test wibi=625) CALCIUM (BEAKER) (test 8.4 mg/dL 8.4-10.2 nulj=321) AST (SGOT) (BEAKER) (test 12 U/L 5-34 plsa=024) ALT (SGPT) (BEAKER) (test 10 U/L 6-55 quun=624) EGFR (BEAKER) (test 83 mL/min/1.73 sq m ESTIMATED GFR IS NOT ysop=4098) ACCURATE CREATININE CLEARANCE IN PREDICTING GLOMERULAR FILTRATION RATE. ESTIMATED GFR IS NOT APPLICABLE FOR DIALYSIS PATIENTS. LACTIC ACID, VENOUS, WHOLE [id number] 05:21:00 Test Item Value Reference Range Comments LACTATE BLOOD VENOUS (2) (BEAKER) (test 1.9 mmol/L 0.5-2.2 xjry=5470) Effective 07/27/2015: Units/Reference Range ChangeNew: 0.5-2.2 mmol/L Previous: 5 -20 mg/dLCBC W/PLT COUNT & AUTO [id number] 04:55:00 Test Item Value Reference Range Comments WHITE BLOOD CELL COUNT (BEAKER) (test kozm=121) 13.5 K/ L 3.5-10.5 RED BLOOD CELL COUNT (BEAKER) (test vkrm=766) 4.26 M/ L 3.93-5.22 HEMOGLOBIN (BEAKER) (test hvzf=399) 11.6 GM/DL 11.2-15.7 HEMATOCRIT (BEAKER) (test tuug=551) 36.3 % 34.1-44.9 MEAN CORPUSCULAR VOLUME (BEAKER) (test wret=488) 85.2 fL 79.4-94.8 MEAN CORPUSCULAR HEMOGLOBIN (BEAKER) (test 27.2 pg 25.6-32.2 fbkj=377) MEAN CORPUSCULAR HEMOGLOBIN CONC (BEAKER) (test 32.0 GM/DL 32.2-35.5 fyap=925) RED CELL DISTRIBUTION WIDTH (BEAKER) (test 15.5 % 11.7-14.4 fecl=340) PLATELET COUNT (BEAKER) (test zfjs=960) 151 K/CU MM 150-450 MEAN PLATELET VOLUME (BEAKER) (test wvrl=219) 11.0 fL 9.4-12.3 NUCLEATED RED BLOOD CELLS (BEAKER) (test 0 /100 WBC 0-0 kxbb=864) NEUTROPHILS RELATIVE PERCENT (BEAKER) (test 76 % lnwq=871) LYMPHOCYTES RELATIVE PERCENT (BEAKER) (test 11 % uqcr=889) MONOCYTES RELATIVE PERCENT (BEAKER) (test 9 % wmgb=583) EOSINOPHILS RELATIVE PERCENT (BEAKER) (test 1 % qznz=316) BASOPHILS RELATIVE PERCENT (BEAKER) (test 0 % kpiq=277) NEUTROPHILS ABSOLUTE COUNT (BEAKER) (test 10.30 K/ L 1.56-6.13 vujn=706) LYMPHOCYTES ABSOLUTE COUNT (BEAKER) (test 1.45 K/ L 1.18-3.74 eqaf=001) MONOCYTES ABSOLUTE COUNT (BEAKER) (test 1.27 K/ L 0.24-0.36 qthb=246) EOSINOPHILS ABSOLUTE COUNT (BEAKER) (test 0.10 K/ L 0.04-0.36 ivtk=994) BASOPHILS ABSOLUTE COUNT (BEAKER) (test 0.04 K/ L 0.01-0.08 aank=923) IMMATURE GRANULOCYTES-RELATIVE PERCENT (BEAKER) 2 % 0-1 (test unke=7696) POCT-GLUCOSE [id number] 23:16:00 Test Item Value Reference Range Comments POC-GLUCOSE METER (BEAKER) 173 mg/dL 70-110 TESTED AT [facility] [address] [facility] [place] (test fejz=9816) [facility] [address] LACTIC ACID, VENOUS, WHOLE [id number] 21:07:00 Test Item Value Reference Range Comments LACTATE BLOOD VENOUS (2) 2.4 mmol/L 0.5-2.2 Specimen slightly hemolyzed (BEAKER) (test kehv=7666) Effective 07/27/2015: Units/Reference Range ChangeNew: 0.5-2.2 mmol/L Previous: 5 -20 mg/dLPOCT-GLUCOSE [id number] 17:56:00 Test Item Value Reference Range Comments POC-GLUCOSE METER (BEAKER) 199 mg/dL 70-110 TESTED AT [address] (test wyxo=0166) [facility] [address] LACTIC ACID, VENOUS, WHOLE [id number] 12:55:00 Test Item Value Reference Range Comments LACTATE BLOOD VENOUS (2) 2.8 mmol/L 0.5-2.2 Specimen slightly hemolyzed (BEAKER) (test vkvb=8620) Effective 07/27/2015: Units/Reference Range ChangeNew: 0.5-2.2 mmol/L Previous: 5 -20 mg/dLPOCT-GLUCOSE [id number] 11:56:00 Test Item Value Reference Range Comments POC-GLUCOSE METER (BEAKER) 144 mg/dL 70-110 TESTED AT [address] (test qrna=8963) [facility] [address] URINE [id number] 08:45:00 Test Item Value Reference Range Comments CULTURE (BEAKER) (test oopb=2467) No growth POCT-GLUCOSE [id number] 08:20:00 Test Item Value Reference Range Comments POC-GLUCOSE METER (BEAKER) 289 mg/dL 70-110 TESTED AT [address] (test fwci=6056) [facility] [address] POCT-GLUCOSE [id number] 06:30:00 Test Item Value Reference Range Comments POC-GLUCOSE METER (BEAKER) 168 mg/dL 70-110 TESTED AT [address] (test eddy=9546) [facility] [address] [id number] 05:04:00 Test Item Value Reference Range Comments PHOSPHORUS (BEAKER) (test ubrg=500) 1.7 mg/dL 2.3-4.7 [id number] 05:04:00 Test Item Value Reference Range Comments MAGNESIUM (BEAKER) (test zjdw=168) 1.7 mg/dL 1.6-2.6 COMPREHENSIVE METABOLIC [id number] 05:04:00 Test Item Value Reference Range Comments TOTAL PROTEIN (BEAKER) 5.8 gm/dL 6.0-8.3 (test oukh=364) ALBUMIN (BEAKER) (test 2.8 g/dL 3.5-5.0 epzz=8170) ALKALINE PHOSPHATASE 104 U/L 40-150 (BEAKER) (test jjel=368) BILIRUBIN TOTAL (BEAKER) 0.7 mg/dL 0.2-1.2 (test uxgr=818) SODIUM (BEAKER) (test 141 meq/L 136-145 ojyh=540) POTASSIUM (BEAKER) (test 3.9 meq/L 3.5-5.1 ewwh=551) CHLORIDE (BEAKER) (test 107 meq/L 98-107 reay=194) CO2 (BEAKER) (test 23 meq/L 22-29 nnsg=403) BLOOD UREA NITROGEN 41 mg/dL 7-21 (BEAKER) (test xoeh=629) CREATININE (BEAKER) (test 0.84 mg/dL 0.57-1.25 zxeh=433) GLUCOSE RANDOM (BEAKER) 156 mg/dL 70-105 (test ilsx=672) CALCIUM (BEAKER) (test 8.6 mg/dL 8.4-10.2 mdwu=753) AST (SGOT) (BEAKER) (test 12 U/L 5-34 berf=434) ALT (SGPT) (BEAKER) (test 10 U/L 6-55 vgnd=848) EGFR (BEAKER) (test 65 mL/min/1.73 sq m ESTIMATED GFR IS NOT wjzp=5593) ACCURATE CREATININE CLEARANCE IN PREDICTING GLOMERULAR FILTRATION RATE. ESTIMATED GFR IS NOT APPLICABLE FOR DIALYSIS PATIENTS. LACTIC ACID, VENOUS, WHOLE [id number] 04:40:00 Test Item Value Reference Range Comments LACTATE BLOOD VENOUS (2) 2.5 mmol/L 0.5-2.2 Specimen slightly hemolyzed (BEAKER) (test neid=9625) Effective 07/27/2015: Units/Reference Range ChangeNew: 0.5-2.2 mmol/L Previous: 5 -20 mg/dLCBC W/PLT COUNT & AUTO [id number] 04:31:00 Test Item Value Reference Range Comments WHITE BLOOD CELL COUNT (BEAKER) (test ilhh=471) 9.6 K/ L 3.5-10.5 RED BLOOD CELL COUNT (BEAKER) (test tmqa=723) 4.53 M/ L 3.93-5.22 HEMOGLOBIN (BEAKER) (test vesg=058) 12.3 GM/DL 11.2-15.7 HEMATOCRIT (BEAKER) (test dqno=064) 39.1 % 34.1-44.9 MEAN CORPUSCULAR VOLUME (BEAKER) (test yhls=292) 86.3 fL 79.4-94.8 MEAN CORPUSCULAR HEMOGLOBIN (BEAKER) (test 27.2 pg 25.6-32.2 zspg=614) MEAN CORPUSCULAR HEMOGLOBIN CONC (BEAKER) (test 31.5 GM/DL 32.2-35.5 vbmw=467) RED CELL DISTRIBUTION WIDTH (BEAKER) (test 15.5 % 11.7-14.4 kytd=633) PLATELET COUNT (BEAKER) (test cgnt=063) 189 K/CU MM 150-450 MEAN PLATELET VOLUME (BEAKER) (test kypl=250) 10.8 fL 9.4-12.3 NUCLEATED RED BLOOD CELLS (BEAKER) (test 0 /100 WBC 0-0 qlox=645) NEUTROPHILS RELATIVE PERCENT (BEAKER) (test 72 % uuwn=233) LYMPHOCYTES RELATIVE PERCENT (BEAKER) (test 16 % mzvu=031) MONOCYTES RELATIVE PERCENT (BEAKER) (test 9 % udug=671) EOSINOPHILS RELATIVE PERCENT (BEAKER) (test 1 % dhxb=144) BASOPHILS RELATIVE PERCENT (BEAKER) (test 0 % tqyw=271) NEUTROPHILS ABSOLUTE COUNT (BEAKER) (test 6.97 K/ L 1.56-6.13 lshz=189) LYMPHOCYTES ABSOLUTE COUNT (BEAKER) (test 1.49 K/ L 1.18-3.74 ijpq=050) MONOCYTES ABSOLUTE COUNT (BEAKER) (test 0.90 K/ L 0.24-0.36 oddh=032) EOSINOPHILS ABSOLUTE COUNT (BEAKER) (test 0.12 K/ L 0.04-0.36 htqw=150) BASOPHILS ABSOLUTE COUNT (BEAKER) (test 0.01 K/ L 0.01-0.08 iivo=267) IMMATURE GRANULOCYTES-RELATIVE PERCENT (BEAKER) 2 % 0-1 (test gkow=4164) POCT-GLUCOSE [id number] 00:18:00 Test Item Value Reference Range Comments POC-GLUCOSE METER (BEAKER) 129 mg/dL 70-110 TESTED AT [facility] [address], [place] (test yebk=7413) [facility] [address] POCT-GLUCOSE [id number] 18:06:00 Test Item Value Reference Range Comments POC-GLUCOSE METER (BEAKER) 149 mg/dL 70-110 TESTED AT [address] (test oyzk=4512) [facility] [address] CREATINE KINASE (CK)[id number] 14:49:00 Test Item Value Reference Range Comments CREATINE KINASE TOTAL (BEAKER) (test betg=024) 8 U/L 29-200 TROPONIN [id number] 14:43:00 Test Item Value Reference Range Comments TROPONIN I (BEAKER) (test dcem=651) 0.02 ng/mL 0.00-0.03 Troponin I (TnI) levels [...] acidosis, acute neurological disease, and persistent tachyarrhythmia.POCT-GLUCOSE [id number] 13:09:00 Test Item Value Reference Range Comments POC-GLUCOSE METER (BEAKER) 183 mg/dL 70-110 TESTED AT [address] (test tzyw=6087) [facility] [address] THROMBIN [id number] 12:14:00 Test Item Value Reference Range Comments THROMBIN TIME (BEAKER) (test aufz=662) 19.0 secs 13.8-20.0 [id number] 05:19:00 Test Item Value Reference Range Comments MAGNESIUM (BEAKER) (test 2.0 mg/dL 1.6-2.6 Specimen slightly hemolyzed dawu=288) [id number] 05:19:00 Test Item Value Reference Range Comments PHOSPHORUS (BEAKER) (test 2.2 mg/dL 2.3-4.7 Specimen slightly hemolyzed jqsa=820) COMPREHENSIVE METABOLIC [id number] 05:19:00 Test Item Value Reference Range Comments TOTAL PROTEIN (BEAKER) 5.5 gm/dL 6.0-8.3 Specimen slightly (test ufhv=940) hemolyzed ALBUMIN (BEAKER) (test 2.6 g/dL 3.5-5.0 Specimen slightly jomh=4227) hemolyzed ALKALINE PHOSPHATASE 104 U/L 40-150 (BEAKER) (test kpbt=640) BILIRUBIN TOTAL (BEAKER) 0.4 mg/dL 0.2-1.2 Specimen slightly (test gbwy=845) hemolyzed SODIUM (BEAKER) (test 142 meq/L 136-145 rjps=540) POTASSIUM (BEAKER) (test 4.2 meq/L 3.5-5.1 Specimen slightly pcaa=063) hemolyzed CHLORIDE (BEAKER) (test 112 meq/L 98-107 atbp=446) CO2 (BEAKER) (test 20 meq/L 22-29 uquv=574) BLOOD UREA NITROGEN 46 mg/dL 7-21 (BEAKER) (test fnzg=452) CREATININE (BEAKER) (test 1.04 mg/dL 0.57-1.25 Specimen slightly ckkd=744) hemolyzed GLUCOSE RANDOM (BEAKER) 140 mg/dL 70-105 (test nixh=611) CALCIUM (BEAKER) (test 8.6 mg/dL 8.4-10.2 yqmr=689) AST (SGOT) (BEAKER) (test 16 U/L 5-34 Specimen slightly jzsd=992) hemolyzed ALT (SGPT) (BEAKER) (test 11 U/L 6-55 Specimen slightly ywzj=304) hemolyzed EGFR (BEAKER) (test 51 mL/min/1.73 sq m ESTIMATED GFR IS NOT opbq=5427) ACCURATE CREATININE CLEARANCE IN PREDICTING GLOMERULAR FILTRATION RATE. ESTIMATED GFR IS NOT APPLICABLE FOR DIALYSIS PATIENTS. LACTIC ACID, VENOUS, WHOLE [id number] 05:08:00 Test Item Value Reference Range Comments LACTATE BLOOD VENOUS (2) 2.1 mmol/L 0.5-2.2 Specimen slightly hemolyzed (BEAKER) (test vzwx=3140) Effective 07/27/2015: Units/Reference Range ChangeNew: 0.5-2.2 mmol/L Previous: 5 -20 mg/[id number] 05:08:00 Test Item Value Reference Range Comments PARTIAL THROMBOPLASTIN TIME (BEAKER) (test 34.7 seconds 22.5-36.0 yyum=108) CBC W/PLT COUNT & AUTO [id number] 05:07:00 Test Item Value Reference Range Comments WHITE BLOOD CELL COUNT (BEAKER) (test qjpq=664) 11.7 K/ L 3.5-10.5 RED BLOOD CELL COUNT (BEAKER) (test ydwz=045) 4.21 M/ L 3.93-5.22 HEMOGLOBIN (BEAKER) (test xrcv=996) 11.8 GM/DL 11.2-15.7 HEMATOCRIT (BEAKER) (test yctx=899) 36.8 % 34.1-44.9 MEAN CORPUSCULAR VOLUME (BEAKER) (test lnux=035) 87.4 fL 79.4-94.8 MEAN CORPUSCULAR HEMOGLOBIN (BEAKER) (test 28.0 pg 25.6-32.2 ckhc=289) MEAN CORPUSCULAR HEMOGLOBIN CONC (BEAKER) (test 32.1 GM/DL 32.2-35.5 kqmh=001) RED CELL DISTRIBUTION WIDTH (BEAKER) (test 15.6 % 11.7-14.4 zcor=477) PLATELET COUNT (BEAKER) (test vbon=719) 186 K/CU MM 150-450 MEAN PLATELET VOLUME (BEAKER) (test hiwq=561) 10.7 fL 9.4-12.3 NUCLEATED RED BLOOD CELLS (BEAKER) (test 0 /100 WBC 0-0 tsxs=602) NEUTROPHILS RELATIVE PERCENT (BEAKER) (test 83 % wnhm=568) LYMPHOCYTES RELATIVE PERCENT (BEAKER) (test 10 % tsny=412) MONOCYTES RELATIVE PERCENT (BEAKER) (test 5 % clry=691) EOSINOPHILS RELATIVE PERCENT (BEAKER) (test 1 % fmml=029) BASOPHILS RELATIVE PERCENT (BEAKER) (test 0 % ylwr=523) NEUTROPHILS ABSOLUTE COUNT (BEAKER) (test 9.70 K/ L 1.56-6.13 wtvr=276) LYMPHOCYTES ABSOLUTE COUNT (BEAKER) (test 1.20 K/ L 1.18-3.74 lqty=279) MONOCYTES ABSOLUTE COUNT (BEAKER) (test 0.63 K/ L 0.24-0.36 nusg=751) EOSINOPHILS ABSOLUTE COUNT (BEAKER) (test 0.06 K/ L 0.04-0.36 iuti=484) BASOPHILS ABSOLUTE COUNT (BEAKER) (test 0.01 K/ L 0.01-0.08 viof=211) IMMATURE GRANULOCYTES-RELATIVE PERCENT (BEAKER) 1 % 0-1 (test pdlt=5382) PROTHROMBIN [id number] 05:07:00 Test Item Value Reference Range Comments PROTIME (BEAKER) (test eawq=723) 16.2 seconds 11.7-14.7 INR (BEAKER) (test wslj=528) 1.3 <=5.9 RECOMMENDED COUMADIN/WARFARIN INR THERAPY RANGESSTANDARD DOSE: 2.0 - 3.0 Includes: PROPHYLAXIS forvenous thrombosis, systemic embolization; TREATMENT for venous thrombosis and/or pulmonary embolus.HIGH RISK: Target INR is 2.5-3.5 for patients with mechanical heart valves.RAD, CHEST, 1 VIEW, NON [id number] 04:47:00Reason for exam:->interval cahnge in edemaFINAL [...] pleural effusions. There is no pneumothorax. Signed: Bib Mccullough Verified Date/Time : 07/12/2017 04:47:20 Reading Location: [address] Transitional Reading Room POCT-GLUCOSE [id number] 00:30:00 Test Item Value Reference Range Comments POC-GLUCOSE METER (BEAKER) 153 mg/dL 70-110 TESTED AT [address] (test wfmy=8518) [facility] [address] POCT-GLUCOSE [id number] 17:43:00 Test Item Value Reference Range Comments POC-GLUCOSE METER (BEAKER) 147 mg/dL 70-110 TESTED AT [address] (test mzsq=6526) [facility] [address] URINALYSIS W/ [id number] 14:21:00 Test Item Value Reference Range Comments COLOR (BEAKER) (test nkkz=695) [place] CLARITY (BEAKER) (test ftbj=436) Cloudy SPECIFIC GRAVITY UA (BEAKER) (test izje=165) 1.016 1.001-1.035 PH UA (BEAKER) (test rnao=858) 6.0 5.0-8.0 PROTEIN UA (BEAKER) (test cyzr=196) 100 mg/dL Negative GLUCOSE UA (BEAKER) (test tqfl=099) Negative Negative KETONES UA (BEAKER) (test qcpx=462) Trace Negative BILIRUBIN UA (BEAKER) (test jsan=793) Negative Negative BLOOD UA (BEAKER) (test fynt=171) Large Negative NITRITE UA (BEAKER) (test asjr=263) Negative Negative LEUKOCYTE ESTERASE UA (BEAKER) (test qnxn=890) Large Negative UROBILINOGEN UA (BEAKER) (test awel=818) 0.2 mg/dL 0.2-1.0 RBC UA (BEAKER) (test kujo=183) 2710 /HPF WBC UA (BEAKER) (test kffb=283) 1079 /HPF MUCUS (BEAKER) (test odgg=0101) Occasional SOURCE(BEAKER) (test rxqu=4451) Urine, [place] CBC W/PLT COUNT & AUTO [id number] 12:54:00 Test Item Value Reference Range Comments WHITE BLOOD CELL COUNT (BEAKER) (test yszz=608) 19.8 K/ L 3.5-10.5 RED BLOOD CELL COUNT (BEAKER) (test pymk=479) 3.72 M/ L 3.93-5.22 HEMOGLOBIN (BEAKER) (test casy=266) 10.5 GM/DL 11.2-15.7 HEMATOCRIT (BEAKER) (test uwsz=140) 33.1 % 34.1-44.9 MEAN CORPUSCULAR VOLUME (BEAKER) (test ectu=522) 89.0 fL 79.4-94.8 MEAN CORPUSCULAR HEMOGLOBIN (BEAKER) (test 28.2 pg 25.6-32.2 bvbs=328) MEAN CORPUSCULAR HEMOGLOBIN CONC (BEAKER) (test 31.7 GM/DL 32.2-35.5 ejei=468) RED CELL DISTRIBUTION WIDTH (BEAKER) (test 15.6 % 11.7-14.4 krqw=607) PLATELET COUNT (BEAKER) (test misx=539) 180 K/CU MM 150-450 MEAN PLATELET VOLUME (BEAKER) (test xmhe=956) 10.4 fL 9.4-12.3 NUCLEATED RED BLOOD CELLS (BEAKER) (test 0 /100 WBC 0-0 atpa=769) [id number] 12:53:00 Test Item Value Reference Range Comments PHOSPHORUS (BEAKER) (test rkrz=598) 2.4 mg/dL 2.3-4.7 [id number] 12:53:00 Test Item Value Reference Range Comments MAGNESIUM (BEAKER) (test jrkf=484) 2.1 mg/dL 1.6-2.6 POCT-GLUCOSE [id number] 12:40:00 Test Item Value Reference Range Comments POC-GLUCOSE METER (BEAKER) 175 mg/dL 70-110 TESTED AT [facility] [address], [place] (test fbmn=6659) [facility] [address] URINE [id number] 11:06:00 Test Item Value Reference Range Comments CULTURE (BEAKER) (test uyzr=6361) No growth COMPREHENSIVE METABOLIC [id number] 05:19:00 Test Item Value Reference Range Comments TOTAL PROTEIN (BEAKER) 5.6 gm/dL 6.0-8.3 (test xxao=607) ALBUMIN (BEAKER) (test 2.6 g/dL 3.5-5.0 mopw=1280) ALKALINE PHOSPHATASE 116 U/L 40-150 (BEAKER) (test ytum=439) BILIRUBIN TOTAL (BEAKER) 0.5 mg/dL 0.2-1.2 (test ovzy=239) SODIUM (BEAKER) (test 140 meq/L 136-145 pmgu=433) POTASSIUM (BEAKER) (test 4.5 meq/L 3.5-5.1 khwn=171) CHLORIDE (BEAKER) (test 109 meq/L 98-107 vtru=098) CO2 (BEAKER) (test 22 meq/L 22-29 puvf=675) BLOOD UREA NITROGEN 45 mg/dL 7-21 (BEAKER) (test kytt=019) CREATININE (BEAKER) (test 1.56 mg/dL 0.57-1.25 zevg=941) GLUCOSE RANDOM (BEAKER) 106 mg/dL 70-105 (test jiuv=382) CALCIUM (BEAKER) (test 7.9 mg/dL 8.4-10.2 nmyz=909) AST (SGOT) (BEAKER) (test 15 U/L 5-34 ymct=282) ALT (SGPT) (BEAKER) (test 7 U/L 6-55 hvwh=805) EGFR (BEAKER) (test 32 mL/min/1.73 sq m ESTIMATED GFR IS NOT duxi=9868) ACCURATE CREATININE CLEARANCE IN PREDICTING GLOMERULAR FILTRATION RATE. ESTIMATED GFR IS NOT APPLICABLE FOR DIALYSIS PATIENTS. LACTIC ACID, VENOUS, WHOLE [id number] 05:08:00 Test Item Value Reference Range Comments LACTATE BLOOD VENOUS (2) 1.4 mmol/L 0.5-2.2 Specimen slightly hemolyzed (BEAKER) (test okhk=3547) Effective 07/27/2015: Units/Reference Range ChangeNew: 0.5-2.2 mmol/L Previous: 5 -20 mg/dLRAD, CHEST, 1 VIEW, NON [id number] 04:40:00Reason for exam:-> interval cahnge in edemaFINAL [...] discoid atelectasis in the left midlung. Signed: Bib Mccullough MDReport Verified Date/Time: 07/11/2017 04:40:24 Reading Location: [address] Transitional Reading Room POCT-GLUCOSE [id number] 00:54:00 Test Item Value Reference Range Comments POC-GLUCOSE METER (BEAKER) 115 mg/dL 70-110 TESTED AT [facility] [address], [place] (test fsjz=0228) [facility] [address] SPIN/CONCENTRATION [id number] 19:58:00 Test Item Value Reference Range Comments CONCENTRATION CHARGED (BEAKER) (test tyck=4668) Done POCT-GLUCOSE [id number] 18:34:00 Test Item Value Reference Range Comments POC-GLUCOSE METER (BEAKER) 139 mg/dL 70-110 TESTED AT [address] (test zbjn=2057) [place] [id number] BLOOD GAS, [id number] 16:21:00 Test Item Value Reference Range Comments PH ARTERIAL (BEAKER) (test yulw=733) 7.41 7.35-7.45 PCO2 ARTERIAL (BEAKER) (test vxma=555) 34 mmHg 35-45 PO2 ARTERIAL (BEAKER) (test imna=529) 162 mmHg 80-90 O2 SATURATION ARTERIAL (BEAKER) (test mzod=737) 99.1 % 96.0-97.0 HCO3 ARTERIAL (BEAKER) (test jpjy=817) 21 mmol/L 21-29 BASE EXCESS ARTERIAL (BEAKER) (test oqzs=951) -3.1 mmol/L -2.0-3.0 PATIENT TEMPERATURE (BEAKER) (test ztnr=3434) 37.0 C POCT-GLUCOSE [id number] 12:29:00 Test Item Value Reference Range Comments POC-GLUCOSE METER (BEAKER) 103 mg/dL 70-110 TESTED AT [address] (test zbxc=1423) [place] [address] BLOOD GAS, [id number] 08:15:00 Test Item Value Reference Range Comments PH ARTERIAL (BEAKER) (test ouvw=296) 7.48 7.35-7.45 PCO2 ARTERIAL (BEAKER) (test xxcd=928) 27 mmHg 35-45 PO2 ARTERIAL (BEAKER) (test jfcx=457) 261 mmHg 80-90 O2 SATURATION ARTERIAL (BEAKER) (test qyzf=745) 99.7 % 96.0-97.0 HCO3 ARTERIAL (BEAKER) (test blac=399) 20 mmol/L 21-29 BASE EXCESS ARTERIAL (BEAKER) (test xomf=002) -3.0 mmol/L -2.0-3.0 PATIENT TEMPERATURE (BEAKER) (test rpjr=4528) 37.0 C FIO2 (BEAKER) (test ygwg=9722) 40.0 % BLOOD GAS, [id number] 05:46:00 Test Item Value Reference Range Comments PH ARTERIAL (BEAKER) (test rxvk=001) 7.46 7.35-7.45 PCO2 ARTERIAL (BEAKER) (test qbok=902) 29 mmHg 35-45 PO2 ARTERIAL (BEAKER) (test yure=595) 243 mmHg 80-90 O2 SATURATION ARTERIAL (BEAKER) (test etzv=369) 99.6 % 96.0-97.0 HCO3 ARTERIAL (BEAKER) (test wwbd=977) 20 mmol/L 21-29 BASE EXCESS ARTERIAL (BEAKER) (test zhlr=901) -2.8 mmol/L -2.0-3.0 PATIENT TEMPERATURE (BEAKER) (test zrou=9764) 36.7 C FIO2 (BEAKER) (test rewl=5321) 50.0 % COMPREHENSIVE METABOLIC [id number] 05:29:00 Test Item Value Reference Range Comments TOTAL PROTEIN (BEAKER) 5.0 gm/dL 6.0-8.3 (test kaxl=046) ALBUMIN (BEAKER) (test 2.3 g/dL 3.5-5.0 uqso=7746) ALKALINE PHOSPHATASE 112 U/L 40-150 (BEAKER) (test byzv=698) BILIRUBIN TOTAL (BEAKER) 0.8 mg/dL 0.2-1.2 (test wjzt=639) SODIUM (BEAKER) (test 138 meq/L 136-145 dssr=250) POTASSIUM (BEAKER) (test 4.5 meq/L 3.5-5.1 woej=532) CHLORIDE (BEAKER) (test 109 meq/L 98-107 hinn=280) CO2 (BEAKER) (test 18 meq/L 22-29 tecw=976) BLOOD UREA NITROGEN 33 mg/dL 7-21 (BEAKER) (test eulf=679) CREATININE (BEAKER) (test 1.50 mg/dL 0.57-1.25 ubvp=862) GLUCOSE RANDOM (BEAKER) 114 mg/dL 70-105 (test aerc=427) CALCIUM (BEAKER) (test 7.8 mg/dL 8.4-10.2 haos=955) AST (SGOT) (BEAKER) (test 16 U/L 5-34 fqxf=132) ALT (SGPT) (BEAKER) (test 10 U/L 6-55 qbdg=662) EGFR (BEAKER) (test 33 mL/min/1.73 sq m ESTIMATED GFR IS NOT hgqj=9869) ACCURATE CREATININE CLEARANCE IN PREDICTING GLOMERULAR FILTRATION RATE. ESTIMATED GFR IS NOT APPLICABLE FOR DIALYSIS PATIENTS. LACTIC ACID, VENOUS, WHOLE [id number] 05:27:00 Test Item Value Reference Range Comments LACTATE BLOOD VENOUS (2) (BEAKER) (test 1.9 mmol/L 0.5-2.2 lbdf=8028) Effective 07/27/2015: Units/Reference Range ChangeNew: 0.5-2.2 mmol/L Previous: 5 -20 mg/dLLACTIC ACID, ARTERIAL, WHOLE [id number] 05:27:00 Test Item Value Reference Range Comments LACTATE BLOOD ARTERIAL (2) (BEAKER) (test 1.7 mmol/L 0.5-2.2 lhmf=1634) Effective 07/27/2015: Units/Reference Range ChangeNew: 0.5-2.2 mmol/L Previous: 5 -20 mg/dLPROTHROMBIN [id number] 05:20:00 Test Item Value Reference Range Comments PROTIME (BEAKER) (test pvfc=837) 27.9 seconds 11.7-14.7 INR (BEAKER) (test vxpw=294) 2.6 <=5.9 RECOMMENDED COUMADIN/WARFARIN INR THERAPY RANGESSTANDARD DOSE: 2.0 - 3.0 Includes: PROPHYLAXIS forvenous thrombosis, systemic embolization; TREATMENT for venous thrombosis and/or pulmonary embolus.HIGH RISK: Target INR is 2.5-3.5 for patients with mechanical heart valves.CBC W/PLT COUNT & AUTO [id number] 05:08:00 Test Item Value Reference Range Comments WHITE BLOOD CELL COUNT (BEAKER) (test ffya=562) 20.2 K/ L 3.5-10.5 RED BLOOD CELL COUNT (BEAKER) (test ohls=436) 3.44 M/ L 3.93-5.22 HEMOGLOBIN (BEAKER) (test gkai=946) 9.6 GM/DL 11.2-15.7 HEMATOCRIT (BEAKER) (test itzb=756) 29.6 % 34.1-44.9 MEAN CORPUSCULAR VOLUME (BEAKER) (test lwoe=635) 86.0 fL 79.4-94.8 MEAN CORPUSCULAR HEMOGLOBIN (BEAKER) (test 27.9 pg 25.6-32.2 ibtf=025) MEAN CORPUSCULAR HEMOGLOBIN CONC (BEAKER) (test 32.4 GM/DL 32.2-35.5 bmrf=796) RED CELL DISTRIBUTION WIDTH (BEAKER) (test 15.3 % 11.7-14.4 kqki=156) PLATELET COUNT (BEAKER) (test wkde=777) 157 K/CU MM 150-450 MEAN PLATELET VOLUME (BEAKER) (test ukyc=637) 10.6 fL 9.4-12.3 NUCLEATED RED BLOOD CELLS (BEAKER) (test 0 /100 WBC 0-0 cieu=948) NEUTROPHILS RELATIVE PERCENT (BEAKER) (test 89 % ichd=615) LYMPHOCYTES RELATIVE PERCENT (BEAKER) (test 4 % yzac=587) MONOCYTES RELATIVE PERCENT (BEAKER) (test 5 % teiz=310) EOSINOPHILS RELATIVE PERCENT (BEAKER) (test 0 % iuvv=661) BASOPHILS RELATIVE PERCENT (BEAKER) (test 0 % eaex=344) NEUTROPHILS ABSOLUTE COUNT (BEAKER) (test 17.89 K/ L 1.56-6.13 qbwb=990) LYMPHOCYTES ABSOLUTE COUNT (BEAKER) (test 0.74 K/ L 1.18-3.74 jetj=277) MONOCYTES ABSOLUTE COUNT (BEAKER) (test 0.98 K/ L 0.24-0.36 szsh=885) EOSINOPHILS ABSOLUTE COUNT (BEAKER) (test 0.01 K/ L 0.04-0.36 ctgv=368) BASOPHILS ABSOLUTE COUNT (BEAKER) (test 0.03 K/ L 0.01-0.08 ocvx=330) IMMATURE GRANULOCYTES-RELATIVE PERCENT (BEAKER) 3 % 0-1 (test ukas=5377) POCT-GLUCOSE [id number] 05:06:00 Test Item Value Reference Range Comments POC-GLUCOSE METER (BEAKER) 108 mg/dL 70-110 TESTED AT [address] (test nrch=3605) [facility] [address] RAD, CHEST, 1 VIEW, NON [id number] 03:32:00Reason for exam:->interval cahnge in edemaFINAL REPORT [...] concerning for mild fluid overload/heart failure. Signed: Katarina Corbin MDReport Verified Date/Time: 07/10 03:32:42 Reading Location: [address] Reading Room URINALYSIS W / [id number] 01:44:00 Test Item Value Reference Range Comments COLOR (BEAKER) (test hzkp=831) [place] CLARITY (BEAKER) (test zqpp=468) Cloudy SPECIFIC GRAVITY UA (BEAKER) (test ogtc=373) 1.017 1.001-1.035 PH UA (BEAKER) (test eozv=563) 6.5 5.0-8.0 PROTEIN UA (BEAKER) (test tovw=567) 200 mg/dL Negative GLUCOSE UA (BEAKER) (test bynk=617) Negative Negative KETONES UA (BEAKER) (test engt=210) Trace Negative BILIRUBIN UA (BEAKER) (test davw=625) Negative Negative BLOOD UA (BEAKER) (test fosy=303) Large Negative NITRITE UA (BEAKER) (test budi=200) Negative Negative LEUKOCYTE ESTERASE UA (BEAKER) (test jefv=224) Large Negative UROBILINOGEN UA (BEAKER) (test sjsk=975) 0.2 mg/dL 0.2-1.0 RBC UA (BEAKER) (test enia=585) > /HPF WBC UA (BEAKER) (test lvag=401) > /HPF BACTERIA (BEAKER) (test glky=228) Many MUCUS (BEAKER) (test uguy=8968) Moderate SOURCE(BEAKER) (test wqae=0252) Urine, [place] BLOOD GAS, [id number] 00:45:00 Test Item Value Reference Range Comments PH ARTERIAL (BEAKER) (test twgr=866) 7.53 7.35-7.45 PCO2 ARTERIAL (BEAKER) (test ktpf=188) 23 mmHg 35-45 PO2 ARTERIAL (BEAKER) (test psrb=134) 264 mmHg 80-90 O2 SATURATION ARTERIAL (BEAKER) (test cllw=577) 99.7 % 96.0-97.0 HCO3 ARTERIAL (BEAKER) (test ooma=606) 19 mmol/L 21-29 BASE EXCESS ARTERIAL (BEAKER) (test dqno=681) -2.1 mmol/L -2.0-3.0 PATIENT TEMPERATURE (BEAKER) (test golw=1113) 36.9 C FIO2 (BEAKER) (test aofd=1193) 50.0 % POCT-GLUCOSE [id number] 00:26:00 Test Item Value Reference Range Comments POC-GLUCOSE METER (BEAKER) 104 mg/dL 70-110 TESTED AT [address] (test gcei=1023) [facility] [address] RAD, CHEST, 1 VIEW, NON [id number] 21:23:00Reason for exam:->assess for ET tube placement and pulmonary edemaShould [facility] be [facility]?-&gt ;YesFINAL REPORT RAD, CHEST, 1 VIEW, NON DEPT INDICATION : assess for ET tube placement and pulmonary edema COMPARISON: Chest x-ray from earlier today TECHNIQUE: Portable frontal viewof the chest. IMPRESSION: ET tube terminates 5.6 cm away from the marvin.Stable cardiomegaly.Pulmonary artery enlargement.Mitral valve annular calcification.No pneumothorax.No overt pulmonary edema.Noacute osseous abnormality. Signed: Bola Hayes MDReport Verified Date/Time: 07/09/2017 21:23:57Reading Location: [id number] Ortho Consult Reading Room Electronically signed by: BOLA HAYES MD on 2017 09:23 PMCBC W/PLT COUNT & AUTO [id number] 21:00:00 Test Item Value Reference Range Comments WHITE BLOOD CELL COUNT (BEAKER) (test tpkb=402) 25.8 K/ L 3.5-10.5 RED BLOOD CELL COUNT (BEAKER) (test xxlg=825) 3.65 M/ L 3.93-5.22 HEMOGLOBIN (BEAKER) (test rdub=533) 10.3 GM/DL 11.2-15.7 HEMATOCRIT (BEAKER) (test ljrz=434) 32.1 % 34.1-44.9 MEAN CORPUSCULAR VOLUME (BEAKER) (test vtgb=996) 87.9 fL 79.4-94.8 MEAN CORPUSCULAR HEMOGLOBIN (BEAKER) (test 28.2 pg 25.6-32.2 pxmx=638) MEAN CORPUSCULAR HEMOGLOBIN CONC (BEAKER) (test 32.1 GM/DL 32.2-35.5 eiva=687) RED CELL DISTRIBUTION WIDTH (BEAKER) (test 15.3 % 11.7-14.4 tmdd=227) PLATELET COUNT (BEAKER) (test tovu=570) 176 K/CU MM 150-450 MEAN PLATELET VOLUME (BEAKER) (test vbml=723) 10.0 fL 9.4-12.3 NUCLEATED RED BLOOD CELLS (BEAKER) (test 0 /100 WBC 0-0 jxsb=544) IMMATURE GRANULOCYTES-RELATIVE PERCENT (BEAKER) 2 % 0-1 (test xgnw=7048) (MANUAL DIFFERENTIAL)2017-07-09 21:00:00 Test Item Value Reference Range Comments NEUTROPHILS - REL (DIFF) (BEAKER) (test 81 % xorl=9352) LYMPHOCYTES - REL (DIFF) (BEAKER) (test 5 % mijv=0940) MONOCYTES - REL (DIFF) (BEAKER) (test iyyi=5918) 3 % BANDS - REL (DIFF) (BEAKER) (test qguy=4654) 11 % 0-10 NEUTROPHILS - ABS (DIFF) (BEAKER) (test 20.90 K/ L 1.80-8.00 zqeu=1957) LYMPHOCYTES - ABS (DIFF) (BEAKER) (test 1.29 K/ L 1.48-4.50 waua=7550) MONOCYTES - ABS (DIFF) (BEAKER) (test cdaf=9815) 0.77 K/ L 0.00-1.30 BANDS-ABS (DIFF) (BEAKER) (test ygga=8031) 2.8 K/ L 0.0-0.8 TOTAL COUNTED (BEAKER) (test gbgi=9458) 100 BANDS + SEGMENTED NEUTROPHILS (BEAKER) (test 23.74 awrt=3903) WBC MORPHOLOGY (BEAKER) (test uqbx=254) Normal PLT MORPHOLOGY (BEAKER) (test qlie=367) Normal ELLIPTOCYTES (BEAKER) (test fjva=309) 1+ few OVALOCYTES (BEAKER) (test anvf=199) 1+ few POLYCHROMATOPHILLIC RBCS(BEAKER) (test tqlj=367) 1+ few TEAR DROP CELLS (BEAKER) (test vaeb=084) 1+ few LACTIC ACID, ARTERIAL, WHOLE [id number] 20:49:00 Test Item Value Reference Range Comments LACTATE BLOOD ARTERIAL (2) 1.9 mmol/L 0.5-2.2 Specimen slightly hemolyzed (BEAKER) (test gmks=6809) Effective 07/27/2015: Units/Reference Range ChangeNew: 0.5-2.2 mmol/L Previous: 5 -20 mg/dLBLOOD GAS, [id number] 20:41:00 Test Item Value Reference Range Comments PH ARTERIAL (BEAKER) (test okgd=779) 7.52 7.35-7.45 PCO2 ARTERIAL (BEAKER) (test qaap=152) 25 mmHg 35-45 PO2 ARTERIAL (BEAKER) (test glhh=600) 256 mmHg 80-90 O2 SATURATION ARTERIAL (BEAKER) (test goax=509) 99.7 % 96.0-97.0 HCO3 ARTERIAL (BEAKER) (test emxi=894) 20 mmol/L 21-29 BASE EXCESS ARTERIAL (BEAKER) (test sofy=473) -2.0 mmol/L -2.0-3.0 PATIENT TEMPERATURE (BEAKER) (test mhtt=4300) 36.7 C FIO2 (BEAKER) (test gsqo=0492) 50.0 % [id number] 20:24:00 Test Item Value Reference Range Comments PROTIME (BEAKER) (test mzdv=604) 28.8 seconds 11.7-14.7 INR (BEAKER) (test ebry=670) 2.7 <=5.9 PARTIAL THROMBOPLASTIN TIME (BEAKER) (test 54.7 seconds 22.5-36.0 gpih=254) RECOMMENDED COUMADIN/WARFARIN INR THERAPY RANGESSTANDARD DOSE: 2.0 - 3.0 Includes: PROPHYLAXIS forvenous thrombosis, systemic embolization; TREATMENT for venous thrombosis and/or pulmonary embolus.HIGH RISK: Target INR is 2.5-3.5 for patients with mechanical heart valves.PROTHROMBIN [id number] 20:23: 00 Test Item Value Reference Range Comments PROTIME (BEAKER) (test ifoi=253) 28.8 seconds 11.7-14.7 INR (BEAKER) (test gxiu=038) 2.7 <=5.9 RECOMMENDED COUMADIN/WARFARIN INR THERAPY RANGESSTANDARD DOSE: 2.0 - 3.0 Includes: PROPHYLAXIS forvenous thrombosis, systemic embolization; TREATMENT for venous thrombosis and/or pulmonary embolus.HIGH RISK: Target INR is 2.5-3.5 for patients with mechanical heart valves.[id number] 20:23:00 Test Item Value Reference Range Comments FIBRINOGEN LEVEL (BEAKER) (test kjvk=486) 712 mg/dl 225-434 [id number] 20:02:00 Test Item Value Reference Range Comments PHOSPHORUS (BEAKER) (test nmzq=269) 4.2 mg/dL 2.3-4.7 [id number] 20:02:00 Test Item Value Reference Range Comments MAGNESIUM (BEAKER) (test knmr=465) 1.6 mg/dL 1.6-2.6 BASIC METABOLIC [id number] 20:02:00 Test Item Value Reference Range Comments SODIUM (BEAKER) (test 137 meq/L 136-145 udkp=405) POTASSIUM (BEAKER) (test 4.6 meq/L 3.5-5.1 lpjr=979) CHLORIDE (BEAKER) (test 108 meq/L 98-107 voep=958) CO2 (BEAKER) (test 18 meq/L 22-29 xmug=789) BLOOD UREA NITROGEN 26 mg/dL 7-21 (BEAKER) (test ogmj=258) CREATININE (BEAKER) (test 1.50 mg/dL 0.57-1.25 rrro=367) GLUCOSE RANDOM (BEAKER) 154 mg/dL 70-105 (test tstw=870) CALCIUM (BEAKER) (test 8.0 mg/dL 8.4-10.2 wgmh=080) EGFR (BEAKER) (test 33 mL/min/1.73 sq m ESTIMATED GFR IS NOT uapi=9859) ACCURATE CREATININE CLEARANCE IN PREDICTING GLOMERULAR FILTRATION RATE. ESTIMATED GFR IS NOT APPLICABLE FOR DIALYSIS PATIENTS. HEPATIC FUNCTION [id number] 20:02:00 Test Item Value Reference Range Comments TOTAL PROTEIN (BEAKER) (test vlob=356) 5.6 gm/dL 6.0-8.3 ALBUMIN (BEAKER) (test gsjy=2666) 2.6 g/dL 3.5-5.0 BILIRUBIN TOTAL (BEAKER) (test nncc=765) 1.5 mg/dL 0.2-1.2 BILIRUBIN DIRECT (BEAKER) (test vmuy=093) 1.2 mg/dL 0.1-0.5 ALKALINE PHOSPHATASE (BEAKER) (test hbxg=666) 130 U/L 40-150 AST (SGOT) (BEAKER) (test oxec=564) 21 U/L 5-34 ALT (SGPT) (BEAKER) (test oudy=600) 12 U/L 6-55 BLOOD GAS, [id number] 19:04:00 Test Item Value Reference Range Comments PH ARTERIAL (BEAKER) (test chln=285) 7.36 7.35-7.45 PCO2 ARTERIAL (BEAKER) (test wnbr=518) 32 mmHg 35-45 PO2 ARTERIAL (BEAKER) (test hbbj=840) 265 mmHg 80-90 O2 SATURATION ARTERIAL (BEAKER) (test mtlr=135) 99.6 % 96.0-97.0 HCO3 ARTERIAL (BEAKER) (test grqo=222) 17 mmol/L 21-29 BASE EXCESS ARTERIAL (BEAKER) (test hwpk=675) -7.3 mmol/L -2.0-3.0 PATIENT TEMPERATURE (BEAKER) (test ocxo=8185) 37.0 C FIO2 (BEAKER) (test bogl=7160) 50.0 % POCT-GLUCOSE [id number] 18:58:00 Test Item Value Reference Range Comments POC-GLUCOSE METER (BEAKER) 141 mg/dL 70-110 TESTED AT [facility] [address], [place] (test jwqn=1240) [facility] [address] [place], BLIND AIDE IN OR/30 MINUTE [id number] 15:02:00Reason for exam:-> STENT PLACEMENTFINAL REPORT INDICATION: [...] 6.16 minutes, 232 images Signed: Narendra Mccormick MDReport Verified Date/Time: 07/09/2017 15:02:03 Reading Location: [facility] [place] B1 [id number] Consult Reading Room CBC W/ PLT COUNT & AUTO [id number] 12:21:00 Test Item Value Reference Range Comments WHITE BLOOD CELL COUNT (BEAKER) (test rxss=062) 24.3 K/ L 3.5-10.5 RED BLOOD CELL COUNT (BEAKER) (test jkvv=853) 3.73 M/ L 3.93-5.22 HEMOGLOBIN (BEAKER) (test bgle=628) 10.6 GM/DL 11.2-15.7 HEMATOCRIT (BEAKER) (test wbzl=565) 32.7 % 34.1-44.9 MEAN CORPUSCULAR VOLUME (BEAKER) (test pwcl=330) 87.7 fL 79.4-94.8 MEAN CORPUSCULAR HEMOGLOBIN (BEAKER) (test 28.4 pg 25.6-32.2 ngvm=562) MEAN CORPUSCULAR HEMOGLOBIN CONC (BEAKER) (test 32.4 GM/DL 32.2-35.5 jokv=556) RED CELL DISTRIBUTION WIDTH (BEAKER) (test 14.9 % 11.7-14.4 ufts=256) PLATELET COUNT (BEAKER) (test uxqd=308) 227 K/CU MM 150-450 MEAN PLATELET VOLUME (BEAKER) (test swom=928) 9.8 fL 9.4-12.3 NUCLEATED RED BLOOD CELLS (BEAKER) (test 0 /100 WBC 0-0 ftqy=568) NEUTROPHILS RELATIVE PERCENT (BEAKER) (test 93 % ipnu=586) LYMPHOCYTES RELATIVE PERCENT (BEAKER) (test 2 % aeos=600) MONOCYTES RELATIVE PERCENT (BEAKER) (test 4 % nmzw=431) EOSINOPHILS RELATIVE PERCENT (BEAKER) (test 0 % dnfx=256) BASOPHILS RELATIVE PERCENT (BEAKER) (test 0 % zzlr=612) NEUTROPHILS ABSOLUTE COUNT (BEAKER) (test 22.61 K/ L 1.56-6.13 jivs=908) LYMPHOCYTES ABSOLUTE COUNT (BEAKER) (test 0.38 K/ L 1.18-3.74 axpx=500) MONOCYTES ABSOLUTE COUNT (BEAKER) (test 0.94 K/ L 0.24-0.36 fzed=181) EOSINOPHILS ABSOLUTE COUNT (BEAKER) (test 0.02 K/ L 0.04-0.36 qwbw=934) BASOPHILS ABSOLUTE COUNT (BEAKER) (test 0.02 K/ L 0.01-0.08 ehwm=184) IMMATURE GRANULOCYTES-RELATIVE PERCENT (BEAKER) 1 % 0-1 (test tqri=0192) (MANUAL DIFFERENTIAL)2017-07-09 12:21:00 Test Item Value Reference Range Comments TOTAL COUNTED (BEAKER) (test wlpx=3143) WBC MORPHOLOGY (BEAKER) (test kede=124) Normal PLT MORPHOLOGY (BEAKER) (test jfoz=756) Normal RBC MORPHOLOGY (BEAKER) (test ztks=060) Normal [id number] 11:47:00 Test Item Value Reference Range Comments FIBRINOGEN LEVEL (BEAKER) (test hryb=012) 653 mg/dl 225-434 POCT-GLUCOSE [id number] 11:18:00 Test Item Value Reference Range Comments POC-GLUCOSE METER (BEAKER) 139 mg/dL 70-110 TESTED AT [facility] [address], [place] (test yils=9975) [facility] [address] LACTIC ACID, VENOUS, WHOLE [id number] 10:05:00 Test Item Value Reference Range Comments LACTATE BLOOD VENOUS (2) (BEAKER) (test 3.3 mmol/L 0.5-2.2 jhpj=7241) Effective 07/27/2015: Units/Reference Range ChangeNew: 0.5-2.2 mmol/L Previous: 5 -20 mg/dLU/S, ABDOMINAL, [id number] 09:00:00Abdomen limited area? Add comment if clarification [...] Rightrenal stones with right hydronephrosis. Signed: Jose Sharifeport Verified Date/Time: 07/09/201709:00:17 Reading Location: [address] Ultrasound Reading Room POCT-GLUCOSE [id number] 07:40:00 Test Item Value Reference Range Comments POC-GLUCOSE METER (BEAKER) 116 mg/dL 70-110 TESTED AT [address] (test paoe=7344) [facility] [address] BLOOD GAS, [id number] 07:34:00 Test Item Value Reference Range Comments PH ARTERIAL (BEAKER) (test qhri=026) 7.44 7.35-7.45 PCO2 ARTERIAL (BEAKER) (test pmqa=907) 33 mmHg 35-45 PO2 ARTERIAL (BEAKER) (test dxxj=372) 202 mmHg 80-90 O2 SATURATION ARTERIAL (BEAKER) (test eyqf=236) 99.4 % 96.0-97.0 HCO3 ARTERIAL (BEAKER) (test xtzf=689) 21 mmol/L 21-29 BASE EXCESS ARTERIAL (BEAKER) (test ptih=117) -2.1 mmol/L -2.0-3.0 PATIENT TEMPERATURE (BEAKER) (test dvlp=6196) 37.1 C FIO2 (BEAKER) (test xety=8912) 32.0 % URINALYSIS W/ [id number] 07:31:00 Test Item Value Reference Range Comments COLOR (BEAKER) (test pgww=881) Yellow CLARITY (BEAKER) (test yckv=138) Cloudy SPECIFIC GRAVITY UA (BEAKER) (test kcnm=198) 1.020 1.001-1.035 PH UA (BEAKER) (test lbyq=967) 6.0 5.0-8.0 PROTEIN UA (BEAKER) (test xdzl=530) 300 mg/dL Negative GLUCOSE UA (BEAKER) (test pzgp=987) Negative Negative KETONES UA (BEAKER) (test nadu=551) 10 mg/dL Negative BILIRUBIN UA (BEAKER) (test xcaf=074) Negative Negative BLOOD UA (BEAKER) (test xrty=098) Moderate Negative NITRITE UA (BEAKER) (test zvis=153) Negative Negative LEUKOCYTE ESTERASE UA (BEAKER) (test vbal=162) Large Negative UROBILINOGEN UA (BEAKER) (test kerx=648) 0.2 mg/dL 0.2-1.0 RBC UA (BEAKER) (test shix=762) > /HPF WBC UA (BEAKER) (test ujkg=701) > /HPF SOURCE(BEAKER) (test tgnw=7475) Urine, [place], [id number] 06:51:00FINAL REPORT CT, ABDOMEN \\T \\ PELVIS, [...] obtained for further characterization. Signed: Bola Hayes MDReport Verified Date/Time: 07/09/2017 06:51:04 Reading Location: [address] Ortho Consult Reading Room Electronically signed by: BOLA HAYES MD on 2017 06:51 AMB-TYPE NATRIURETIC FACTOR (BNP)2017-07-09 06:20:00 Test Item Value Reference Range Comments B-TYPE NATRIURETIC PEPTIDE (BEAKER) (test 2995 pg/mL 0-100 tfeu=780) LACTIC ACID, VENOUS, WHOLE [id number] 06:10:00 Test Item Value Reference Range Comments LACTATE BLOOD VENOUS (2) (BEAKER) (test 1.7 mmol/L 0.5-2.2 njcr=5079) Effective 07/27/2015: Units/Reference Range ChangeNew: 0.5-2.2 mmol/L Previous: 5 -20 mg/dLRAD, CHEST, 1 VIEW, NON [id number] 06:02:00Reason for exam:-> sepsisShould this be performed [...] airspace opacity.No pneumothorax.No acute osseous abnormality. Signed: Bola Hayes MDReport Verified Date/Time: 07/09/2017 06:02:19 Reading Location: [facility] B1 [id number] Ortho Consult Reading Room Electronically signed by: BOLA HAYES MD on 2017 06:02 AMHEPATIC FUNCTION [id number] 05:30:00 Test Item Value Reference Range Comments TOTAL PROTEIN (BEAKER) (test lfch=999) 5.3 gm/dL 6.0-8.3 ALBUMIN (BEAKER) (test mtls=3306) 2.6 g/dL 3.5-5.0 BILIRUBIN TOTAL (BEAKER) (test zjjv=052) 1.6 mg/dL 0.2-1.2 BILIRUBIN DIRECT (BEAKER) (test cbtb=905) 1.2 mg/dL 0.1-0.5 ALKALINE PHOSPHATASE (BEAKER) (test asak=323) 121 U/L 40-150 AST (SGOT) (BEAKER) (test txub=408) 19 U/L 5-34 ALT (SGPT) (BEAKER) (test ocuh=814) 9 U/L 6-55 BASIC METABOLIC [id number] 05:30:00 Test Item Value Reference Range Comments SODIUM (BEAKER) (test 136 meq/L 136-145 pbms=604) POTASSIUM (BEAKER) (test 3.1 meq/L 3.5-5.1 afzi=644) CHLORIDE (BEAKER) (test 106 meq/L 98-107 gtis=444) CO2 (BEAKER) (test 20 meq/L 22-29 tddc=460) BLOOD UREA NITROGEN 23 mg/dL 7-21 (BEAKER) (test sseo=902) CREATININE (BEAKER) (test 1.43 mg/dL 0.57-1.25 cdis=174) GLUCOSE RANDOM (BEAKER) 145 mg/dL 70-105 (test qkxx=972) CALCIUM (BEAKER) (test 8.2 mg/dL 8.4-10.2 ieyq=154) EGFR (BEAKER) (test 35 mL/min/1.73 sq m ESTIMATED GFR IS NOT gybb=4316) ACCURATE CREATININE CLEARANCE IN PREDICTING GLOMERULAR FILTRATION RATE. ESTIMATED GFR IS NOT APPLICABLE FOR DIALYSIS PATIENTS. [id number] 05:29:00 Test Item Value Reference Range Comments PARTIAL THROMBOPLASTIN TIME (BEAKER) (test 50.6 seconds 22.5-36.0 xjak=633) PROTHROMBIN TIME/[id number] 05:28:00 Test Item Value Reference Range Comments PROTIME (BEAKER) (test mqps=948) 28.0 seconds 11.7-14.7 INR (BEAKER) (test abps=913) 2.6 <=5.9 RECOMMENDED COUMADIN/WARFARIN INR THERAPY RANGESSTANDARD DOSE: 2.0 - 3.0 Includes: PROPHYLAXIS forvenous thrombosis, systemic embolization; TREATMENT for venous thrombosis and/or pulmonary embolus.HIGH RISK: Target INR is 2.5-3.5 for patients with mechanical heart valves.LACTIC ACID, VENOUS, WHOLE [id number] 05:20:00 Test Item Value Reference Range Comments LACTATE BLOOD VENOUS (2) (BEAKER) (test 1.8 mmol/L 0.5-2.2 hptq=0993) Effective 07/27/2015: Units/Reference Range ChangeNew: 0.5-2.2 mmol/L Previous: 5 -20 mg/dL
[2017-10-02] MEDS ORDERED: NA CHLORIDE 0.9% 500 ML ONE ×3 (09:11→13:26)
[2017-10-02] MEDS ORDERED: NA CHLORIDE 0.9% 1,000 ML ONE (09:57)
[2017-10-02 10:40] LABS: Absolute Lymphocytes (CBC) 1.9 K/uL (0.7-4.9); Absolute Monocytes 0.9 K/uL (0.1-1.3); Absolute Neutrophil 4.9 K/uL (1.8-8.0); Basophils % 0.6 % (0-1.3); Eosinophils % 0.5 % (0-4.4); Hematocrit 15.1 % (36.0-45.0); MCH 29.8 pg (27.0-35.0); MCV 86.1 fL (80-100); MPV 9.2 fL (7.6-11.3); Monocytes % 11.1 % (3.3-12.3); RBC Red Blood Cell Count 1.75 M/uL (3.86-4.86)
[2017-10-02] MEDS ORDERED: ONDANSETRON 4 MG/2 ML VIAL ONE ×2 (10:41→12:43)
[2017-10-02] MEDS ORDERED: NOREPINEPHRINE 4 MG in D5W 250 ML IV PRN (10:43)
[2017-10-02 10:45] LABS: Protime INR 1.4
[2017-10-02] MEDS ORDERED: NOREPINEPHRINE 4mg/D5W 250mL 4 MG/250 ML BAG IV ONE (10:50)
[2017-10-02 11:09] LABS: ALT/SGPT 11 U/L (12-78); AST/SGOT 18 U/L (15-37); Albumin 1.4 g/dL (3.4-5.0); Alkaline Phosphatase 65 U/L (45-117); BUN Blood Urea Nitrogen 15 mg/dL (7-18); Bicarbonate 27 mmol/L (21-32); Bilirubin Direct < 0.1 mg/dL (0-0.2); Bilirubin Total 0.2 mg/dL (0.2-1.0); Creatine Phosphokinase 29 U/L (26-192); Glucose Level 160 mg/dL (74-106); Lipase 80 U/L (73-393); Potassium 3.6 mmol/L (3.5-5.1); Protein, Total 3.5 g/dL (6.4-8.2); Sodium Level 145 mmol/L (136-145)
[2017-10-02 11:46] LABS: Urine Blood 3+ (NEG); Urine Glucose TRACE (NEG); Urine Protein 3+ (NEG); Urine Specific Gravity 1.015 (1.005-1.030); Urine pH 5.5 (5.0-7.0)
[2017-10-02 12:00] LABS: Urine Bacteria >50 /HPF (<20); Urine RBC LOADED /HPF (NONE SEEN)
[2017-10-02] MEDS ORDERED: CALCIUM GLUCONATE 1gm/100 ML NS (4.65 mEq/100mL) IV ONE ×2 (12:00)
[2017-10-02] MEDS ORDERED: CEFEPIME/SWI 1gm 1 GM/10 ML SYR IV ONE (12:00)
[2017-10-02 12:01] LABS: Calcium Oxalate Crystals- Ur MODERATE (NONE SEEN); Urine Culture Reflex Order NOT NEEDED; Urine Yeast MANY (NONE SEEN)
--- NOTE | 2017-10-02 12:09 | RAD REPORT ---
EXAM DESCRIPTION: CT - Stone Protocol - 10/02/2017 11:26 am CLINICAL HISTORY: Abdominal pain./hypotension/nausea/urinary tract infection COMPARISON: August 2017 TECHNIQUE: Computed axial tomography of the abdomen pelvis was obtained without oral or IV contrast. Lack of IV and oral contrast limits evaluation of solid organs, bowel, and vessels. Coronal reformat raz images were obtained and reviewed. All CT scans are performed using dose optimization technique as appropriate and may include automated exposure control or mA/KV adjustment according to patient size. FINDINGS: A gallstone is again demonstrated. The gallbladder has an unusual appearance and may be tw isted upon itself. The gallbladder wall appears borderline thickened. 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 An additional stent is present within the upper pole moiety. Hydronephrosis is not present. A 13 millimeter left hemorrhagic renal cyst is unchanged. A left ureteral stent is in place without h ydronephrosis. Bilateral renal calculi are again demonstrated. A periumbilical hernia contains fat. The neck measures 23 millimeters. The most inferior slices demonstrate a 10 centimeter fluid collection within the musculature of the r ight lateral proximal femur. Small left and small to moderate right pleural effusions are present IMPRESSION: 10 centimeter fluid collection within the lateral musculature of the proximal right femu r likely represents a hematoma. No significant change in the appearance of the gallbladder since the prior exam. This may represent a chronic volvulus and should be clinically and with appropriate lab values. Cholelithiasis The exam was discussed with Dr. Herbert in the emergency room at 12 p.m. October 02, 2017
[2017-10-02] MEDS ORDERED: NA CHLORIDE 0.9% 250 ML ONE (12:25)
--- NOTE | 2017-10-02 12:49 | RAD REPORT ---
EXAM DESCRIPTION: Ross Single View10/02/2017 9:35 am CLINICAL HISTORY: Shortness of breath COMPARISON: August 2017 FINDINGS: The lungs appear clear of acute infiltrate. The heart is mildly enlarged. Small pleural e ffusions are present. Postsurgical changes involve the chest. The patient is rotated. The aorta is tortuous/ectatic
--- NOTE | 2017-10-02 12:59 | ER ---
Nurse's Notes [facility] Emergency Department Name: Darling Bianchi Age: 82 yrs Sex: Female : 1935 Arrival Date: 10/02/2017 Time: 09:06 Bed 4 Private MD: Diagnosis: Hypotension;Urosepsis;Anemia Presentation: 10/02 09:06 Presenting complaint: EMS states: received 911 call from [facility] for aa5 hypotension. EMS reports systolic BP was 50's just [employer]. Pt currently A \\T\\ O x 4, appears pale, pt c/o generalized weakness. 09:06 Transition of care: patient was received from another setting of care (long-term care [facility] facility), [facility]. Onset of symptoms was October 02, 2017. Risk Assessment: Do you want to hurt yourself or someone else? Patient reports no desire to harm self or others. Initial Sepsis Screen: Does the patient meet any 2 criteria? Systolic BP < 90 mmHg. HR > 90 bpm. Yes Does the patient have a suspected source of infection? Yes: Other: diarrhea x 2 weeks, possible UTI (De La Fuente in place). Care prior to arrival: Oxygen administered. via nasal cannula. 09:06 Method Of Arrival: EMS: [facility] aa5 09:06 Acuity: LYNDA 2 aa5 09:20 Note Contacted [facility] and nurse stated pt has PICC for UTI but aa5 completed Diflucan and Meropenem IV treatment, nurse also reports pt had lithotripsy sx last week in [place]. Historical: - Allergies: 09:55 Vancomycin; ph 09:55 Morphine; ph - Home Meds: 09:55 amiodarone 200 mg Oral tab 1 tab 2 times per day [Active]; ph 10:32 enoxaparin 80 mg/0.8 mL subcutaneous syrg once daily [Active]; ipratropium-albuterol ph inhalation Inhl [Active]; potassium chloride 20 mEq Oral TbER once daily [Active]; Lactobacillus acidophilus Oral cap twice a day [Active]; Lasix 20 mg Oral tab 3 tabs 2 times per day [Active]; latanoprost 0.005 % ophthalmic drop 1 drop once daily [Active]; Maalox Plus Extra Strength Oral 30 ml daily [Active]; pantoprazole 20 mg Oral TbEC 1 tab once daily [Active]; simvastatin 40 mg Oral tab 1 tab once daily [Active]; zinc sulfate 220 mg Oral tab [Active]; Zofran (as hydrochloride) 4 mg Oral tab 1 tabs every 6 hours [Active]; ascorbic acid (vitamin C) 500 mg tab daily [Active]; carvedilol 3.125 mg oral tab 0.5 tab 2 times per day [Active]; diphenoxylate-atropine 2.5-0.025 mg Oral tab 1 tablet 4 times per day for Diarrhea [Active]; docusate sodium 100 mg Oral cap 1 cap 2 times per day [Active]; donepezil 10 mg oral tab 1 tab once daily [Active]; acetaminophen 325 mg Oral tab 2 tabs every 6 hours [Active]; - PMHx: 09:55 aortic valve replacement 2010; Atrial Fib; Cellulitis; GERD; Glaucoma; Hyperlipidemia; ph Hypertension; Hypothyroidism; Kidney stones; Sepsis; UTI; - Family history:: not pertinent. - Ebola Screening: : No symptoms or risks identified at this time. - Hospitalizations: : No recent hospitalization is reported. Screenin:10 Abuse screen: Denies threats or abuse. Nutritional screening: No deficits noted. aa5 Tuberculosis screening: No symptoms or risk factors identified. 09:10 Fall Risk Secondary diagnosis (15 points) Pt currently weak . IV access (20 points). aa5 Total Carias Fall Scale indicates Low Risk Score (25-44 pts). Fall prevention measures have been instituted. Side Rails Up X 2 Placed close to Nursing Station. Assessment: 09:10 General: Appears uncomfortable, Behavior is calm, cooperative. Pain: Denies pain. aa5 Neuro: Level of Consciousness is awake, alert, obeys commands, Oriented to person, place, time, situation, Batch Trucker are weak bilaterally Moves all extremities. Speech is normal, Facial symmetry appears normal, Pupils are PERRLA, Reports generalized weakness . Cardiovascular: Heart tones S1 S2 present Rhythm is atrial fibrillation. Respiratory: Reports cough that is productive, since 2-3 days ago. Pt reports whitish sputum Airway is patent Respiratory effort is even, unlabored, Respiratory pattern is regular, symmetrical, Breath sounds are diminished bilaterally. GI: Abdomen is obese, Bowel sounds present X 4 quads. Abd is soft and non tender X 4 quads. Patient currently denies diarrhea, nausea, vomiting. : De La Fuente in place to gravity drainage Urine is charley colored. EENT: Oral mucosa is dry. Derm: Skin is dry, Skin is pale, Skin temperature is warm. Musculoskeletal: Swelling noted to bilateral arms and 2+ pitting edema noted to guanako lower extremities. 09:15 Reassessment: Unable to draw blood from PICC. aa5 09:20 Reassessment: CN attempting blood draw . aa5 09:35 Reassessment: 3 missed attempts to draw blood by Maty Lynn, TREVIN and dilip Cameron RN. 09:40 Reassessment: Pt c/o nausea, Dr. Herbert notifed . aa5 09:40 Reassessment: CT delayed due to hypotension, Dr. Herbert notified . aa5 09:50 Reassessment: histotechnologist supervisor unable to draw blood at this time. Dr. Herbert notified of aa5 inability to obtain blood and of BP 65/32. 10:05 Reassessment: histotechnologist supervisor at bedside attempting blood draw . aa5 10:10 Reassessment: Pt lying down in bed. Bed remains in low locked position, side rails x 2, aa5 call hartley within reach. Pt's family at bedside . Neuro: Level of Consciousness is awake, alert, obeys commands, Oriented to person, place, time, situation. Cardiovascular: Rhythm is atrial fibrillation. Respiratory: Airway is patent Respiratory effort is even, unlabored, Respiratory pattern is regular, symmetrical. Derm: Skin is dry, Skin is pale, Skin temperature is warm. 10:15 Reassessment: Unable to collect blood, Dr. Herbert notified . aa5 10:30 Reassessment: Blood collected by Dr. Herbert. 22 G to R AC inserted by Dr. Herbert . aa5 11:00 Reassessment: Pt to CT accompanied by me, with monitor. . Reassessment: Patient denies aa5 pain at this time. Neuro: Level of Consciousness is awake, alert, obeys commands, Oriented to person, place, time, situation. Cardiovascular: Rhythm is atrial fibrillation. Respiratory: Airway is patent Respiratory effort is even, unlabored, Respiratory pattern is regular, symmetrical. Derm: Skin is dry, Skin is pale, Skin temperature is warm. 11:25 Reassessment: Pt back from CT scan. aa5 11:40 Reassessment: Patient and/or family updated on plan of care and expected duration. Pain aa5 level reassessed. Pt cleaned of bowel incontinence, soft brown stool noted. Clean brief applied . 11:40 Reassessment: Patient denies pain at this time. Neuro: Level of Consciousness is awake, aa5 alert, obeys commands, Oriented to person, place, time, situation. Cardiovascular: Rhythm is atrial fibrillation. Respiratory: Airway is patent Respiratory effort is even, unlabored, Respiratory pattern is regular, symmetrical. Derm: Skin is dry, Skin is pale, Skin temperature is warm. 12:00 Reassessment: Pt notified of transfer to [facility],awaiting approval, pt aa5 verbalized understanding. Pt lying down in bed. . 12:34 Reassessment: RBC consent form obtained (see pt's chart). aa5 13:00 Reassessment: Patient denies pain at this time. Neuro: Level of Consciousness is awake, aa5 alert, obeys commands, Oriented to person, place, time, situation. Respiratory: Airway is patent Respiratory effort is even, unlabored, Respiratory pattern is regular, symmetrical. Derm: Skin is dry, Skin is pale, Skin temperature is warm. 13:00 Respiratory: Breath sounds are clear bilaterally. aa5 13:17 Reassessment: RBC Unit # 1 started at 1305 at 50cc/hr. Pt c/o lower back pain radiating aa5 up to neck and SOB, respirations increased to 24bpm, RBC infusion stopped at [address] Herbert was notified . 13:20 Reassessment: Dr. Herbert at bedside, lungs CTA, SOB has improved, RR 20, pt states "I aa5 think my back hurts because I've been lying down for a while now" . 13:25 Reassessment: VO to restart RBC infusion now. RBC Infusion restarted at 50cc/hr to PICC.aa5 13:45 Reassessment: report called to TREVIN Zhu at [facility] ICU. ss 14:00 Reassessment: Pt c/o aching pain all over body. Pt states "I just hurt everywhere aa5 because of how long I've been lying down" . Neuro: Level of Consciousness is awake, alert, obeys commands, Oriented to person, place, time, situation. Respiratory: Airway is patent Respiratory effort is even, unlabored, Respiratory pattern is regular, symmetrical. Respiratory: Breath sounds are clear bilaterally. Derm: Skin is dry, Skin is pale, Skin temperature is warm. 14:00 Respiratory: Denies shortness of breath. aa5 14:00 Reassessment: RBC infusion increased to 100cc/hr at 1335, increased to 150cc/hr at aa5 1345, and increased to 200cc/hr at 1355, pt tolerating well. Pt denies SOB, lungs CTA, A-fib on monitor . 14:35 Reassessment: 22 G to R AC came out, catheter intact, pressure dressing applied. . aa5 Vital Signs: 09:07 BP 84 / 65; Pulse 103; Resp 18 S; Temp 97.3(A); Pulse Ox 100% on 2 lpm NC; Pain 0/10; aa5 09:20 BP 75 / 41; Pulse 94; Resp 18 S; Pulse Ox 100% on 2 lpm NC; aa5 09:30 BP 73 / 47; Pulse 95; Resp 20 S; Pulse Ox 100% on 2 lpm NC; aa5 09:40 BP 70 / 37; Pulse 88; Resp 18 S; Pulse Ox 99% on 2 lpm NC; aa5 09:50 BP 65 / 32; Pulse 88; Resp 18 S; Pulse Ox 99% on 2 lpm NC; aa5 09:56 BP 75 / 43; Pulse 83; Resp 16 S; Pulse Ox 100% on 2 lpm NC; aa5 10:02 BP 68 / 40; Pulse 80; Resp 20 S; Pulse Ox 100% on 2 lpm NC; aa5 10:10 BP 73 / 40; Pulse 88; Resp 20 S; Pulse Ox 99% on 2 lpm NC; aa5 10:17 BP 66 / 39; Pulse 79; Resp 18 S; Pulse Ox 99% on 2 lpm NC; aa5 10:25 BP 66 / 39; Pulse 84; Resp 16 S; Pulse Ox 99% on 2 lpm NC; aa5 10:33 Weight 86.18 kg; ph 10:35 BP 70 / 42; Pulse 88; Resp 18 S; Pulse Ox 99% on 2 lpm NC; aa5 10:42 BP 68 / 40; Pulse 88; Resp 18 S; Pulse Ox 99% on 2 lpm NC; aa5 10:50 BP 89 / 43; Pulse 94; Resp 18 S; Pulse Ox 98% on 2 lpm NC; aa5 10:55 BP 83 / 50; Pulse 96; Resp 18 S; Pulse Ox 99% on 2 lpm NC; aa5 11:00 BP 80 / 72; Pulse 98; Resp 18 S; Pulse Ox 99% on 2 lpm NC; aa5 11:05 BP 92 / 62; Pulse 90; Resp 18 S; Pulse Ox 99% on 2 lpm NC; aa5 11:15 BP 90 / 61; Pulse 94; Resp 18 S; Pulse Ox 98% on 2 lpm NC; aa5 11:30 BP 89 / 54; Pulse 93; Resp 16 S; Pulse Ox 99% on 2 lpm NC; aa5 11:40 BP 107 / 51; Pulse 100; Resp 16 S; Pulse Ox 98% on 2 lpm NC; aa5 11:55 BP 101 / 70; Pulse 101; Resp 16 S; Pulse Ox 98% on 2 lpm NC; aa5 12:10 BP 89 / 63; Pulse 89; Resp 18 S; Temp 97.0(TE); Pulse Ox 100% on 2 lpm NC; aa5 12:20 BP 93 / 76; Pulse 109; Resp 20 S; Pulse Ox 100% on 2 lpm NC; aa5 12:30 BP 107 / 91; Pulse 115; Resp 18 S; Pulse Ox 99% on 2 lpm NC; aa5 12:40 BP 85 / 62; Pulse 108; Resp 20 S; Pulse Ox 99% on 2 lpm NC; aa5 13:00 BP 85 / 47; Pulse 108; Resp 20 S; Temp 97.2(TE); Pulse Ox 98% on 2 lpm NC; aa5 13:25 BP 101 / 80; Pulse 115; Resp 20 S; Temp 97.0(TE); Pulse Ox 100% on 2 lpm NC; aa5 13:30 BP 107 / 73; Pulse 116; Resp 18 S; Temp 97.0(TE); Pulse Ox 98% on 2 lpm NC; aa5 13:40 BP 123 / 84; Pulse 107; Resp 18 S; Temp 97.0(TE); Pulse Ox 99% on 2 lpm NC; aa5 13:45 BP 120 / 65; Pulse 110; Resp 18 S; Temp 96.8(TE); Pulse Ox 99% on 2 lpm NC; aa5 14:10 BP 100 / 65; Pulse 104; Resp 18 S; Temp 97.0(TE); Pulse Ox 99% on 2 lpm NC; aa5 14:20 BP 89 / 78; Pulse 101; Resp 18 S; Temp 97.0(TE); Pulse Ox 99% on 2 lpm NC; aa5 14:30 BP 98 / 70; Pulse 91; Resp 18 S; Temp 97.0(TE); Pulse Ox 100% on 2 lpm NC; aa5 13:00 See blood transfusion record for further VS aa5 ED Course: 09:06 Patient arrived in ED. rn 09:06 Slim Herbert MD is Attending Physician. rn 09:06 Arm band placed on. aa5 09:06 Patient has correct armband on for positive identification. Placed in gown. Bed in low aa5 position. Call light in reach. Side rails up X2. 09:11 Riya Jansen RN is Primary Nurse. aa5 09:16 Triage completed. aa5 09:33 X-ray completed. Portable x-ray completed in exam room. Patient tolerated procedure sw well. 09:34 Chest Single View XRAY In Process Unspecified. EDMS 09:52 Radiology exam delayed due to bp too low. az to call when ready. vr 10:08 EKG done, by founder and chief technical officer. reviewed by Slim Herbert MD. tc 11:03 Type And Screen Sent. ss 11:15 Urine collected: De La Fuente catheter specimen, cloudy, tea colored. jb1 11:[address] via stretcher. sw 11:26 CT completed. Patient tolerated procedure well. Patient moved back from CT. sw 11:26 CT Stone Protocol In Process Unspecified. EDMS 13:00 No provider procedures requiring assistance completed. aa5 14:00 One on one care x 60 minutes from 1300 to 1400. aa5 14:00 EKG done, by founder and chief technical officer. reviewed by Slim Herbert MD. sm3 14:35 Patient transferred, PICC remains in place. aa5 Administered Medications: 09:14 Drug: NS 0.9% 500 ml Route: IV; Rate: bolus; Site: PICC; ph 09:45 Follow up: IV Status: Completed infusion aa5 09:38 Drug: NS 0.9% 500 ml Route: IV; Rate: bolus; Site: PICC; aa5 10:02 Follow up: IV Status: Completed infusion aa5 09:40 Drug: Zofran 4 mg Route: IVP; Site: PICC; aa5 09:45 Follow up: Response: No adverse reaction; Nausea is decreased aa5 10:01 Drug: NS 0.9% 500 ml Route: IV; Rate: bolus; Site: PICC; aa5 10:33 Follow up: IV Status: Completed infusion aa5 10:45 Drug: Levophed (4 mg/250 mL D5W 4 mcg/min Route: IV; Rate: calculated rate; Site: PICC; aa5 11:30 Follow up: Infusion was started at 10mcg/min.Increased to 15mcg/min at 1055 and aa5 increased to 20mcg/min at 1130. 14:58 Follow up: Infusion increased to 25mcg/min at 1210, increased to 30mcg/min at 1300, aa5 decreased to 25mcg/min at 1340, decreased to 20mcg/min at 1345 12:37 Drug: Calcium Gluconate 1 grams Route: IVPB; Infused Over: 60 mins; Site: left ss antecubital; 14:00 Follow up: IV Status: Completed infusion aa5 14:55 Follow up: Infusion continued to R AC at 1300 aa5 12:39 Drug: Cefepime 1 grams {Note: administered IVP over 5 minutes per pharmacy protocol .} aa5 Route: IVPB; Rate: 200 ml/hr; Infused Over: 30 Titrate; Site: PICC; 12:45 Drug: Zofran 4 mg Route: IVP; Site: PICC; aa5 12:55 Follow up: Response: No adverse reaction; Nausea is decreased aa5 13:20 Drug: NS 0.9% 500 ml Route: IV; Rate: bolus; Site: PICC; aa5 13:50 Follow up: IV Status: Completed infusion aa5 14:10 Drug: Meropenem 500 mg Route: IV; Rate: calculated rate; Site: PICC; aa5 14:35 Follow up: IV Status: Order to discontinue infusion; Order to discontinue infusion. 22 aa5 G to R AC came out and pt only received 1/2 of the infusion, was notified.; Order to discontinue infusion. 22 G to R AC came out and pt only received approximately 1/2 of the infusion, was notified. Point of Care Testing: Blood Glucose: 09:09 Blood Glucose: 234 mg/dL; aa5 Guaiac: 10:57 Stool Guaiac: Positive; Stool Hemoccult Control: Pass; rn 10:57 trace positive rn Ranges: Intake: Outcome: 12:58 ER care complete, transfer ordered by . rn 14:35 Transferred by ground EMS to [facility], Transfer form completed. aa5 X-rays sent w/ patient. Note: Report given to [facility] 14:35 Condition: stable 14:35 Instructed on the need for admit, Demonstrated understanding of instructions. 14:50 Patient left the ED. aa5 Signatures: Dispatcher [employer] EDMS Guille Barragan jb1 Slim Herbert MD MD rn Calderon, Riya, RN RN aa5 Maty Lynn RN RN ss Davis, Jacque Enriquez, wind up worker EKG [facility] Lashanda Topete RN RN Cristiano, Raiza Adame, Tete 3 Corrections: (The following items were deleted from the chart) 09:16 09:07 BP 84 / 65; Pulse 103bpm; Resp 18bpm; Spontaneous; Pulse Ox 100% RA; Temp 97.3F aa5 Axillary; Pain 0/10; aa5 09:40 09:38 NS 0.9% 500 ml IV at bolus in left antecubital aa5 aa5 14:51 12:12 BP 96 / 60; Pulse 119bpm; Resp 17bpm; Pulse Ox 97% 2 lpm Nasal Cannula; jb1 aa5 14:51 13:35 BP 113 / 76; Pulse 118bpm; Resp 16bpm; Pulse Ox 96% 2 lpm Nasal Cannula; Temp aa5 97.0F Axillary; jb1 14:55 10:30 Reassessment: Blood collected by Dr. Herbert . 15:01 15:00 Patient left the ED. 18:19 09:40 Reassessment: CT delayed due to hypotension. aa5 18:26 13:25 Reassessment: VO to restart RBC infusion now . aa5
--- NOTE | 2017-10-02 12:59 | EDPHYS ---
Physician Documentation [facility] Name: Darling Bianchi Age: 82 yrs Sex: Female : 1935 Arrival Date: 10/02/2017 Time: 09:06 Bed 4 Private MD: ED Physician Slim Herbert HPI: 10/02 09:25 This 82 yrs old Female presents to ER via EMS with complaints of generalized rn weakness. 09:25 Reports generalized weakness, sent by longterm for low BP, being treated with rn meropenem for UTI, + hx of stones with recent lithotripsy. . Onset: The symptoms/episode began/occurred at an unknown time. Severity of symptoms: At their worst the symptoms were moderate in the emergency department the symptoms are unchanged. The patient has experienced similar episodes in the past. The patient has been recently seen by a physician:. Historical: - Allergies: 09:55 Vancomycin; ph 09:55 Morphine; ph - Home Meds: 09:55 amiodarone 200 mg Oral tab 1 tab 2 times per day [Active]; ph 10:32 enoxaparin 80 mg/0.8 mL subcutaneous syrg once daily [Active]; ipratropium-albuterol ph inhalation Inhl [Active]; potassium chloride 20 mEq Oral TbER once daily [Active]; Lactobacillus acidophilus Oral cap twice a day [Active]; Lasix 20 mg Oral tab 3 tabs 2 times per day [Active]; latanoprost 0.005 % ophthalmic drop 1 drop once daily [Active]; Maalox Plus Extra Strength Oral 30 ml daily [Active]; pantoprazole 20 mg Oral TbEC 1 tab once daily [Active]; simvastatin 40 mg Oral tab 1 tab once daily [Active]; zinc sulfate 220 mg Oral tab [Active]; Zofran (as hydrochloride) 4 mg Oral tab 1 tabs every 6 hours [Active]; ascorbic acid (vitamin C) 500 mg tab daily [Active]; carvedilol 3.125 mg oral tab 0.5 tab 2 times per day [Active]; diphenoxylate-atropine 2.5-0.025 mg Oral tab 1 tablet 4 times per day for Diarrhea [Active]; docusate sodium 100 mg Oral cap 1 cap 2 times per day [Active]; donepezil 10 mg oral tab 1 tab once daily [Active]; acetaminophen 325 mg Oral tab 2 tabs every 6 hours [Active]; - PMHx: 09:55 aortic valve replacement 2010; Atrial Fib; Cellulitis; GERD; Glaucoma; Hyperlipidemia; ph Hypertension; Hypothyroidism; Kidney stones; Sepsis; UTI; - Family history:: not pertinent. - Ebola Screening: : No symptoms or risks identified at this time. - Hospitalizations: : No recent hospitalization is reported. ROS: 09:25 Constitutional: Negative for fever, chills, and weight loss, Eyes: Negative for injury, rn pain, redness, and discharge, Neck: Negative for injury, pain, and swelling, Cardiovascular: Negative for chest pain, palpitations, and edema, Respiratory: Negative for shortness of breath, cough, wheezing, and pleuritic chest pain, Abdomen/GI: Negative for abdominal pain, nausea, vomiting, diarrhea, and constipation, Back: Negative for injury and pain, MS/Extremity: Negative for injury and deformity, Skin: Negative for injury, rash, and discoloration, Neuro: + generalized weakness Exam: 09:25 Constitutional: Well developed, somnolent but awakens easily, no acute distress, rn joking with staff Head/Face: Normocephalic, atraumatic. Eyes: PERRL, pale conjunctivae ENT: dry MM Cardiovascular: tachycardic, regular, no murmur Respiratory: Lungs have equal breath sounds bilaterally, clear to auscultation and percussion. No rales, rhonchi or wheezes noted. No increased work of breathing, no retractions or nasal flaring. Abdomen/GI: Soft, non-tender, with normal bowel sounds. No distension or tympany. No guarding or rebound. No evidence of tenderness throughout. MS/ Extremity: Pulses equal, no cyanosis. Neurovascular intact. 2+ pitting edema bilateral lower ext. Neuro: Awake, GCS 15, oriented to person, place, and situation. Cranial nerves II-XII grossly intact. Motor strength 4/5 in all extremities. Sensory grossly intact. Vital Signs: 09:07 BP 84 / 65; Pulse 103; Resp 18 S; Temp 97.3(A); Pulse Ox 100% on 2 lpm NC; Pain 0/10; aa5 09:20 BP 75 / 41; Pulse 94; Resp 18 S; Pulse Ox 100% on 2 lpm NC; aa5 09:30 BP 73 / 47; Pulse 95; Resp 20 S; Pulse Ox 100% on 2 lpm NC; aa5 09:40 BP 70 / 37; Pulse 88; Resp 18 S; Pulse Ox 99% on 2 lpm NC; aa5 09:50 BP 65 / 32; Pulse 88; Resp 18 S; Pulse Ox 99% on 2 lpm NC; aa5 09:56 BP 75 / 43; Pulse 83; Resp 16 S; Pulse Ox 100% on 2 lpm NC; aa5 10:02 BP 68 / 40; Pulse 80; Resp 20 S; Pulse Ox 100% on 2 lpm NC; aa5 10:10 BP 73 / 40; Pulse 88; Resp 20 S; Pulse Ox 99% on 2 lpm NC; aa5 10:17 BP 66 / 39; Pulse 79; Resp 18 S; Pulse Ox 99% on 2 lpm NC; aa5 10:25 BP 66 / 39; Pulse 84; Resp 16 S; Pulse Ox 99% on 2 lpm NC; aa5 10:33 Weight 86.18 kg; ph 10:35 BP 70 / 42; Pulse 88; Resp 18 S; Pulse Ox 99% on 2 lpm NC; aa5 10:42 BP 68 / 40; Pulse 88; Resp 18 S; Pulse Ox 99% on 2 lpm NC; aa5 10:50 BP 89 / 43; Pulse 94; Resp 18 S; Pulse Ox 98% on 2 lpm NC; aa5 10:55 BP 83 / 50; Pulse 96; Resp 18 S; Pulse Ox 99% on 2 lpm NC; aa5 11:00 BP 80 / 72; Pulse 98; Resp 18 S; Pulse Ox 99% on 2 lpm NC; aa5 11:05 BP 92 / 62; Pulse 90; Resp 18 S; Pulse Ox 99% on 2 lpm NC; aa5 11:15 BP 90 / 61; Pulse 94; Resp 18 S; Pulse Ox 98% on 2 lpm NC; aa5 11:30 BP 89 / 54; Pulse 93; Resp 16 S; Pulse Ox 99% on 2 lpm NC; aa5 11:40 BP 107 / 51; Pulse 100; Resp 16 S; Pulse Ox 98% on 2 lpm NC; aa5 11:55 BP 101 / 70; Pulse 101; Resp 16 S; Pulse Ox 98% on 2 lpm NC; aa5 12:10 BP 89 / 63; Pulse 89; Resp 18 S; Temp 97.0(TE); Pulse Ox 100% on 2 lpm NC; aa5 12:20 BP 93 / 76; Pulse 109; Resp 20 S; Pulse Ox 100% on 2 lpm NC; aa5 12:30 BP 107 / 91; Pulse 115; Resp 18 S; Pulse Ox 99% on 2 lpm NC; aa5 12:40 BP 85 / 62; Pulse 108; Resp 20 S; Pulse Ox 99% on 2 lpm NC; aa5 13:00 BP 85 / 47; Pulse 108; Resp 20 S; Temp 97.2(TE); Pulse Ox 98% on 2 lpm NC; aa5 13:25 BP 101 / 80; Pulse 115; Resp 20 S; Temp 97.0(TE); Pulse Ox 100% on 2 lpm NC; aa5 13:30 BP 107 / 73; Pulse 116; Resp 18 S; Temp 97.0(TE); Pulse Ox 98% on 2 lpm NC; aa5 13:40 BP 123 / 84; Pulse 107; Resp 18 S; Temp 97.0(TE); Pulse Ox 99% on 2 lpm NC; aa5 13:45 BP 120 / 65; Pulse 110; Resp 18 S; Temp 96.8(TE); Pulse Ox 99% on 2 lpm NC; aa5 14:10 BP 100 / 65; Pulse 104; Resp 18 S; Temp 97.0(TE); Pulse Ox 99% on 2 lpm NC; aa5 14:20 BP 89 / 78; Pulse 101; Resp 18 S; Temp 97.0(TE); Pulse Ox 99% on 2 lpm NC; aa5 14:30 BP 98 / 70; Pulse 91; Resp 18 S; Temp 97.0(TE); Pulse Ox 100% on 2 lpm NC; aa5 13:00 See blood transfusion record for further VS aa5 Procedures: 10:31 Peripheral line: by aseptic technique a peripheral line was placed in the right rn antecubital vein, U/S guidance IV placed by Dr. Herbert, good blood flow and draw, no complications, single stick.. MDM: 09:06 Patient medically screened. rn 12:57 Differential Diagnosis sepsis, acute blood loss. Data reviewed: vital signs, nurses rn notes, lab test result(s), EKG, radiologic studies, CT scan, and as a result, I will admit patient. Counseling: I had a detailed discussion with the patient and/or guardian regarding: the historical points, exam findings, and any diagnostic results supporting the discharge/admit diagnosis, lab results, radiology results, the need to transfer to another facility, for higher level of care, [facility] does not immediately have the required specialist. Response to treatment: the patient's symptoms have mildly improved after treatment, and as a result, I will admit patient. ED course: Accepted for transfer to [facility] given recent ureteral stents, Urosepsis, and anemia requiring blood transfusion.. 10/02 09:09 Order name: Urine Culture rn 10/02 09:09 Order name: Urine Microscopic Only; Complete Time: 12:16 rn 10/02 09:09 Order name: Basic Metabolic Panel; Complete Time: 11:14 rn 10/02 09:09 Order name: Blood Culture Adult (2) rn 10/02 09:09 Order name: CBC with Diff; Complete Time: 11:14 rn 10/02 09:09 Order name: CPK; Complete Time: 11:14 rn 10/02 09:09 Order name: Lactate; Complete Time: 11:14 rn 10/02 09:09 Order name: LFT's; Complete Time: 11:14 rn 10/02 09:09 Order name: Lipase; Complete Time: 11:14 rn 10/02 09:09 Order name: Procalcitonin; Complete Time: 11:48 rn 10/02 09:09 Order name: Protime (+inr); Complete Time: 11:14 rn 10/02 09:09 Order name: Ptt, Activated; Complete Time: 11:14 rn 10/02 09:09 Order name: Troponin (emerg Dept Use Only); Complete Time: 11:14 rn 10/02 10:46 Order name: Type And Screen rn 10/02 09:09 Order name: Chest Single View XRAY; Complete Time: 12:50 rn 10/02 09:09 Order name: CT Stone Protocol; Complete Time: 12:16 rn 10/02 10:58 Order name: Bb Add On ag 10/02 11:42 Order name: Urine Dipstick--Ancillary (enter results) ag 10/02 11:42 Order name: Urine Dipstick-Ancillary; Complete Time: 11:48 EDMS 07/11 12:04 Order name: Packed RBC Leukored -1 EDMS 10/02 09:09 Order name: Accucheck; Complete Time: 09:18 rn 10/02 09:09 Order name: Cardiac monitoring; Complete Time: 09:18 rn 10/02 09:09 Order name: EKG - Nurse/Tech; Complete Time: 10:03 rn 10/02 09:09 Order name: IV Saline Lock - Large Bore; Complete Time: 10:53 rn 10/02 09:09 Order name: Labs collected and sent; Complete Time: 10:53 rn 10/02 09:09 Order name: O2 Per Protocol; Complete Time: 09:18 rn 10/02 09:09 Order name: O2 Sat Monitoring; Complete Time: 09:18 rn 10/02 09:09 Order name: Urine Dipstick-Ancillary (obtain specimen); Complete Time: 11:15 rn 10/02 14:30 Order name: EKG Electrocardiogram EDMS 10/02 14:30 Order name: EKG Electrocardiogram EDMS Administered Medications: 09:14 Drug: NS 0.9% 500 ml Route: IV; Rate: bolus; Site: PICC; ph 09:45 Follow up: IV Status: Completed infusion aa5 09:38 Drug: NS 0.9% 500 ml Route: IV; Rate: bolus; Site: PICC; aa5 10:02 Follow up: IV Status: Completed infusion aa5 09:40 Drug: Zofran 4 mg Route: IVP; Site: PICC; aa5 09:45 Follow up: Response: No adverse reaction; Nausea is decreased aa5 10:01 Drug: NS 0.9% 500 ml Route: IV; Rate: bolus; Site: PICC; aa5 10:33 Follow up: IV Status: Completed infusion aa5 10:45 Drug: Levophed (4 mg/250 mL D5W 4 mcg/min Route: IV; Rate: calculated rate; Site: PICC; aa5 11:30 Follow up: Infusion was started at 10mcg/min.Increased to 15mcg/min at 1055 and aa5 increased to 20mcg/min at 1130. 14:58 Follow up: Infusion increased to 25mcg/min at 1210, increased to 30mcg/min at 1300, aa5 decreased to 25mcg/min at 1340, decreased to 20mcg/min at 1345 12:37 Drug: Calcium Gluconate 1 grams Route: IVPB; Infused Over: 60 mins; Site: left ss antecubital; 14:00 Follow up: IV Status: Completed infusion aa5 14:55 Follow up: Infusion continued to R AC at 1300 aa5 12:39 Drug: Cefepime 1 grams {Note: administered IVP over 5 minutes per pharmacy protocol .} aa5 Route: IVPB; Rate: 200 ml/hr; Infused Over: 30 Titrate; Site: PICC; 12:45 Drug: Zofran 4 mg Route: IVP; Site: PICC; aa5 12:55 Follow up: Response: No adverse reaction; Nausea is decreased aa5 13:20 Drug: NS 0.9% 500 ml Route: IV; Rate: bolus; Site: PICC; aa5 13:50 Follow up: IV Status: Completed infusion aa5 14:10 Drug: Meropenem 500 mg Route: IV; Rate: calculated rate; Site: PICC; aa5 14:35 Follow up: IV Status: Order to discontinue infusion; Order to discontinue infusion. 22 aa5 G to R AC came out and pt only received 1/2 of the infusion, was notified.; Order to discontinue infusion. 22 G to R AC came out and pt only received approximately 1/2 of the infusion, was notified. Point of Care Testing: Blood Glucose: 09:09 Blood Glucose: 234 mg/dL; aa5 Guaiac: 10:57 Stool Guaiac: Positive; Stool Hemoccult Control: Pass; rn 10:57 trace positive rn Ranges: Critical Glucose Levels:Adult <50 mg/dl or >400 mg/dl <40 mg/dl or >180 mg/dl Disposition: 10/02/17 12:[address] [facility]. Diagnosis are Hypotension, Urosepsis, Anemia. - Reason for transfer: Higher level of care. - Accepting physician is Dr. Hanson. - Condition is Fair. - Problem is new. - Symptoms have improved. Critical care time excluding procedures: 12:57 Critical care time: Bedside Care: 30 minutes, Consultation: 5 minutes, Family rn Intervention: 5 minutes. Total time: 40 minutes Signatures: Dispatcher [employer] EDSlim Macedo MD MD rn Jansen, Riya, RN RN aa5 Maty Lynn, TREVIN ZHONG ss Lashanda Topete RN RN ph Corrections: (The following items were deleted from the chart) 14:03 12:58 10/02/2017 12:[address] [facility]. Diagnosis is rn Hypotension; Urosepsis; Anemia. Reason for transfer: Higher level of care. Accepting physician is Dr. Thakkar. Condition is Fair. Problem is new. Symptoms have improved. rn 15:00 14:03 10/02/2017 12:[address] [facility]. Diagnosis is aa5 Hypotension; Urosepsis; Anemia. Reason for transfer: Higher level of care. Accepting physician is Dr. Hanson. Condition is Fair. Problem is new. Symptoms have improved. rn
[2017-10-02] MEDS ORDERED: Meropenem 500 MG in NA CHLORIDE 0.9% 100 ML IV ONE (13:30)
--- NOTE | 2017-10-02 15:31 | EKG ---
Test Date: 2017-10-02 Test Time: 13:54:55 Service Unit Operator: REY MEASUREMENT RESULTS: Intervals: Rate: 95 [place]: QRSD: 102 QT: 372 QTc: 467 [place]: P: [place]: QRS: -20 T: 139 INTERPRETIVE STATEMENTS: Suspect unspecified pacemaker failure Atrial fibrillation with occasional atrial-paced complexes ST & T wave abnormality, consider lateral ischemia Prolonged QT Abnormal ECG Compared to ECG 10/02/2017 09:18:06 ST (T wave) deviation now present Myocardial infarct finding no longer present Electronically Signed On 10-02-17 15:31:03 CDT by Gaudencio Jain
--- NOTE | 2017-10-02 15:33 | EKG ---
Test Date: 2017-10-02 Test Time: 09:18:06 [employer] Pl[employer] Supervisor: RILEY MEASUREMENT RESULTS: Intervals: Rate: 100 [place]: QRSD: 104 QT: 414 QTc: 534 [place]: P: [place]: QRS: -17 T: 88 INTERPRETIVE STATEMENTS: Atrial fibrillation Cannot rule out Anterior infarct, age undetermined Prolonged QT Abnormal ECG Compared to ECG 07/08/2017 21:29:41 Left-axis deviation no longer present Myocardial infarct finding still present Electronically Signed On 10-02-17 15:32:47 CDT by Gaudencio Jain
== END 2017-10-02 15:00 | disposition short-term general hospital (02) ==
LOC: ER 08:58
PROC: 05HD33Z Insertion of Infusion Device into Right Cephalic Vein, Percutaneous Approach (ICD-10-PCS; principal; 2017-10-02)
PROC: 30233N1 Transfusion of Nonautologous Red Blood Cells into Peripheral Vein, Percutaneous Approach (ICD-10-PCS; 2017-10-02)
DX: A41.9 Sepsis, unspecified organism (principal); I95.9 Hypotension, unspecified; D64.9 Anemia, unspecified; I48.91 Unspecified atrial fibrillation; E78.5 Hyperlipidemia, unspecified; E03.9 Hypothyroidism, unspecified; Z88.3 Allergy status to other anti-infective agents; Z88.5 Allergy status to narcotic agent; Z95.4 Presence of other heart-valve replacement
CPT/HCPCS: 36415; 36430; 36569; 71045; 74176; 76377; 80048; 80076; 82550; 83605 ×2; 83690; 84145; 84484; 85025; 85610; 85730; 86850; 86900; 86901; 87040 ×2; 87086; 87088; 93005 ×2; J0610; J0692; J2405 ×2; J7030; J7060; P9016; 81003; 81015; 82962; 99291; 99292